=== PATIENT | male | born 1965 | race Caucasian/White ===

== ENCOUNTER 2020-01-21 00:20 | Inpatient (IN) ==
[2020-01-21] MEDS ORDERED: SODIUM CHLORIDE 0.9% 1000ML 1,000 ML IV SCH (00:45)
[2020-01-21 00:51] LABS: Basophils # (auto) 0.08 K/uL (0-0.2); Basophils % (auto) 0.9 %; Eosinophils # (auto) 0.19 K/uL (0-0.5); Eosinophils % (auto) 2.2 %; Hematocrit (blood only) 57.2 % (42-52); Hemoglobin 19.7 g/dL (14.0-18.0); Immature Granulocytes # (auto) 0.03 K/uL (0.00-0.02); Immature Granulocytes % (auto) 0.4 %; Lymphocytes # (auto) 1.58 K/uL (1.2-3.4); Lymphocytes % (auto) 18.7 %; Mean Corpuscular Hemoglobin 35.7 pg (25-34); Mean Corpuscular Volume 103.6 fL (80-100); Mean Platelet Volume 9.8 fL (7.4-10.4); Monocytes # (auto) 1.05 K/uL (0.11-0.59); Monocytes % (auto) 12.4 %; Neutrophils # (auto) 5.54 K/uL (1.4-6.5); Neutrophils % (auto) 65.4 %; Nucleated RBC # (auto) 0.02 K/uL (0-0); Nucleated RBC % (auto) 0.2 %; Platelet Count 319 K/uL (130-400); RDW Standard Deviation 49.2 fL (36.4-46.3); Red Blood Count 5.52 M/uL (4.7-6.1); White Blood Count 8.47 K/uL (4.8-10.8)
[2020-01-21] MEDS: METOPROLOL TARTRATE 1 MG/ML VIAL IV PRN ×3 (01:01→02:39)
[2020-01-21 01:10] LABS: Alanine Aminotransferase 126 U/L (12-78); Albumin Level 3.6 gm/dl (3.4-5.0); Aspartate Aminotransferase 41 U/L (15-37); BUN Creatinine Ratio 14.8 (10-20); Blood Urea Nitrogen 20 mg/dl (7-18); Calcium 8.8 mg/dl (8.5-10.1); Carbon Dioxide 27 mmol/L (21-32); Chloride 105 mmol/L (98-107); Creatinine Clr Calc Pharmacy 70.4 ml/min; Est GFR (African American) 67.8; Est GFR (Non-African American) 58.5; Glucose 99 mg/dl (70-99); Magnesium 1.8 mg/dl (1.8-2.4); Potassium 3.9 mmol/L (3.5-5.1); Sodium 138 mmol/L (136-145)
[2020-01-21 01:21] LABS: Albumin Globulin Ratio 0.9 (0.9-2); Alkaline Phosphatase 230 U/L (45-117); Globulin 4.2 gm/dl (2.5-4.0); Total Protein 7.8 gm/dl (6.4-8.2); Troponin I < 0.015 ng/ml (0-0.045)
[2020-01-21 01:23] LABS: Mean Corpuscular Hgb Conc 34.4 g/dL (32-36)
[2020-01-21 02:32] LABS: INR 1.1 (0.9-1.1); Partial Thromboplastin Ratio 0.9; Partial Thromboplastin Time 24.2 Seconds (21.0-31.0); Prothrombin Time 11.2 Seconds (9.0-12.0)
--- NOTE | 2020-01-21 03:00 | Emergency Department Note ---
History of Present Illness General Chief Complaint: Chest Pain Stated Complaint: CHEST PAINS, SOB Source: patient Mode of arrival: ambulatory Limitations: no limitations History of Present Illness Provider Complaint: chest pain and other (palpitations) Onset (ago): hour(s) 2 Duration: intermittent Maximum Pain Intensity: 3 This 54-year-old male patient presents the emergency department today, ambulatory, complaining of heart palpitations and shortness of breath. The patient states on Sunday evening, he developed the palpitations with some associated dyspnea. He had the weekend off work, and states he was doing well over the weekend. On Sunday when he returned to work, he continued to complain of palpitations, without the shortness of breath. He is able to get through work, but tonight when he got to work, he developed severe dyspnea with exertion, and was unable to walk 10 feet without feeling very short of breath. The patient is complaining of severe chest tightness. He denies any history of dysrhythmias. He denies any associated abdominal pain, nausea, or vomiting. The patient denies any recent illness or fever. He denies any history of hyperlipidemia, hypertension, or other cardiac disease. Patient denies any cur rent pain. He states that this max, pain was 3/10 and describes as sharp in the middle of the chest. Home Medications Home Medications Medication Instructions Recorded Confirmed Type acetaminophen [Tylenol Extra 500 - 1,000 mg PO DIRECTED PRN 01/21/20 01/21/20 History Strength] aspirin 325 mg PO DIRECTED PRN 01/21/20 01/21/20 History Allergies Allergy/AdvReac Type Severity Reaction Status Date / Time No Known Allergies Allergy Verified 01/21/20 00:54 Past Med/Surg History Medical History No pertinent past medical history Social History Preferred Language: Irish Feels Safe at Home: Yes Smoking Status: Never smoker Review of Systems A total of 10 systems reviewed and were otherwise negative Physical Exam Vital Signs Vital Signs - 24 hr 01/21/20 00:22 01/21/20 00:30 01/21/20 01:01 Temperature 36.6 C Temperature Source Oral Pulse Rate 78 143 H 138 H Pulse Rate from SpO2 Sensor 90 94 H Respiratory Rate 20 16 17 Respiratory Effort / Characteristics Non-Labored Spontaneous Respiratory Depth Normal Blood Pressure 136/92 110/88 122/86 Blood Pressure Mean 106 92 94 Pulse Oximetry 98 97 99 Oxygen Delivery Method Room Air Room Air Room Air Sepsis Action Taken by Nursing No Action Required 01/21/20 01:25 01/21/20 01:26 01/21/20 01:30 Temperature Temperature Source Pulse Rate 114 H 111 H 110 H Pulse Rate from SpO2 Sensor 106 H 109 H Respiratory Rate 15 14 Respiratory Effort / Characteristics Respiratory Depth Blood Pressure 122/86 111/79 96/77 L Blood Pressure Mean 84 83 Pulse Oximetry 98 98 Oxygen Delivery Method Room Air Room Air Sepsis Action Taken by Nursing 01/21/20 01:41 01/21/20 01:45 01/21/20 02:00 Temperature Temperature Source Pulse Rate 109 H 99 H 108 H Pulse Rate from SpO2 Sensor 101 H 96 H 97 H Respiratory Rate 18 15 15 Respiratory Effort / Characteristics Respiratory Depth Blood Pressure 104/75 96/72 L 107/82 Blood Pressure Mean 95 87 96 Pulse Oximetry 98 97 98 Oxygen Delivery Method Room Air Room Air Room Air Sepsis Action Taken by Nursing 01/21/20 02:15 01/21/20 02:30 01/21/20 02:39 Temperature Temperature Source Pulse Rate 108 H 106 H 105 H Pulse Rate from SpO2 Sensor 95 H 108 H Respiratory Rate 16 16 Respiratory Effort / Characteristics Respiratory Depth Blood Pressure 113/86 107/77 107/77 Blood Pressure Mean 107 97 Pulse Oximetry 98 99 Oxygen Delivery Method Room Air Room Air Sepsis Action Taken by Nursing 01/21/20 02:45 01/21/20 03:00 01/21/20 03:15 Temperature Temperature Source Pulse Rate 96 H 104 H 102 H Pulse Rate from SpO2 Sensor 95 H 87 110 H Respiratory Rate 14 19 18 Respiratory Effort / Characteristics Respiratory Depth Blood Pressure 96/74 L 107/79 119/92 Blood Pressure Mean 84 85 98 Pulse Oximetry 100 99 98 Oxygen Delivery Method Room Air Room Air Room Air Sepsis Action Taken by Nursing 01/21/20 03:30 01/21/20 03:45 01/21/20 04:01 Temperature Temperature Source Pulse Rate 111 H 110 H 116 H Pulse Rate from SpO2 Sensor 102 H Respiratory Rate 14 18 20 Respiratory Effort / Characteristics Respiratory Depth Blood Pressure 100/75 104/86 114/99 Blood Pressure Mean 80 91 102 Pulse Oximetry 98 99 98 Oxygen Delivery Method Room Air Sepsis Action Taken by Nursing 01/21/20 04:06 01/21/20 04:10 01/21/20 04:15 Temperature Temperature Source Pulse Rate 102 H 101 H 86 Pulse Rate from SpO2 Sensor 83 86 Respiratory Rate 18 18 13 Respiratory Effort / Characteristics Respiratory Depth Blood Pressure 107/70 108/73 98/73 L Blood Pressure Mean 81 86 79 Pulse Oximetry 97 97 97 Oxygen Delivery Method Room Air Sepsis Action Taken by Nursing VITALS: Vitals are noted on the nurse's note and reviewed by myself. Patient is tachycardic, but normotensive. OxyIR. Patient is afebrile. GENERAL: This is a 54-year-old white male, in no acute distress, nondiaphoretic, well-developed well-nourished. SKIN: The skin was without rashes, erythema, edema, or bruising. There is no tenting of the skin. Capillary refill less than 2 seconds. HEAD: Normocephalic atraumatic. EYES: Conjunctivae without injection, sclerae without icterus. NECK: Supple without nuchal rigidity. No lymphadenopathy. No thyromegaly. Cervical spine is nontender. No JVD. HEART: Irregular regular rate and rhythm without murmurs gallops or rubs. LUNGS: Clear to auscultation bilaterally without wheezes, rales or rhonchi. No retractions or accessory muscle use. ABDOMEN: Positive bowel sounds x 4. Normal tympanic percussion. Soft, nontender, without masses or organomegaly. Kirby sign negative. No guarding or rebound tenderness. MUSCULOSKELETAL: No muscle atrophy, erythema, or edema noted. Full range of motion without joint tenderness in all extremities. No tenderness to palpation. Normal gait. Strength 5/5 throughout. NEURO: Patient was alert and oriented to person place and time. Normal sensation to light and sharp touch. No focal neurological deficits. Course Course The patient was seen and evaluated as above. An order was placed for continuous cardiac monitoring. The monitor shows atrial fibrillation at a rate of 123 beats per minute. IV access obtained, labs drawn. Patient medicated with IV fluids. I discussed case with my attending physician. Patient medicated with metoprolol tartrate 5 mg IV x3 Patient was reassessed and is feeling better, denies any chest pain at this time, but continues to intermittently feel the palpitations. Imaging performed and reviewed by myself as noted. Labs reviewed by myself. Repeat EKG completed. Patient medicated with 10 mg IV Cardizem. I discussed the findings with the patient at bedside. I did recommend admission. The patient was agreeable. I discussed the case with the partnership manager. I discussed the case with Dr. Vasquez, [facility] physician. He did agree to see and evaluate the patient. Administered Medications Metoprolol Tartrate (Lopressor) 5 mg IV Q5M PRN PRN Reason: Tachycardia Stop: 02/20/20 00:38 Last Admin: 01/21/20 02:39 Dose: 5 mg Documented by: [id number] Admin: 01/21/20 01:25 Dose: 5 mg Documented by: [id number] Admin: 01/21/20 01:01 Dose: 5 mg Documented by: [id number] Discontinued Medications Diltiazem HCl (Cardizem) 10 mg IV NOW STA Stop: 01/21/20 03:49 Last Admin: 01/21/20 04:01 Dose: 10 mg Documented by: [id number] Cosigned by: [id number] Sodium Chloride (Nss 1000ml) 1,000 mls @ 999 mls/hr IV .Q1H1M UMBERTO Stop: 01/21/20 01:45 Last Infusion: 01/21/20 01:57 Dose: 0 mls/hr Documented by: [id number] Admin: 01/21/20 00:45 Dose: 999 mls/hr Documented by: [id number] Medical Decision Making Differential Diagnosis + stable angina, + unstable angina pectoris, + atypical chest pain, + st elevation myocardial infarction, + costochondritis, + biliary colic, + cardiac ischemia, + myocarditis, + pericarditis, + costochondritis, + pleurisy, + aortic dissection, + pulmonary embolism, + pneumonia, + musculoskeletal, + infections, + cholecystitis, + pancreatitis and + esophageal rupture Home Medications Current Medication List: was personally reviewed by me Laboratory Data Attestation: I reviewed the patient's lab results. Lab results narrative: No leukocytosis, anemia, thrombocytopenia. Renal, hepatic function and electrolytes without significant abnormality. Troponin negative. TSH 4.130. Coags normal. Result diagrams: 01/21/20 00:40 01/21/20 00:40 Labs: Lab Results 01/21/20 01/21/20 01/21/20 Range/Units 00:40 00:40 00:40 WBC 8.47 (4.8-10.8) K/uL RBC 5.52 (4.7-6.1) M/uL Hgb 19.7 H (14.0-18.0) g/dL Hct 57.2 H (42-52) % MCV 103.6 H (80-100) fL MCH 35.7 H (25-34) pg MCHC 34.4 (32-36) g/dL RDW Std Deviation 49.2 H (36.4-46.3) fL RDW Coeff of Dagmar 13.0 (11.5-14.5) % Plt Count 319 (130-400) K/uL MPV 9.8 (7.4-10.4) fL Immature Gran % (Auto) 0.4 % Neut % (Auto) 65.4 % Lymph % (Auto) 18.7 % [place] % (Auto) 12.4 % Eos % (Auto) 2.2 % Baso % (Auto) 0.9 % Immature Gran # (Auto) 0.03 H (0.00-0.02) K/uL Neut # (Auto) 5.54 (1.4-6.5) K/uL Lymph # (Auto) 1.58 (1.2-3.4) K/uL [place] # (Auto) 1.05 H (0.11-0.59) K/uL Eos # (Auto) 0.19 (0-0.5) K/uL Baso # (Auto) 0.08 (0-0.2) K/uL Absolute Nucleated RBC 0.02 H (0-0) K/uL Nucleated RBC % (auto) 0.2 % PT Cancelled INR Cancelled APTT Cancelled PTT Ratio Cancelled Sodium 138 (136-145) mmol/L Potassium 3.9 (3.5-5.1) mmol/L Chloride 105 (98-107) mmol/L Carbon Dioxide 27 (21-32) mmol/L Anion Gap 6.0 (3-11) BUN 20 H (7-18) mg/dl Creatinine 1.37 (0.6-1.4) mg/dl Est Cr Clr Drug Dosing 70.4 ml/min Est GFR ( Amer) 67.8 Est GFR (Non-Af Amer) 58.5 BUN/Creatinine Ratio 14.8 (10-20) Glucose 99 (70-99) mg/dl Calcium 8.8 (8.5-10.1) mg/dl Magnesium 1.8 (1.8-2.4) mg/dl Total Bilirubin 1.0 (0.2-1) mg/dl AST 41 H (15-37) U/L ALT 126 H (12-78) U/L Alkaline Phosphatase 230 H (45-117) U/L Troponin I < 0.015 (0-0.045) ng/ml Total Protein 7.8 (6.4-8.2) gm/dl Albumin 3.6 (3.4-5.0) gm/dl Globulin 4.2 H (2.5-4.0) gm/dl Albumin/Globulin Ratio 0.9 (0.9-2) TSH 4.130 (0.300-4.500) uIu/ml 01/21/20 Range/Units 01:49 WBC (4.8-10.8) K/uL RBC (4.7-6.1) M/uL Hgb (14.0-18.0) g/dL Hct (42-52) % MCV (80-100) fL MCH (25-34) pg MCHC (32-36) g/dL RDW Std Deviation (36.4-46.3) fL RDW Coeff of Dagmar (11.5-14.5) % Plt Count (130-400) K/uL MPV (7.4-10.4) fL Immature Gran % (Auto) % Neut % (Auto) % Lymph % (Auto) % [place] % (Auto) % Eos % (Auto) % Baso % (Auto) % Immature Gran # (Auto) (0.00-0.02) K/uL Neut # (Auto) (1.4-6.5) K/uL Lymph # (Auto) (1.2-3.4) K/uL [place] # (Auto) (0.11-0.59) K/uL Eos # (Auto) (0-0.5) K/uL Baso # (Auto) (0-0.2) K/uL Absolute Nucleated RBC (0-0) K/uL Nucleated RBC % (auto) % PT 11.2 INR 1.1 APTT 24.2 PTT Ratio 0.9 Sodium (136-145) mmol/L Potassium (3.5-5.1) mmol/L Chloride (98-107) mmol/L Carbon Dioxide (21-32) mmol/L Anion Gap (3-11) BUN (7-18) mg/dl Creatinine (0.6-1.4) mg/dl Est Cr Clr Drug Dosing ml/min Est GFR ( Amer) Est GFR (Non-Af Amer) BUN/Creatinine Ratio (10-20) Glucose (70-99) mg/dl Calcium (8.5-10.1) mg/dl Magnesium (1.8-2.4) mg/dl Total Bilirubin (0.2-1) mg/dl AST (15-37) U/L ALT (12-78) U/L Alkaline Phosphatase (45-117) U/L Troponin I (0-0.045) ng/ml Total Protein (6.4-8.2) gm/dl Albumin (3.4-5.0) gm/dl Globulin (2.5-4.0) gm/dl Albumin/Globulin Ratio (0.9-2) TSH (0.300-4.500) uIu/ml Imaging Data Chest x-ray: Attestation: I personally reviewed and interpreted this imaging study as follows: My impression: Chest x-ray. Findings: A chest x-ray was performed and revealed no pneumothorax, effusion, infiltrate, pulmonary edema, free air under the diaphragm, or wide mediastinum. ECG Data Attestation: I personally reviewed and interpreted this ECG as follows: Indication: chest pain and palpitations Rate (beats per minute): 134 Rhythm: atrial fibrillation Findings: no ST depression, no T-wave inversion and no ST elevation Comparison ECG Date: no prior available Additional Comments: Repeat EKG completed 2 hours later shows atrial fibrillation with RVR with ventricular rate of [address] elevation or depression. No significant change when compared to EKG completed earlier. Blood Pressure Blood Pressure Findings: Normal blood pressure MDM Narrative This 54-year-old male patient presents emergency department today with complai nts of chest pain, dyspnea on exertion, and palpitations. Upon arrival to the ED, the patient was found to be in atrial fibrillation with RVR. This is a new onset. The patient does not have any past cardiac history. Patient's rate was controlled while here in the emergency department with metoprolol followed by Cardizem. Unfortunately, the patient's rhythm did not convert. The patient's symptoms improved while here in the department, but I do feel that he will benefit from inpatient management. [facility] Please see hospitalist dictation regarding ongoing management care of this patient. The chart was completed utilizing [employer] voice recognition software. Grammatical errors, random word insertions, pronoun errors, and incomplete sentences are an occasional consequence of this system due to software limitations, ambient noise, and hardware issues. Any formal questions or concerns about the content, text, or information contained within the body of this dictation should be directly addressed to the provider for clarification. Impression & Plan Atrial fibrillation with RVR, Chest pain, Dyspnea on exertion Discharge Plan Visit Data Chief Complaint: Chest Pain Stated Complaint: CHEST PAINS, SOB ED Provider: Brianne Roa ED Midlevel Provider: Angelina Black Discharge Problem: Atrial fibrillation with RVR, Chest pain, Dyspnea on exertion Patient Disposition: Admitted As Inpatient Forms Stand Alone Forms: [facility], Virtual Emergency Department, Important Visit Information Prescriptions Prescriptions: No Action acetaminophen [Tylenol Extra Strength] 500 mg Tablet 500 - 1,000 mg PO DIRECTED PRN (Reason: Pain) RF: 0 aspirin 325 mg Tablet,Delayed Release (Dr/Ec) 325 mg PO DIRECTED PRN (Reason: Pain) RF: 0 Referrals Referrals: PCP,NO [Primary Care Provider] -
[2020-01-21] MEDS ORDERED: dilTIAZem HCl 5 MG/ML 5 ML VIAL IV STA ×2 (03:48→14:09)
[2020-01-21] MEDS ORDERED: NORMOSOL-R 500 ML IV ONE (04:30)
[2020-01-21] MEDS ORDERED: POTASSIUM CHLORIDE 20 MEQ TABCR PO STA (04:31)
[2020-01-21] MEDS ORDERED: MAGNESIUM SULFATE / D5W 1 GM/100 ML BAG IV STA (04:32)
[2020-01-21 04:58] LABS: D Dimer 680 ug/L FEU (0-500)
--- NOTE | 2020-01-21 05:10 | History & Physical Report ---
Date of Service January 21, 2020 Assessment & Plan (1) Atrial fibrillation with RVR: New onset ? Related to [place]OR[place] Polycythemia, poor sleep ? Secondary to [place] PCU Initiate maintenance beta-tong Rx for rate control IV heparin for thromboembolic prophylaxis TTE, Cardiology consult RE new onset A. fib Outpatient sleep study DVT prophylaxis. IV heparin Full code Text document was generated using [employer] voice recognition software. It may contain grammatical or spelling errors. Kindly contact undersigned for clarification of any documentation item in question. History of Present Illness Chief Complaint: Palpitations, shortness of breath Primary Care Provider: LENCHO Khoury History obtained from patient and records. Medical history significant for mild FLORENCE (not requiring CPAP from sleep study from 2 years ago). 5 days ago patient noted palpitations and shortness of breath at rest. Symptoms persistent over the next few days. No headache, no cough, no chest pain. 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 Not sleeping a lot. Patient actually stopped coffee, alcohol, energy drink consumption prior to symptoms as a healthy lifestyle measure. Last night symptoms accompanied by transient chest tightness. At the ER, patient noted to be in rapid A. fib. Cardiac rate 110-140s. Patient given boluses of Lopressor and Cardizem at the ER. Cardiac rate currently 90s. 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 [employer] Allergies Allergy/AdvReac Type Severity Reaction Status Date / Time No Known Allergies Allergy Verified 01/21/20 00:54 Home Medications Home Medications Medication Instructions Recorded Confirmed Type acetaminophen [Tylenol Extra 500 - 1,000 mg PO DIRECTED PRN 01/21/20 01/21/20 History Strength] aspirin 325 mg PO DIRECTED PRN 01/21/20 01/21/20 History Past Med/Surg History Medical History No pertinent past medical history Social History Preferred Language: Urdu Beliefs That Will Affect Care: None Current Living Situation: Alone Other Information That Helps Us Care for You: No Feels Safe at Home: Yes Safety Concerns: Feels Safe At This Time Smoking Status: Never smoker Hx Alcohol Use: Yes Alcohol type: beer Hx Substance Use: No Review of Systems Review of Systems: As per HPI, all 10 systems reviewed, all other ROS negative Physical Exam Physical Exam: GENERAL: Comfortable, pleasant, obese, no respiratory distress SKIN: Normal color, warm HEENT: [place] palpebral conjunctivae, no ptosis, dry buccal mucosa NECK : Supple, short neck, no tenderness CHEST : CTA, no tenderness HEART : irregular, no obvious murmurs ABDOMEN: Some distention, nontender EXTREMITIES : No LE swelling/tenderness, no other conspicuous deformities noted NEUROLOGIC : Coherent, no facial asymmetry, no other gross focality Results & Data Results & Data ([facility]) Vital Signs (Past 12 Hours) Vital Signs Temp Pulse Resp BP Pulse Ox 01/21/20 04:15 86 13 98/73 L 97 01/21/20 04:10 101 H 18 108/73 97 01/21/20 04:06 102 H 18 107/70 97 01/21/20 04:01 116 H 20 114/99 98 01/21/20 03:45 110 H 18 104/86 99 01/21/20 03:30 111 H 14 100/75 98 01/21/20 03:15 102 H 18 119/92 98 01/21/20 03:00 104 H 19 107/79 99 01/21/20 02:45 96 H 14 96/74 L 100 01/21/20 02:39 105 H 107/77 01/21/20 02:30 106 H 16 107/77 99 01/21/20 02:15 108 H 16 113/86 98 01/21/20 02:00 108 H 15 107/82 98 01/21/20 01:45 99 H 15 96/72 L 97 01/21/20 01:41 109 H 18 104/75 98 01/21/20 01:30 110 H 14 96/77 L 98 01/21/20 01:26 111 H 15 111/79 98 01/21/20 01:25 114 H 122/86 01/21/20 01:01 138 H 17 122/86 99 01/21/20 00:30 143 H 16 110/88 97 01/21/20 00:22 36.6 C 78 20 136/92 98 Laboratory Results Laboratory Results WBC 8.47 K/uL (4.8-10.8) 01/21/20 00:40 RBC 5.52 M/uL (4.7-6.1) 01/21/20 00:40 Hgb 19.7 g/dL (14.0-18.0) H 01/21/20 00:40 Hct 57.2 % (42-52) H 01/21/20 00:40 MCV 103.6 fL (80-100) H 01/21/20 00:40 MCH 35.7 pg (25-34) H 01/21/20 00:40 MCHC 34.4 g/dL (32-36) 01/21/20 00:40 RDW Std Deviation 49.2 fL (36.4-46.3) H 01/21/20 00:40 RDW Coeff of Dagmar 13.0 % (11.5-14.5) 01/21/20 00:40 Plt Count 319 K/uL (130-400) 01/21/20 00:40 MPV 9.8 fL (7.4-10.4) 01/21/20 00:40 Immature Gran % (Auto) 0.4 % 01/21/20 00:40 Neut % (Auto) 65.4 % 01/21/20 00:40 Lymph % (Auto) 18.7 % 01/21/20 00:40 [place] % (Auto) 12.4 % 01/21/20 00:40 Eos % (Auto) 2.2 % 01/21/20 00:40 Baso % (Auto) 0.9 % 01/21/20 00:40 Immature Gran # (Auto) 0.03 K/uL (0.00-0.02) H 01/21/20 00:40 Neut # (Auto) 5.54 K/uL (1.4-6.5) 01/21/20 00:40 Lymph # (Auto) 1.58 K/uL (1.2-3.4) 01/21/20 00:40 [place] # (Auto) 1.05 K/uL (0.11-0.59) H 01/21/20 00:40 Eos # (Auto) 0.19 K/uL (0-0.5) 01/21/20 00:40 Baso # (Auto) 0.08 K/uL (0-0.2) 01/21/20 00:40 Absolute Nucleated RBC 0.02 K/uL (0-0) H 01/21/20 00:40 Nucleated RBC % (auto) 0.2 % 01/21/20 00:40 PT 11.2 Seconds (9.0-12.0) 01/21/20 01:49 INR 1.1 (0.9-1.1) 01/21/20 01:49 APTT 24.2 Seconds (21.0-31.0) 01/21/20 01:49 PTT Ratio 0.9 01/21/20 01:49 D-Dimer 680 ug/L FEU (0-500) H* 01/21/20 01:49 Sodium 138 mmol/L (136-145) 01/21/20 00:40 Potassium 3.9 mmol/L (3.5-5.1) 01/21/20 00:40 Chloride 105 mmol/L (98-107) 01/21/20 00:40 Carbon Dioxide 27 mmol/L (21-32) 01/21/20 00:40 Anion Gap 6.0 (3-11) 01/21/20 00:40 BUN 20 mg/dl (7-18) H 01/21/20 00:40 Creatinine 1.37 mg/dl (0.6-1.4) 01/21/20 00:40 Est Cr Clr Drug Dosing 70.4 ml/min 01/21/20 00:40 Est GFR ( Amer) 67.8 01/21/20 00:40 Est GFR (Non-Af Amer) 58.5 01/21/20 00:40 BUN/Creatinine Ratio 14.8 (10-20) 01/21/20 00:40 Glucose 99 mg/dl (70-99) 01/21/20 00:40 Calcium 8.8 mg/dl (8.5-10.1) 01/21/20 00:40 Magnesium 1.8 mg/dl (1.8-2.4) 01/21/20 00:40 Total Bilirubin 1.0 mg/dl (0.2-1) 01/21/20 00:40 AST 41 U/L (15-37) H 01/21/20 00:40 ALT 126 U/L (12-78) H 01/21/20 00:40 Alkaline Phosphatase 230 U/L (45-117) H 01/21/20 00:40 Troponin I < 0.015 ng/ml (0-0.045) 01/21/20 00:40 Total Protein 7.8 gm/dl (6.4-8.2) 01/21/20 00:40 Albumin 3.6 gm/dl (3.4-5.0) 01/21/20 00:40 Globulin 4.2 gm/dl (2.5-4.0) H 01/21/20 00:40 Albumin/Globulin Ratio 0.9 (0.9-2) 01/21/20 00:40 TSH 4.130 uIu/ml (0.300-4.500) 01/21/20 00:[address] chest initial read: No evidence of acute pulmonary embolism. 3 mm calculus left kidney. Mild cardiomegaly. EKG as per my interpretation: Rate 115, A. fib, RAD, T wave abnormalities inferior leads
[2020-01-21] MEDS ORDERED: OPTIRAY 320 125ml IV PRN (05:38)
[2020-01-21] MEDS: HEPARIN SODIUM/DEXTROSE 25,000 UNITS/500 ML BAG IV SCH ×2 (05:57→21:05)
[2020-01-21] MEDS ORDERED: PROMETHAZINE HCL 12.5 MG in SODIUM CHLORIDE 0.9% 50 ML IV PRN (06:28)
[2020-01-21] MEDS ORDERED: METOPROLOL TARTRATE 25 MG TAB PO SCH (06:28)
[2020-01-21] MEDS ORDERED: LORazepam 0.5 MG/1 ML VIAL IV PRN (06:28)
[2020-01-21] MEDS ORDERED: ACETAMINOPHEN 325 MG TAB PO PRN (06:28)
[2020-01-21] MEDS ORDERED: NITROGLYCERIN SL 0.4 MG/TAB TAB SL PRN (06:28)
--- NOTE | 2020-01-21 06:47 | XRay Report ---
XR chest 1V portable HISTORY: 54 years-old Male palpitations acute shortness of breath with cardiac palpitations COMPARISON: CTA of the chest of same day TECHNIQUE: Portable AP view of the chest FINDINGS: Moderate cardiomegaly. No pneumothorax, pleural effusion, airspace consolidation or overt pulmonary e dee. Bones appear grossly intact. IMPRESSION: Cardiomegaly without acute process. ACT 112: Negative or not required by law. The above report was generated using voice recognition software. It may contain grammatical, syntax o r spelling errors. Electronically signed by: Matias Chaudhary M.D. 01/21/2020 6:46 AM
--- NOTE | 2020-01-21 06:56 | CT Scan Report ---
CT ANGIOGRAPHY OF THE CHEST, PULMONARY EMBOLUS PROTOCOL CLINICAL HISTORY: Midsternal chest pressure and tightness. Shortness of breath. Palpitations. COMPARISON STUDY: Chest radiograph January 21, 2020. TECHNIQUE: Following IV administration of 119 mL of Optiray-320, helical axial images of the chest we re obtained utilizing the pulmonary embolus protocol. Maximal intensity projections and sagittal and coronal reformats were viewed on an independent 3D workstation. IV contrast was administered withou t complication. Automated exposure control was utilized for the study. A dose lowering technique wa s utilized adhering to the principles of ALARA. CT DOSE: 604.16 mGycm FINDINGS: No pulmonary emboli are identified. No thoracic aortic dissection is noted. Heart is mildl y enlarged. There is no pericardial effusion. There is a mildly enlarged left upper mediastinal lymph node, measuring 1.5 cm in short axis diameter. This is shown on axial image 96 of 117. There is no h ilar or axillary lymphadenopathy. No pneumothorax or pleural effusion is noted. No consolidation to s uggest pneumonia. Mild groundglass opacities favor atelectasis. Bony thorax is unremarkable. Mildly e nlarged upper abdominal lymph nodes are noted. A portacaval lymph node measures 1.9 cm in short axis diameter. A 2 mm calculus within the upper pole of the left kidney is noted. Note is made of a 1.2 cm lesion within the upper pole of the right kidney measures above water attenuation. IMPRESSION: 1. No pulmonary emboli identified. 2. No acute findings within the chest. 3. Mild cardiomegaly. 4. Mildly enlarged mediastinal and upper abdominal lymph nodes. These are nonspecific and a short-ter m follow-up CT in 3 months could be obtained to ensure stability. This finding will be called/faxed t o the ordering provider at time of dictation. 5. 1.2 cm right upper pole renal lesion which measures above water attenuation. This could reflect a complex cyst or small solid renal lesion. A renal ultrasound is recommended. ACT 112: Negative or not required by law. Electronically signed by: Gerry Adhikari M.D. 01/21/2020 6:54 AM
[2020-01-21] MEDS: Heparin IV Standard *NO* Bolus IV SCH (07:00)
--- NOTE | 2020-01-21 10:17 | Cardiology Consultation ---
Date of Consultation January 21, 2020 Assessment & Plan (1) Atrial fibrillation with RVR: The pathophysiology and treatment options for atrial fibrillation were discussed with him in great detail today. He has been started on appropriate beta-blockade and IV heparin. I will increase the dose of beta-tong at this time to 25 mg p.o. every 6 hours for further rate control. Given his significant symptoms I do believe that a rhythm control strategy would be prudent and will plan for a transesophageal echocardiogram guided cardioversion during this stay. He will be continued on heparin for anticoagulation for now but will discharge home on Eliquis, the pros and cons of vitamin K agonist versus non-vitamin K agonist anticoagulation were discussed with him at great lengths and he agrees with Eliquis. (2) Dyspnea on exertion: Likely secondary to above. We will rule out ischemia as a possible cause as well (3) Chest pain: Likely secondary to A. fib with RVR but again will rule out ischemia. (4) Cardiomyopathy: Newly discovered biventricular failure. LV systolic function showing moderate global hypokinesis with an EF of 40 to 45%. The pathophysiology and differential diagnosis for this was discussed with him at great lengths. I believe the most prudent course of action at this time would be to rule out ischemia as a possible cause and will proceed directly to cardiac catheterization in the a.m. The risks and benefits of which were discussed with the patient. At the same time we will change him over to evidence-based beta-tong in the a.m. He will be started on aldosterone antagonist prior to discharge He will also be started on ARB prior to discharge as his blood pressure allows. My hope at this point is that this is a tachycardia induced cardiomyopathy and will resolve with religious of sinus rhythm. But again will treat with guideline directed medical therapy at this time (5) Right ventricular failure: CT of the chest without PE or significant pulmonary pathology (6) Transaminitis: Will defer to the primary team History of Present Illness Reason for Consultation: afib with rvr Requesting Physician: Dr. Pagan Attending Physician: Zbigniew Pagan MD History of Present Illness It was my pleasure to see Mr. Menon in consultation today January 21, 2020. He is a very pleasant 54-year-old gentleman who historically has not required ongoing medical care. He presented to [facility] early in the a.m. of 01/21/2020 with complaints of palpitations. He states that he first noticed these approximately 3 days prior to presentation. He states that he just felt his heart started to race in his chest. He did not have any associated symptoms at that time and took it easy for a couple days thinking that it might go away on its own. Then last evening he went back to work for his scheduled shift and he started becoming very short of breath with just minimal activity. He states that he could only walk about 5 steps before he got significantly short of breath. He says the shortness of breath was bad enough that he had to stop to catch his breath. This was also associated with left-sided chest pain. He described the pain as a pressure sensation across his left precordium. He denied any radiation of the discomfort or associated nausea or diaphoresis. He did become lightheaded and dizzy at that time as well and decided coming to the emergency room. Upon arrival emergency department he was found to be in atrial fibrillation with rapid ventricular response. He was admitted to telemetry on oral beta-blockers and IV heparin. He states that overnight he can still feels heart racing in his chest but otherwise feels well. He denies any history of cardiac issues. He did have high blood pressure in the past which she controlled through therapeutic lifestyle changes. He denies any recent illnesses and has been feeling well up until this time. He specifically notes that he is made some healthy lifestyle changes a few weeks ago cutting out caffeine, alcohol and highly caloric foods. Allergies Allergy/AdvReac Type Severity Reaction Status Date / Time No Known Allergies Allergy Verified 01/21/20 00:54 Home Medications Home Medications Medication Instructions Recorded Confirmed Type acetaminophen [Tylenol Extra 500 - 1,000 mg PO DIRECTED PRN 01/21/20 01/21/20 History Strength] aspirin 325 mg PO DIRECTED PRN 01/21/20 01/21/20 History Patient History Medical History No pertinent past medical history Social History Preferred Language: Palestinian Beliefs That Will Affect Care: None Current Living Situation: Alone Other Information That Helps Us Care for You: No Feels Safe at Home: Yes Safety Concerns: Feels Safe At This Time Smoking Status: Never smoker Hx Alcohol Use: Yes Alcohol type: beer Hx Substance Use: No Review of Systems Review of Systems: All systems reviewed & are unremarkable except as noted in HPI & below Physical Exam Physical Exam: General: Awake, alert and oriented x 3. No acute distress. HEENT: Normocephalic, atraumatic. Pupils equal, round and reactive to light and accommodation. Extraocular muscles are intact. Anicteric sclera. Moist mucous membranes. Neck: No JVD. No bruit. Cardiovascular: irregularly irregular, unable to appreciate murmur, rub or gallop. Pulmonary: Clear to auscultation bilaterally. No rales, rhonchi, or wheezing. Abdomen: Bowel sounds x 4, soft. No rebound, guarding or tenderness. No organomegaly. Extremities: No clubbing, cyanosis or edema. +2 pedal pulses bilaterally. Skin: Warm and dry. Results & Data ([facility]) Vital Signs (Past 12 Hours) Vital Signs Temp Pulse Pulse Pulse Resp BP BP 01/21/20 08:02 36.9 C 101 H 16 122/82 01/21/20 07:00 110 H 21 01/21/20 06:29 37.3 C 100 H 18 117/87 01/21/20 05:40 105 H 20 132/90 01/21/20 05:39 97 H 20 112/81 01/21/20 05:25 96 H 20 113/86 01/21/20 05:20 102 H 20 116/92 01/21/20 05:16 110 H 20 136/106 H 01/21/20 05:10 106 H 20 120/106 H 01/21/20 05:08 95 H 22 123/97 01/21/20 04:55 100 H 20 106/90 01/21/20 04:50 101 H 20 119/80 01/21/20 04:45 96 H 20 105/82 01/21/20 04:40 89 20 107/87 01/21/20 04:35 95 H 20 128/78 01/21/20 04:30 92 H 20 111/75 01/21/20 04:25 90 20 103/77 01/21/20 04:20 84 20 100/88 01/21/20 04:15 86 13 98/73 L 01/21/20 04:10 101 H 18 108/73 01/21/20 04:06 102 H 18 107/70 01/21/20 04:01 116 H 20 114/99 01/21/20 03:45 110 H 18 104/86 01/21/20 03:30 111 H 14 100/75 01/21/20 03:15 102 H 18 119/92 01/21/20 03:00 104 H 19 107/79 01/21/20 02:45 96 H 14 96/74 L 01/21/20 02:39 105 H 107/77 01/21/20 02:30 106 H 16 107/77 01/21/20 02:15 108 H 16 113/86 01/21/20 02:00 108 H 15 107/82 01/21/20 01:45 99 H 15 96/72 L 01/21/20 01:41 109 H 18 104/75 01/21/20 01:30 110 H 14 96/77 L 01/21/20 01:26 111 H 15 111/79 01/21/20 01:25 114 H 122/86 01/21/20 01:01 138 H 17 122/86 01/21/20 00:30 143 H 16 110/88 01/21/20 00:22 36.6 C 78 20 136/92 Pulse Ox 01/21/20 08:02 98 01/21/20 07:00 01/21/20 06:29 97 01/21/20 05:40 98 01/21/20 05:39 99 01/21/20 05:25 98 01/21/20 05:20 98 01/21/20 05:16 97 01/21/20 05:10 97 01/21/20 05:08 98 01/21/20 04:55 98 01/21/20 04:50 98 01/21/20 04:45 96 01/21/20 04:40 96 01/21/20 04:35 96 01/21/20 04:30 97 01/21/20 04:25 97 01/21/20 04:20 97 01/21/20 04:15 97 01/21/20 04:10 97 01/21/20 04:06 97 01/21/20 04:01 98 01/21/20 03:45 99 01/21/20 03:30 98 01/21/20 03:15 98 01/21/20 03:00 99 01/21/20 02:45 100 01/21/20 02:39 06/10/20 02:30 99 01/21/20 02:15 98 01/21/20 02:00 98 01/21/20 01:45 97 01/21/20 01:41 98 01/21/20 01:30 98 01/21/20 01:26 98 01/21/20 01:25 01/21/20 01:01 99 01/21/20 00:30 97 01/21/20 00:22 98 Laboratory Results Laboratory Results - last 24 hr 01/21/20 01/21/20 01/21/20 00:40 00:40 00:40 WBC 8.47 RBC 5.52 Hgb 19.7 H Hct 57.2 H MCV 103.6 H MCH 35.7 H MCHC 34.4 RDW Std Deviation 49.2 H RDW Coeff of Dagmar 13.0 Plt Count 319 MPV 9.8 Immature Gran % (Auto) 0.4 Neut % (Auto) 65.4 Lymph % (Auto) 18.7 Culberson % (Auto) 12.4 Eos % (Auto) 2.2 Baso % (Auto) 0.9 Immature Gran # (Auto) 0.03 H Neut # (Auto) 5.54 Lymph # (Auto) 1.58 Culberson # (Auto) 1.05 H Eos # (Auto) 0.19 Baso # (Auto) 0.08 Absolute Nucleated RBC 0.02 H Nucleated RBC % (auto) 0.2 PT Cancelled INR Cancelled APTT Cancelled PTT Ratio Cancelled D-Dimer Sodium 138 Potassium 3.9 Chloride 105 Carbon Dioxide 27 Anion Gap 6.0 BUN 20 H Creatinine 1.37 Est Cr Clr Drug Dosing 70.4 Est GFR ( Amer) 67.8 Est GFR (Non-Af Amer) 58.5 BUN/Creatinine Ratio 14.8 Glucose 99 Calcium 8.8 Magnesium 1.8 Total Bilirubin 1.0 AST 41 H ALT 126 H Alkaline Phosphatase 230 H Troponin I < 0.015 Total Protein 7.8 Albumin 3.6 Globulin 4.2 H Albumin/Globulin Ratio 0.9 Lipase TSH 4.130 01/21/20 01/21/20 01/21/20 00:40 01:49 01:49 WBC RBC Hgb Hct MCV MCH MCHC RDW Std Deviation RDW Coeff of Dagmar Plt Count MPV Immature Gran % (Auto) Neut % (Auto) Lymph % (Auto) Culberson % (Auto) Eos % (Auto) Baso % (Auto) Immature Gran # (Auto) Neut # (Auto) Lymph # (Auto) [place]berson # (Auto) Eos # (Auto) Baso # (Auto) Absolute Nucleated RBC Nucleated RBC % (auto) PT 11.2 INR 1.1 APTT 24.2 PTT Ratio 0.9 D-Dimer 680 H* Sodium Potassium Chloride Carbon Dioxide Anion Gap BUN Creatinine Est Cr Clr Drug Dosing Est GFR ( Amer) Est GFR (Non-Af Amer) BUN/Creatinine Ratio Glucose Calcium Magnesium Total Bilirubin AST ALT Alkaline Phosphatase Troponin I Total Protein Albumin Globulin Albumin/Globulin Ratio Lipase 133 TSH Medications Administered Current Inpatient Medications Acetaminophen (Tylenol) 650 mg PO Q4H PRN PRN Reason: Pain or Fever Stop: 02/20/20 06:27 Heparin Sodium/Dextrose (Heparin Sodium/Dextrose) 25,000 units in 500 mls @ 29 mls/hr IV .[id number] [facility]; Protocol Stop: 02/20/20 05:14 Last Titration: 01/21/20 06:56 Dose: 1,450 units/hr, 29 mls/hr Documented by: Promethazine HCl 12.5 mg/ (Sodium Chloride) 50.5 mls @ 202 mls/hr IV Q6H PRN PRN Reason: Nausea And Vomiting Stop: 02/20/20 06:27 Lorazepam (Ativan) 0.5 mg in 1 mls @ 1 mls/min IV Q4H PRN PRN Reason: Anxiety/Agitation Stop: 02/20/20 06:27 Metoprolol Tartrate (Lopressor) 25 mg PO BID [facility] Stop: 02/20/20 06:27 Last Admin: 01/21/20 06:59 Dose: 25 mg Documented by: Nitroglycerin (Nitrostat) 0.4 mg SL UD PRN PRN Reason: Chest Pain Stop: 02/20/20 06:27 (1) Chest pain Chest pain type: unspecified Qualified Code(s): R07.9 - Chest pain, unspecified
--- NOTE | 2020-01-21 11:48 | Hospitalist Progress Note ---
Date of Service January 21, 2020 Assessment & Plan (1) Atrial fibrillation with RVR: New onset atrial fibrillation since symptoms of palpitation and shortness of breath started recently Has been on intravenous Cardizem, heparin drip and oral beta-tong started as of today Rate seems to be improving Appreciate cardiology input and recommendation Plan to wean off Cardizem and continue with long-acting beta blockade Plan cardiac cath tomorrow and possible elective cardioversion thereafter Cardiomyopathy Echocardiography showed LV systolic function is decreased with moderate global hypokinesis with an EF of 40 to 45% He will have cardiac cath tomorrow Possible elective cardioversion thereafter Exertional shortness of breath Likely secondary to A. fib with RVR and is complicated by diagnosed cardiomyopathy as above Polycythemia Likely secondary to nocturnal hypoxemia due to sleep apnea Will monitor CBC Transaminitis Elevated AST and ALT without elevation of alkaline phosphatase He has history of jaundice with liver biopsy 8 years ago Mentioned that he recovered from it and no history of IV drug abuse and/or blood transfusion Denies any use of alcohol We will get hepatitis panel and monitor LFTs Abnormal CT of the chest He has few mediastinal and upper abdominal lymph nodes which are minimally enlarged Doubt any significant pathology but that has to be followed up as an outpatient with a CAT scan in about 6 months DVT prophylaxis Has been on intravenous heparin CODE STATUS Full Admission and Anticipated Discharge Date Admission Date: January 21, 2020 Subjective The patient was seen and examined in ICU He was admitted yesterday with chest pain secondary to A. fib with RVR He has been on Cardizem drip and getting beta-blockade Has been feeling a lot better but he still has occasional palpitation Denies any more chest pain Review of Systems Review of Systems: All systems reviewed and are unremarkable except as noted below Respiratory: no dyspnea and no wheezing Cardiovascular: + palpitations; no chest pain and no dyspnea Physical Exam Physical Exam: Lying in bed comfortably Constitutional: well developed, well nourished and + obese; no acute distress and not ill appearing Eyes: PERRL, conjunctivae normal, anicteric sclerae ENMT: external ear and nose normal, oropharynx normal Neck: trachea midline, no thyromegaly Respiratory: normal respiratory effort; no respiratory distress Auscultation: lungs clear to auscultation bilaterally Cardiovascular: Rate/Rhythm: + irregularly irregular Heart Sounds: + murmur (2/6 ejection systolic murmur over precordium) Gastrointestinal (Abdomen): Inspection/Auscultation: abdomen normal to inspection and normal bowel sounds; abdomen not distended Percussion/Palpation: abdomen soft; abdomen nontender Musculoskeletal: No acute arthritis involving any joints Neurologic: moves all extremities; no focal motor deficits Lymphatic: no cervical or axillary lymphadenopathy Results & Data Results & Data ([facility]) Vital Signs (Past 12 Hours) Vital Signs Temp Pulse Pulse Pulse Resp BP BP 01/21/20 11:08 36.6 C 114 H 16 122/91 01/21/20 08:02 36.9 C 101 H 16 122/82 01/21/20 07:00 110 H 21 01/21/20 06:29 37.3 C 100 H 18 117/87 01/21/20 05:40 105 H 20 132/90 01/21/20 05:39 97 H 20 112/81 01/21/20 05:25 96 H 20 113/86 01/21/20 05:20 102 H 20 116/92 01/21/20 05:16 110 H 20 136/106 H 01/21/20 05:10 106 H 20 120/106 H 01/21/20 05:08 95 H 22 123/97 01/21/20 04:55 100 H 20 106/90 01/21/20 04:50 101 H 20 119/80 01/21/20 04:45 96 H 20 105/82 01/21/20 04:40 89 20 107/87 01/21/20 04:35 95 H 20 128/78 01/21/20 04:30 92 H 20 111/75 01/21/20 04:25 90 20 103/77 01/21/20 04:20 84 20 100/88 01/21/20 04:15 86 13 98/73 L 01/21/20 04:10 101 H 18 108/73 01/21/20 04:06 102 H 18 107/70 01/21/20 04:01 116 H 20 114/99 01/21/20 03:45 110 H 18 104/86 01/21/20 03:30 111 H 14 100/75 01/21/20 03:15 102 H 18 119/92 01/21/20 03:00 104 H 19 107/79 01/21/20 02:45 96 H 14 96/74 L 01/21/20 02:39 105 H 107/77 01/21/20 02:30 106 H 16 107/77 01/21/20 02:15 108 H 16 113/86 01/21/20 02:00 108 H 15 107/82 01/21/20 01:45 99 H 15 96/72 L 01/21/20 01:41 109 H 18 104/75 01/21/20 01:30 110 H 14 96/77 L 01/21/20 01:26 111 H 15 111/79 01/21/20 01:25 114 H 122/86 01/21/20 01:01 138 H 17 122/86 01/21/20 00:30 143 H 16 110/88 01/21/20 00:22 36.6 C 78 20 136/92 Pulse Ox 01/21/20 11:08 96 01/21/20 08:02 98 01/21/20 07:00 01/21/20 06:29 97 01/21/20 05:40 98 01/21/20 05:39 99 01/21/20 05:25 98 01/21/20 05:20 98 01/21/20 05:16 97 01/21/20 05:10 97 01/21/20 05:08 98 01/21/20 04:55 98 01/21/20 04:50 98 01/21/20 04:45 96 01/21/20 04:40 96 01/21/20 04:35 96 01/21/20 04:30 97 01/21/20 04:25 97 01/21/20 04:20 97 01/21/20 04:15 97 01/21/20 04:10 97 01/21/20 04:06 97 01/21/20 04:01 98 01/21/20 03:45 99 01/21/20 03:30 98 01/21/20 03:15 98 01/21/20 03:00 99 01/21/20 02:45 100 01/21/20 02:39 01/21/20 02:30 99 01/21/20 02:15 98 01/21/20 02:00 98 01/21/20 01:45 97 01/21/20 01:41 98 01/21/20 01:30 98 01/21/20 01:26 98 01/21/20 01:25 01/21/20 01:01 99 01/21/20 00:30 97 01/21/20 00:22 98 Laboratory Results Short CBC 01/21/20 Range/Units 00:40 WBC 8.47 (4.8-10.8) K/uL Hgb 19.7 H (14.0-18.0) g/dL Hct 57.2 H (42-52) % Plt Count 319 (130-400) K/uL BMP 01/21/20 00:40 Sodium 138 Potassium 3.9 Chloride 105 Carbon Dioxide 27 BUN 20 H Creatinine 1.37 Glucose 99 Calcium 8.8 Cardiac Enzymes 01/21/20 Range/Units 00:40 Troponin I < 0.015 (0-0.045) ng/ml Liver Function 01/21/20 Range/Units 00:40 Total Bilirubin 1.0 (0.2-1) mg/dl AST 41 H (15-37) U/L ALT 126 H (12-78) U/L Alkaline Phosphatase 230 H (45-117) U/L Albumin 3.6 (3.4-5.0) gm/dl Medications Administered Current Inpatient Medications Acetaminophen (Tylenol) 650 mg PO Q4H PRN PRN Reason: Pain or Fever Stop: 02/20/20 06:27 Heparin Sodium/Dextrose (Heparin Sodium/Dextrose) 25,000 units in 500 mls @ 29 mls/hr IV .[id number] [facility]; Protocol Stop: 02/20/20 05:14 Last Titration: 01/21/20 06:56 Dose: 1,450 units/hr, 29 mls/hr Documented by: Promethazine HCl 12.5 mg/ (Sodium Chloride) 50.5 mls @ 202 mls/hr IV Q6H PRN PRN Reason: Nausea And Vomiting Stop: 02/20/20 06:27 Lorazepam (Ativan) 0.5 mg in 1 mls @ 1 mls/min IV Q4H PRN PRN Reason: Anxiety/Agitation Stop: 02/20/20 06:27 Metoprolol Tartrate (Lopressor) 25 mg PO Q6 UMBERTO Stop: 02/20/20 10:29 Nitroglycerin (Nitrostat) 0.4 mg SL UD PRN PRN Reason: Chest Pain Stop: 02/20/20 06:27
[2020-01-21 12:16] LABS: Partial Thromboplastin Ratio 1.6; Partial Thromboplastin Time 44.1 Seconds (21.0-31.0)
[2020-01-21] MEDS: METOPROLOL TARTRATE 25 MG TAB PO SCH ×4 (12:34→23:48)
[2020-01-21] MEDS ORDERED: HEPARIN IV BOLUS 3,000 UNITS in SYRINGE 0 ML IV ONE (12:45)
[2020-01-21] MEDS ORDERED: STAT IV Infusion **Titration per Protocol STA (14:09)
[2020-01-21] MEDS ORDERED: dilTIAZem HCL 125 MG in DEXTROSE 5% 100 ML IV SCH (14:30)
[2020-01-21 14:53] LABS: Hepatitis B Surface Antigen Neg (Neg)
[2020-01-21 15:22] LABS: Hepatitis C IgG 13Yrs+Old_Rflx Neg (Neg)
[2020-01-21 19:02] LABS: Basophils # (auto) 0.07 K/uL (0-0.2); Basophils % (auto) 1.2 %; Eosinophils # (auto) 0.18 K/uL (0-0.5); Eosinophils % (auto) 3.2 %; Hematocrit (blood only) 50.6 % (42-52); Hemoglobin 17.5 g/dL (14.0-18.0); Immature Granulocytes # (auto) 0.04 K/uL (0.00-0.02); Immature Granulocytes % (auto) 0.7 %; Lymphocytes # (auto) 1.69 K/uL (1.2-3.4); Lymphocytes % (auto) 29.8 %; Mean Corpuscular Hemoglobin 35.7 pg (25-34); Mean Corpuscular Hgb Conc 34.6 g/dL (32-36); Mean Corpuscular Volume 103.3 fL (80-100); Mean Platelet Volume 9.7 fL (7.4-10.4); Monocytes # (auto) 0.69 K/uL (0.11-0.59); Monocytes % (auto) 12.1 %; Neutrophils # (auto) 3.01 K/uL (1.4-6.5); Platelet Count 239 K/uL (130-400); RDW Standard Deviation 49.1 fL (36.4-46.3); White Blood Count 5.68 K/uL (4.8-10.8)
[2020-01-21 19:19] LABS: Appearance Urine Clear (Clear); Bacteria Urine Automated Negative (Negative); Bilirubin Urine Negative (Negative); Blood Urine 2+ (Negative); Cast Urine Automated 0 /lpf (0-5); Color Urine Yellow; Epithelial Cell Urine Auto 0-5 /lpf (0-5); Glucose Urine UA Negative (Negative); Ketones Urine Negative (Negative); Leukocyte Esterase Urine Negative (Negative); Nitrite Urine Negative (Negative); Protein Urine Negative (Negative); Specific Gravity Urine 1.018 (1.000-1.030); Urobilinogen Urine Negative (Negative); WBC Urine Automated 0 /hpf (0-5); pH Urine 6.5 (4.5-7.5)
[2020-01-21 19:22] LABS: Partial Thromboplastin Ratio 2.5
[2020-01-21 19:32] LABS: Partial Thromboplastin Time 71.1 Seconds (21.0-31.0)
[2020-01-21 19:34] LABS: Amphetamines+Metham, Urine Neg (Neg); Barbiturates, Urine Neg (Neg); Benzodiazepine, Urine Neg (Neg); Cocaine, Urine Neg (Neg); MDMA (Ecstacy), Urine Neg (Neg); Methadone, Urine Neg (Neg); Opiate, Urine Neg (Neg); Phencyclidine, Urine Neg (Neg)
[2020-01-21] MEDS: SODIUM CHLORIDE 0.9% 1000ML 1,000 ML IV SCH (23:47)
[2020-01-22 02:13] LABS: Basophils # (auto) 0.06 K/uL (0-0.2); Basophils % (auto) 1.2 %; Eosinophils # (auto) 0.15 K/uL (0-0.5); Hematocrit (blood only) 51.9 % (42-52); Immature Granulocytes # (auto) 0.03 K/uL (0.00-0.02); Immature Granulocytes % (auto) 0.6 %; Lymphocytes # (auto) 1.36 K/uL (1.2-3.4); Lymphocytes % (auto) 26.8 %; Mean Corpuscular Hemoglobin 35.8 pg (25-34); Mean Corpuscular Hgb Conc 34.7 g/dL (32-36); Mean Corpuscular Volume 103.2 fL (80-100); Mean Platelet Volume 9.7 fL (7.4-10.4); Monocytes % (auto) 13.8 %; Neutrophils # (auto) 2.78 K/uL (1.4-6.5); Neutrophils % (auto) 54.6 %; Platelet Count 261 K/uL (130-400); RDW Coefficient of Variation 13.1 % (11.5-14.5); RDW Standard Deviation 49.3 fL (36.4-46.3); Red Blood Count 5.03 M/uL (4.7-6.1); White Blood Count 5.08 K/uL (4.8-10.8)
[2020-01-22 02:30] LABS: Albumin Level 3.1 gm/dl (3.4-5.0); BUN Creatinine Ratio 12.7 (10-20); Calcium 8.4 mg/dl (8.5-10.1); Creatinine Clr Calc Pharmacy 84.6 ml/min; Est GFR (African American) 83.7; Est GFR (Non-African American) 72.3; Magnesium 2.1 mg/dl (1.8-2.4); Potassium 4.4 mmol/L (3.5-5.1)
[2020-01-22 02:31] LABS: Partial Thromboplastin Ratio 2.1
[2020-01-22 02:32] LABS: Partial Thromboplastin Time 59.9 Seconds (21.0-31.0)
[2020-01-22 02:33] LABS: Albumin Globulin Ratio 0.8 (0.9-2); Bilirubin,Total 0.6 mg/dl (0.2-1); Globulin 3.9 gm/dl (2.5-4.0)
[2020-01-22] MEDS: METOPROLOL TARTRATE 25 MG TAB PO SCH ×4 (05:20→23:02)
--- NOTE | 2020-01-22 05:41 | Electrocardiogram Report ---
Test Reason : Blood Pressure : / mmHG Vent. Rate : 115 BPM Atrial Rate : 119 BPM P-R Int : 000 ms QRS Dur : 088 ms QT Int : 320 ms P-R-T Axes : 000 107 001 degrees QTc Int : 442 ms Atrial fibrillation with rapid ventricular response Rightward axis Abnormal ECG When compared with ECG of 21-JAN-2020 00:28, No significant change was found Confirmed by Onofre Davis ([id number]) on 01/22/2020 5:41:26 AM Referred By: REFERRED SELF Confirmed By:Onofre Davis
--- NOTE | 2020-01-22 05:41 | Electrocardiogram Report ---
Test Reason : Blood Pressure : / mmHG Vent. Rate : 134 BPM Atrial Rate : 197 BPM P-R Int : 000 ms QRS Dur : 102 ms QT Int : 254 ms P-R-T Axes : 000 096 -03 degrees QTc Int : 379 ms Atrial fibrillation with rapid ventricular response Rightward axis Abnormal ECG No previous ECGs available Confirmed by Onofre Davis ([id number]) on 01/22/2020 5:41:09 AM Referred By: REFERRED SELF Confirmed By:Onofre Davis
--- NOTE | 2020-01-22 10:53 | Cardiology Progress Note ---
Date of Service January 22, 2020 Assessment & Plan (1) Atrial fibrillation with RVR: The pathophysiology and treatment options for atrial fibrillation were discussed with him in great detail Rates are now controlled with the addition of the Cardizem drip. We will continue metoprolol every 6 hours and Cardizem drip for now. We will plan on GOLD guided cardioversion in the a.m., the risks and benefits of the procedure were discussed with the patient today and he wishes to proceed. We will likely DC home with metoprolol succinate which is an evidence-based beta-tong. He will be continued on heparin for anticoagulation for now but will discharge home on Eliquis, the pros and cons of vitamin K agonist versus non-vitamin K agonist anticoagulation were discussed with him at great lengths and he agrees with Eliquis. (2) Dyspnea on exertion: Likely secondary to above. We will rule out ischemia as a possible cause as well For cardiac cath today. (3) Chest pain: Likely secondary to A. fib with RVR but again will rule out ischemia. (4) Cardiomyopathy: Newly discovered biventricular failure. LV systolic function showing moderate global hypokinesis with an EF of 40 to 45%. The pathophysiology and differential diagnosis for this was discussed with him at great lengths. I believe the most prudent course of action at this time would be to rule out ischemia as a possible cause and will proceed directly to cardiac catheterization in the a.m. The risks and benefits of which were discussed with the patient. At the same time we will change him over to evidence-based beta-tong in the a.m. He will be started on aldosterone antagonist prior to discharge He will also be started on ARB prior to discharge as his blood pressure allows. My hope at this point is that this is a tachycardia induced cardiomyopathy and will resolve with holiness of sinus rhythm. But again will treat with guideline directed medical therapy at this time (5) Right ventricular failure: CT of the chest without PE or significant pulmonary pathology (6) Transaminitis: Will defer to the primary team Subjective Patient seen and examined, chart reviewed. States he is doing well. No problems overnight and denies any chest pain, shortness of breath, palpitations, lightheadedness, dizziness or syncope. He has been tolerating the medications without any issues. Telemetry reviewed: Atrial fibrillation rate controlled in the 70s to 80s. Review of Systems Review of Systems: All systems reviewed & are unremarkable except as noted in HPI & below Physical Exam Physical Exam: General: Awake, alert and oriented x 3. No acute distress. HEENT: Normocephalic, atraumatic. Pupils equal, round and reactive to light and accommodation. Extraocular muscles are intact. Anicteric sclera. Moist mucous membranes. Neck: No JVD. No bruit. Cardiovascular: irregularly irregular, unable to appreciate murmur, rub or gallop. Pulmonary: Clear to auscultation bilaterally. No rales, rhonchi, or wheezing. Abdomen: Bowel sounds x 4, soft. No rebound, guarding or tenderness. No organomegaly. Extremities: No clubbing, cyanosis or edema. +2 pedal pulses bilaterally. Skin: Warm and dry. Results & Data Vital Signs (Past 12 Hours) Vital Signs Temp Pulse Resp BP Pulse Ox 01/22/20 08:00 37.2 C 77 20 98 01/22/20 07:33 76 19 128/98 01/22/20 07:00 77 20 01/22/20 05:00 82 20 01/22/20 04:39 81 14 118/77 01/22/20 04:00 36.9 C 84 13 98 01/22/20 03:33 91 H 15 104/74 01/22/20 03:00 77 17 01/22/20 02:32 90 20 123/72 01/22/20 02:00 81 17 01/22/20 01:32 76 18 97/68 L 01/22/20 01:00 74 14 01/22/20 00:33 79 12 84/55 L 01/22/20 00:00 36.8 C 83 15 97 01/21/20 23:32 94 H 24 115/84 01/21/20 23:00 85 12 (1) Chest pain Chest pain type: unspecified Qualified Code(s): R07.9 - Chest pain, unspecified
[2020-01-22] MEDS ORDERED: HEPARIN (PORCINE) 1000 UNIT/ML 10 ML (CATH LAB USE ONLY) ONE (10:57)
[2020-01-22] MEDS ORDERED: fentaNYL citrate 100 MCG/2 ML VIAL ONE (10:57)
[2020-01-22] MEDS ORDERED: MIDAZOLAM HCL 1 MG/ML 2ML VIAL ONE (10:57)
[2020-01-22] MEDS ORDERED: NiCARDipine HCL INJ 2.5 MG/ML 10 ML AMP ONE (10:57)
[2020-01-22] MEDS ORDERED: NITROGLYCERIN/D5W 100MCG/ML 20ML SYR ONE (10:58)
--- NOTE | 2020-01-22 11:17 | Hospitalist Progress Note ---
Date of Service January 22, 2020 Assessment & Plan (1) Atrial fibrillation with RVR: New onset atrial fibrillation since symptoms of palpitation and shortness of breath started recently Has been on intravenous Cardizem, heparin drip and oral beta-tong started as of today Rate seems to be improving Appreciate cardiology input and recommendation Plan to wean off Cardizem and continue with long-acting beta blockade Plan cardiac cath tomorrow and possible elective cardioversion thereafter Heart rate is controlled remains in fibrillation Awaiting cardiac cath this morning of 01/22/2020 Cardiomyopathy Echocardiography showed LV systolic function is decreased with moderate global hypokinesis with an EF of 40 to 45% He will have cardiac cath tomorrow Possible elective cardioversion thereafter Exertional shortness of breath Likely secondary to A. fib with RVR and is complicated by diagnosed cardiomyopathy as above Polycythemia Likely secondary to nocturnal hypoxemia due to sleep apnea Will monitor CBC-hemoglobin noted to be 18.0 on 01/22/2020 Transaminitis Elevated AST and ALT without elevation of alkaline phosphatase He has history of jaundice with liver biopsy 8 years ago Mentioned that he recovered from it and no history of IV drug abuse and/or blood transfusion Denies any use of alcohol Hepatitis panel is pending LFTs are improving Abnormal CT of the chest He has few mediastinal and upper abdominal lymph nodes which are minimally enlarged Doubt any significant pathology but that has to be followed up as an outpatient with a CAT scan in about 6 months DVT prophylaxis Has been on intravenous heparin CODE STATUS Full Admission and Anticipated Discharge Date Admission Date: January 21, 2020 Subjective The patient was seen and examined in ICU He was admitted yesterday with chest pain secondary to A. fib with RVR He has been on Cardizem drip and getting beta-blockade Has been feeling a lot better but he still has occasional palpitation Denies any more chest pain 01/22/2020 The patient was seen and examined in ICU He has been feeling a lot better today and denies any palpitation and/or shortness of breath at rest He will go for cardiac cath sometime this morning Review of Systems Review of Systems: All systems reviewed and are unremarkable except as noted below Cardiovascular: no chest pain, no dyspnea and no palpitations Physical Exam Physical Exam: Lying in bed comfortably Constitutional: well developed, well nourished and + obese; no acute distress and not ill appearing Eyes: PERRL, conjunctivae normal, anicteric sclerae ENMT: external ear and nose normal, oropharynx normal Neck: trachea midline, no thyromegaly Respiratory: normal respiratory effort; no respiratory distress Auscultation: lungs clear to auscultation bilaterally Cardiovascular: Rate/Rhythm: + irregularly irregular Heart Sounds: + murmur (2/6 ejection systolic murmur over precordium) Gastrointestinal (Abdomen): Inspection/Auscultation: abdomen normal to inspection and normal bowel sounds; abdomen not distended Percussion/Palpation: abdomen soft; abdomen nontender Musculoskeletal: no cyanosis or clubbing, extremities motor strength 5/5 Neurologic: moves all extremities; no focal motor deficits Lymphatic: no cervical or axillary lymphadenopathy Results & Data Results & Data ([facility]) Vital Signs (Past 12 Hours) Vital Signs Temp Pulse Resp BP Pulse Ox 01/22/20 08:00 37.2 C 77 20 98 01/22/20 07:33 76 19 128/98 01/22/20 07:00 77 20 01/22/20 05:00 82 20 01/22/20 04:39 81 14 118/77 01/22/20 04:00 36.9 C 84 13 98 01/22/20 03:33 91 H 15 104/74 01/22/20 03:00 77 17 01/22/20 02:32 90 20 123/72 01/22/20 02:00 81 17 01/22/20 01:32 76 18 97/68 L 01/22/20 01:00 74 14 01/22/20 00:33 79 12 84/55 L 01/22/20 00:00 36.8 C 83 15 97 01/21/20 23:32 94 H 24 115/84 Laboratory Results Short CBC 01/21/20 01/22/20 Range/Units 18:54 01:58 WBC 5.68 5.08 (4.8-10.8) K/uL Hgb 17.5 18.0 (14.0-18.0) g/dL Hct 50.6 51.9 (42-52) % Plt Count 239 261 (130-400) K/uL BMP 01/22/20 01:58 Sodium 139 Potassium 4.4 Chloride 108 H Carbon Dioxide 27 BUN 15 Creatinine 1.15 Glucose 98 Calcium 8.4 L Liver Function 01/22/20 Range/Units 01:58 Total Bilirubin 0.6 (0.2-1) mg/dl AST 22 (15-37) U/L ALT 83 H (12-78) U/L Alkaline Phosphatase 182 H (45-117) U/L Albumin 3.1 L (3.4-5.0) gm/dl Urine 01/21/20 Range/Units Unknown Urine Color Yellow Urine Appearance Clear (Clear) Urine pH 6.5 (4.5-7.5) Ur Specific [place] 1.018 (1.000-1.030) Urine Protein Negative (Negative) Urine Glucose (UA) Negative (Negative) Medications Administered Short CBC 01/21/20 01/22/20 Range/Units 18:54 01:58 WBC 5.68 5.08 (4.8-10.8) K/uL Hgb 17.5 18.0 (14.0-18.0) g/dL Hct 50.6 51.9 (42-52) % Plt Count 239 261 (130-400) K/uL BMP 01/22/20 01:58 Sodium 139 Potassium 4.4 Chloride 108 H Carbon Dioxide 27 BUN 15 Creatinine 1.15 Glucose 98 Calcium 8.4 L Liver Function 01/22/20 Range/Units 01:58 Total Bilirubin 0.6 (0.2-1) mg/dl AST 22 (15-37) U/L ALT 83 H (12-78) U/L Alkaline Phosphatase 182 H (45-117) U/L Albumin 3.1 L (3.4-5.0) gm/dl Urine 01/21/20 Range/Units Unknown Urine Color Yellow Urine Appearance Clear (Clear) Urine pH 6.5 (4.5-7.5) Ur Specific [place] 1.018 (1.000-1.030) Urine Protein Negative (Negative) Urine Glucose (UA) Negative (Negative)
--- NOTE | 2020-01-22 12:27 | Cardiac Catheterization ---
Cardiac Cath Procedure Brief Procedure Date January 22, 2020 Pre-Procedure Diagnosis Pre-Procedure Diagnosis: Cardiomyopathy AUC Score AUC Score: 8 Post-Procedure Diagnosis Post-Procedure Diagnosis: Mild CAD and Normal Intracardiac Pressures Procedure(s) Performed Procedure(s) Performed: Coronary Angiography and Left Heart Cath Cigar Brander Dm Harris MD Training Assistant(s) Giuliano Llanos Estimated Blood Loss Estimated Blood Loss: <15cc Medication(s) Medication(s): Fentanyl (12.5 mcg IV), Heparin (2000 units IV), Lidocaine 1% (Local infiltration access site), Nicardipine (250 mcg intra-arterial after arterial sheath insertion) and Versed (1 mg IV) Preliminary Findings Right dominant coronary anatomy Mild luminal irregularities all vasculature but no obstruction. Left main: Long in length with normal caliber and trifurcating to give rise to left anterior descending a large ramus intermedius and the left circumflex there is no disease in left main Left anterior descending: Type III vessel with thin apical segment. It gives rise to a tiny first diagonal branch and a large bifurcating second diagonal branch at the end of its proximal third and courses to terminate just beyond the apex. There is a smooth 20% narrowing in the proximal left anterior descending and moderate luminal regularities in its midportion Ramus intermedius: Large bifurcating vessel with mild irregularities only Left circumflex: Small caliber vessel giving rise to a single posterior lateral branch with no disease Right coronary artery: Dominant vessel giving rise to conus and sinoatrial branch at its origin to small right ventricular branches in its midportion. At the AV groove it gives rise to a long posterior descending artery and along the AV groove 2 small posterior ventricular branches. Within the right coronary artery there is mild luminal irregularities and ectatic changes of the proximal and midportion. The posterior descending artery has a 30 to 40% narrowing in its proximal portion. LV angiography not performed, LVEDP 8 Impression: Mild coronary atherosclerosis without obstructive disease Recommendations Recommendations: Medical Therapy and/or Counseling Specimens Specimens: None Fluids (cc crystalloids) Fluids (cc crystalloids): 54 Anesthesia Start time: 1146, stop time 1214 Procedural Complication(s) None Disposition PCU
--- NOTE | 2020-01-22 12:41 | Cardiac Catheterization ---
Cardiac Cath Procedure Full Procedure Date January 22, 2020 Pre-Procedure Diagnosis Pre-Procedure Diagnosis: Cardiomyopathy and Arrhythmia (Atrial fibrillation new onset) AUC Score AUC Score: 8 Post-Procedure Diagnosis Post-Procedure Diagnosis: Mild CAD and Normal Intracardiac Pressures Procedure(s) Performed Procedure(s) Performed: Coronary Angiography and Left Heart Cath Industrial Engineering Professor Dm Harris MD Seed Packer(s) Giuliano Llanos Estimated Blood Loss Estimated Blood Loss: <15cc Medication(s) Medication(s): Fentanyl (12.5 mcg IV), Heparin (2000 units IV), Lidocaine 1% (Local infiltration access site), Nicardipine (250 mcg intra-arterial after arterial sheath insertion) and Versed (1 mg IV) Summary of Findings Right dominant coronary anatomy Mild luminal irregularities all vasculature but no obstruction. Left main: Long in length with normal caliber and trifurcating to give rise to left anterior descending a large ramus intermedius and the left circumflex there is no disease in left main Left anterior descending: Type III vessel with thin apical segment. It gives rise to a tiny first diagonal branch and a large bifurcating second diagonal branch at the end of its proximal third and courses to terminate just beyond the apex. There is a smooth 20% narrowing in the proximal left anterior descending and moderate luminal regularities in its midportion Ramus intermedius: Large bifurcating vessel with mild irregularities only Left circumflex: Small caliber vessel giving rise to a single posterior lateral branch with no disease Right coronary artery: Dominant vessel giving rise to conus and sinoatrial branch at its origin to small right ventricular branches in its midportion. At the AV groove it gives rise to a long posterior descending artery and along the AV groove 2 small posterior ventricular branches. Within the right coronary artery there is mild luminal irregularities and ectatic changes of the proximal and midportion. The posterior descending artery has a 30 to 40% narrowing in its proximal portion. LV angiography not performed, LVEDP 8 Impression: Mild coronary atherosclerosis without obstructive disease Hemodynamics Rest Ao:: 109/79/85 Final Ao: 111/76/91 LV: 115/5/8 Recommendations Recommendations: Medical Therapy and/or Counseling Specimens Specimens: None Radiation Exposure (mGy) 1196 Contrast (mls) 86 Fluids (cc crystalloids) Fluids (cc crystalloids): 54 Anesthesia Start time: 1146, stop time 1214 Procedural Complication(s) None Disposition PCU I attest to the content of the Intraoperative Record and any orders documented therein. Any exceptions are noted below. ACC Data: Information Assurance Analyst Cardiac Status Clinical evaluation leading to the procedure Patient is a 54-year-old male presented with symptoms of shortness of breath and palpitations and newly observed atrial fibrillation with elevated ventricular response rate. Echocardiogram demonstrates mild to moderate diffuse left ventricular dysfunction, newly observed cardiomyopathy CAD Presenation: Sx unlikely to be ischemic Heart Failure: No Cardiogenic Shock within 24 Hours: No Cardiac Arrest within 24 Hours: No Imaging Studies Past 6 Months: Yes Stress Studies Past 6 Months: No Standard Exercise Test: No Stress Echocardiogram: No Stress Testing w/SPECT MPI: No Cardiac CTA: No Coronary Anatomy Dominant: Right Left Main (% Stenosis): Normal LAD (% Stenosis): Proximal (20) and Mid (Minimal irregularities) D1 (% Stenosis): Normal (Trivial vessel) D2 (% Stenosis): Normal Circumflex (% Stenosis): Normal L PL1 (% Stenosis): Normal (Very small vessel) RCA (% Stenosis): Mid (20 to 30%) R PDA (% Stenosis): Mid (30%) R PL1 (% Stenosis): Normal R PL2 (% Stenosis): Normal Ramus (% Stenosis): Mid (Mild irregularities and a large bifurcating vessel) Left Ventricular Angiography EF (%): N/A Diagnostic Physicians Name: Dm Harris MD Status: Urgent Closure Device Percutaneous Entry Location: Radial Closure Device: Radial Band Recommendations: Medical Therapy and/or Counseling
[2020-01-22] MEDS ORDERED: SODIUM CHLORIDE 0.9% 1000ML 1,000 ML IV SCH (12:45)
[2020-01-22] MEDS ORDERED: Nursing to Pharmacy Communication SCH (13:00)
[2020-01-22] MEDS: HEPARIN SODIUM/DEXTROSE 25,000 UNITS/500 ML BAG IV SCH (15:23)
[2020-01-22] MEDS: SPIRONOLACTONE 12.5 MG TAB PO SCH (17:08)
[2020-01-22] MEDS: SODIUM CHLORIDE 0.9% 1000ML 1,000 ML IV SCH (19:39)
--- NOTE | 2020-01-22 23:34 | Electrocardiogram Report ---
Test Reason : Blood Pressure : / mmHG Vent. Rate : 096 BPM Atrial Rate : 000 BPM P-R Int : 000 ms QRS Dur : 104 ms QT Int : 312 ms P-R-T Axes : 000 101 -02 degrees QTc Int : 394 ms Atrial fibrillation Rightward axis Nonspecific T wave abnormality Abnormal ECG When compared with ECG of 21-JAN-2020 02:27, No significant change was found Confirmed by Onofre Davis ([id number]) on 01/22/2020 11:34:04 PM Referred By: REFERRED SELF Confirmed By:Onofre Davis
[2020-01-23 05:05] LABS: Partial Thromboplastin Ratio 1.9
[2020-01-23 05:23] LABS: Partial Thromboplastin Time 54.2 Seconds (21.0-31.0)
[2020-01-23] MEDS: SODIUM CHLORIDE 0.9% 1000ML 1,000 ML IV SCH (06:07)
[2020-01-23] MEDS: METOPROLOL TARTRATE 25 MG TAB PO SCH (06:08)
[2020-01-23 07:30] LABS: Hepatitis A Antibody IgM NON-REACTIVE (NON-REACTIVE); Hepatitis B Core Antibody IgM NON-REACTIVE (NON-REACTIVE)
--- NOTE | 2020-01-23 08:11 | Pre Anesthesia Assessment ---
Date of Service January 23, 2020 Pre Sedation Assessment Vital Signs Temp Pulse Pulse Pulse Resp BP BP 01/23/20 06:00 01/23/20 04:00 37.1 C 96 H 18 119/82 01/23/20 00:15 36.8 C 86 18 121/84 01/22/20 20:00 36.8 C 83 14 88/60 L 01/22/20 16:55 36.9 C 94 H 22 110/75 01/22/20 16:27 94 H 17 123/104 H 01/22/20 16:00 96 H 01/22/20 15:57 96 H 17 132/95 01/22/20 15:13 94 H 13 113/88 01/22/20 15:00 102 H 29 H 112/87 01/22/20 14:43 81 14 107/75 01/22/20 14:40 88 16 01/22/20 14:28 78 16 111/77 01/22/20 14:20 90 16 01/22/20 14:13 106 H 19 123/89 01/22/20 14:00 91 H 17 01/22/20 13:58 86 17 99/79 L 01/22/20 13:43 105 H 93 H 20 117/89 01/22/20 13:40 93 H 23 01/22/20 13:28 98 H 20 118/88 01/22/20 13:20 92 H 17 01/22/20 13:15 94 H 17 01/22/20 13:13 89 86 17 107/79 01/22/20 13:00 96 H 19 01/22/20 12:58 95 H 17 112/86 01/22/20 12:46 97 H 18 01/22/20 12:45 99 H 16 01/22/20 12:44 92 H 27 H 117/87 01/22/20 12:42 93 H 19 01/22/20 12:25 85 16 01/22/20 11:33 16 L 95 H 16 BP Pulse Ox Pulse Ox 01/23/20 06:00 96 01/23/20 04:00 96 01/23/20 00:15 97 01/22/20 20:00 98 01/22/20 16:55 01/22/20 16:27 01/22/20 16:00 01/22/20 15:57 01/22/20 15:13 97 01/22/20 15:00 97 01/22/20 14:43 95 01/22/20 14:40 97 01/22/20 14:28 94 01/22/20 14:20 96 01/22/20 14:13 93 01/22/20 14:00 96 01/22/20 13:58 95 01/22/20 13:43 117/89 96 01/22/20 13:40 97 01/22/20 13:28 96 01/22/20 13:20 96 01/22/20 13:15 96 01/22/20 13:13 107/79 96 01/22/20 13:00 95 01/22/20 12:58 96 01/22/20 12:46 95 01/22/20 12:45 117/87 95 01/22/20 12:44 97 01/22/20 12:42 01/22/20 12:25 122/95 96 01/22/20 11:33 119/23 L 96 Pre-Sedation Airway Assessment Smoking Status: Never smoker Hx Sleep Apnea: No Short, Thick Neck: Yes Thyromental Distance: > or= 3.5 Finger Breadths Oral Cavity: + WNL Mallampati Class: III ASA: ASA3 Notes The planned sedation has been discussed with the patient. Informed Consent was obtained. I have identified the patient, determined the appropriateness of sedation and have assessed the patient immediately prior to the procedure. All medicine(s) and interventions are by my order.
[2020-01-23] MEDS ORDERED: MIDAZOLAM HCL 1 MG/ML 2ML VIAL ONE (08:27)
[2020-01-23] MEDS ORDERED: fentaNYL citrate 100 MCG/2 ML VIAL ONE (08:27)
[2020-01-23] MEDS ORDERED: LIDOCAINE HCL VISCOUS SOLN 2% 15 ML UDC ONE (08:36)
--- NOTE | 2020-01-23 09:21 | Post Anesthesia Assessment ---
Date of Service January 23, 2020 Post Sedation Assessment Vital Signs Temp Pulse Pulse Pulse Resp BP BP 01/23/20 09:07 122 H 16 01/23/20 09:04 124 H 16 01/23/20 08:59 124 H 16 01/23/20 08:54 116 H 18 01/23/20 08:49 108 H 18 01/23/20 08:44 108 H 18 01/23/20 08:39 108 H 18 01/23/20 08:34 108 H 18 01/23/20 08:13 37.1 C 108 H 18 132/73 01/23/20 06:00 01/23/20 04:00 37.1 C 96 H 18 119/82 01/23/20 00:15 36.8 C 86 18 121/84 01/22/20 20:00 36.8 C 83 14 88/60 L 01/22/20 16:55 36.9 C 94 H 22 110/75 01/22/20 16:27 94 H 17 123/104 H 01/22/20 16:00 96 H 01/22/20 15:57 96 H 17 132/95 01/22/20 15:13 94 H 13 113/88 01/22/20 15:00 102 H 29 H 112/87 01/22/20 14:43 81 14 107/75 01/22/20 14:40 88 16 01/22/20 14:28 78 16 111/77 01/22/20 14:20 90 16 01/22/20 14:13 106 H 19 123/89 01/22/20 14:00 91 H 17 01/22/20 13:58 86 17 99/79 L 01/22/20 13:43 105 H 93 H 20 117/89 01/22/20 13:40 93 H 23 01/22/20 13:28 98 H 20 118/88 01/22/20 13:20 92 H 17 01/22/20 13:15 94 H 17 01/22/20 13:13 89 86 17 107/79 01/22/20 13:00 96 H 19 01/22/20 12:58 95 H 17 112/86 01/22/20 12:46 97 H 18 01/22/20 12:45 99 H 16 01/22/20 12:44 92 H 27 H 117/87 01/22/20 12:42 93 H 19 01/22/20 12:25 85 16 01/22/20 11:33 16 L 95 H 16 BP Pulse Ox Pulse Ox 01/23/20 09:07 119/85 97 01/23/20 09:04 123/82 97 01/23/20 08:59 122/89 97 01/23/20 08:54 140/90 97 01/23/20 08:49 140/90 97 01/23/20 08:44 139/88 98 01/23/20 08:39 131/107 H 98 01/23/20 08:34 127/82 100 01/23/20 08:13 96 01/23/20 06:00 96 01/23/20 04:00 96 01/23/20 00:15 97 01/22/20 20:00 98 01/22/20 16:55 01/22/20 16:27 01/22/20 16:00 01/22/20 15:57 01/22/20 15:13 97 01/22/20 15:00 97 01/22/20 14:43 95 01/22/20 14:40 97 01/22/20 14:28 94 01/22/20 14:20 96 01/22/20 14:13 93 01/22/20 14:00 96 01/22/20 13:58 95 01/22/20 13:43 117/89 96 01/22/20 13:40 97 01/22/20 13:28 96 01/22/20 13:20 96 01/22/20 13:15 96 01/22/20 13:13 107/79 96 01/22/20 13:00 95 01/22/20 12:58 96 01/22/20 12:46 95 01/22/20 12:45 117/87 95 01/22/20 12:44 97 01/22/20 12:42 01/22/20 12:25 122/95 96 01/22/20 11:33 119/23 L 96 Recovery Score Activity: Moves 4 extremities Respiration: Deep Breath/Cough Circulation: +/-20% PreAnes Value Consciousness: Arouseable (by name) Oxygen Saturation: O2 needed for >90% Post Anesthesia Score: 8 Discharge Sedation Level of Care: Fast Track Phase II Post Sedation Plan On clinical assessment, the patient appears to have tolerated the sedation without complications. Patient is recovering as anticipated. Patient will continue to be monitored by nursing and may be discharged when sedation discharge criteria are met per below protocol. Upon Completions of procedure up to 15 minutes continue every 5 minute vital signs and the P.A.R. score; then discharge to a Phase I or Fast Track to Phase II per the following guidelines: * Discharge Patient to appropriate Phase II area if PAR is 8 or greater or return to pre- procedure baseline. The post - procedure orders will be as directed. * If PAR score is less than 8 or not return to pre-procedure baseline then patient will follow Phase I monitoring till PAR is reached for Phase II. The Phase I may be done in procedure room or may call to secure a Phase I area. * If naloxone or flumazenil are used for reversal, hold in Phase I for continued monitoring from when last reversal dose was given for a minimum of 60 minutes or longer pending the nurse and/or physician discretion of patient condition before discharge to Phase II. Please call the Sedation Physician to re-evaluate and complete post-note for discharge to Phase II area. Do NOT discharge from procedure sedation or Phase 1 until post- sedation evaluation note is complete by procedure /sedation MD Sedation Discharge Instructions to be given to the patient at discharge to home.
--- NOTE | 2020-01-23 09:28 | Cardiology Progress Note ---
Date of Service January 23, 2020 Assessment & Plan (1) Atrial fibrillation with RVR: Unfortunately, GOLD revealed a moderate sized left atrial thrombus. Cardioversion obviously not performed. Will need to follow a rate control strategy for the next 30 days and then repeat GOLD and hopefully perform cardioversion at that time should the thrombus resolved. I will restart his Cardizem drip now for rate control but obviously given his reduced LV systolic function calcium channel tong is not an optimal long-term option. I will increase his metoprolol to 50 mg p.o. every 6 and follow his blood pressure closely to make sure that he can tolerate this. Given his age and activity levels I do not believe digoxin would be beneficial at this time. He will be continued on heparin for anticoagulation for now but will discharge home on Eliquis, the pros and cons of vitamin K agonist versus non-vitamin K agonist anticoagulation were discussed with him at great lengths and he agrees with Eliquis. Continue to monitor on telemetry. (2) Dyspnea on exertion: Likely secondary to above. Ischemia ruled out (3) Chest pain: Likely secondary to A. fib with RVR (4) Cardiomyopathy: Newly discovered biventricular failure. LV systolic function showing moderate global hypokinesis with an EF of 40 to 45%. We will use metoprolol tartrate for now to obtain rate control and then transition to metoprolol succinate prior to discharge. Spironolactone has been added to his regimen for the benefits of aldosterone antagonism. Would like to start ARB, losartan, prior to discharge as his blood pressure allows. Given the fact that he is in atrial fibrillation, I do not see any benefit to Entresto. My hope at this point is that this is a tachycardia induced cardiomyopathy and will resolve with adventism of sinus rhythm. But again will treat with guideline directed medical therapy at this time (5) Right ventricular failure: CT of the chest without PE or significant pulmonary pathology (6) Transaminitis: Will defer to the primary team (7) Left atrial thrombus: Findings reviewed with the patient at great lengths. Will require 30 days of uninterrupted anticoagulation and then will repeat GOLD and hopefully cardioversion once the thrombus is resolved. Subjective Patient seen and examined, chart reviewed. GOLD performed this a.m. which unfortunately revealed a left atrial thrombus. Patient denies any complaints overnight and states he is actually feeling rather well now. He denies any chest pain, shortness of breath, palpitations, lightheadedness, dizziness or syncope. He is been tolerating his medications without issue. Telemetry reviewed: Atrial fibrillation with rates varying from the 90s to 110s. Review of Systems Review of Systems: All systems reviewed & are unremarkable except as noted in HPI & below Physical Exam Physical Exam: General: Awake, alert and oriented x 3. No acute distress. HEENT: Normocephalic, atraumatic. Pupils equal, round and reactive to light and accommodation. Extraocular muscles are intact. Anicteric sclera. Moist mucous membranes. Neck: No JVD. No bruit. Cardiovascular: irregularly irregular, unable to appreciate murmur, rub or gallop. Pulmonary: Clear to auscultation bilaterally. No rales, rhonchi, or wheezing. Abdomen: Bowel sounds x 4, soft. No rebound, guarding or tenderness. No organomegaly. Extremities: No clubbing, cyanosis or edema. +2 pedal pulses bilaterally. Skin: Warm and dry. Results & Data Vital Signs (Past 12 Hours) Vital Signs Temp Pulse Pulse Resp BP BP Pulse Ox 01/23/20 09:20 96 H 16 93/74 L 97 01/23/20 09:10 36.9 C 103 H 16 102/68 95 01/23/20 09:07 122 H 16 119/85 97 01/23/20 09:04 124 H 16 123/82 97 01/23/20 08:59 124 H 16 122/89 97 01/23/20 08:54 116 H 18 140/90 97 01/23/20 08:49 108 H 18 140/90 97 01/23/20 08:44 108 H 18 139/88 98 01/23/20 08:39 108 H 18 131/107 H 98 01/23/20 08:34 108 H 18 127/82 100 01/23/20 08:13 37.1 C 108 H 18 132/73 96 01/23/20 06:00 01/23/20 04:00 37.1 C 96 H 18 119/82 96 01/23/20 00:15 36.8 C 86 18 121/84 97 Pulse Ox 01/23/20 09:20 01/23/20 09:10 01/23/20 09:07 01/23/20 09:04 01/23/20 08:59 01/23/20 08:54 06/12/20 08:49 01/23/20 08:44 01/23/20 08:39 01/23/20 08:34 01/23/20 08:13 01/23/20 06:00 96 01/23/20 04:00 01/23/20 00:15 (1) Chest pain Chest pain type: unspecified Qualified Code(s): R07.9 - Chest pain, unspecified
--- NOTE | 2020-01-23 09:28 | Operative Report ---
Post Operative Report Pre & Post Diagnosis Operation Date: 01/22/20 11:30 <No data on this case meets the specified criteria> Operation Date: 01/23/20 07:45 <No data on this case meets the specified criteria> I identified the patient and participated in the time-out.: Yes Procedure Informed consent obtained. Patient prepped. Adequate moderate sedation achieved with a total of Versed 5 milligrams and fe ntanyl 125 micrograms Transesophageal echocardiogram performed which unfortunately revealed a medium- sized thrombus in the left atrial appendage. Remainder of exam completed. Patient tolerated well. Obviously, cardioversion has been canceled. Patient will be returned to his room we will continue to adjust medications to achieve rate control. Heparin to be restarted now as well as Cardizem drip. Start time: 831 Stop time: 906 Surgeon Maxime Alberto, DO Assistant Cullen BASURTO Estimated Blood Loss 0 Findings Consistent with Post-Op Diagnosis Specimens none Description of Procedure as above I attest to the content of the Intraoperative Record and any orders documented therein. Any exceptions are noted below.
[2020-01-23] MEDS ORDERED: dilTIAZem HCL 125 MG in DEXTROSE 5% 100 ML IV SCH (09:45)
[2020-01-23] MEDS: HEPARIN SODIUM/DEXTROSE 25,000 UNITS/500 ML BAG IV SCH (10:24)
[2020-01-23 11:57] LABS: BUN Creatinine Ratio 10.1 (10-20); Calcium 7.9 mg/dl (8.5-10.1); Creatinine Clr Calc Pharmacy 92.1 ml/min; Est GFR (African American) 93.5; Est GFR (Non-African American) 80.7; Potassium 3.9 mmol/L (3.5-5.1)
[2020-01-23] MEDS: PANTOprazole 40 MG TAB PO SCH (12:49)
[2020-01-23] MEDS: METOPROLOL TARTRATE 50 MG TAB PO SCH ×2 (12:54→17:14)
--- NOTE | 2020-01-23 13:06 | Hospitalist Progress Note ---
Date of Service January 23, 2020 Assessment & Plan (1) Atrial fibrillation with RVR: New onset atrial fibrillation since symptoms of palpitation and shortness of breath started recently Has been on intravenous Cardizem, heparin drip and oral beta-tong started as of today Rate seems to be improving Appreciate cardiology input and recommendation Plan to wean off Cardizem and continue with long-acting beta blockade Plan cardiac cath tomorrow and possible elective cardioversion thereafter Heart rate is controlled remains in fibrillation Cardiac cath did show nonobstructive coronaries and will continue medical management Cardiomyopathy Echocardiography showed LV systolic function is decreased with moderate global hypokinesis with an EF of 40 to 45% He will have cardiac cath tomorrow GOLD showed left atrium thrombus and cardioversion was not done He will be sent home on Eliis and after about 1 month and another attempt of cardioversion will be done as per cardiology Exertional shortness of breath Likely secondary to A. fib with RVR and is complicated by diagnosed cardiomyopathy as above Polycythemia Likely secondary to nocturnal hypoxemia due to sleep apnea Will monitor CBC-hemoglobin noted to be 18.0 on 01/22/2020 We will check CBC and CMP Transaminitis Elevated AST and ALT without elevation of alkaline phosphatase He has history of jaundice with liver biopsy 8 years ago Mentioned that he recovered from it and no history of IV drug abuse and/or blood transfusion Denies any use of alcohol Hepatitis panel is pending LFTs are improving Abnormal CT of the chest He has few mediastinal and upper abdominal lymph nodes which are minimally enlarged Doubt any significant pathology but that has to be followed up as an outpatient with a CAT scan in about 6 months DVT prophylaxis Has been on intravenous heparin CODE STATUS Full Likely discharge tomorrow Admission and Anticipated Discharge Date Admission Date: January 21, 2020 Subjective The patient was seen and examined in ICU He was admitted yesterday with chest pain secondary to A. fib with RVR He has been on Cardizem drip and getting beta-blockade Has been feeling a lot better but he still has occasional palpitation Denies any more chest pain 01/22/2020 The patient was seen and examined in ICU He has been feeling a lot better today and denies any palpitation and/or shortness of breath at rest He will go for cardiac cath sometime this morning 01/23/2020 The patient was seen and examined in ICU He is status post GOLD without cardioversion due to a thrombus in the left atrium Denies any symptoms Review of Systems Review of Systems: All systems reviewed and are unremarkable except as noted below Physical Exam Physical Exam: Lying in bed comfortably Constitutional: well developed, well nourished and + obese; no acute distress and not ill appearing Eyes: PERRL, conjunctivae normal, anicteric sclerae ENMT: external ear and nose normal, oropharynx normal Neck: trachea midline, no thyromegaly Respiratory: normal respiratory effort; no respiratory distress Auscultation: lungs clear to auscultation bilaterally Cardiovascular: Rate/Rhythm: + irregularly irregular Heart Sounds: + murmur (2/6 ejection systolic murmur over precordium) Gastrointestinal (Abdomen): Inspection/Auscultation: abdomen normal to inspection and normal bowel sounds; abdomen not distended Percussion/Palpation: abdomen soft; abdomen nontender Musculoskeletal: no cyanosis or clubbing, extremities motor strength 5/5 Neurologic: moves all extremities; no focal motor deficits Lymphatic: no cervical or axillary lymphadenopathy Results & Data Results & Data ([facility]) Vital Signs (Past 12 Hours) Vital Signs Temp Pulse Pulse Resp BP BP Pulse Ox 01/23/20 09:40 96 H 16 110/75 97 01/23/20 09:30 94 H 16 100/77 97 01/23/20 09:20 96 H 16 93/74 L 97 01/23/20 09:10 36.9 C 103 H 16 102/68 95 01/23/20 09:07 122 H 16 119/85 97 01/23/20 09:04 124 H 16 123/82 97 01/23/20 08:59 124 H 16 122/89 97 01/23/20 08:54 116 H 18 140/90 97 01/23/20 08:49 108 H 18 140/90 97 01/23/20 08:44 108 H 18 139/88 98 01/23/20 08:39 108 H 18 131/107 H 98 01/23/20 08:34 108 H 18 127/82 100 01/23/20 08:13 37.1 C 108 H 18 132/73 96 01/23/20 06:00 01/23/20 04:00 37.1 C 96 H 18 119/82 96 Pulse Ox 01/23/20 09:40 01/23/20 09:30 01/23/20 09:20 01/23/20 09:10 01/23/20 09:07 01/23/20 09:04 01/23/20 08:59 01/23/20 08:54 01/23/20 08:49 01/23/20 08:44 01/23/20 08:39 01/23/20 08:34 01/23/20 08:13 01/23/20 06:00 96 01/23/20 04:00 Laboratory Results BMP 01/23/20 11:28 Sodium 139 Potassium 3.9 Chloride 110 H Carbon Dioxide 25 BUN 11 Creatinine 1.05 Glucose 79 Calcium 7.9 L Medications Administered Current Inpatient Medications Acetaminophen (Tylenol) 650 mg PO Q4H PRN PRN Reason: Pain or Fever Stop: 02/20/20 06:27 Aspirin (Ecotrin Ectab) 81 mg PO QAM [facility] Stop: 02/23/20 08:59 Heparin Sodium/Dextrose (Heparin Sodium/Dextrose) 25,000 units in 500 mls @ 30 mls/hr IV .[id number] [facility]; Protocol Stop: 02/20/20 05:14 Last Admin: 01/23/20 10:24 Dose: 1,500 units/hr, 30 mls/hr Documented by: Promethazine HCl 12.5 mg/ (Sodium Chloride) 50.5 mls @ 202 mls/hr IV Q6H PRN PRN Reason: Nausea And Vomiting Stop: 02/20/20 06:27 Lorazepam (Ativan) 0.5 mg in 1 mls @ 1 mls/min IV Q4H PRN PRN Reason: Anxiety/Agitation Stop: 02/20/20 06:27 Sodium Chloride (Nss 1000ml) 1,000 mls @ 50 mls/hr IV .Q20H [facility] Stop: 02/21/20 00:00 Last Admin: 01/23/20 06:07 Dose: 50 mls/hr Documented by: Diltiazem HCl 125 mg/ Dextrose 125 mls @ 5 mls/hr IV .Q24H [facility]; Protocol Stop: 02/22/20 09:44 Last Admin: 01/23/20 10:25 Dose: 5 mg/hr, 5 mls/hr Documented by: Metoprolol Tartrate (Lopressor) 50 mg PO Q6 [facility] Stop: 02/22/20 11:59 Last Admin: 01/23/20 12:54 Dose: 50 mg Documented by: Nitroglycerin (Nitrostat) 0.4 mg UD PRN PRN Reason: Chest Pain Stop: 02/20/20 06:27 Pantoprazole Sodium (Protonix) 40 mg PO QAM [facility] Stop: 02/22/20 09:44 Last Admin: 01/23/20 12:49 Dose: 40 mg Documented by: Spironolactone (Aldactone) 12.5 mg PO Q24H [facility] Stop: 02/21/20 16:59 Last Admin: 01/22/20 17:08 Dose: 12.5 mg Documented by:
[2020-01-23] MEDS: SPIRONOLACTONE 12.5 MG TAB PO SCH (17:14)
[2020-01-24] MEDS: METOPROLOL TARTRATE 50 MG TAB PO SCH ×3 (01:25→12:12)
[2020-01-24] MEDS: SODIUM CHLORIDE 0.9% 1000ML 1,000 ML IV SCH ×2 (03:08→20:17)
[2020-01-24] MEDS: HEPARIN SODIUM/DEXTROSE 25,000 UNITS/500 ML BAG IV SCH (03:23)
[2020-01-24 06:37] LABS: Basophils # (auto) 0.03 K/uL (0-0.2); Basophils % (auto) 0.6 %; Eosinophils # (auto) 0.11 K/uL (0-0.5); Hematocrit (blood only) 54.8 % (42-52); Immature Granulocytes # (auto) 0.03 K/uL (0.00-0.02); Immature Granulocytes % (auto) 0.6 %; Lymphocytes # (auto) 1.35 K/uL (1.2-3.4); Lymphocytes % (auto) 24.8 %; Mean Corpuscular Hemoglobin 35.8 pg (25-34); Mean Corpuscular Hgb Conc 34.7 g/dL (32-36); Mean Corpuscular Volume 103.4 fL (80-100); Mean Platelet Volume 9.7 fL (7.4-10.4); Monocytes # (auto) 0.85 K/uL (0.11-0.59); Monocytes % (auto) 15.6 %; Neutrophils # (auto) 3.07 K/uL (1.4-6.5); Neutrophils % (auto) 56.4 %; Platelet Count 242 K/uL (130-400); RDW Coefficient of Variation 12.9 % (11.5-14.5); RDW Standard Deviation 48.3 fL (36.4-46.3); White Blood Count 5.44 K/uL (4.8-10.8)
[2020-01-24 06:58] LABS: Partial Thromboplastin Ratio 1.9
[2020-01-24 07:09] LABS: Albumin Level 3.2 gm/dl (3.4-5.0); BUN Creatinine Ratio 11.3 (10-20); Calcium 8.5 mg/dl (8.5-10.1); Creatinine Clr Calc Pharmacy 93.9 ml/min; Est GFR (African American) 95.7; Est GFR (Non-African American) 82.5; Magnesium 2.2 mg/dl (1.8-2.4); Potassium 4.1 mmol/L (3.5-5.1)
[2020-01-24 07:12] LABS: Albumin Globulin Ratio 0.7 (0.9-2); Bilirubin,Total 0.5 mg/dl (0.2-1); Globulin 4.3 gm/dl (2.5-4.0); Total Protein 7.5 gm/dl (6.4-8.2)
[2020-01-24 07:25] LABS: Partial Thromboplastin Time 52.5 Seconds (21.0-31.0)
[2020-01-24] MEDS: PANTOprazole 40 MG TAB PO SCH (08:15)
[2020-01-24] MEDS: ASPIRIN 81 MG ECTAB PO SCH (08:16)
--- NOTE | 2020-01-24 11:39 | Electrocardiogram Report ---
Test Reason : Blood Pressure : / mmHG Vent. Rate : 107 BPM Atrial Rate : 075 BPM P-R Int : 000 ms QRS Dur : 094 ms QT Int : 318 ms P-R-T Axes : 000 102 -02 degrees QTc Int : 424 ms Atrial fibrillation with rapid ventricular response Rightward axis Nonspecific T wave abnormality Abnormal ECG When compared with ECG of 22-JAN-2020 13:07, No significant change was found Confirmed by Gabriele Holt ([id number]) on 01/24/2020 11:39:24 AM Referred By: REFERRED SELF Confirmed By:Gabriele Holt
[2020-01-24] MEDS: LOSARTAN POTASSIUM 25 MG TAB PO SCH (12:31)
[2020-01-24] MEDS: APIXABAN 5 MG TABLET PO SCH ×2 (12:32→20:18)
--- NOTE | 2020-01-24 13:23 | Cardiology Progress Note ---
Date of Service January 24, 2020 Assessment & Plan (1) Atrial fibrillation with RVR: Unfortunately, GOLD revealed a moderate sized left atrial thrombus. Cardioversion obviously not performed. Will need to follow a rate control strategy for the next 30 days and then repeat GOLD and hopefully perform cardioversion at that time should the thrombus resolved. Rates now improved and Cardizem drip discontinued. Review of LV systolic function shows that there is been significant improvement with rate control. Discussed different forms of anticoagulation, vitamin K agonists versus non- vitamin K agonists along with the pros and cons of each. The patient wishes to proceed with Eliquis anticoagulation. We will start Eliquis 5 mg p.o. twice daily now I will also change his metoprolol tartrate to succinate with the first dose this evening of 100 mg at 1700 and then initiate 200 mg p.o. every morning tomorrow. Continue to monitor on telemetry. (2) Dyspnea on exertion: Likely secondary to above. Ischemia ruled out (3) Chest pain: Likely secondary to A. fib with RVR (4) Cardiomyopathy: Repeat echocardiogram shows improvement of his LV systolic function with better rate controlled. 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 Unfortunately, we cannot cardiovert given the left atrial thrombus. I will change metoprolol to succinate and given the fact that his function is improving with rate control I believe he would benefit from calcium channel blockers and I will start Cardizem CD 180 mg p.o. daily now. Historically, calcium channel blockers are to be avoided in a newly discovered cardiomyopathy is, however, given the fact that it appears to be tachycardia induced I believe he would benefit from the rate control. (5) Right ventricular failure: CT of the chest without PE or significant pulmonary pathology (6) Transaminitis: Will defer to the primary team (7) Left atrial thrombus: Findings reviewed with the patient at great lengths. Will require 30 days of uninterrupted anticoagulation and then will repeat GOLD and hopefully cardioversion once the thrombus is resolved. Again we discussed vitamin K versus non-vitamin K agonist. I reviewed with him several case reports of Eliquis being used for left atrial thrombus treatment and its benefit that has been reported. He was also counseled that this would be an off label indication. He states that he understands and would like to be treated with Eliquis. We will start now. Subjective Patient seen and examined, chart reviewed. States that he feels great. No complaints overnight and denies experiencing chest pain, shortness of breath, palpitations, lightheadedness, dizziness or syncope. Overall he states he feels well. He still feels his heart beating somewhat irregularly but nowhere near as significant as presentation. Telemetry reviewed: Atrial fibrillation rates 90s to 100s. Review of Systems Review of Systems: All systems reviewed & are unremarkable except as noted in HPI & below Physical Exam Physical Exam: General: Awake, alert and oriented x 3. No acute distress. HEENT: Normocephalic, atraumatic. Pupils equal, round and reactive to light and accommodation. Extraocular muscles are intact. Anicteric sclera. Moist mucous membranes. Neck: No JVD. No bruit. Cardiovascular: irregularly irregular, unable to appreciate murmur, rub or gallop. Pulmonary: Clear to auscultation bilaterally. No rales, rhonchi, or wheezing. Abdomen: Bowel sounds x 4, soft. No rebound, guarding or tenderness. No organomegaly. Extremities: No clubbing, cyanosis or edema. +2 pedal pulses bilaterally. Skin: Warm and dry. Results & Data Vital Signs (Past 12 Hours) Vital Signs Temp Pulse Pulse Resp BP BP Pulse Ox 01/24/20 12:38 36.3 C L 101 H 18 137/91 97 01/24/20 08:00 01/24/20 07:42 37.1 C 85 20 132/96 98 01/24/20 05:37 72 127/92 01/24/20 05:36 103 H 127/92 01/24/20 03:35 84 01/24/20 03:34 36.7 C 85 14 118/80 97 01/24/20 03:07 91 H 17 01/24/20 02:00 104 H 24 01/24/20 01:20 99 H 15 129/114 H 99 01/24/20 01:19 36.7 C 96 H 20 142/107 H Pulse Ox 01/24/20 12:38 01/24/20 08:00 98 01/24/20 07:42 01/24/20 05:37 01/24/20 05:36 01/24/20 03:35 01/24/20 03:34 01/24/20 03:07 01/24/20 02:00 01/24/20 01:20 01/24/20 01:19 (1) Chest pain Chest pain type: unspecified Qualified Code(s): R07.9 - Chest pain, unspecified
[2020-01-24] MEDS: dilTIAZem HCL 180 MG CAPCR PO SCH (13:42)
--- NOTE | 2020-01-24 14:33 | Hospitalist Progress Note ---
Date of Service January 24, 2020 Assessment & Plan (1) Atrial fibrillation with RVR: New onset atrial fibrillation since symptoms of palpitation and shortness of breath started recently Has been on intravenous Cardizem, heparin drip and oral beta-tong started as of today Rate seems to be improving Appreciate cardiology input and recommendation Plan to wean off Cardizem and continue with long-acting beta blockade Plan cardiac cath tomorrow and possible elective cardioversion thereafter Heart rate is controlled remains in fibrillation Cardiac cath did show nonobstructive coronaries and will continue medical management Needed to have Cardizem drip to control heart rate which have been discontinued as of this morning Beta-tong dose has been increased He was started with Eliquis If remains stable will be going home tomorrow Cardiomyopathy Echocardiography showed LV systolic function is decreased with moderate global hypokinesis with an EF of 40 to 45% He will have cardiac cath GOLD showed left atrium thrombus and cardioversion was not done He will be sent home on Eliquis and after about 1 month and another attempt of cardioversion will be done as per cardiology Eliquis has been started Exertional shortness of breath Likely secondary to A. fib with RVR and is complicated by diagnosed cardiomyopathy as above Needs to have rate control before discharge Polycythemia Likely secondary to nocturnal hypoxemia due to sleep apnea Will monitor CBC-hemoglobin noted to be 18.0 on 01/22/2020 We will check CBC and CMP Hemoglobin remains elevated at 19 today We will need to have outpatient sleep studies may need to see treating engineer as an outpatient Transaminitis Elevated AST and ALT without elevation of alkaline phosphatase He has history of jaundice with liver biopsy 8 years ago Mentioned that he recovered from it and no history of IV drug abuse and/or blood transfusion Denies any use of alcohol Hepatitis panel have been negative LFTs are improving further Abnormal CT of the chest He has few mediastinal and upper abdominal lymph nodes which are minimally enlarged Doubt any significant pathology but that has to be followed up as an outpatient with a CAT scan in about 6 months DVT prophylaxis Has been on intravenous heparin CODE STATUS Full Likely discharge tomorrow Admission and Anticipated Discharge Date Admission Date: January 21, 2020 Subjective The patient was seen and examined in ICU He was admitted yesterday with chest pain secondary to A. fib with RVR He has been on Cardizem drip and getting beta-blockade Has been feeling a lot better but he still has occasional palpitation Denies any more chest pain 01/22/2020 The patient was seen and examined in ICU He has been feeling a lot better today and denies any palpitation and/or shortness of breath at rest He will go for cardiac cath sometime this morning 01/23/2020 The patient was seen and examined in ICU He is status post GOLD without cardioversion due to a thrombus in the left atrium Denies any symptoms 01/24/2020 The patient was seen and examined in telemetry unit Still complains today of palpitation and heart rate remains high with ambulation Denies any dizziness and/or shortness of breath Review of Systems Review of Systems: All systems reviewed and are unremarkable except as noted below Cardiovascular: + palpitations (With ambulation) Physical Exam Physical Exam: Lying in bed comfortably and anxious to be discharged Constitutional: well developed, well nourished and + obese; no acute distress and not ill appearing Eyes: PERRL, conjunctivae normal, anicteric sclerae ENMT: external ear and nose normal, oropharynx normal Neck: trachea midline, no thyromegaly Respiratory: normal respiratory effort; no respiratory distress Auscultation: lungs clear to auscultation bilaterally Cardiovascular: Rate/Rhythm: + irregularly irregular Heart Sounds: + murmur (2/6 ejection systolic murmur over precordium) Gastrointestinal (Abdomen): Inspection/Auscultation: abdomen normal to inspection and normal bowel sounds; abdomen not distended Percussion/Palpation: abdomen soft; abdomen nontender Musculoskeletal: no cyanosis or clubbing, extremities motor strength 5/5 Neurologic: moves all extremities; no focal motor deficits Lymphatic: no cervical or axillary lymphadenopathy Results & Data Results & Data ([facility]) Vital Signs (Past 12 Hours) Vital Signs Temp Pulse Pulse Resp BP Pulse Ox Pulse Ox 01/24/20 12:38 36.3 C L 101 H 18 137/91 97 01/24/20 08:00 98 01/24/20 07:42 37.1 C 85 20 132/96 98 01/24/20 05:37 72 127/92 01/24/20 05:36 103 H 127/92 01/24/20 03:35 84 01/24/20 03:34 36.7 C 85 14 118/80 97 01/24/20 03:07 91 H 17 Laboratory Results Short CBC 01/24/20 Range/Units 06:26 WBC 5.44 (4.8-10.8) K/uL Hgb 19.0 H (14.0-18.0) g/dL Hct 54.8 H (42-52) % Plt Count 242 (130-400) K/uL BMP 01/24/20 06:26 Sodium 139 Potassium 4.1 Chloride 109 H Carbon Dioxide 25 BUN 12 Creatinine 1.03 Glucose 76 Calcium 8.5 Liver Function 01/24/20 Range/Units 06:26 Total Bilirubin 0.5 (0.2-1) mg/dl AST 13 L (15-37) U/L ALT 53 (12-78) U/L Alkaline Phosphatase 148 H (45-117) U/L Albumin 3.2 L (3.4-5.0) gm/dl Medications Administered Current Inpatient Medications Acetaminophen (Tylenol) 650 mg PO Q4H PRN PRN Reason: Pain or Fever Stop: 02/20/20 06:27 Apixaban (Eliquis) 5 mg PO BID [facility] Stop: 02/23/20 11:29 Last Admin: 01/24/20 12:32 Dose: 5 mg Documented by: Aspirin (Ecotrin Ectab) 81 mg PO [facility] Stop: 02/23/20 08:59 Last Admin: 01/24/20 08:16 Dose: 81 mg Documented by: Diltiazem HCl (Cardizem Cd) 180 mg PO [facility] Stop: 02/23/20 13:44 Last Admin: 01/24/20 13:42 Dose: 180 mg Documented by: Promethazine HCl 12.5 mg/ (Sodium Chloride) 50.5 mls @ 202 mls/hr IV Q6H PRN PRN Reason: Nausea And Vomiting Stop: 02/20/20 06:27 Lorazepam (Ativan) 0.5 mg in 1 mls @ 1 mls/min IV Q4H PRN PRN Reason: Anxiety/Agitation Stop: 02/20/20 06:27 Sodium Chloride (Nss 1000ml) 1,000 mls @ 50 mls/hr IV .Q20H [facility] Stop: 02/21/20 00:00 Last Admin: 01/24/20 03:08 Dose: 50 mls/hr Documented by: Diltiazem HCl 125 mg/ Dextrose 125 mls @ 0 mls/hr IV .Q0M [facility]; Protocol Stop: 02/22/20 09:44 Last Titration: 01/23/20 17:14 Dose: 0 mg/hr, 0 mls/hr Documented by: Losartan Potassium (Cozaar) 25 mg PO [facility] Stop: 02/23/20 09:44 Last Admin: 01/24/20 12:31 Dose: 25 mg Documented by: Metoprolol Succinate (Toprol Xl) 100 mg PO TODAY@1700 ONE Stop: 01/24/20 17:01 Metoprolol Succinate (Toprol Xl) 200 mg PO [facility] Stop: 02/24/20 08:59 Nitroglycerin (Nitrostat) 0.4 mg SL UD PRN PRN Reason: Chest Pain Stop: 02/20/20 06:27 Pantoprazole Sodium (Protonix) 40 mg PO [facility] Stop: 02/22/20 09:44 Last Admin: 01/24/20 08:15 Dose: 40 mg Documented by: Spironolactone (Aldactone) 12.5 mg PO Q24H [facility] Stop: 02/21/20 16:59 Last Admin: 01/23/20 17:14 Dose: 12.5 mg Documented by:
[2020-01-24] MEDS ORDERED: METOPROLOL SUCC 50MG EXT REL TAB PO ONE (17:00)
[2020-01-24] MEDS: SPIRONOLACTONE 12.5 MG TAB PO SCH (17:25)
[2020-01-25 06:15] LABS: Basophils # (auto) 0.03 K/uL (0-0.2); Basophils % (auto) 0.5 %; Eosinophils % (auto) 1.7 %; Hematocrit (blood only) 55.3 % (42-52); Hemoglobin 19.4 g/dL (14.0-18.0); Immature Granulocytes # (auto) 0.02 K/uL (0.00-0.02); Immature Granulocytes % (auto) 0.3 %; Lymphocytes # (auto) 1.27 K/uL (1.2-3.4); Lymphocytes % (auto) 22.2 %; Mean Corpuscular Hemoglobin 35.9 pg (25-34); Mean Corpuscular Volume 102.2 fL (80-100); Mean Platelet Volume 9.8 fL (7.4-10.4); Monocytes # (auto) 0.67 K/uL (0.11-0.59); Monocytes % (auto) 11.7 %; Neutrophils # (auto) 3.64 K/uL (1.4-6.5); Neutrophils % (auto) 63.6 %; Platelet Count 285 K/uL (130-400); RDW Coefficient of Variation 12.8 % (11.5-14.5); RDW Standard Deviation 47.7 fL (36.4-46.3); Red Blood Count 5.41 M/uL (4.7-6.1); White Blood Count 5.73 K/uL (4.8-10.8)
[2020-01-25 06:28] LABS: Mean Corpuscular Hgb Conc 35.1 g/dL (32-36)
[2020-01-25 06:54] LABS: BUN Creatinine Ratio 10.3 (10-20); Calcium 9.2 mg/dl (8.5-10.1); Creatinine Clr Calc Pharmacy 88.7 ml/min; Est GFR (African American) 89.3; Est GFR (Non-African American) 77.1; Potassium 4.2 mmol/L (3.5-5.1)
[2020-01-25] MEDS: APIXABAN 5 MG TABLET PO SCH (07:41)
[2020-01-25] MEDS: dilTIAZem HCL 180 MG CAPCR PO SCH (07:41)
[2020-01-25] MEDS: LOSARTAN POTASSIUM 25 MG TAB PO SCH (07:42)
[2020-01-25] MEDS: PANTOprazole 40 MG TAB PO SCH (07:42)
[2020-01-25] MEDS: ASPIRIN 81 MG ECTAB PO SCH (07:42)
[2020-01-25] MEDS ORDERED: METOPROLOL SUCC 50MG EXT REL TAB PO SCH (09:00)
--- NOTE | 2020-01-25 10:21 | Hospitalist Progress Note ---
Date of Service January 25, 2020 Assessment & Plan (1) Atrial fibrillation with RVR: New onset atrial fibrillation since symptoms of palpitation and shortness of breath started recently Has been on intravenous Cardizem, heparin drip and oral beta-tong started as of today Rate seems to be improving Appreciate cardiology input and recommendation Plan to wean off Cardizem and continue with long-acting beta blockade Plan cardiac cath tomorrow and possible elective cardioversion thereafter Heart rate is controlled remains in fibrillation Cardiac cath did show nonobstructive coronaries and will continue medical management Needed to have Cardizem drip to control heart rate which have been discontinued as of this morning Beta-tong dose has been increased He was started with Eliquis Denies any symptoms of palpitation, dizziness and/or shortness of breath with ambulation Heart rate remains controlled and remains medically stable Cardiomyopathy Echocardiography showed LV systolic function is decreased with moderate global hypokinesis with an EF of 40 to 45% He will have cardiac cath GOLD showed left atrium thrombus and cardioversion was not done He will be sent home on Eliquis and after about 1 month and another attempt of cardioversion will be done as per cardiology Eliquis has been started Exertional shortness of breath Likely secondary to A. fib with RVR and is complicated by diagnosed cardiomyopathy as above Needs to have rate control before discharge Denies any shortness of breath with ambulation Polycythemia Likely secondary to nocturnal hypoxemia due to sleep apnea Will monitor CBC-hemoglobin noted to be 18.0 on 01/22/2020 We will check CBC and CMP Hemoglobin remains elevated at 19 today We will need to have outpatient sleep studies may need to see curb setter helper as an outpatient Transaminitis Elevated AST and ALT without elevation of alkaline phosphatase He has history of jaundice with liver biopsy 8 years ago Mentioned that he recovered from it and no history of IV drug abuse and/or blood transfusion Denies any use of alcohol Hepatitis panel have been negative LFTs are almost normalized Abnormal CT of the chest He has few mediastinal and upper abdominal lymph nodes which are minimally enlarged Doubt any significant pathology but that has to be followed up as an outpatient with a CAT scan in about 6 months We will advise for repeat CAT scan of the chest in about 6 months DVT prophylaxis Has been on intravenous heparin CODE STATUS Full Likely discharge tomorrow Admission and Anticipated Discharge Date Admission Date: January 21, 2020 Subjective The patient was seen and examined in ICU He was admitted yesterday with chest pain secondary to A. fib with RVR He has been on Cardizem drip and getting beta-blockade Has been feeling a lot better but he still has occasional palpitation Denies any more chest pain 01/22/2020 The patient was seen and examined in ICU He has been feeling a lot better today and denies any palpitation and/or shortness of breath at rest He will go for cardiac cath sometime this morning 01/23/2020 The patient was seen and examined in ICU He is status post GOLD without cardioversion due to a thrombus in the left atrium Denies any symptoms 01/24/2020 The patient was seen and examined in telemetry unit Still complains today of palpitation and heart rate remains high with ambulation Denies any dizziness and/or shortness of breath 01/25/2020 The patient was seen and examined in telemetry unit He has been feeling a lot better and denies any symptoms His heart rate is controlled and does not have any more palpitation and or increased heart rate with ambulation Review of Systems Review of Systems: All systems reviewed and are unremarkable except as noted below Cardiovascular: no palpitations (With ambulation) Neurologic: no unsteadiness and no dizziness Physical Exam Physical Exam: Lying in bed comfortably and anxious to be discharged Constitutional: well developed, well nourished and + obese; no acute distress and not ill appearing Eyes: PERRL, conjunctivae normal, anicteric sclerae ENMT: external ear and nose normal, oropharynx normal Neck: trachea midline, no thyromegaly Respiratory: normal respiratory effort; no respiratory distress Auscultation: lungs clear to auscultation bilaterally Cardiovascular: Rate/Rhythm: + irregularly irregular Heart Sounds: + murmur (2/6 ejection systolic murmur over precordium) Gastrointestinal (Abdomen): Inspection/Auscultation: abdomen normal to inspection and normal bowel sounds; abdomen not distended Percussion/Palpation: abdomen soft; abdomen nontender Musculoskeletal: no cyanosis or clubbing, extremities motor strength 5/5 Neurologic: moves all extremities; no focal motor deficits Lymphatic: no cervical or axillary lymphadenopathy Results & Data Results & Data ([facility]) Vital Signs (Past 12 Hours) Vital Signs Temp Pulse Pulse Resp BP Pulse Ox 01/25/20 07:54 36.6 C 87 18 138/94 98 01/25/20 04:04 37.1 C 80 18 122/83 97 01/24/20 23:58 69 01/24/20 23:07 36.5 C 79 18 110/67 97 Laboratory Results Short CBC 01/25/20 Range/Units 05:51 WBC 5.73 (4.8-10.8) K/uL Hgb 19.4 H (14.0-18.0) g/dL Hct 55.3 H (42-52) % Plt Count 285 (130-400) K/uL BMP 01/25/20 05:51 Sodium 136 Potassium 4.2 Chloride 107 Carbon Dioxide 22 BUN 11 Creatinine 1.09 Glucose 87 Calcium 9.2 Medications Administered Current Inpatient Medications Acetaminophen (Tylenol) 650 mg PO Q4H PRN PRN Reason: Pain or Fever Stop: 02/20/20 06:27 Last Admin: 01/24/20 18:12 Dose: 650 mg Documented by: Apixaban (Eliquis) 5 mg PO BID [facility] Stop: 02/23/20 11:29 Last Admin: 01/25/20 07:41 Dose: 5 mg Documented by: Aspirin (Ecotrin Ectab) 81 mg PO [facility] Stop: 02/23/20 08:59 Last Admin: 01/25/20 07:42 Dose: 81 mg Documented by: Diltiazem HCl (Cardizem Cd) 180 mg PO [facility] Stop: 02/23/20 13:44 Last Admin: 01/25/20 07:41 Dose: 180 mg Documented by: Promethazine HCl 12.5 mg/ (Sodium Chloride) 50.5 mls @ 202 mls/hr IV Q6H PRN PRN Reason: Nausea And Vomiting Stop: 02/20/20 06:27 Lorazepam (Ativan) 0.5 mg in 1 mls @ 1 mls/min IV Q4H PRN PRN Reason: Anxiety/Agitation Stop: 02/20/20 06:27 Sodium Chloride (Nss 1000ml) 1,000 mls @ 50 mls/hr IV .Q20H [facility] Stop: 02/21/20 00:00 Last Admin: 01/24/20 20:17 Dose: 50 mls/hr Documented by: Diltiazem HCl 125 mg/ Dextrose 125 mls @ 0 mls/hr IV .Q0M [facility]; Protocol Stop: 02/22/20 09:44 Last Titration: 01/23/20 17:14 Dose: 0 mg/hr, 0 mls/hr Documented by: Losartan Potassium (Cozaar) 25 mg PO [facility] Stop: 02/23/20 09:44 Last Admin: 01/25/20 07:42 Dose: 25 mg Documented by: Metoprolol Succinate (Toprol Xl) 200 mg PO [facility] Stop: 02/24/20 08:59 Last Admin: 01/25/20 07:43 Dose: 200 mg Documented by: Nitroglycerin (Nitrostat) 0.4 mg SL UD PRN PRN Reason: Chest Pain Stop: 02/20/20 06:27 Pantoprazole Sodium (Protonix) 40 mg PO [facility] Stop: 02/22/20 09:44 Last Admin: 01/25/20 07:42 Dose: 40 mg Documented by: Spironolactone (Aldactone) 12.5 mg PO Q24H [facility] Stop: 02/21/20 16:59 Last Admin: 01/24/20 17:25 Dose: 12.5 mg Documented by:
--- NOTE | 2020-01-25 10:48 | Electrocardiogram Report ---
Test Reason : Blood Pressure : / mmHG Vent. Rate : 079 BPM Atrial Rate : 241 BPM P-R Int : 000 ms QRS Dur : 104 ms QT Int : 358 ms P-R-T Axes : 000 111 003 degrees QTc Int : 410 ms Atrial fibrillation Right axis deviation Nonspecific T wave abnormality Abnormal ECG When compared with ECG of 24-JAN-2020 10:07, No significant change was found Confirmed by Gabriele Holt ([id number]) on 01/25/2020 10:48:24 AM Referred By: REFERRED SELF Confirmed By:Gabriele Holt
--- NOTE | 2020-01-25 12:52 | Cardiology Progress Note ---
Date of Service January 25, 2020 Assessment & Plan (1) Atrial fibrillation with RVR: Unfortunately, GOLD revealed a moderate sized left atrial thrombus. Cardioversion obviously not performed. Will need to follow a rate control strategy for the next 30 days and then repeat GOLD and hopefully perform cardioversion at that time should the thrombus resolved. He will be discharged home on the following medications now that he is rate controlled and I will place the order in epic to his preferred pharmacy [facility] in [place]: Metoprolol succinate 200 mg p.o. twice daily Cardizem CD 240 mg p.o. daily Eliquis 5 mg p.o. twice daily Spironolactone 12 mg p.o. daily Losartan 25 mg p.o. daily Aspirin 81 mg p.o. daily OTC My office will call to arrange follow-up with me in 1 month at which time will likely plan to repeat OGLD and cardioversion. (2) Dyspnea on exertion: Likely secondary to above. Ischemia ruled out (3) Chest pain: Likely secondary to A. fib with RVR (4) Cardiomyopathy: Repeat echocardiogram shows improvement of his LV systolic function with better rate controlled. 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 Unfortunately, we cannot cardiovert given the left atrial thrombus. Rates are now controlled. We will repeat echocardiogram 1 month after sinus rhythm is restored. Guideline directed medical therapy as ordered above. Okay to discharge home from a cardiac standpoint. (5) Right ventricular failure: CT of the chest without PE or significant pulmonary pathology (6) Transaminitis: Will defer to the primary team (7) Left atrial thrombus: Findings reviewed with the patient at great lengths. Will require 30 days of uninterrupted anticoagulation and then will repeat GOLD and hopefully cardioversion once the thrombus is resolved. Again we discussed vitamin K versus non-vitamin K agonist. I reviewed with him several case reports of Eliquis being used for left atrial thrombus treatment and its benefit that has been reported. He was also counseled that this would be an off label indication. He states that he understands and would like to be treated with Eliquis. We will start now. Subjective Patient seen and examined, chart reviewed. No complaints overnight and states he feels great. Specifically denies any chest pain, shortness of breath, palpitations, lightheadedness, dizziness or syncope. He is tolerating his medications without issue. Telemetry reviewed: Atrial fibrillation rate controlled in the 80s to 90s. Review of Systems Review of Systems: All systems reviewed & are unremarkable except as noted in HPI & below Physical Exam Physical Exam: General: Awake, alert and oriented x 3. No acute distress. HEENT: Normocephalic, atraumatic. Pupils equal, round and reactive to light and accommodation. Extraocular muscles are intact. Anicteric sclera. Moist mucous membranes. Neck: No JVD. No bruit. Cardiovascular: irregularly irregular, unable to appreciate murmur, rub or gallop. Pulmonary: Clear to auscultation bilaterally. No rales, rhonchi, or wheezing. Abdomen: Bowel sounds x 4, soft. No rebound, guarding or tenderness. No organomegaly. Extremities: No clubbing, cyanosis or edema. +2 pedal pulses bilaterally. Skin: Warm and dry. Results & Data Vital Signs (Past 12 Hours) Vital Signs Temp Pulse Pulse Resp BP BP Pulse Ox 01/25/20 11:53 36.6 C 96 H 87 18 138/94 119/85 98 01/25/20 11:37 37.1 C 61 18 115/83 96 01/25/20 07:54 36.6 C 87 18 138/94 98 01/25/20 04:04 37.1 C 80 18 122/83 97 (1) Chest pain Chest pain type: unspecified Qualified Code(s): R07.9 - Chest pain, unspecified
--- NOTE | 2020-01-26 08:17 | Discharge Summary ---
Date of Service January 26, 2020 Admission HPI Per Admitting Provider History obtained from patient and records. Medical history significant for mild FLORENCE (not requiring CPAP from sleep study from 2 years ago). 5 days ago patient noted palpitations and shortness of breath at rest. Symptoms persistent over the next few days. No headache, no cough, no chest pain. 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 Not sleeping a lot. Patient actually stopped coffee, alcohol, energy drink consumption prior to symptoms as a healthy lifestyle measure. Last night symptoms accompanied by transient chest tightness. At the ER, patient noted to be in rapid A. fib. Cardiac rate 110-140s. Patient given boluses of Lopressor and Cardizem at the ER. Cardiac rate currently 90s. 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 [employer] Admission Exam Per Admitting Provider Physical Exam: GENERAL: Comfortable, pleasant, obese, no respiratory distress SKIN: Normal color, warm HEENT: [place] palpebral conjunctivae, no ptosis, dry buccal mucosa NECK : Supple, short neck, no tenderness CHEST : CTA, no tenderness HEART : irregular, no obvious murmurs ABDOMEN: Some distention, nontender EXTREMITIES : No LE swelling/tenderness, no other conspicuous deformities noted NEUROLOGIC : Coherent, no facial asymmetry, no other gross focality Principal Diagnosis Atrial fibrillation with RVR, cardiomyopathy, left atrial thrombus, polycythemia Discharge Exam Constitutional well developed, well nourished and + obese; no acute distress and not ill appearing Eyes PERRL, conjunctivae normal, anicteric sclerae ENMT external ear and nose normal, oropharynx normal Neck trachea midline, no thyromegaly Respiratory normal respiratory effort; no respiratory distress Auscultation: lungs clear to auscultation bilaterally Cardiovascular Rate/Rhythm: + irregularly irregular Heart Sounds: + murmur (2/6 ejection systolic murmur over precordium) Gastrointestinal (Abdomen) Inspection/Auscultation: abdomen normal to inspection and normal bowel sounds; abdomen not distended Percussion/Palpation: abdomen soft; abdomen nontender Musculoskeletal no cyanosis or clubbing, extremities motor strength 5/5 Neurologic moves all extremities; no focal motor deficits Lymphatic no cervical or axillary lymphadenopathy Discharge Data Allergies Allergy/AdvReac Type Severity Reaction Status Date / Time No Known Allergies Allergy Verified 01/21/20 00:54 Consultations 01/21/20 04:16 ED Decision to Admit Stat 01/21/20 06:28 Consult Cardiology Routine 01/22/20 08:00 Consult Cardiac Catheterization Routine Procedures Performed Operation Date: 01/22/20 11:30 Actual Procedures p Cath, Left with Cors and Vent - Dm Harris MD s Cineradiography w/Routine Exam - Dm Harris MD Operation Date: 01/23/20 07:45 Actual Procedures p Echo Transesophageal - Maxime Alberto, Ordered Studies 01/21/20 05:09 CT angio chest PE protocol Urgent 01/22/20 09:24 CL Cath Imgs for PACS use only Routine Hospital Course (1) Atrial fibrillation with RVR: New onset atrial fibrillation since symptoms of palpitation and shortness of breath started recently Has been on intravenous Cardizem, heparin drip and oral beta-tong started as of today Rate seems to be improving Appreciate cardiology input and recommendation Plan to wean off Cardizem and continue with long-acting beta blockade Plan cardiac cath tomorrow and possible elective cardioversion thereafter Heart rate is controlled remains in fibrillation Cardiac cath did show nonobstructive coronaries and will continue medical management Needed to have Cardizem drip to control heart rate which have been discontinued as of this morning Beta-tong dose has been increased He was started with Eliquis Denies any symptoms of palpitation, dizziness and/or shortness of breath with ambulation Heart rate remains controlled and remains medically stable Cardiomyopathy Echocardiography showed LV systolic function is decreased with moderate global hypokinesis with an EF of 40 to 45% He will have cardiac cath GOLD showed left atrium thrombus and cardioversion was not done He will be sent home on Eliquis and after about 1 month and another attempt of cardioversion will be done as per cardiology Eliquis has been started Exertional shortness of breath Likely secondary to A. fib with RVR and is complicated by diagnosed cardiomyopathy as above Needs to have rate control before discharge Denies any shortness of breath with ambulation Polycythemia Likely secondary to nocturnal hypoxemia due to sleep apnea Will monitor CBC-hemoglobin noted to be 18.0 on 01/22/2020 We will check CBC and CMP Hemoglobin remains elevated at 19 today We will need to have outpatient sleep studies may need to see preschool teacher's assistant as an outpatient Transaminitis Elevated AST and ALT without elevation of alkaline phosphatase He has history of jaundice with liver biopsy 8 years ago Mentioned that he recovered from it and no history of IV drug abuse and/or blood transfusion Denies any use of alcohol Hepatitis panel have been negative LFTs are almost normalized Abnormal CT of the chest He has few mediastinal and upper abdominal lymph nodes which are minimally enlarged Doubt any significant pathology but that has to be followed up as an outpatient with a CAT scan in about 6 months We will advise for repeat CAT scan of the chest in about 6 months DVT prophylaxis Has been on intravenous heparin CODE STATUS Full Likely discharge tomorrow Total Time Total Time Spent Total Time Spent (In Minutes): 35 minutes Total Time Includes: Examination of the Patient, Discharge Planning, Medication Reconciliation and Communication With Other Providers Discharge Plan Discharge Items Patient Disposition: Home - Self-Care Reason For Visit: NEW ONSET AF Discharge Diagnosis: Atrial fibrillation with RVR, cardiomyopathy, left atrial thrombus, polycythemia Activity: Resume your previous activity Non-emergency contact: Primary Care Provider Call non-emergency contact if: you have any medication questions Follow-up/Referrals: PCP,NO [Primary Care Provider] - (Will need to be established with a PCP and an appointment within 7 days. [facility] cardiology office will call for an appointment.) Diet: Heart Healthy Addtl Attending Provider Instructions: Please take medications as prescribed You will need to have CT of the chest in about 6 months for a follow-up of abnormal lymph nodes in mediastinum and upper abdomen Pending Studies at Discharge: No Stand-Alone Forms: My rPath, Smoking Cessation Medications and DC Order Prescriptions: New Eliquis 5 mg Tablet 5 mg PO BID Qty: 60 RF: 0 diltiazem HCl 180 mg Capsule,Extended Release 24hr 180 mg PO QAM Qty: 30 RF: 0 metoprolol succinate 50 mg Tablet Extended Release 24 Hr 200 mg PO QAM Qty: 30 RF: 0 losartan 25 mg Tablet 25 mg PO QAM Qty: 30 RF: 0 nitroglycerin [Nitrostat] 0.4 mg Tablet, Sublingual 0.4 mg sublingual UD PRN (Reason: chest pain) Qty: 30 RF: 0 aspirin 81 mg Tablet,Delayed Release (Dr/Ec) 81 mg PO QAM Qty: 30 RF: 0 spironolactone 25 mg Tablet 12.5 mg PO Q24H Qty: 30 RF: 0 pantoprazole 40 mg Tablet,Delayed Release (Dr/Ec) 40 mg PO QAM Qty: 30 RF: 0 Continued acetaminophen [Tylenol Extra Strength] 500 mg Tablet 500 - 1,000 mg PO DIRECTED PRN (Reason: Pain) RF: 0 Discontinued aspirin 325 mg Tablet,Delayed Release (Dr/Ec) 325 mg PO DIRECTED PRN (Reason: Pain) RF: 0 Discharge Orders: Discharge Order (Routine); Ordered 01/25/20 Ordered By: Zbigniew Pagan Admission Data Admit Date/Time: 01/21/20 05:17 Attending Provider: Zbigniew Pagan Admit Provider: [facility] Primary Care Provider: PCP,NO Other Providers: [facility] ; Dm Harris Other Interventions: Discharge Summary Assessment (RN) Last Done: 01/25/20 11:53 DC Date/Time DO NOT enter until pt leaves facility: 01/25/20 12:42
== END 2020-01-25 12:42 | disposition home or self-care (01) | DRG 287 ==
LOC: ED 00:20 → 1E 05:17 → 2S 01-24 03:36

== ENCOUNTER 2020-03-05 06:15 | Inpatient (IN) ==
[2020-03-05] MEDS ORDERED: MIDAZOLAM HCL 1 MG/ML 2ML VIAL ONE ×3 (07:09→08:22)
[2020-03-05] MEDS ORDERED: fentaNYL citrate 100 MCG/2 ML VIAL ONE ×2 (07:09→07:10)
--- NOTE | 2020-03-05 07:51 | History & Physical Bridge Note ---
Date of Service March 05, 2020 History & Physical Bridge Note I have examined the patient, reviewed the History & Physical and in the interval since the performance of the History & Physical I have noted the following changes of clinical significance: no changes noted
--- NOTE | 2020-03-05 07:52 | Pre Anesthesia Assessment ---
Date of Service March 05, 2020 Pre Sedation Assessment Vital Signs Temp Pulse Resp BP Pulse Ox 03/05/20 06:53 36.7 C 119 H 16 146/109 H 96 Pre-Sedation Airway Assessment Smoking Status: Never smoker Hx Sleep Apnea: No Short, Thick Neck: No Thyromental Distance: > or= 3.5 Finger Breadths Oral Cavity: + WNL Mallampati Class: II ASA: ASA3 NPO Status Date of Last Intake of Fluids: 03/04/20 Time of Last Intake of Fluids: 19:00 Date of Last Intake of Solid Food: 03/04/20 Time of Last Intake of Solid Foods: 19:00 Notes The planned sedation has been discussed with the patient. Informed Consent was obtained. I have identified the patient, determined the appropriateness of sedation and have assessed the patient immediately prior to the procedure. All medicine(s) and interventions are by my order.
[2020-03-05] MEDS ORDERED: LIDOCAINE HCL VISCOUS SOLN 2% 15 ML UDC ONE (08:04)
--- NOTE | 2020-03-05 08:36 | Post Anesthesia Assessment ---
Date of Service March 05, 2020 Post Sedation Assessment Vital Signs Temp Pulse Pulse Resp BP Pulse Ox 03/05/20 08:25 138 H 14 132/80 96 03/05/20 08:24 134 H 16 95/82 L 98 03/05/20 08:20 127 H 14 114/87 97 03/05/20 08:18 141 H 14 140/82 96 03/05/20 08:15 134 H 16 130/109 H 96 03/05/20 06:53 36.7 C 119 H 16 146/109 H 96 Recovery Score Activity: Moves 4 extremities Respiration: Deep Breath/Cough Circulation: +/-20% PreAnes Value Consciousness: Fully Awake Oxygen Saturation: > 92% On Room Air Post Anesthesia Score: 10 Discharge Sedation Level of Care: Fast Track Phase II Post Sedation Plan On clinical assessment, the patient appears to have tolerated the sedation without complications. Patient is recovering as anticipated. Patient will continue to be monitored by nursing and may be discharged when sedation discharge criteria are met per below protocol. Upon Completions of procedure up to 15 minutes continue every 5 minute vital signs and the P.A.R. score; then discharge to a Phase I or Fast Track to Phase II per the following guidelines: * Discharge Patient to appropriate Phase II area if PAR is 8 or greater or return to pre- procedure baseline. The post - procedure orders will be as directed. * If PAR score is less than 8 or not return to pre-procedure baseline then patient will follow Phase I monitoring till PAR is reached for Phase II. The Phase I may be done in procedure room or may call to secure a Phase I area. * If naloxone or flumazenil are used for reversal, hold in Phase I for continued monitoring from when last reversal dose was given for a minimum of 60 minutes or longer pending the nurse and/or physician discretion of patient condition before discharge to Phase II. Please call the Sedation Physician to re-evaluate and complete post-note for discharge to Phase II area. Do NOT discharge from procedure sedation or Phase 1 until post- sedation evaluation note is complete by procedure /sedation MD Sedation Discharge Instructions to be given to the patient at discharge to home.
--- NOTE | 2020-03-05 08:38 | Cardioversion ---
Date of Service March 05, 2020 Electrical Cardioversion Rpt Electrical Cardioversion Report Informed consent obtained. Patient prepped. Adequate moderate conscious sedation achieved with a total of Versed 6 mg and fentanyl 150 mcg. GOLD performed which showed no thrombus present in the left atrial appendage. GOLD concluded, patient tolerated well. Patient repositioned and 360 J of direct current energy was delivered with successful conversion to normal sinus rhythm. Patient tolerated the procedure well. Start time: 08 Stop time: 827 No complications. To be recovered per protocol and admitted to telemetry for sotalol loading.
[2020-03-05] MEDS ORDERED: ONDANSETRON INJ 2 MG/ML 2 ML VIAL IV PRN (08:44)
[2020-03-05] MEDS ORDERED: POLYETHYLENE (MIRALAX) 17 GM PACK PO PRN (08:44)
[2020-03-05] MEDS ORDERED: ACETAMINOPHEN 325 MG TAB PO PRN (08:44)
[2020-03-05] MEDS ORDERED: ZOLPIDEM TARTRATE 5 MG TAB PO PRN (08:44)
[2020-03-05] MEDS ORDERED: ALUMINUM/MAGNESIUM SUSP 30 ML UDC PO PRN (08:44)
[2020-03-05] MEDS ORDERED: MAGNESIUM HYDROXIDE SUSP 30 ML UDC PO PRN (08:44)
--- NOTE | 2020-03-05 08:44 | History & Physical Report ---
Date of Service March 05, 2020 Assessment & Plan (1) Atrial fibrillation with RVR: (2) Left atrial thrombus: (3) NICM (nonischemic cardiomyopathy): Patient underwent transesophageal echocardiographic guided cardioversion this a.m. No left atrial thrombus was present and he successfully converted to normal sinus rhythm. I will now admit him to telemetry and initiate sotalol 80 mg p.o. twice daily while he is continuously monitored on telemetry and daily EKGs are performed to evaluate for any prolongation of the QT interval. His metoprolol will be discontinued in favor of the sotalol but he will be continued on his outpatient doses of Eliquis, losartan and spironolactone. Okay to ambulate unrestricted. We will start diet. Admission and Anticipated Discharge Date Admission Date: 03/05/2020 Anticipated date of discharge: 03/08/20 History of Present Illness Chief Complaint: Atrial fibrillation with rapid ventricular response and associated nonischemic cardiomyopathy. Primary Care Provider: NO PCP Mr. Menon is a very pleasant 54-year-old gentleman who is previously admitted to [facility] with complaints of shortness of breath. He was found to have atrial fibrillation with rapid ventricular response and newly dis covered nonischemic cardiomyopathy. Transesophageal echocardiogram was performed at that time which revealed a left atrial appendage. Cardiac cath was performed during that admission as well which revealed essentially normal coronary arteries. The patient was discharged home on Eliquis anticoagulation as per his choice as well as rate control and guideline directed medical therapy. He presents now for repeat transesophageal echocardiographic guided cardioversion and admission for sotalol loading. The risks, benefits and alternatives were discussed with him at great lengths. He states that he understands, is accepting of the risks and wishes to proceed. He underwent GOLD guided cardioversion this a.m. with successful conversion to normal sinus rhythm. We will now admit to telemetry. PAST MEDICAL HISTORY: 1. Atrial fibrillation with rapid ventricular response 2. Left atrial thrombus 3. Nonischemic cardiomyopathy secondary to AFib with RVR 4. Minimal nonobstructive coronary artery disease by cardiac catheterization January 2020 5. RV systolic failure 6. Transient transaminitis Allergies Allergy/AdvReac Type Severity Reaction Status Date / Time No Known Allergies Allergy Verified 01/21/20 00:54 Home Medications Home Medications Medication Instructions Recorded Confirmed Type acetaminophen [Tylenol Extra 500 - 1,000 mg PO DIRECTED PRN 01/21/20 03/05/20 History Strength] apixaban [Eliquis] 5 mg PO BID #60 tab 01/25/20 03/05/20 Rx diltiazem HCl 180 mg PO QAM #30 cap 01/25/20 03/05/20 Rx losartan 25 mg PO QAM #30 tab 01/25/20 03/05/20 Rx metoprolol succinate 200 mg PO QAM #30 tab 01/25/20 03/05/20 Rx nitroglycerin [Nitrostat] 0.4 mg SUBLINGUAL UD PRN #30 tab 01/25/20 03/05/20 Rx spironolactone 12.5 mg PO Q24H #30 tab 01/25/20 Rx Past Med/Surg History Medical History No pertinent past medical history Social History Smoking Status: Never smoker Hx Alcohol Use: No Hx Substance Use: No Preferred Language: Surinamese Communication Ability: Effective Beliefs That Will Affect Care: None Current Living Situation: Spouse Other Information That Helps Us Care for You: No Feels Safe at Home: Yes Safety Concerns: Feels Safe At This Time Review of Systems Review of Systems: All systems reviewed & are unremarkable except as noted in HPI & below Physical Exam Physical Exam: General: Awake, alert and oriented x 3. No acute distress. HEENT: Normocephalic, atraumatic. Pupils equal, round and reactive to light and accommodation. Extraocular muscles are intact. Anicteric sclera. Moist mucous membranes. Neck: No JVD. No bruit. Cardiovascular: Regular. Positive S-4. Normal S-1 and S-2. No S-3. No murmurs or rubs. Pulmonary: Clear to auscultation B/L. No rales, rhonchi or wheezing Abdomen: Bowel sounds x 4, soft. No rebound, guarding or tenderness. No organomegaly. Extremities: No clubbing, cyanosis or edema. +2 pedal pulses bilaterally. Skin: Warm and dry. Results & Data Results & Data ([facility]) Vital Signs (Past 12 Hours) Vital Signs Temp Pulse Pulse Resp BP Pulse Ox 03/05/20 08:25 138 H 14 132/80 96 03/05/20 08:24 134 H 16 95/82 L 98 03/05/20 08:20 127 H 14 114/87 97 03/05/20 08:18 141 H 14 140/82 96 03/05/20 08:15 134 H 16 130/109 H 96 03/05/20 06:53 36.7 C 119 H 16 146/109 H 96
[2020-03-05] MEDS ORDERED: INFLUENZA VIRUS QUAD VACCINE 0.5 ML SYR IM ONE (09:24)
[2020-03-05] MEDS ORDERED: INFLUENZA ADMINISTRATION CHARGE ONE (09:24)
[2020-03-05 10:04] LABS: Basophils # (auto) 0.02 K/uL (0-0.2); Basophils % (auto) 0.3 %; Eosinophils # (auto) 0.13 K/uL (0-0.5); Eosinophils % (auto) 2.1 %; Hematocrit (blood only) 53.1 % (42-52); Hemoglobin 18.7 g/dL (14.0-18.0); Immature Granulocytes # (auto) 0.02 K/uL (0.00-0.02); Immature Granulocytes % (auto) 0.3 %; Lymphocytes # (auto) 1.13 K/uL (1.2-3.4); Lymphocytes % (auto) 18.4 %; Mean Corpuscular Hemoglobin 35.6 pg (25-34); Mean Corpuscular Hgb Conc 35.2 g/dL (32-36); Mean Corpuscular Volume 101.1 fL (80-100); Mean Platelet Volume 9.2 fL (7.4-10.4); Monocytes # (auto) 0.58 K/uL (0.11-0.59); Monocytes % (auto) 9.5 %; Neutrophils # (auto) 4.25 K/uL (1.4-6.5); Neutrophils % (auto) 69.4 %; Platelet Count 227 K/uL (130-400); RDW Coefficient of Variation 12.8 % (11.5-14.5); RDW Standard Deviation 47.2 fL (36.4-46.3); Red Blood Count 5.25 M/uL (4.7-6.1); White Blood Count 6.13 K/uL (4.8-10.8)
[2020-03-05 10:28] LABS: BUN Creatinine Ratio 9.6 (10-20); Calcium 8.9 mg/dl (8.5-10.1); Est GFR (African American) 75.7; Est GFR (Non-African American) 65.3; Magnesium 1.7 mg/dl (1.8-2.4); Potassium 4.7 mmol/L (3.5-5.1)
[2020-03-05] MEDS: SPIRONOLACTONE 12.5 MG TAB PO SCH (10:35)
[2020-03-05] MEDS: SOTALOL HCL 80 MG TAB PO SCH ×2 (10:35→20:56)
[2020-03-05] MEDS: LOSARTAN POTASSIUM 25 MG TAB PO SCH (10:35)
--- NOTE | 2020-03-05 15:23 | Communication Note ---
Date of Service: March 05, 2020 Patient seen and examined in room 243. States that he feels great. No throat discomfort and no skin penaloza status post GOLD cardioversion. Has remained in sinus on monitor without ventricular ectopy.
--- NOTE | 2020-03-05 16:05 | Electrocardiogram Report ---
Test Reason : Blood Pressure : / mmHG Vent. Rate : 098 BPM Atrial Rate : 098 BPM P-R Int : 140 ms QRS Dur : 088 ms QT Int : 332 ms P-R-T Axes : 039 084 012 degrees QTc Int : 423 ms Normal sinus rhythm Inferior infarct , age undetermined Abnormal ECG When compared with ECG of 25-JAN-2020 06:52, Sinus rhythm has replaced Atrial fibrillation Inferior infarct is now Present Confirmed by Jamie Goldberg ([id number]) on 03/05/2020 4:05:14 PM Referred By: Maxime Alberto Confirmed By:Jamie Goldberg
[2020-03-05] MEDS: APIXABAN 5 MG TABLET PO SCH (20:56)
[2020-03-06] MEDS: SPIRONOLACTONE 12.5 MG TAB PO SCH (08:37)
[2020-03-06] MEDS: SOTALOL HCL 80 MG TAB PO SCH ×2 (08:37→20:53)
[2020-03-06] MEDS: APIXABAN 5 MG TABLET PO SCH ×2 (08:37→20:53)
[2020-03-06] MEDS: LOSARTAN POTASSIUM 25 MG TAB PO SCH (09:22)
--- NOTE | 2020-03-06 11:28 | Cardiology Progress Note ---
Date of Service March 06, 2020 Assessment & Plan (1) Atrial fibrillation with RVR: (2) Left atrial thrombus: (3) NICM (nonischemic cardiomyopathy): The patient is maintaining sinus rhythm and tolerating the sotalol load. Anticipate discharge Sunday morning if all goes well. Subjective Uneventful night. No new complaints Review of Systems Review of Systems: All systems reviewed & are unremarkable except as noted in HPI & below Nothing additional to add. Physical Exam Physical Exam: General: no acute distress and stated age Head: normocephalic, no masses, lesions, tenderness or abnormalities Eyes: conjunctiva are pink and non-injected, sclera clear Neck: supple, no adenopathy, no bruits, normal jugular venous pulse, no hepatojugular reflux Chest: normal shape and normal respiratory effort Lungs: clear to auscultation and percussion Cardiac Exam: - regular rate & rhythm, no murmurs gallops or rubs - normal S1, normal S2 Pulses: 2(+) throughout Abdomen: abdomen soft, non-tender, no abnormal masses and no hepatosplenomegaly Musculoskeletal: no gait disturbance, no joint inflammation, no deforming arthritis Extremities: no edema and no cyanosis Neuro: grossly normal exam Results & Data Vital Signs (Past 12 Hours) Vital Signs Temp Pulse Pulse Resp BP Pulse Ox 03/06/20 08:19 36.7 C 78 18 121/83 95 03/06/20 07:54 67 03/06/20 04:48 36.7 C 67 16 122/87 96 03/06/20 00:10 36.6 C 62 18 142/92 H 96 Diagnostic Findings EKG today reveals a sinus rhythm with appropriate QTC interval Medications Administered Current Inpatient Medications Acetaminophen (Tylenol) 650 mg PO Q4H PRN PRN Reason: Pain or Fever Stop: 04/04/20 08:43 Al Hydrox/Mg Hydrox/Simethicone (Maalox) 15 ml PO Q4H PRN PRN Reason: Dyspepsia Stop: 04/04/20 08:43 Apixaban (Eliquis) 5 mg PO BID [facility] Stop: 04/04/20 20:59 Last Admin: 03/06/20 08:37 Dose: 5 mg Documented by: Losartan Potassium (Cozaar) 25 mg PO QAM [facility] Stop: 04/04/20 08:59 Last Admin: 03/06/20 09:22 Dose: 25 mg Documented by: Magnesium Hydroxide (Milk Of Magnesia) 30 ml PO Q12H PRN PRN Reason: Constipation Stop: 04/04/20 08:43 Ondansetron HCl (Zofran) 4 mg IV Q6H PRN PRN Reason: Nausea Stop: 04/04/20 08:43 Polyethylene Glycol (Miralax Powder Packet) 17 gm PO DAILY PRN PRN Reason: Constipation Stop: 04/04/20 08:43 Sotalol HCl (Betapace) 80 mg PO BID [facility] Stop: 04/04/20 09:29 Last Admin: 03/06/20 08:37 Dose: 80 mg Documented by: Spironolactone (Aldactone) 12.5 mg PO DAILY [facility] Stop: 04/04/20 08:59 Last Admin: 03/06/20 08:37 Dose: 12.5 mg Documented by: Zolpidem Tartrate (Ambien) 5 mg PO HS PRN PRN Reason: Sleep Stop: 04/04/20 08:43
[2020-03-07] MEDS: APIXABAN 5 MG TABLET PO SCH ×2 (07:52→20:37)
[2020-03-07] MEDS: SPIRONOLACTONE 12.5 MG TAB PO SCH (07:52)
[2020-03-07] MEDS: SOTALOL HCL 80 MG TAB PO SCH ×2 (07:52→20:37)
[2020-03-07] MEDS: LOSARTAN POTASSIUM 25 MG TAB PO SCH (07:52)
--- NOTE | 2020-03-07 10:38 | Cardiology Progress Note ---
Date of Service March 07, 2020 Assessment & Plan (1) Atrial fibrillation with RVR: (2) Left atrial thrombus: (3) NICM (nonischemic cardiomyopathy): Patient is tolerating the sotalol load. He is maintaining sinus rhythm. Anticipate if all goes well discharge tomorrow. Subjective The patient had an uneventful night. Review of Systems Review of Systems: All systems reviewed & are unremarkable except as noted in HPI & below Nothing additional to add. Physical Exam Physical Exam: General: no acute distress and stated age Head: normocephalic, no masses, lesions, tenderness or abnormalities Eyes: conjunctiva are pink and non-injected, sclera clear Neck: supple, no adenopathy, no bruits, normal jugular venous pulse, no hepatojugular reflux Chest: normal shape and normal respiratory effort Lungs: clear to auscultation and percussion Cardiac Exam: - regular rate & rhythm, no murmurs gallops or rubs - normal S1, normal S2 Pulses: 2(+) throughout Abdomen: abdomen soft, non-tender, no abnormal masses and no hepatosplenomegaly Musculoskeletal: no gait disturbance, no joint inflammation, no deforming arthritis Extremities: no edema and no cyanosis Neuro: grossly normal exam Results & Data Vital Signs (Past 12 Hours) Vital Signs Temp Pulse Pulse Resp BP Pulse Ox 03/07/20 08:10 36.3 C L 64 18 130/86 96 03/07/20 07:32 64 03/07/20 04:04 36.7 C 65 18 114/74 97 03/06/20 23:43 36.5 C 67 18 126/81 95 Medications Administered Current Inpatient Medications Acetaminophen (Tylenol) 650 mg PO Q4H PRN PRN Reason: Pain or Fever Stop: 04/04/20 08:43 Al Hydrox/Mg Hydrox/Simethicone (Maalox) 15 ml PO Q4H PRN PRN Reason: Dyspepsia Stop: 04/04/20 08:43 Apixaban (Eliquis) 5 mg PO BID [facility] Stop: 04/04/20 20:59 Last Admin: 03/07/20 07:52 Dose: 5 mg Documented by: Losartan Potassium (Cozaar) 25 mg PO QAM [facility] Stop: 04/04/20 08:59 Last Admin: 03/07/20 07:52 Dose: 25 mg Documented by: Magnesium Hydroxide (Milk Of Magnesia) 30 ml PO Q12H PRN PRN Reason: Constipation Stop: 04/04/20 08:43 Ondansetron HCl (Zofran) 4 mg IV Q6H PRN PRN Reason: Nausea Stop: 04/04/20 08:43 Polyethylene Glycol (Miralax Powder Packet) 17 gm PO DAILY PRN PRN Reason: Constipation Stop: 04/04/20 08:43 Sotalol HCl (Betapace) 80 mg PO BID [facility] Stop: 04/04/20 09:29 Last Admin: 03/07/20 07:52 Dose: 80 mg Documented by: Spironolactone (Aldactone) 12.5 mg PO DAILY [facility] Stop: 04/04/20 08:59 Last Admin: 03/07/20 07:52 Dose: 12.5 mg Documented by: Zolpidem Tartrate (Ambien) 5 mg PO HS PRN PRN Reason: Sleep Stop: 04/04/20 08:43
[2020-03-08] MEDS: SOTALOL HCL 80 MG TAB PO SCH (08:25)
[2020-03-08] MEDS: SPIRONOLACTONE 12.5 MG TAB PO SCH (08:25)
[2020-03-08] MEDS: APIXABAN 5 MG TABLET PO SCH (08:25)
[2020-03-08] MEDS: LOSARTAN POTASSIUM 25 MG TAB PO SCH (08:25)
--- NOTE | 2020-03-08 10:00 | Discharge Summary ---
Date of Service March 08, 2020 Admission HPI Per Admitting Provider Mr. Menon is a very pleasant 54-year-old gentleman who is previously admitted to [facility] with complaints of shortness of breath. He was found to have atrial fibrillation with rapid ventricular response and newly discovered nonischemic cardiomyopathy. Transesophageal echocardiogram was performed at that time which revealed a left atrial appendage. Cardiac cath was performed during that admission as well which revealed essentially normal coronary arteries. The patient was discharged home on Eliquis anticoagulation as per his choice as well as rate control and guideline directed medical therapy. He presents now for repeat transesophageal echocardiographic guided cardioversion and admission for sotalol loading. The risks, benefits and alternatives were discussed with him at great lengths. He states that he understands, is accepting of the risks and wishes to proceed. He underwent GOLD guided cardioversion this a.m. with successful conversion to normal sinus rhythm. We will now admit to telemetry. PAST MEDICAL HISTORY: 1. Atrial fibrillation with rapid ventricular response 2. Left atrial thrombus 3. Nonischemic cardiomyopathy secondary to AFib with RVR 4. Minimal nonobstructive coronary artery disease by cardiac catheterization January 2020 5. RV systolic failure 6. Transient transaminitis Principal Diagnosis Paroxysmal atrial fibrillation Discharge Exam General: no acute distress and stated age Head: normocephalic, no masses, lesions, tenderness or abnormalities Eyes: conjunctiva are pink and non-injected, sclera clear Neck: supple, no adenopathy, no bruits, normal jugular venous pulse, no hepatojugular reflux Chest: normal shape and normal respiratory effort Lungs: clear to auscultation and percussion Cardiac Exam: - regular rate & rhythm, no murmurs gallops or rubs - normal S1, normal S2 Pulses: 2(+) throughout Abdomen: abdomen soft, non-tender, no abnormal masses and no hepatosplenomegaly Musculoskeletal: no gait disturbance, no joint inflammation, no deforming arthritis Extremities: no edema and no cyanosis Neuro: grossly normal exam Discharge Data Allergies Allergy/AdvReac Type Severity Reaction Status Date / Time No Known Allergies Allergy Verified 01/21/20 00:54 Procedures Performed Operation Date: 03/05/20 07:30 Actual Procedures p Echo Transesophageal - DO laurie Littlejohn Doppler Echo Limited/Follow Up - DO laurie Littlejohn Echo Color Flow - DO laurie Littlejohn Cardioversion - Maxime Alberto DO Hospital Course (1) Atrial fibrillation with RVR: (2) Left atrial thrombus: (3) NICM (nonischemic cardiomyopathy): The patient underwent a successful cardioversion and was loaded and observed on sotalol for several days prior to discharge. Total Time Total Time Spent Total Time Spent (In Minutes): Approximately 30 minutes Total Time Includes: Examination of the Patient, Discharge Planning, Medication Reconciliation and Communication With Other Providers Discharge Plan Discharge Items Patient Disposition: Home - Self-Care Reason For Visit: Atrial Fibrillation,SOTALOL LOAD Discharge Diagnosis: Paroxysmal atrial fibrillation Condition on Discharge: Good Activity: Resume your previous activity Non-emergency contact: Quality Auditor Call non-emergency contact if: you have any medication questions, your symptoms worsen, your pain is not controlled, your pain is worsening, your pain is unusual for you, your pain is concerning for you, you have a fever, your temperature is above 101, your wound has increased redness, your wound has increased drainage and your wound pain has increased Follow-up/Referrals: PCPHERBERTH [Primary Care Provider] - Diet: Heart Healthy Addtl Attending Provider Instructions: Follow-up with Dr. Alberto. Office will call with appointment. Pending Studies at Discharge: No Stand-Alone Forms: My [employer], Smoking Cessation Medications and DC Order Prescriptions: New Eliquis 5 mg Tablet 5 mg PO BID Qty: 180 RF: 5 sotalol 80 mg Tablet 80 mg PO BID Qty: 180 RF: 5 spironolactone 25 mg Tablet 12.5 mg PO DAILY Qty: 45 RF: 5 losartan 25 mg Tablet 25 mg PO QAM Qty: 180 RF: 5 Continued Eliquis 5 mg Tablet 5 mg PO BID Qty: 60 RF: 0 losartan 25 mg Tablet 25 mg PO QAM Qty: 30 RF: 0 spironolactone 25 mg Tablet 12.5 mg PO Q24H Qty: 30 RF: 0 Discontinued acetaminophen [Tylenol Extra Strength] 500 mg Tablet 500 - 1,000 mg PO DIRECTED PRN (Reason: Pain) RF: 0 diltiazem HCl 180 mg Capsule,Extended Release 24hr 180 mg PO QAM Qty: 30 RF: 0 metoprolol succinate 50 mg Tablet Extended Release 24 Hr 200 mg PO QAM Qty: 30 RF: 0 nitroglycerin [Nitrostat] 0.4 mg Tablet, Sublingual 0.4 mg sublingual UD PRN (Reason: chest pain) Qty: 30 RF: 0 Discharge Orders: Discharge Order (Routine); Ordered 03/08/20 Ordered By: Ethan Santana Admission Data Admit Date/Time: 03/05/20 08:44 Attending Provider: Maxime Alberto Admit Provider: Maxime Alberto Primary Care Provider: PCP,HERBERTH
--- NOTE | 2020-03-08 13:03 | Electrocardiogram Report ---
Test Reason : Blood Pressure : / mmHG Vent. Rate : 069 BPM Atrial Rate : 069 BPM P-R Int : 142 ms QRS Dur : 088 ms QT Int : 402 ms P-R-T Axes : 043 063 021 degrees QTc Int : 430 ms Normal sinus rhythm with sinus arrhythmia Possible Left atrial enlargement Possible Inferior infarct (cited on or before 05-MAR-2020) Abnormal ECG When compared with ECG of 05-MAR-2020 08:32, No significant change was found Confirmed by Bowen Isidro ([id number]) on 03/08/2020 1:03:24 PM Referred By: Maxime Alberto Confirmed By:Bowen Isidro
--- NOTE | 2020-03-08 13:52 | Electrocardiogram Report ---
Test Reason : Blood Pressure : / mmHG Vent. Rate : 067 BPM Atrial Rate : 067 BPM P-R Int : 150 ms QRS Dur : 088 ms QT Int : 414 ms P-R-T Axes : 046 070 018 degrees QTc Int : 437 ms Normal sinus rhythm Possible Left atrial enlargement Borderline ECG When compared with ECG of 06-MAR-2020 06:29, (unconfirmed) No significant change was found Confirmed by Bowen Isidro ([id number]) on 03/08/2020 1:51:38 PM Referred By: Maxime Alberto Confirmed By:Bowen Isidro
--- NOTE | 2020-03-10 16:28 | Electrocardiogram Report ---
Test Reason : Blood Pressure : / mmHG Vent. Rate : 070 BPM Atrial Rate : 070 BPM P-R Int : 146 ms QRS Dur : 088 ms QT Int : 396 ms P-R-T Axes : 041 078 021 degrees QTc Int : 427 ms Normal sinus rhythm Possible Inferior infarct , age undetermined Cannot rule out Anterior infarct , age undetermined Abnormal ECG When compared with ECG of 07-MAR-2020 06:44, (unconfirmed) No significant change was found Confirmed by Bowen Isidro ([id number]) on 03/10/2020 4:28:22 PM Referred By: Maxime Alberto Confirmed By:Bowen Isidro
== END 2020-03-08 10:32 | disposition home or self-care (01) | DRG 310 ==
LOC: CC 06:15 → 2S 08:44

== ENCOUNTER 2021-08-12 06:18 | Inpatient (IN) ==
[2021-08-12] MEDS ORDERED: dilTIAZem HCl 5 MG/ML 5 ML VIAL IV ONE (06:44)
[2021-08-12] MEDS ORDERED: SODIUM CHLORIDE 0.9% 1000ML 1,000 ML IV ONE (06:46)
[2021-08-12] MEDS ORDERED: STAT IV Infusion **Titration per Protocol STA (06:47)
[2021-08-12] MEDS ORDERED: dilTIAZem HCl 5 MG/ML 5 ML VIAL IV STA (06:47)
[2021-08-12 07:11] LABS: Basophils # (auto) 0.03 K/uL (0-0.2); Basophils % (auto) 0.4 %; Eosinophils # (auto) 0.06 K/uL (0-0.5); Eosinophils % (auto) 0.7 %; Hematocrit (blood only) 52.7 % (42-52); Immature Granulocytes # (auto) 0.03 K/uL (0.00-0.02); Immature Granulocytes % (auto) 0.4 %; Lymphocytes # (auto) 1.07 K/uL (1.2-3.4); Lymphocytes % (auto) 12.7 %; Mean Corpuscular Hemoglobin 37.5 pg (25-34); Mean Corpuscular Hgb Conc 34.2 g/dL (32-36); Mean Corpuscular Volume 109.8 fL (80-100); Mean Platelet Volume 10.1 fL (7.4-10.4); Monocytes # (auto) 1.03 K/uL (0.11-0.59); Monocytes % (auto) 12.2 %; Neutrophils # (auto) 6.22 K/uL (1.4-6.5); Neutrophils % (auto) 73.6 %; Platelet Count 236 K/uL (130-400); RDW Coefficient of Variation 13.8 % (11.5-14.5); RDW Standard Deviation 55.6 fL (36.4-46.3); White Blood Count 8.44 K/uL (4.8-10.8)
--- NOTE | 2021-08-12 07:37 | Emergency Department Note ---
History of Present Illness General Chief Complaint: Arrhythmia/Palpitations Stated Complaint: AFIB,SOB,BLOOD CLOT IN ARM Time Seen by Provider: 08/12/21 06:38 History of Present Illness Provider Complaint: + palpitations and + atrial fibrillation Onset (ago): week(s) (1) Duration: + Intermittent Severity: moderate Maximum Pain Intensity: 4 Current Pain Intensity: 4 Arrhythmia history: + atrial fibrillation, + on anti-coagulants (eliquis) and + history of ablation (in may) Associated symptoms: + chest pain and + shortness of breath; no syncope, no near-syncope, no nausea, no vomiting, no anxiety, no cough or no paresthesias HPI narrative: Patient also reports abdominal pain and is concerned that he has a small bowel obstruction. Patient states he is compliant with his Eliquis. He states he is concerned he might have a blood clot in his lung. Home Medications Medication Instructions Recorded Confirmed Type apixaban 5 mg tablet (Eliquis) 5 mg PO BID #60 tab 01/25/20 08/12/21 Rx sotalol 80 mg tablet 80 mg PO BID #180 tab 03/08/20 08/12/21 Rx Allergies Allergy/AdvReac Type Severity Reaction Status Date / Time No Known Allergies Allergy Verified 08/12/21 07:44 Past Med/Surg History Medical History Atrial fibrillation with RVR Cardiomyopathy Left atrial thrombus NICM (nonischemic cardiomyopathy) No pertinent family history Right ventricular failure Surgical History No pertinent past surgical history Social History Smoking Status: Never smoker Hx Alcohol Use: No Hx Substance Use: No Preferred Language: Bermudian Communication Ability: Effective Beliefs That Will Affect Care: None Current Living Situation: Spouse Feels Safe at Home: Yes Assistive Devices: None Review of Systems A total of 10 systems reviewed and were otherwise negative Physical Exam Vital Signs: Vital Signs - 24 hr 08/12/21 06:29 08/12/21 06:34 08/12/21 07:11 Temperature 36.3 C L Temperature Source Temporal Artery Sc an Pulse Rate 129 H Pulse Rate [Left F salvador] Respiratory Rate 18 Respiratory Effort / Characteristics Non-Labored Sponta neous Respiratory Depth Normal Blood Pressure 122/82 Blood Pressure [Le ft Arm] Blood Pressure Clarissa n 95 Blood Pressure Clarissa n [Left Arm] Pulse Oximetry 100 100 Oxygen Delivery Me thod Room Air Room Air Room Air Sepsis Recent Feve r Within 48 Hours No Sepsis New/Unexpla ined Change in Men mireya Status No Sepsis Action Take n by Nursing No Action Required 08/12/21 07:30 08/12/21 08:04 08/12/21 08:14 Temperature Temperature Source Pulse Rate Pulse Rate [Left F salvador] 78 72 86 Respiratory Rate 22 20 22 Respiratory Effort / Characteristics Non-Labored Non-Labored Non-Labored Respiratory Depth Normal Normal Normal Blood Pressure Blood Pressure [Le ft Arm] 100/78 99/70 L 118/83 Blood Pressure Clarissa n Blood Pressure Clarissa n [Left Arm] 85 79 94 Pulse Oximetry 95 98 97 Oxygen Delivery Me thod Room Air Room Air Room Air Sepsis Recent Feve r Within 48 Hours Sepsis New/Unexpla ined Change in Men mireya Status Sepsis Action Take n by Nursing 08/12/21 09:54 Temperature Temperature Source Pulse Rate Pulse Rate [Left F salvador] 86 Respiratory Rate 20 Respiratory Effort / Characteristics Non-Labored Respiratory Depth Normal Blood Pressure Blood Pressure [Le ft Arm] 108/88 Blood Pressure Clarissa n Blood Pressure Clarissa n [Left Arm] 94 Pulse Oximetry 100 Oxygen Delivery Me thod Room Air Sepsis Recent Feve r Within 48 Hours Sepsis New/Unexpla ined Change in Men mireya Status Sepsis Action Take n by Nursing Physical Exam: Physical Exam GENERAL: He is oriented to person, place, and time. He appears well-developed and well-nourished. He does not appear distressed. HENT: Exam performed. - Head: Normocephalic and atraumatic. - Right Ear: External ear normal. No mastoid tenderness. - Left Ear: External ear normal. No mastoid tenderness. - Mouth/Throat: The oropharynx is clear and moist. No trismus in the jaw. No dental abscesses or uvula swelling. No oropharyngeal exudate or tonsillar abscesses. EYES: Conjunctivae and EOM are normal. Pupils are equal, round, and reactive to light. Right eye exhibits no discharge. Left eye exhibits no discharge. No scleral icterus. NECK: Normal range of motion. Neck supple. No JVD present. No spinous process tenderness present. No carotid bruit present. No rigidity. No tracheal deviation and normal range of motion present. No Brudzinski's sign and no Kernig's sign noted. CV: Tachycardic rate, irregular rhythm, normal heart sounds and intact distal pulses. There is no peripheral edema. Palpable radial pulses bue. PULM/CHEST: Effort normal and breath sounds normal. No respiratory distress. No stridor. He has no wheezes. He has no rales. - Chest Wall: He exhibits no tenderness. ABD: The abdomen is soft. Bowel sounds are normal. He has no distension. No mass is present. There is no tenderness. There is no rebound, no guarding, no Kirby's sign and no tenderness at McBurney's point. Rovsig negative. MUSC/SKEL: Normal range of motion. There is no peripheral edema, tenderness or deformity. LYMPH: No cervical adenopathy. NEURO: He is alert and oriented to person, place, and time. He has normal strength. No cranial nerve deficit or sensory deficit. Coordination and gait normal. GCS eye subscore is 4. GCS verbal subscore is 5. GCS motor subscore is 6. Cerebellar tests wnl. SKIN: Skin is warm and dry. He is not diaphoretic. PSYCH: He has a normal mood and affect. Behavior is normal. Judgment and thought content normal. Course Course 0638: The patient was evaluated in room A4. A complete history and physical exam was performed Cardiac monitoring: An order was placed for continuous cardiac monitoring. The monitor shows a rate of 130-150 with atrial fibrilation rhythm Patient A. fib with RVR. Large-bore IV access obtained. IV fluids are started. Cardizem 20 mg bolus was given which improved the patient's ventricular rate. We will continue to monitor patient as the patient becomes tachycardic again will consider rebolusing him with Cardizem or starting Cardizem drip. Administered Medications Discontinued Medications Diltiazem HCl (Diltiazem Hcl 5 Mg/Ml 5 Ml Vial) Confirm Administered Dose 25 mg IV .STEGOSYSTEMS ONE Stop: 08/12/21 06:45 Last Increment: 08/12/21 06:56 Dose: 20 mg Documented by: [id number] Cosigned by: [id number] Diltiazem HCl (Diltiazem Hcl 5 Mg/Ml 5 Ml Vial) 20 mg IV NOW STA Stop: 08/12/21 06:48 Last Admin: 08/12/21 06:57 Dose: Not Given Documented by: [id number] Sodium Chloride (Nss 1000ml) 1,000 mls @ 999 mls/hr IV .Q1H1M ONE Stop: 08/12/21 07:46 Last Infusion: 08/12/21 08:26 Dose: 0 mls/hr Documented by: [id number] Admin: 08/12/21 06:57 Dose: 999 mls/hr Documented by: [id number] Ioversol (Optiray 320 100ml) 94 ml IV ONCE ONE Stop: 08/12/21 07:53 Last Admin: 08/12/21 07:56 Dose: 94 ml Documented by: [id number] Ioversol (Optiray 320 125ml) 120 ml IV ONCE ONE Stop: 08/12/21 08:15 Last Admin: 08/12/21 08:09 Dose: 120 ml Documented by: [id number] Medical Decision Making Laboratory Data Result diagrams: 08/12/21 06:55 08/12/21 07:28 Lab Results 08/12/21 08/12/21 08/12/21 Range/Units 06:55 06:55 06:55 WBC 8.44 (4.8-10.8) K/uL RBC 4.80 (4.7-6.1) M/uL Hgb 18.0 (14.0-18.0) g/dL Hct 52.7 H (42-52) % MCV 109.8 H (80-100) fL MCH 37.5 H (25-34) pg MCHC 34.2 (32-36) g/dL RDW Std Deviation 55.6 H (36.4-46.3) fL RDW Coeff of Dagmar 13.8 (11.5-14.5) % Plt Count 236 (130-400) K/uL MPV 10.1 (7.4-10.4) fL Immature Gran % (Auto) 0.4 % Neut % (Auto) 73.6 % Lymph % (Auto) 12.7 % Stanley % (Auto) 12.2 % Eos % (Auto) 0.7 % Baso % (Auto) 0.4 % Neut # (Auto) 6.22 (1.4-6.5) K/uL Lymph # (Auto) 1.07 L (1.2-3.4) K/uL Stanley # (Auto) 1.03 H (0.11-0.59) K/uL Eos # (Auto) 0.06 (0-0.5) K/uL Baso # (Auto) 0.03 (0-0.2) K/uL Immature Gran # (Auto) 0.03 H (0.00-0.02) K/uL PT Cancelled INR Cancelled APTT Cancelled PTT Ratio Cancelled ABG pH (7.35-7.45) ABG pCO2 (35-46) mmHg ABG pO2 (80-95) mmHg ABG HCO3 (19-24) mmol/L ABG O2 Saturation (90-95) % ABG Base Excess (-9-1.8) mEq/L Quentin Test (Pos) Methemoglobin (0.0-1.5) % Barometric Pressure mm/Hg Oxygen Given Sodium 136 (136-145) mmol/L Potassium (3.5-5.1) mmol/L Chloride 107 (98-107) mmol/L Carbon Dioxide 25 (21-32) mmol/L Anion Gap 4.0 (3-11) BUN 17 (7-18) mg/dl Creatinine 1.12 (0.6-1.4) mg/dl Est Cr Clr Drug Dosing 84.3 ml/min Est GFR ( Amer) 85.3 ml/min Est GFR (Non-Af Amer) 73.6 ml/min BUN/Creatinine Ratio 15.6 (10-20) Glucose 97 (70-99) mg/dl Calcium 9.0 (8.5-10.1) mg/dl Total Bilirubin 1.3 H (0.2-1) mg/dl Direct Bilirubin (0-0.2) mg/dl AST (15-37) U/L ALT 83 H (12-78) Alkaline Phosphatase 237 H D (45-117) U/L Troponin I < 0.015 (0-0.045) ng/ml Total Protein 7.4 (6.4-8.2) gm/dl Albumin 3.5 (3.4-5.0) gm/dl Lipase 269 (73-393) U/L Prostate Specific Ag (0-4) ng/ml SARS-CoV-2 (PCR) (Negative) Influenza Type A (PCR) (Neg) Influenza Type B (PCR) (Neg) RSV (RT-PCR) (Neg) 08/12/21 08/12/21 08/12/21 Range/Units 06:55 07:28 07:28 WBC (4.8-10.8) K/uL RBC (4.7-6.1) M/uL Hgb (14.0-18.0) g/dL Hct (42-52) % MCV (80-100) fL MCH (25-34) pg MCHC (32-36) g/dL RDW Std Deviation (36.4-46.3) fL RDW Coeff of Dagmar (11.5-14.5) % Plt Count (130-400) K/uL MPV (7.4-10.4) fL Immature Gran % (Auto) % Neut % (Auto) % Lymph % (Auto) % Stanley % (Auto) % Eos % (Auto) % Baso % (Auto) % Neut # (Auto) (1.4-6.5) K/uL Lymph # (Auto) (1.2-3.4) K/uL Stanley # (Auto) (0.11-0.59) K/uL Eos # (Auto) (0-0.5) K/uL Baso # (Auto) (0-0.2) K/uL Immature Gran # (Auto) (0.00-0.02) K/uL PT 13.4 H INR 1.4 H APTT 27.4 PTT Ratio 1.0 ABG pH (7.35-7.45) ABG pCO2 (35-46) mmHg ABG pO2 (80-95) mmHg ABG HCO3 (19-24) mmol/L ABG O2 Saturation (90-95) % ABG Base Excess (-9-1.8) mEq/L Quentin Test (Pos) Methemoglobin (0.0-1.5) % Barometric Pressure mm/Hg Oxygen Given Sodium (136-145) mmol/L Potassium 4.6 (3.5-5.1) mmol/L Chloride (98-107) mmol/L Carbon Dioxide (21-32) mmol/L Anion Gap (3-11) BUN (7-18) mg/dl Creatinine (0.6-1.4) mg/dl Est Cr Clr Drug Dosing ml/min Est GFR ( Amer) ml/min Est GFR (Non-Af Amer) ml/min BUN/Creatinine Ratio (10-20) Glucose (70-99) mg/dl Calcium (8.5-10.1) mg/dl Total Bilirubin (0.2-1) mg/dl Direct Bilirubin (0-0.2) mg/dl AST 67 H (15-37) U/L ALT (12-78) Alkaline Phosphatase (45-117) U/L Troponin I (0-0.045) ng/ml Total Protein (6.4-8.2) gm/dl Albumin (3.4-5.0) gm/dl Lipase Cancelled (73-393) U/L Prostate Specific Ag (0-4) ng/ml SARS-CoV-2 (PCR) (Negative) Influenza Type A (PCR) (Neg) Influenza Type B (PCR) (Neg) RSV (RT-PCR) (Neg) 08/12/21 08/12/21 08/12/21 Range/Units 07:28 08:26 08:39 WBC (4.8-10.8) K/uL RBC (4.7-6.1) M/uL Hgb (14.0-18.0) g/dL Hct (42-52) % MCV (80-100) fL MCH (25-34) pg MCHC (32-36) g/dL RDW Std Deviation (36.4-46.3) fL RDW Coeff of Dagmar (11.5-14.5) % Plt Count (130-400) K/uL MPV (7.4-10.4) fL Immature Gran % (Auto) % Neut % (Auto) % Lymph % (Auto) % Stanley % (Auto) % Eos % (Auto) % Baso % (Auto) % Neut # (Auto) (1.4-6.5) K/uL Lymph # (Auto) (1.2-3.4) K/uL Stanley # (Auto) (0.11-0.59) K/uL Eos # (Auto) (0-0.5) K/uL Baso # (Auto) (0-0.2) K/uL Immature Gran # (Auto) (0.00-0.02) K/uL PT INR APTT PTT Ratio ABG pH (7.35-7.45) ABG pCO2 (35-46) mmHg ABG pO2 (80-95) mmHg ABG HCO3 (19-24) mmol/L ABG O2 Saturation (90-95) % ABG Base Excess (-9-1.8) mEq/L Quentin Test (Pos) Methemoglobin 1.1 (0.0-1.5) % Barometric Pressure mm/Hg Oxygen Given Sodium (136-145) mmol/L Potassium (3.5-5.1) mmol/L Chloride (98-107) mmol/L Carbon Dioxide (21-32) mmol/L Anion Gap (3-11) BUN (7-18) mg/dl Creatinine (0.6-1.4) mg/dl Est Cr Clr Drug Dosing ml/min Est GFR ( Amer) ml/min Est GFR (Non-Af Amer) ml/min BUN/Creatinine Ratio (10-20) Glucose (70-99) mg/dl Calcium (8.5-10.1) mg/dl Total Bilirubin (0.2-1) mg/dl Direct Bilirubin (0-0.2) mg/dl AST (15-37) U/L ALT (12-78) Alkaline Phosphatase (45-117) U/L Troponin I (0-0.045) ng/ml Total Protein (6.4-8.2) gm/dl Albumin (3.4-5.0) gm/dl Lipase (73-393) U/L Prostate Specific Ag 0.708 (0-4) ng/ml SARS-CoV-2 (PCR) NEGATIVE (Negative) Influenza Type A (PCR) Negative (Neg) Influenza Type B (PCR) Negative (Neg) RSV (RT-PCR) Negative (Neg) 08/12/21 Range/Units 08:48 WBC (4.8-10.8) K/uL RBC (4.7-6.1) M/uL Hgb (14.0-18.0) g/dL Hct (42-52) % MCV (80-100) fL MCH (25-34) pg MCHC (32-36) g/dL RDW Std Deviation (36.4-46.3) fL RDW Coeff of Dagmar (11.5-14.5) % Plt Count (130-400) K/uL MPV (7.4-10.4) fL Immature Gran % (Auto) % Neut % (Auto) % Lymph % (Auto) % Stanley % (Auto) % Eos % (Auto) % Baso % (Auto) % Neut # (Auto) (1.4-6.5) K/uL Lymph # (Auto) (1.2-3.4) K/uL Stanley # (Auto) (0.11-0.59) K/uL Eos # (Auto) (0-0.5) K/uL Baso # (Auto) (0-0.2) K/uL Immature Gran # (Auto) (0.00-0.02) K/uL PT INR APTT PTT Ratio ABG pH 7.40 (7.35-7.45) ABG pCO2 29 L (35-46) mmHg ABG pO2 85 (80-95) mmHg ABG HCO3 18 L (19-24) mmol/L ABG O2 Saturation 96.7 H (90-95) % ABG Base Excess -5.1 (-9-1.8) mEq/L Quentin Test Pos (Pos) Methemoglobin (0.0-1.5) % Barometric Pressure 729.4 mm/Hg Oxygen Given ROOM AIR Sodium (136-145) mmol/L Potassium (3.5-5.1) mmol/L Chloride (98-107) mmol/L Carbon Dioxide (21-32) mmol/L Anion Gap (3-11) BUN (7-18) mg/dl Creatinine (0.6-1.4) mg/dl Est Cr Clr Drug Dosing ml/min Est GFR ( Amer) ml/min Est GFR (Non-Af Amer) ml/min BUN/Creatinine Ratio (10-20) Glucose (70-99) mg/dl Calcium (8.5-10.1) mg/dl Total Bilirubin (0.2-1) mg/dl Direct Bilirubin (0-0.2) mg/dl AST (15-37) U/L ALT (12-78) Alkaline Phosphatase (45-117) U/L Troponin I (0-0.045) ng/ml Total Protein (6.4-8.2) gm/dl Albumin (3.4-5.0) gm/dl Lipase (73-393) U/L Prostate Specific Ag (0-4) ng/ml SARS-CoV-2 (PCR) (Negative) Influenza Type A (PCR) (Neg) Influenza Type B (PCR) (Neg) RSV (RT-PCR) (Neg) ECG Data Additional Comments: EKG #1 at 0634: Atrial fibrillation with a rate of 134. QRS and QTc intervals within normal limits. No ST elevation or ST depression. EKG #2 at 0654 status post Cardizem 20 mg IV bolus: Atrial fibrillation with a r ate of 115. No ST elevation or ST depression. EKG #3 at 0740: Atrial fibrillation with rate of 72. QRS and QTc intervals within normal limits. No ST elevation or ST depression. PVCs present. MDM Narrative Vital signs stable after Cardizem bolus. Blood pressure and heart rate are stable. No tachycardia. Patient remains in atrial fibrillation rhythm. Low suspicion for PE as patient is compliant with Eliquis. Patient was taken for CAT scan of the abdomen and on returning from CAT scan the patient was reporting increased dyspnea and per nursing staff appeared cyanotic. On evaluation the patient was not having any lip swelling, tongue swelling, wheezing, or stridor. His oxygen saturation was stable and patient was not in any respiratory distress. No concern for allergic reaction to dye. Patient was resent back to the CT scan for rule out PE. CTA of the chest showed no pulmonary embolus. It did show moderate-sized bilateral pleural effusions. There also lymph nodes that are characteristic of metastatic disease versus lymphoma. CT of the abdomen showed no bowel obstruction. It did show that there is trace pneumobilia including gas within the gallbladder. States that there are surgical local clips along the gallbladder fundus. Patient reports that he had his gallbladder removed in 2002 and has not had any recent abdominal surgery or endoscopic procedures per HPI. It also mentions that there is wall thickening and enhancement of the common bile duct. Labs showed a normal white blood cell count. Platelet count within normal limits. Coags within normal limits. Direct bilirubin is hemolyzed. Total bilirubin is 1.3. AST 67 ALT 83 alkaline phosphatase 237. Given the patient's cyanosis and dyspnea with a normal oxygen saturation and ABG was performed which was within normal limits as well as a methemoglobin level which was also within normal limits. Spoke with general surgery Chela DOYLE on-call for Dr. Penaloza agrees to be on consult. Surgery team recommends no antibiotics at this time. Spoke with cardiology Dr. Alberto who knows patient. He agrees to be on consult as well and reports that if the patient goes into A. fib RVR again to start him on the Cardizem drip as planned. Patient will be admitted to the [facility] hospitalist team. Spoke with Eladio DOYLE who states to admit to Dr. Lao Impression & Plan Dyspnea, Heart palpitations, Pneumobilia Discharge Plan Visit Data Chief Complaint: Arrhythmia/Palpitations Stated Complaint: AFIB,SOB,BLOOD CLOT IN ARM ED Provider: Yaniv Hernandes Discharge Problem: Dyspnea, Heart palpitations, Pneumobilia Patient Disposition: Being Evaluated by Hospitalist Forms Stand Alone Forms: Resource Interactive Prescriptions Prescriptions: No Action Eliquis 5 mg Tablet 5 mg PO BID Qty: 60 RF: 0 sotalol 80 mg Tablet 80 mg PO BID Qty: 180 RF: 5 Referrals Referrals: Dahlia Youssef D.O. [Primary Care Provider] - Discharge Problem: Dyspnea Qualifiers: Dyspnea type: unspecified Qualified Code(s): R06.00 - Dyspnea, unspecified
[2021-08-12 07:47] LABS: Alanine Aminotransferase 83 (12-78); Albumin Level 3.5 gm/dl (3.4-5.0); Alkaline Phosphatase 237 U/L (45-117); BUN Creatinine Ratio 15.6 (10-20); Bilirubin,Total 1.3 mg/dl (0.2-1); Blood Urea Nitrogen 17 mg/dl (7-18); Carbon Dioxide 25 mmol/L (21-32); Chloride 107 mmol/L (98-107); Creatinine Clr Calc Pharmacy 84.3 ml/min; Est GFR (African American) 85.3 ml/min; Est GFR (Non-African American) 73.6 ml/min; Glucose 97 mg/dl (70-99); Lipase 269 U/L (73-393); Sodium 136 mmol/L (136-145); Total Protein 7.4 gm/dl (6.4-8.2); Troponin I < 0.015 ng/ml (0-0.045)
[2021-08-12] MEDS ORDERED: OPTIRAY 320 100ml IV ONE (07:52)
[2021-08-12 08:02] LABS: INR 1.4 (0.9-1.1); Partial Thromboplastin Time 27.4 Seconds (21.0-31.0); Prothrombin Time 13.4 Seconds (9.0-12.0)
[2021-08-12] MEDS ORDERED: OPTIRAY 320 125ml IV ONE (08:14)
[2021-08-12 08:17] LABS: Potassium 4.6 mmol/L (3.5-5.1)
--- NOTE | 2021-08-12 08:22 | CT Scan Report ---
CT OF THE ABDOMEN AND PELVIS WITH CONTRAST CLINICAL HISTORY: Abdominal pain. Evaluate for small bowel obstruction. COMPARISON STUDY: None. TECHNIQUE: Following IV administration of 94 mL of Optiray, axial images of the abdomen and pelvis we re obtained from the lung bases to the proximal femurs. Images were reviewed in the axial, sagittal, and coronal planes. IV contrast was administered without complication. Automated exposure control wa s utilized for the study. A dose lowering technique was utilized adhering to the principles of ALARA . CT DOSE: 665.35 mGy.cm FINDINGS: Moderate cardiomegaly is partially imaged on this exam. There are bilateral pleural effusio ns, right larger than left. Interlobular septal thickening indicates pulmonary edema. No pneumatosis, free air or portal venous gas is present. Left hepatic lobe appears atrophic. There are surgical cli ps along the gallbladder fundus. Note is made of pneumobilia. Trace gas within the gallbladder is not ed. There is wall thickening and enhancement of the common bile duct. This was likely present on [facility] t CT of January 21, 2020. No biliary or pancreatic ductal dilatation is present. There is no peripancrea tic infiltration. No pancreatic lesion is identified. Enlarged upper abdominal lymph nodes are unchan ged since chest CT of January 21, 2020. Index portacaval node measures 1.8 cm in short axis diameter. Th e spleen, adrenal glands are unremarkable. A cyst within the right kidney is noted. There is a 4 mm l eft renal calculus. There are no ureteral calculi and there is no hydronephrosis. Body wall edema is noted. There is a small amount of perihepatic and pericholecystic fluid. There is trace ascites withi n the abdomen and pelvis. Bladder wall thickening is noted with mild adjacent infiltration. There is no evidence for a bowel obstruction. The appendix is normal. Submucosal fat deposition within the col on is chronic. A few colonic diverticula are noted without evidence for acute diverticulitis. IMPRESSION: 1. Wall thickening and enhancement of the common bile duct. This was likely present on prior chest C T January 21, 2020. This finding is nonspecific and correlation with liver function tests is recommended . 2. Trace pneumobilia, including gas within the gallbladder. Surgical clips along the gallbladder fund us. Correlation with surgical history is recommended. 3. Interstitial pulmonary edema, bilateral pleural effusions, body wall edema and a small amount of a bdominal and pelvic ascites. 4. No change in mildly enlarged upper abdominal lymph nodes since chest CT of January 21, 2020. Therefor e, these are probably benign. ACT 112: Negative or not required by law. Electronically signed by: Gerry Adhikari M.D. 08/12/2021 8:21 AM
--- NOTE | 2021-08-12 08:30 | CT Scan Report ---
CT angio chest PE protocol CLINICAL HISTORY: Shortness of breath and chest pain. Evaluate for pulmonary embolus. COMPARISON STUDY: 01/21/2020 CT DOSE: 585.34 mGy.cm TECHNIQUE: CT Angio of the chest was performed.followed by image post processing with coronal, and s agittal MIP reformats. Contrast Volume: Optiray 320, 94 ml FINDINGS: Vasculature: There is homogeneous perfusion of the pulmonary vasculature bilaterally. No intraluminal filling defects or evidence for pulmonary embolus is seen. Airway: The airway is clear. No endobronchial lesion is identified. Lungs and pleural: Compared to previous examination, there are now moderate-sized bilateral pleural e ffusions, right greater than left. There is associated mild bibasilar atelectasis, right greater than left. The lungs are otherwise clear of acute alveolar opacities, air bronchograms or pulmonary nodul es. Mediastinum: Compared to previous examination, there has been interval development of extensive super ior mediastinal, prevascular, AP window and paratracheal adenopathy. This represents significant inte rval worsening from the previous study with the differential diagnosis including metastatic disease v ersus lymphoma. The largest lymph node measures approximately 2.3 x 1.4 cm. Heart size is enlarged. The thoracic aorta is within normal limits. There is no evidence for pericar dial effusion. Upper abdomen:There is also been interval development of retrocrural adenopathy. Osseous structures: There is no acute osseous pathology. Impression: 1. No CTA evidence for pulmonary embolus. 2. Interval development of moderate-sized bilateral pleural effusions, right greater than left with b ibasilar atelectasis, right greater than left. 3. Significant interval enlargement of mediastinal, prevascular and paratracheal lymph nodes characte ristic of metastatic disease versus lymphoma. Follow-up PET/CT is recommended. 4. There is also been interval development of a retrocrural lymph node on the right. 5. Cardiomegaly. ACT 112: Positive. There are findings on this exam that require communication between the performing entity and the patient following Patient Test Result Information Act ([place] Act 112) guidelines. Electronically signed by: Hollis Pedersen M.D. 08/12/2021 8:29 AM
[2021-08-12 08:59] LABS: Base Excess ABG -5.1 mEq/L (-9-1.8); HCO3 ABG 18 mmol/L (19-24); Oxygen Saturation ABG 96.7 % (90-95); PCO2 ABG 29 mmHg (35-46); PO2 ABG 85 mmHg (80-95)
[2021-08-12 09:02] LABS: Allen Test Pos (Pos)
[2021-08-12 09:16] LABS: Influenza A virus by PCR Negative (Neg); Influenza B virus by PCR Negative (Neg); RSV by PCR Negative (Neg); SARS CoV2 RNA(COVID-19) InHosp NEGATIVE (Negative)
--- NOTE | 2021-08-12 09:47 | History & Physical Report ---
Date of Service August 12, 2021 Assessment & Plan (1) Atrial fibrillation with RVR: Plan: - Admit to tele - initial heart rate was in the 140s 150s, improved with being started on Cardizem drip, heart rate currently in the mid 80s. - Consult cardiology, follows with Dr. Alberto as an outpatient - EKG reviewed as above, afib, no acute chances, prolonged QTc - Check 2 D echo - Initial troponin is negative, no EKG changes or chest pain so low likelihood of ACS - Will await cards/pulm recs for pleural effusion diuretic vs thoracentesis - see below - Continue sotolol - Last dose of Eliquis was last night on 08/01 (2) Bilateral pleural effusion: Plan: - Imaging reviewed as above showing R > L bilateral pleural effusion - Consider lasix for improvement - Noted ascites intraabdominally on CT abd/pelvis, and multiple lymph node enlargement throughout abd/pelvis and chest. If pleural effusion could be tapped, may consider diagnostics on fluids to ensure this is not a new malignancy. Hx of lymph nodes noted from January 2020 as well. - Consider additional imaging with follow PET CT as outpatient - Pulm consulted (3) Pneumobilia: Plan: - Consult general surgery-discussed with Dr. Penaloza at bedside- rec IV antibiotics, will start IV Zosyn, hold Eliquis for now in case needs for surgical procedure - GI consulted for RUQ pain, transaminitis - discussed with Dr. Cook, - will also check MRCP for RUQ pain and to eval the CBD, wall thickening, previous surgical clips in place so possible partially resected? - Trend LFTs (4) Transaminitis: Plan: - LFTs moderately elevated: GI on board - discussed with Dr. Cook - Alk phos 237, AST 67, ALT 83 - previously in January 2020 had similar presentation where he was admitted for same type of issues - Alcohol use daily with 1-2 beers- will encourage cessation throughout hospital stay - Denies IV drug abuse - Check hepatitis panel (5) NICM (nonischemic cardiomyopathy): Plan: - Hx of such, repeat Echo pending - Cards as above DVT ppx: - teds, holding eliquis in case of needs for surgical procedure CODE: Full code Dispo: From home, likely to remain in the hospital x 1-2 days History of Present Illness Chief Complaint: Palpitations Primary Care Provider: Dahlia Vegaurer This is a 56 yo M with PMhx of atrial fibrillation, and ICM, history of left atrial thrombus, cardiomyopathy, hx of gallbladder resection in 2002 with associated pancreatitis, who presents with acute onset of palpitations and not feeling well. The symptoms started approximately 1 week ago primarily with increased shortness of breath. This has progressed to the point where he is unable to go up 1-2 steps on a flight of stairs without becoming winded. He admits to orthopnea within the past few days. He felt increased palpitations this morning and felt that he was sending himself into a panic attack (but denies previous history of anxiety or depression). Patient notes that he had a cardiac ablation in May, and that it was successful for approximately 1 week and then he felt himself go back into A. fib. Today when he presented to the ER he was found to be in A. fib with RVR with a heart rate of 140s to 150s. He was started on a Cardizem drip which has significantly improved HR, and heart rate is down into the mid 80s while at bedside. He denies any chest pain, radiation of pain, heaviness or shortness of breath currently. He does note that his shortness of breath is not significantly improved at this point in time. He admits to having some right upper quadrant abdominal pain as well, but had previous gallbladder surgery in 2002 where he was also diagnosed at the same time with pancreatitis. He denies any abdominal surgeries. Admits to drinking alcohol daily, 1-2 beers. He last drank a beer last night. Patient complains of an umbilical hernia which he would like to get fixed. He reports no changes in oral intake, but yesterday vomited after drinking a large glass of cold water in the morning, however this is nothing out of the ordinary as he does every morning. He also admits to having constipation within the past 3 days. Denies diarrhea. He feels bloated and distended in his abdomen today. Allergies Allergy/AdvReac Type Severity Reaction Status Date / Time No Known Allergies Allergy Verified 08/12/21 07:44 Home Medications Medication Instructions Recorded Confirmed Type apixaban 5 mg tablet (Eliquis) 5 mg PO BID #60 tab 01/25/20 08/12/21 Rx sotalol 80 mg tablet 80 mg PO BID #180 tab 03/08/20 08/12/21 Rx Past Med/Surg History Medical History (Updated 08/14/21 @ 11:01 by Ethan Santana DO) Atrial fibrillation with RVR Cardiomyopathy Chronic anticoagulation Left atrial thrombus NICM (nonischemic cardiomyopathy) No pertinent family history Right ventricular failure Surgical History No pertinent past surgical history Social History Smoking Status: Never smoker Hx Alcohol Use: Yes Alcohol type: beer Hx Substance Use: No Preferred Language: Irish Communication Ability: Effective Operating Room Surgical Technician Required: No Beliefs That Will Affect Care: None Current Living Situation: Alone Feels Safe at Home: Yes Assistive Devices: None Review of Systems Review of Systems: Constitutional: No fever, sweats or chills Eyes: No diplopia, no worsening or blurred vision ENT: normal hearing, no trouble swallowing Respiratory: As per HPI, No cough, sputum, + dyspnea on exertion with minimal effort and ADLs Cardiovascular: As per HPI. + palpitations, No chest pain, tightness Abdomen:As per HPI, RUQ pain, + distension + vomiting, no diarrhea, +constipation Musculoskeletal: No joint pain, calf pain, swelling Neurologic: No weakness, numbness/tingling, or balance problems Psychiatric: No anxiety or depression Skin: No rash or itch Physical Exam Physical Exam: General: awake, alert, no apparent distress, obese with BMI 32.1, appears red faced Head: Normocephalic, atraumatic ENT: PERRL, EOMI, no pharyngeal exudate, mucous membranes moist Chest: Absent breath sounds at bases bilaterally, difficulty taking deep breaths but good aeration throughout otherwise, on room air, no adventitious breath sounds Cardiac: Irregularly irregular, rate controlled in mid 80s, no murmur, no JVD, normal peripheral pulses, good capillary refill Abdominal: NABS x 4 quadrants, soft, + distended, +tender to palpation in RUQ and at umbilical hernia, no rebound or guarding Extremities: Normal inspection, no peripheral edema or erythema, calfs nontender to palpation Psych: Normal mood and affect Neuro: AAO x 3, strength intact bilaterally and rated 5/5, no motor deficits, speech is clear, no peripheral sensory deficits Results & Data Results & Data ([facility]) Vital Signs (Past 12 Hours) Vital Signs Temp Pulse Pulse Resp BP BP Pulse Ox 08/12/21 08:14 86 22 118/83 97 08/12/21 08:04 72 20 99/70 L 98 08/12/21 07:30 78 22 100/78 95 08/12/21 06:34 100 08/12/21 06:29 36.3 C L 129 H 18 122/82 100 Laboratory Results 08/12/21 08/12/21 08/12/21 08:48 08:39 08:26 WBC RBC Hgb Hct MCV MCH MCHC RDW Std Deviation RDW Coeff of Dagmar Plt Count MPV Immature Gran % (Auto) Neut % (Auto) Lymph % (Auto) Sibley % (Auto) Eos % (Auto) Baso % (Auto) Neut # (Auto) Lymph # (Auto) Sibley # (Auto) Eos # (Auto) Baso # (Auto) Immature Gran # (Auto) PT INR APTT PTT Ratio ABG pH 7.40 ABG pCO2 29 L ABG pO2 85 ABG HCO3 18 L ABG O2 Saturation 96.7 H ABG Base Excess -5.1 Quentin Test Pos Methemoglobin 1.1 Barometric Pressure 729.4 Oxygen Given ROOM AIR Sodium Potassium Chloride Carbon Dioxide Anion Gap BUN Creatinine Est Cr Clr Drug Dosing Est GFR ( Amer) Est GFR (Non-Af Amer) BUN/Creatinine Ratio Glucose Calcium Total Bilirubin Direct Bilirubin AST ALT Alkaline Phosphatase Troponin I Total Protein Albumin Lipase Prostate Specific Ag SARS-CoV-2 (PCR) NEGATIVE Influenza Type A (PCR) Negative Influenza Type B (PCR) Negative RSV (RT-PCR) Negative 08/12/21 08/12/21 08/12/21 07:28 07:28 07:28 WBC RBC Hgb Hct MCV MCH MCHC RDW Std Deviation RDW Coeff of Dagmar Plt Count MPV Immature Gran % (Auto) Neut % (Auto) Lymph % (Auto) Sibley % (Auto) Eos % (Auto) Baso % (Auto) Neut # (Auto) Lymph # (Auto) Sibley # (Auto) Eos # (Auto) Baso # (Auto) Immature Gran # (Auto) PT 13.4 H INR 1.4 H APTT 27.4 PTT Ratio 1.0 ABG pH ABG pCO2 ABG pO2 ABG HCO3 ABG O2 Saturation ABG Base Excess Quentin Test Methemoglobin Barometric Pressure Oxygen Given Sodium Potassium 4.6 Chloride Carbon Dioxide Anion Gap BUN Creatinine Est Cr Clr Drug Dosing Est GFR ( Amer) Est GFR (Non-Af Amer) BUN/Creatinine Ratio Glucose Calcium Total Bilirubin Direct Bilirubin AST 67 H ALT Alkaline Phosphatase Troponin I Total Protein Albumin Lipase Prostate Specific Ag 0.708 SARS-CoV-2 (PCR) Influenza Type A (PCR) Influenza Type B (PCR) RSV (RT-PCR) 08/12/21 08/12/21 08/12/21 06:55 06:55 06:55 WBC RBC Hgb Hct MCV MCH MCHC RDW Std Deviation RDW Coeff of Dagmar Plt Count MPV Immature Gran % (Auto) Neut % (Auto) Lymph % (Auto) Sibley % (Auto) Eos % (Auto) Baso % (Auto) Neut # (Auto) Lymph # (Auto) Sibley # (Auto) Eos # (Auto) Baso # (Auto) Immature Gran # (Auto) PT Cancelled INR Cancelled APTT Cancelled PTT Ratio Cancelled ABG pH ABG pCO2 ABG pO2 ABG HCO3 ABG O2 Saturation ABG Base Excess Quentin Test Methemoglobin Barometric Pressure Oxygen Given Sodium 136 Potassium Chloride 107 Carbon Dioxide 25 Anion Gap 4.0 BUN 17 Creatinine 1.12 Est Cr Clr Drug Dosing 84.3 Est GFR ( Amer) 85.3 Est GFR (Non-Af Amer) 73.6 BUN/Creatinine Ratio 15.6 Glucose 97 Calcium 9.0 Total Bilirubin 1.3 H Direct Bilirubin AST ALT 83 H Alkaline Phosphatase 237 H D Troponin I < 0.015 Total Protein 7.4 Albumin 3.5 Lipase Cancelled 269 Prostate Specific Ag SARS-CoV-2 (PCR) Influenza Type A (PCR) Influenza Type B (PCR) RSV (RT-PCR) 08/12/21 06:55 WBC 8.44 RBC 4.80 Hgb 18.0 Hct 52.7 H MCV 109.8 H MCH 37.5 H MCHC 34.2 RDW Std Deviation 55.6 H RDW Coeff of Dagmar 13.8 Plt Count 236 MPV 10.1 Immature Gran % (Auto) 0.4 Neut % (Auto) 73.6 Lymph % (Auto) 12.7 Sibley % (Auto) 12.2 Eos % (Auto) 0.7 Baso % (Auto) 0.4 Neut # (Auto) 6.22 Lymph # (Auto) 1.07 L Sibley # (Auto) 1.03 H Eos # (Auto) 0.06 Baso # (Auto) 0.03 Immature Gran # (Auto) 0.03 H PT INR APTT PTT Ratio ABG pH ABG pCO2 ABG pO2 ABG HCO3 ABG O2 Saturation ABG Base Excess Quentin Test Methemoglobin Barometric Pressure Oxygen Given Sodium Potassium Chloride Carbon Dioxide Anion Gap BUN Creatinine Est Cr Clr Drug Dosing Est GFR ( Amer) Est GFR (Non-Af Amer) BUN/Creatinine Ratio Glucose Calcium Total Bilirubin Direct Bilirubin AST ALT Alkaline Phosphatase Troponin I Total Protein Albumin Lipase Prostate Specific Ag SARS-CoV-2 (PCR) Influenza Type A (PCR) Influenza Type B (PCR) RSV (RT-PCR) Diagnostic Findings Abdomen/Pelvis CT 08/12/21 06:45 CT OF THE ABDOMEN AND PELVIS WITH CONTRAST CLINICAL HISTORY: Abdominal pain. Evaluate for small bowel obstruction. COMPARISON STUDY: None. TECHNIQUE: Following IV administration of 94 mL of Optiray, axial images of the abdomen and pelvis were obtained from the lung bases to the proximal femurs. Images were reviewed in the axial, sagittal, and coronal planes. IV contrast was administered without complication. Automated exposure control was utilized for the study. A dose lowering technique was utilized adhering to the principles of ALARA. CT DOSE: 665.35 mGy.cm FINDINGS: Moderate cardiomegaly is partially imaged on this exam. There are bilateral pleural effusions, right larger than left. Interlobular septal thickening indicates pulmonary edema. No pneumatosis, free air or portal venous gas is present. Left hepatic lobe appears atrophic. There are surgical clips along the gallbladder fundus. Note is made of pneumobilia. Trace gas within the gallbladder is noted. There is wall thickening and enhancement of the common bile duct. This was likely present on chest CT of January 21, 2020. No biliary or pancreatic ductal dilatation is present. There is no peripancreatic infiltration. No pancreatic lesion is identified. Enlarged upper abdominal lymph nodes are unchanged since chest CT of January 21, 2020. Index portacaval node measures 1.8 cm in short axis diameter. The spleen, adrenal glands are unremarkable. A cyst within the right kidney is noted. There is a 4 mm left renal calculus. There are no ureteral calculi and there is no hydronephrosis. Body wall edema is noted. There is a small amount of perihepatic and pericholecystic fluid. There is trace ascites within the abdomen and pelvis. Bladder wall thickening is noted with mild adjacent infiltration. There is no evidence for a bowel obstruction. The appendix is normal. Submucosal fat deposition within the colon is chronic. A few colonic diverticula are noted without evidence for acute diverticulitis. IMPRESSION: 1. Wall thickening and enhancement of the common bile duct. This was likely present on prior chest CT January 21, 2020. This finding is nonspecific and correlation with liver function tests is recommended. 2. Trace pneumobilia, including gas within the gallbladder. Surgical clips along the gallbladder fundus. Correlation with surgical history is recommended. 3. Interstitial pulmonary edema, bilateral pleural effusions, body wall edema and a small amount of abdominal and pelvic ascites. 4. No change in mildly enlarged upper abdominal lymph nodes since chest CT of January 21, 2020. Therefore, these are probably benign. ACT 112: Negative or not required by law. Electronically signed by: Gerry Adhikari M.D. 08/12/2021 8:21 AM Chest CTA 08/12/21 08:02 CT angio chest PE protocol CLINICAL HISTORY: Shortness of breath and chest pain. Evaluate for pulmonary embolus. COMPARISON STUDY: 01/21/2020 CT DOSE: 585.34 mGy.cm TECHNIQUE: CT Angio of the chest was performed.followed by image post processing with coronal, and sagittal MIP reformats. Contrast Volume: Optiray 320, 94 ml FINDINGS: Vasculature: There is homogeneous perfusion of the pulmonary vasculature bilaterally. No intraluminal filling defects or evidence for pulmonary embolus is seen. Airway: The airway is clear. No endobronchial lesion is identified. Lungs and pleural: Compared to previous examination, there are now moderate- sized bilateral pleural effusions, right greater than left. There is associated mild bibasilar atelectasis, right greater than left. The lungs are otherwise clear of acute alveolar opacities, air bronchograms or pulmonary nodules. Mediastinum: Compared to previous examination, there has been interval development of extensive superior mediastinal, prevascular, AP window and paratracheal adenopathy. This represents significant interval worsening from the previous study with the differential diagnosis including metastatic disease versus lymphoma. The largest lymph node measures approximately 2.3 x 1.4 cm. Heart size is enlarged. The thoracic aorta is within normal limits. There is no evidence for pericardial effusion. Upper abdomen:There is also been interval development of retrocrural adenopathy. Osseous structures: There is no acute osseous pathology. Impression: 1. No CTA evidence for pulmonary embolus. 2. Interval development of moderate-sized bilateral pleural effusions, right greater than left with bibasilar atelectasis, right greater than left. 3. Significant interval enlargement of mediastinal, prevascular and paratracheal lymph nodes characteristic of metastatic disease versus lymphoma. Follow-up PET/CT is recommended. 4. There is also been interval development of a retrocrural lymph node on the right. 5. Cardiomegaly. ACT 112: Positive. There are findings on this exam that require communication between the performing entity and the patient following Patient Test Result Information Act ([place] Act 112) guidelines. Electronically signed by: Hollis Pedersen M.D. 08/12/2021 8:29 AM ECG Additional Comments: 13-JUL-2021 06:54:17 [facility]-EDSTAT ROUTINE RETRIEVAL Poor data quality, interpretation may be adversely affected Atrial fibrillation with rapid ventricular response Right axis deviation T wave abnormality, consider inferior ischemia Prolonged QT Abnormal ECG When compared with ECG of 12-AUG-2021 06:34, (unconfirmed) Inverted T waves have replaced nonspecific T wave abnormality in Inferior leads T wave inversion less evident in Lateral leads 25mm/s 10mm/mV 150Hz 9.0.9 12SL 241 NARESH: 10 Referred by: REFERRED SELF Unconfirmed Vent. rate 115 BPM NE interval * ms QRS duration 96 ms QT/QTc 498/688 ms Code Status & VTE Plan Code Status Full code - discussed with the pt at bedside Supervising Physician Co-Signing Physician Notes Pt seen and examined by me , care coordinated with Chris Phan PA-C, pls refer to her note above for further detail. Pt is a 56 yo M w/ hx of recurrent atrial fibrillation (s/p ablation), history of left atrial thrombus, cardiomyopathy, hx of gallbladder resection in 2002 with associated pancreatitis, who presents with shortness of breath and palpitations. Pt reports he has not been feeling well since his ablation at the end of May (reports edema in LUE, night sweats), but symptoms such as shortness of breath started about a week ago. Also he went back to afib about 1 week later after the ablation. In the ED pt was found to be in Afib w/ RVR and given cardizem. He was also found to have pleural effusions, chest lymphadenopathy, elevated LFTs and pneumobilia. Pt is awake and alert and answering questions appropriately. He has diminished breath sounds at the bases bilaterally otherwise good air movement in upper lobes. Heart sounds irregular and tachycardic in low 100-110s (improved from initial eval). Abdomen is soft, somewhat distended, mild tenderness to palp., there is no significant LE edema noted. Skin is warm and dry. HR improved w/ cardizem but pt continues to feel short of breath. Pulm consult placed - for possible thoracentesis. Discussed chest lymphadenopathy w/ the pt and possible further work-up. Surgery and GI consulted for pneumobilia and elevated LFTs. Pt started on empiric Abx for pneumobilia. MD Shilo
[2021-08-12] MEDS ORDERED: PIPERACILL/TAZOBAC CONSULT ACTIVE PRN (10:07)
[2021-08-12] MEDS ORDERED: PIPERACILLIN/TAZOBACTAM 4.5 GM in DEXTROSE 5% 100 ML IV SCH (10:15)
--- NOTE | 2021-08-12 10:19 | Cardiology Consultation ---
Date of Consultation August 12, 2021 Assessment & Plan (1) Atrial fibrillation with RVR: (2) Bilateral pleural effusion: (3) Elevated LFTs: (4) Chronic anticoagulation: (5) Pneumobilia: (6) Dyspnea on exertion: (7) Lymphadenopathy: Mr. Menon lapsed back into atrial fibrillation with rapid ventricular response despite recent PVI and ongoing sotalol Obviously, Eliquis will be held at this time for any possible upcoming procedures. But given his history of left atrial appendage thrombus I do believe bridging is warranted so I will start him on a heparin drip at this time without bolus. His sotalol can be continued and Cardizem drip utilized for any significant rapid ventricular response episodes. Of more concern is his diffuse lymphadenopathy and pleural effusions. A carcinoma work-up has been started. I ordered a PET scan but this is not offered on an inpatient basis. I believe would be beneficial to obtain the pleural fluid for diagnostic and therapeutic goals and will ask our pulmonary colleagues to evaluate Given his cyanotic appearance but normal saturations and no PE on CTA of the chest would consider CTA of the neck and head to further evaluate History of Present Illness Reason for Consultation: afib with rvr Requesting Physician: Dr. Hernandes Attending Physician: [facility] History of Present Illness Mr. Menon is a very pleasant 56-year-old gentleman who I see as an outpatient for his history of paroxysmal atrial fibrillation. He presented to [facility] in the early a.m. of 08/12/2021 with complaints of chest pain, shortness of breath and abdominal pain. He states his dyspnea Sparc started approximately 1 week ago and has progressed to the point where he can only take a few steps without getting significantly winded. He is also developed some nocturnal orthopnea and palpitations. PAST MEDICAL HISTORY: 1. Atrial fibrillation with rapid ventricular response s/p PVI 06/07/21 2. History of Left atrial thrombus 3. Nonischemic cardiomyopathy secondary to AFib with RVR 4. Minimal nonobstructive coronary artery disease by cardiac catheterization January 2020 5. RV systolic failure 6. Transient transaminitis Allergies Allergy/AdvReac Type Severity Reaction Status Date / Time No Known Allergies Allergy Verified 08/12/21 07:44 Home Medications Medication Instructions Recorded Confirmed Type apixaban 5 mg tablet (Eliquis) 5 mg PO BID #60 tab 01/25/20 08/12/21 Rx sotalol 80 mg tablet 80 mg PO BID #180 tab 03/08/20 08/12/21 Rx Patient History Medical History (Updated 08/12/21 @ 13:20 by Maxime Alberto DO) Atrial fibrillation with RVR Cardiomyopathy Chronic anticoagulation Left atrial thrombus NICM (nonischemic cardiomyopathy) No pertinent family history Right ventricular failure Surgical History No pertinent past surgical history Social History Smoking Status: Never smoker Hx Alcohol Use: No Hx Substance Use: No Preferred Language: Slovak Communication Ability: Effective Beliefs That Will Affect Care: None Current Living Situation: Spouse Feels Safe at Home: Yes Assistive Devices: None Review of Systems Review of Systems: All systems reviewed & are unremarkable except as noted in HPI & below Physical Exam Physical Exam: General: Awake, alert and oriented x 3. No acute distress. rather cyanotic in appearance HEENT: Normocephalic, atraumatic. Pupils equal, round and reactive to light and accommodation. Extraocular muscles are intact. Anicteric sclera. Moist mucous membranes. Neck: No JVD. No bruit. Cardiovascular: irregularly irregular, unable to appreciate murmur, rub or gallop. Pulmonary: Clear to auscultation bilaterally. No rales, rhonchi, or wheezing. Abdomen: Bowel sounds x 4, soft. No rebound, guarding or tenderness. No organomegaly. Extremities: No clubbing, cyanosis or edema. +2 pedal pulses bilaterally. Skin: Warm and dry. Results & Data ([facility]) Vital Signs (Past 12 Hours) Vital Signs Temp Pulse Pulse Resp BP BP Pulse Ox 08/12/21 09:54 86 20 108/88 100 08/12/21 08:14 86 22 118/83 97 08/12/21 08:04 72 20 99/70 L 98 08/12/21 07:30 78 22 100/78 95 08/12/21 06:34 100 08/12/21 06:29 36.3 C L 129 H 18 122/82 100
--- NOTE | 2021-08-12 10:27 | Surgery Consultation ---
Date of Consultation August 12, 2021 Assessment & Plan (1) Pneumobilia: This is a 56yM with a PMH of afib on eliquis, history of umbilical hernia (not yet repaired) who presents to the [facility] ED on 08/12/21 with complaints of shortness of breath associated with some upper abdominal discomfort. CT a/p revealed wall thickening and enhancement of the common bile duct, which was likely present on prior chest CT January 21, 2020. Along with trace pneumobilia, including gas within the gallbladder. Surgical clips along the gallbladder fundus. Labs revealed WBC 8.4, Tb: 1.3, AST: 67, ALT: 83, AlkP: 237. On examination patient's abdomen is tender to palpation over RUQ/epigastric regions and umbilicus. CT scan findings are interesting given history of lap diana. Would consult GI given findings of pneumobilia, sounds like his gallbladder was removed in 2002 for gallstone pancreatitis so may have had ERCP at that time. Hospitalists are admitting the patient and consulting cardiology for his cardiorespiratory complaints and findings. We will continue to follow the patient closely and see how patient fairs as his other medical issues are being treated. Would hold eliquis for now in the event we proceed with any interventions. keep NPO and would start IV abx (zosyn is okay). We will also or marie a RUQ US for further evaluation of CT findings. Supervising Physician Co-Signing Physician Notes I personally saw and evaluated the patient with Chela Copeland PA-C and agree with the assessment and plan. 56-year-old male with history of cholecystectomy in 2002 here with dyspnea and upper abdominal pain CT images and results reviewed, it is difficult to see if he has remnant gallbladder versus biloma present He has no leukocytosis or fever and his dyspnea seems to be his main complaint Would recommend a GI consult for evaluation of the enhancement of his common bile duct He also has new adenopathy in the chest which should be investigated We will order a right upper quadrant ultrasound for further evaluation of the area in question Hold his Eliquis for now, no plans for any surgical intervention currently History of Present Illness History of Present Illness This is a 56yM with a PMH of afib on eliquis, history of umbilical hernia (not yet repaired) who presents to the [facility] ED on 08/12/21 with complaints of shortness of breath associated with some upper abdominal discomfort. Of note patient had his gallbladder removed in 2002 in [place] [employer] [place]. He was suppose to have his umbilical hernia repaired, but was delayed due to Covid. Today, he presents to the ER with the above complaints. A CT a/p revealed wall thickening and enhancement of the common bile duct, which was likely present on prior chest CT January 21, 2020. Along with trace pneumobilia, including gas within the gallbladder. Surgical clips along the gallbladder fundus. Patient reports an episode of emesis a couple days ago after drinking a large glass of water. He also reports constipation and the sweats over the past couple of weeks. He denies any nausea, true fevers, or chills. Other than his gallbladder he has no prior surgical history. His biggest complaint bringing him to the hospital was shortness of breath, but does report some abdominal discomfort and pressure. He has been eating fine without issues. Social history includes drinking 1-2 beers a day. Last took his eliquis last night. Allergies Allergy/AdvReac Type Severity Reaction Status Date / Time No Known Allergies Allergy Verified 08/12/21 07:44 Home Medications Medication Instructions Recorded Confirmed Type apixaban 5 mg tablet (Eliquis) 5 mg PO BID #60 tab 01/25/20 08/12/21 Rx sotalol 80 mg tablet 80 mg PO BID #180 tab 03/08/20 08/12/21 Rx Patient History Medical History Atrial fibrillation with RVR Cardiomyopathy Left atrial thrombus NICM (nonischemic cardiomyopathy) No pertinent family history Right ventricular failure Surgical History No pertinent past surgical history Social History Smoking Status: Never smoker Hx Alcohol Use: No Hx Substance Use: No Preferred Language: Setswana Communication Ability: Effective Beliefs That Will Affect Care: None Current Living Situation: Spouse Feels Safe at Home: Yes Assistive Devices: None Review of Systems Constitutional: + sweats; no fever, no chills and no anorexia Respiratory: + dyspnea Gastrointestinal: + abdominal pain, + vomiting and + constipation; no nausea umbilical hernia Physical Exam Physical Exam: awake/alert Respiratory: normal respiratory effort Gastrointestinal (Abdomen): Inspection/Auscultation: + abdomen distended Percussion/Palpation: + abdomen tender (in RUQ/epigastric region), abdomen soft and + hernia (umbilical, no skin changes) Results & Data ([facility]) Vital Signs (Past 12 Hours) Vital Signs Temp Pulse Pulse Resp BP BP Pulse Ox 08/12/21 09:54 86 20 108/88 100 08/12/21 08:14 86 22 118/83 97 08/12/21 08:04 72 20 99/70 L 98 08/12/21 07:30 78 22 100/78 95 08/12/21 06:34 100 08/12/21 06:29 36.3 C L 129 H 18 122/82 100 Diagnostic Findings T OF THE ABDOMEN AND PELVIS WITH CONTRAST CLINICAL HISTORY: Abdominal pain. Evaluate for small bowel obstruction. COMPARISON STUDY: None. TECHNIQUE: Following IV administration of 94 mL of Optiray, axial images of the abdomen and pelvis were obtained from the lung bases to the proximal femurs. Images were reviewed in the axial, sagittal, and coronal planes. IV contrast was administered without complication. Automated exposure control was utilized for the study. A dose lowering technique was utilized adhering to the principles of ALARA. CT DOSE: 665.35 mGy.cm FINDINGS: Moderate cardiomegaly is partially imaged on this exam. There are bilateral pleural effusions, right larger than left. Interlobular septal thickening indicates pulmonary edema. No pneumatosis, free air or portal venous gas is present. Left hepatic lobe appears atrophic. There are surgical clips along the gallbladder fundus. Note is made of pneumobilia. Trace gas within the gallbladder is noted. There is wall thickening and enhancement of the common bile duct. This was likely present on chest CT of January 21, 2020. No biliary or pancreatic ductal dilatation is present. There is no peripancreatic infiltration. No pancreatic lesion is identified. Enlarged upper abdominal lymph nodes are unchanged since chest CT of January 21, 2020. Index portacaval node measures 1.8 cm in short axis diameter. The spleen, adrenal glands are unremarkable. A cyst within the right kidney is noted. There is a 4 mm left renal calculus. There are no ureteral calculi and there is no hydronephrosis. Body wall edema is noted. There is a small amount of perihepatic and pericholecystic fluid. There is trace ascites within the abdomen and pelvis. Bladder wall thickening is noted with mild adjacent infiltration. There is no evidence for a bowel obstruction. The appendix is normal. Submucosal fat deposition within the colon is chronic. A few colonic diverticula are noted without evidence for acute diverticulitis. IMPRESSION: 1. Wall thickening and enhancement of the common bile duct. This was likely present on prior chest CT January 21, 2020. This finding is nonspecific and correlation with liver function tests is recommended. 2. Trace pneumobilia, including gas within the gallbladder. Surgical clips along the gallbladder fundus. Correlation with surgical history is recommended. 3. Interstitial pulmonary edema, bilateral pleural effusions, body wall edema and a small amount of abdominal and pelvic ascites. 4. No change in mildly enlarged upper abdominal lymph nodes since chest CT of January 21, 2020. Therefore, these are probably benign. ACT 112: Negative or not required by law. Electronically signed by: Gerry Adhikari M.D. 08/12/2021 8:21 AM PG Care Time/CCT Total # of Minutes Spent Total Time Spent with Patient: Total time spent is greater than 50% in coordination of care (as documented) at patient's floor/unit and/or counseling patient: Coding Level of Care Code 12540 Inpt Consult Level 3 Diagnoses Pneumobilia K83.8
--- NOTE | 2021-08-12 10:36 | Gastrointestinal Consultation ---
Date of Consultation August 12, 2021 Assessment & Plan (1) Bilateral pleural effusion: (2) Atrial fibrillation with RVR: (3) Dyspnea: (4) Elevated LFTs: 56 yo male with a history of ?? partial cholecystectomy 2002(details unclear) after gallstone pancreatitis with a significant cardiac history who presented today with SOB and palpitations and AF with RVR noted to also have some RUQ an generalized abd pain and pressure. LFTS elevated and imaging showed CBD thickening and pneumobilia. Also found to have diffuse chest adenopathy which is being worked up. - MRCP to further evaluate for biliary dilation and choledocholithiasis and possible biloma - Hold Eloquis pending results of the MRCP should an ERCP be necessary (as long as OK with cardiology) - Mgt of AF with RVR per cardiology and primary service - Work up of the chest adenopathy per primary service. - OK to continue Zosyn History of Present Illness Reason for Consultation: RUQ pain elevated LFTs Requesting Physician: Mikala Phan PA-C History of Present Illness Mr. Menon is a 56 yo male with a history of AF (on Eloquis), ICM, h/o LA throm bus, umbilical hernia(awaiting repair) and ??partial cholecystectomy 2002 while on [employer] [place] in [place] after episode of gallstone pancreatitis (ERCP at that time as well) who presented to the ER with complaints of SOB and palpitations. In the ER he aslo complained of some upper and generalized abd pain, a bit more int he RUQ and some pressure. No nausea or vomiting. No fevers. He was found to be in AF with RVR int he ER and was starte don a cardizem gtt. HR better now. CT scan showed bilateral pleural effusions as well as new mediastinal, prevascular, and pretracheal adenopathy. It also showed thickening and enhancement of the CBD (seen on imaging a year ago as well) and pneumobilia. His LFTS are elevated with AST 67, ALT 83, AP 237, TB 1.3. He has been seen by cardiology as well as general surgery. He was started on Zosyn. I ordered an MRCP which will be done today. Patient's main complaint is SOB. Allergies Allergy/AdvReac Type Severity Reaction Status Date / Time No Known Allergies Allergy Verified 08/12/21 07:44 Home Medications Medication Instructions Recorded Confirmed Type apixaban 5 mg tablet (Eliquis) 5 mg PO BID #60 tab 01/25/20 08/12/21 Rx sotalol 80 mg tablet 80 mg PO BID #180 tab 03/08/20 08/12/21 Rx Patient History Medical History Atrial fibrillation with RVR Cardiomyopathy Left atrial thrombus NICM (nonischemic cardiomyopathy) No pertinent family history Right ventricular failure Surgical History No pertinent past surgical history Social History Smoking Status: Never smoker Hx Alcohol Use: No Hx Substance Use: No Preferred Language: Telugu Communication Ability: Effective Beliefs That Will Affect Care: None Current Living Situation: Spouse Feels Safe at Home: Yes Assistive Devices: None Review of Systems Review of Systems: All systems reviewed & are unremarkable except as noted in HPI & below Physical Exam Constitutional: WD/WN, vitals as above Eyes: PERRL, conjunctivae normal, anicteric sclerae Neck: trachea midline, no thyromegaly Respiratory: normal respiratory effort Auscultation: + diminished lung sounds Cardiovascular: Rate/Rhythm: + tachycardic and + irregularly irregular Gastrointestinal (Abdomen): normal bowel sounds, soft, nontender, no hepatosplenomegaly Musculoskeletal: no cyanosis or clubbing, extremities motor strength 5/5 Neurologic: CN's II-XI intact bilaterally Results & Data ([facility]) Vital Signs (Past 12 Hours) Vital Signs Temp Pulse Pulse Resp BP BP Pulse Ox 08/12/21 09:54 86 20 108/88 100 08/12/21 08:14 86 22 118/83 97 08/12/21 08:04 72 20 99/70 L 98 08/12/21 07:30 78 22 100/78 95 08/12/21 06:34 100 08/12/21 06:29 36.3 C L 129 H 18 122/82 100 (1) Dyspnea Dyspnea type: unspecified Qualified Code(s): R06.00 - Dyspnea, unspecified
--- NOTE | 2021-08-12 11:11 | Ultrasound Report ---
ABDOMINAL ULTRASOUND, RIGHT UPPER QUADRANT HISTORY: Right upper quadrant pain. evaluate ?remnant gallbladder, pneumobilia. COMPARISON: Abdomen and pelvis CT 08/12/2021. FINDINGS: Pancreas: The pancreas demonstrates a normal echotexture. Liver: Unremarkable. Gallbladder: By report the patient is status post mastectomy. The large gallbladder remnant remaining . There is a slightly irregular and thickened wall measuring up to 4 mm. No definite stones identifie d. Surgical clips seen at the fundus. Evidence for pneumobilia. Negative sonographic Kirby sign. CBD: 4 mm. Right kidney: No hydronephrosis. IMPRESSION: 1. There is a large gallbladder remnant remaining status post cholecystectomy which demonstrates a sl ightly irregular and thickened wall. No definite gallstones. This is nonspecific could be due to the patient's diffuse edematous state. A cholecystitis is not excluded but is considered less likely give n the negative sonographic Kirby sign. 2. Normal caliber common bile duct. ACT 112: Negative or not required by law. Electronically signed by: Jorge Alberto Milner M.D. 08/12/2021 11:10 AM
[2021-08-12] MEDS ORDERED: PIPERACILLIN/TAZOBACTAM 4.5 GM/120ML D5W IV ONE (11:13)
[2021-08-12 12:01] LABS: Hepatitis B Surf Ag Rflx Conf Neg (Neg)
[2021-08-12 12:30] LABS: Hepatitis C IgG 13Yrs+Old_Rflx Neg (Neg)
[2021-08-12] MEDS ORDERED: ACETAMINOPHEN 325 MG TAB PO PRN (12:47)
[2021-08-12] MEDS ORDERED: ONDANSETRON INJ 2 MG/ML 2 ML VIAL IV PRN (12:47)
--- NOTE | 2021-08-12 12:53 | Pulmonary Consultation ---
Date of Consultation August 12, 2021 Assessment & Plan (1) Bilateral pleural effusion: (2) Atrial fibrillation with RVR: (3) Chronic anticoagulation: Attending: Dr. Villeda Impression: 56-year-old male with past medical history of atrial fibrillation with chronic anticoagulation with Eliquis. Last dose of Eliquis 08/11/2021 PM. New bilateral pleural effusions identified on CT scan. No prior history of thoracentesis or pulmonary disease. Recommendations: 1. Bilateral pleural effusions: * Identified on CT scan. No evidence of pulmonary embolus * Patient chronically anticoagulated with Eliquis. Last dose 08/11/2021 PM * Hold Eliquis * Earliest opportunity for thoracentesis would be Sunday morning due to chronic anticoagulation * Patient with mediastinal lymphadenopathy. No pulmonary nodules or masses 2. Mediastinal lymphadenopathy: * No prior history per patient report * 20 pound intentional weight loss since November * Lifelong non-smoker. No other use of tobacco products * Mother with history of heavy tobacco abuse who of lung cancer at age 74 * No other family history of malignancy Will review with Dr. Villeda. Hold Eliquis and consider thoracentesis on Sunday for diagnostic purposes due to mediastinal lymphadenopathy. Thank you for this consult. We will continue to follow along with you. Supervising Physician Co-Signing Physician Notes see progress note from 08/13/21 History of Present Illness Reason for Consultation: Bilateral pleural effusions Requesting Physician: Dr. Alberto Attending Physician: Howard Lao MD History of Present Illness Attending: Dr. Villeda This is a 56-year-old male that has a history of atrial fibrillation with RVR and chronic anticoagulation with Eliquis. The patient reports that he has had increasing shortness of breath over the last few weeks. He was scheduled to see Dr. Alberto in the clinic this coming Sunday but because of increased shortness of breath presented to the emergency department today. A CT scan of the chest was performed and ruled out pulmonary embolus. There is no evidence of significant mass or pulmonary nodules but patient does have mediastinal lymphadenopathy and bilateral pleural effusions. Patient denies any prior history of pleural effusions. He has no history of malignancy or blood dyscrasias. His mother did of lung cancer but he reports that she was a heavy smoker. She at age 74. Patient does have an intentional weight loss of 20 pounds since November of this year as result of intermittent fasting and increased activity. He noticed over the last week or 2 that he seemed to be more bloated in the belly and attributed this to some of his shortness of breath. He has no fever, chills, sweats, rigors. He has no hemoptysis. He has no other acute complaints. Patient is a lifelong non-smoker Patient is fully vaccinated with 2 Covid vaccinations plus a booster Patient has no other acute complaints at this time. Allergies Allergy/AdvReac Type Severity Reaction Status Date / Time No Known Allergies Allergy Verified 08/12/21 07:44 Home Medications Medication Instructions Recorded Confirmed Type apixaban 5 mg tablet (Eliquis) 5 mg PO BID #60 tab 01/25/20 08/12/21 Rx sotalol 80 mg tablet 80 mg PO BID #180 tab 03/08/20 08/12/21 Rx Patient History Medical History (Updated 08/12/21 @ 13:20 by Maxime Alberto DO) Atrial fibrillation with RVR Cardiomyopathy Chronic anticoagulation Left atrial thrombus NICM (nonischemic cardiomyopathy) No pertinent family history Right ventricular failure Surgical History No pertinent past surgical history Social History Smoking Status: Never smoker Hx Alcohol Use: Yes Alcohol type: beer Hx Substance Use: No Preferred Language: Wolof Communication Ability: Effective Industrial Specialist Required: No Beliefs That Will Affect Care: None Current Living Situation: Alone Feels Safe at Home: Yes Assistive Devices: None Review of Systems Review of Systems: All systems reviewed & are unremarkable except as noted in Subjective Physical Exam Physical Exam: GENERAL : No acute distress. Patient does have some shortness of breath when sitting upright at 90 degrees. EYES: No icterus, gaze conjugate NOSE: No evidence of epistaxis MOUTH: No lesions or candidiasis NECK: Supple LUNGS: CTA B/L, no wheezes, rales or rhonchi. Patient does have difficulty with deep inspiration. Breath sounds equal bilaterally at the bases. HEART: Regular, rate controlled ABDOMEN: Soft, NT, ND, BS Present EXTREMITIES: No LE edema, pedal pulses intact. No calf pain with palpation. NEURO: A&OX3 Results & Data Results & Data ([facility]) Vital Signs (Past 12 Hours) Vital Signs Temp Pulse Pulse Resp BP BP Pulse Ox 08/12/21 10:00 89 26 H 131/104 H 99 08/12/21 09:54 86 20 108/88 108/88 100 08/12/21 09:30 99 08/12/21 09:00 79 19 96 08/12/21 08:42 81 20 118/83 97 08/12/21 08:30 75 21 96/78 L 96 08/12/21 08:14 71 86 31 H 113/78 118/83 98 08/12/21 08:04 72 20 99/70 L 98 08/12/21 08:01 80 21 99/70 L 98 08/12/21 08:00 80 19 105/83 97 08/12/21 07:59 84 30 H 97 08/12/21 07:30 78 22 100/78 95 08/12/21 06:34 100 08/12/21 06:29 36.3 C L 129 H 18 122/82 100 Laboratory Results 08/12/21 06:55 08/12/21 07:28 Diagnostic Findings Abdomen/Pelvis CT 08/12/21 06:45 CT OF THE ABDOMEN AND PELVIS WITH CONTRAST CLINICAL HISTORY: Abdominal pain. Evaluate for small bowel obstruction. COMPARISON STUDY: None. TECHNIQUE: Following IV administration of 94 mL of Optiray, axial images of the abdomen and pelvis were obtained from the lung bases to the proximal femurs. Images were reviewed in the axial, sagittal, and coronal planes. IV contrast was administered without complication. Automated exposure control was utilized for the study. A dose lowering technique was utilized adhering to the principles of ALARA. CT DOSE: 665.35 mGy.cm FINDINGS: Moderate cardiomegaly is partially imaged on this exam. There are bilateral pleural effusions, right larger than left. Interlobular septal thickening indicates pulmonary edema. No pneumatosis, free air or portal venous gas is present. Left hepatic lobe appears atrophic. There are surgical clips along the gallbladder fundus. Note is made of pneumobilia. Trace gas within the gallbladder is noted. There is wall thickening and enhancement of the common bile duct. This was likely present on chest CT of January 21, 2020. No biliary or pancreatic ductal dilatation is present. There is no peripancreatic infiltration. No pancreatic lesion is identified. Enlarged upper abdominal lymph nodes are unchanged since chest CT of January 21, 2020. Index portacaval node measures 1.8 cm in short axis diameter. The spleen, adrenal glands are unr emarkable. A cyst within the right kidney is noted. There is a 4 mm left renal calculus. There are no ureteral calculi and there is no hydronephrosis. Body wall edema is noted. There is a small amount of perihepatic and pericholecystic fluid. There is trace ascites within the abdomen and pelvis. Bladder wall thickening is noted with mild adjacent infiltration. There is no evidence for a bowel obstruction. The appendix is normal. Submucosal fat deposition within the colon is chronic. A few colonic diverticula are noted without evidence for acute diverticulitis. IMPRESSION: 1. Wall thickening and enhancement of the common bile duct. This was likely present on prior chest CT January 21, 2020. This finding is nonspecific and correlation with liver function tests is recommended. 2. Trace pneumobilia, including gas within the gallbladder. Surgical clips along the gallbladder fundus. Correlation with surgical history is recommended. 3. Interstitial pulmonary edema, bilateral pleural effusions, body wall edema and a small amount of abdominal and pelvic ascites. 4. No change in mildly enlarged upper abdominal lymph nodes since chest CT of January 21, 2020. Therefore, these are probably benign. ACT 112: Negative or not required by law. Electronically signed by: Gerry Adhikari M.D. 08/12/2021 8:21 AM Chest CTA 08/12/21 08:02 CT angio chest PE protocol CLINICAL HISTORY: Shortness of breath and chest pain. Evaluate for pulmonary embolus. COMPARISON STUDY: 01/21/2020 CT DOSE: 585.34 mGy.cm TECHNIQUE: CT Angio of the chest was performed.followed by image post processing with coronal, and sagittal MIP reformats. Contrast Volume: Optiray 320, 94 ml FINDINGS: Vasculature: There is homogeneous perfusion of the pulmonary vasculature bilaterally. No intraluminal filling defects or evidence for pulmonary embolus is seen. Airway: The airway is clear. No endobronchial lesion is identified. Lungs and pleural: Compared to previous examination, there are now moderate- sized bilateral pleural effusions, right greater than left. There is associated mild bibasilar atelectasis, right greater than left. The lungs are otherwise clear of acute alveolar opacities, air bronchograms or pulmonary nodules. Mediastinum: Compared to previous examination, there has been interval development of extensive superior mediastinal, prevascular, AP window and paratracheal adenopathy. This represents significant interval worsening from the previous study with the differential diagnosis including metastatic disease versus lymphoma. The largest lymph node measures approximately 2.3 x 1.4 cm. Heart size is enlarged. The thoracic aorta is within normal limits. There is no evidence for pericardial effusion. Upper abdomen:There is also been interval development of retrocrural adenopathy. Osseous structures: There is no acute osseous pathology. Impression: 1. No CTA evidence for pulmonary embolus. 2. Interval development of moderate-sized bilateral pleural effusions, right greater than left with bibasilar atelectasis, right greater than left. 3. Significant interval enlargement of mediastinal, prevascular and paratracheal lymph nodes characteristic of metastatic disease versus lymphoma. Follow-up PET/CT is recommended. 4. There is also been interval development of a retrocrural lymph node on the right. 5. Cardiomegaly. ACT 112: Positive. There are findings on this exam that require communication between the performing entity and the patient following Patient Test Result Information Act ([place] Act 112) guidelines. Electronically signed by: Hollis Pedersen M.D. 08/12/2021 8:29 AM Liver Ultrasound 08/12/21 10:04 ABDOMINAL ULTRASOUND, RIGHT UPPER QUADRANT HISTORY: Right upper quadrant pain. evaluate ?remnant gallbladder, pneumobilia. COMPARISON: Abdomen and pelvis CT 08/12/2021. FINDINGS: Pancreas: The pancreas demonstrates a normal echotexture. Liver: Unremarkable. Gallbladder: By report the patient is status post mastectomy. The large gallbladder remnant remaining. There is a slightly irregular and thickened wall measuring up to 4 mm. No definite stones identified. Surgical clips seen at the fundus. Evidence for pneumobilia. Negative sonographic Kirby sign. CBD: 4 mm. Right kidney: No hydronephrosis. IMPRESSION: 1. There is a large gallbladder remnant remaining status post cholecystectomy which demonstrates a slightly irregular and thickened wall. No definite gallstones. This is nonspecific could be due to the patient's diffuse edematous state. A cholecystitis is not excluded but is considered less likely given the negative sonographic Kirby sign. 2. Normal caliber common bile duct. ACT 112: Negative or not required by law. Electronically signed by: Jorge Alberto Milner M.D. 08/12/2021 11:10 AM PG Care Time/CCT Total # of Minutes Spent Total Time Spent with Patient: Total time spent is greater than 50% in coordination of care (as documented) at patient's floor/unit and/or counseling patient: 45 minutes including discussion with patient and examination. Coding Level of Care Code 13970 Inpt Consult Level 4 Diagnoses Bilateral pleural effusion J90 Atrial fibrillation with RVR I48.91 Chronic anticoagulation Z79.01 Time Spent (min) 45
--- NOTE | 2021-08-12 13:28 | Magnetic Resonance Report ---
MRCP CLINICAL HISTORY: Eval gallbladder, CBD, hx partial resection TECHNIQUE: Utilizing a 1.5 Michelle magnet and dedicated coil, multiplanar, multiecho imaging of the upp er abdomen was performed utilizing heavily T2 weighted pulsing sequences without IV contrast. COMPARISON STUDY: CT of the abdomen and pelvis and right upper quadrant ultrasound performed earlier today. FINDINGS: A 4.5 x 2.9 cm T2 hyperintense focus within the gallbladder fossa likely reflects a gallbla dder remnant status post partial cholecystectomy. Trace pneumobilia and trace gas within the gallblad marie is better depicted on abdominal CT performed earlier today. Mild gallbladder wall thickening is a gain noted. There is trace perihepatic ascites. No biliary ductal dilatation is present. Note is made of probable wall thickening of the common bile duct. This was likely present on earlier chest CT of January 21, 2020. Sensitivity for detection of common bile duct calculi is diminished given motion artif act on the 3-D MRCP sequence. However, no definite common bile duct calculi are identified. No hepati c lesions are identified on this unenhanced exam. The size of the spleen is normal. Unenhanced images of the adrenal glands, left kidney and pancreas are unremarkable. There is no peripancreatic infiltr ation or fluid. The course and caliber of the main pancreatic duct are normal. There is a 1.1 cm T2 h yperintense lesion within the upper pole the right kidney. This is suboptimally assessed on this unen hanced exam but probably reflects a cyst. Several mildly enlarged upper abdominal lymph nodes are sim ilar to chest CT of January 21, 2020. The caliber of visualized small and large bowel are normal. Bilate ral pleural effusions, right larger left, are incidentally noted. Cardiomegaly is present. IMPRESSION: 1. No biliary ductal dilatation. Nonspecific wall thickening of the common bile duct. No common bile duct calculi identified although sensitivity diminished on this exam. 2. Large gallbladder remnant status post partial cholecystectomy. Mild gallbladder wall thickening, a nonspecific finding. 3. Mild upper abdominal lymphadenopathy. 4. Bilateral pleural effusions, right larger than left. Cardiomegaly. ACT 112: Negative or not required by law. Electronically signed by: Gerry Adhikari M.D. 08/12/2021 1:27 PM
[2021-08-12] MEDS ORDERED: Heparin IV Adult Wt-Based Standard *NO* Bolus Protocol IV SCH (14:10)
[2021-08-12] MEDS ORDERED: HEPARIN 25000 UNIT/500 ML D5W IV ONE (15:40)
[2021-08-12] MEDS: HEPARIN SODIUM/DEXTROSE 25,000 UNITS/500 ML BAG IV SCH (16:32)
[2021-08-12] MEDS: PIPERACILLIN/TAZOBACTAM 3.375 GM in DEXTROSE 5% 100 ML IV SCH (18:24)
[2021-08-12] MEDS: dilTIAZem HCL 125 MG in DEXTROSE 5% 100 ML IV SCH (19:04)
[2021-08-12] MEDS: SOTALOL HCL 80 MG TAB PO SCH (20:07)
[2021-08-12 23:07] LABS: Partial Thromboplastin Ratio 1.9
[2021-08-12 23:08] LABS: Partial Thromboplastin Time 50.5 Seconds (21.0-31.0)
[2021-08-13] MEDS: PIPERACILLIN/TAZOBACTAM 3.375 GM in DEXTROSE 5% 100 ML IV SCH ×3 (01:15→18:05)
[2021-08-13] MEDS: dilTIAZem HCL 125 MG in DEXTROSE 5% 100 ML IV SCH (07:08)
[2021-08-13 07:17] LABS: Hematocrit (blood only) 49.6 % (42-52); Hemoglobin 16.7 g/dL (14.0-18.0); Mean Corpuscular Hemoglobin 37.2 pg (25-34); Mean Corpuscular Hgb Conc 33.7 g/dL (32-36); Mean Corpuscular Volume 110.5 fL (80-100); Mean Platelet Volume 10.2 fL (7.4-10.4); Platelet Count 249 K/uL (130-400); RDW Coefficient of Variation 14.1 % (11.5-14.5); RDW Standard Deviation 56.2 fL (36.4-46.3); Red Blood Count 4.49 M/uL (4.7-6.1); White Blood Count 6.64 K/uL (4.8-10.8)
[2021-08-13 07:41] LABS: Partial Thromboplastin Ratio 2.5
[2021-08-13 07:44] LABS: Partial Thromboplastin Time 65.7 Seconds (21.0-31.0)
[2021-08-13 08:04] LABS: Albumin Globulin Ratio 0.9 (0.9-2); Albumin Level 3.1 gm/dl (3.4-5.0); BUN Creatinine Ratio 13.5 (10-20); Bilirubin Direct 0.4 mg/dl (0-0.2); Bilirubin,Total 1.5 mg/dl (0.2-1); Calcium 8.7 mg/dl (8.5-10.1); Creatinine Clr Calc Pharmacy 79.2 ml/min; Est GFR (African American) 78.4 ml/min; Est GFR (Non-African American) 67.7 ml/min; Globulin 3.5 gm/dl (2.5-4.0); Potassium 3.8 mmol/L (3.5-5.1); Total Protein 6.6 gm/dl (6.4-8.2)
--- NOTE | 2021-08-13 08:30 | Surgery Progress Note ---
Date of Service August 13, 2021 Assessment & Plan (1) Elevated LFTs: Plan: Patient is tolerating a diet, no nausea/vomiting WBC 6. Overall LFT's downtrending MRCP yesterday revealed no biliary ductal dilatation, nonspecific wall thickening of the common bile duct, no CBD stones. Large gallbladder remnant status post partial cholecystectomy. He is still having some belly bloat and discomfort on exam For now there is no evidence of cholecystitis of the remnant, no WBC, nonspecific findings on imaging, he is tolerating food We will continue to monitor, no plans for surgical intervention at this time Admission and Anticipated Discharge Date Admission Date: August 12, 2021 Supervising Physician Co-Signing Physician Notes I personally saw and evaluated the patient with Chela Copeland PA-C and agree with the assessment and plan. 56-year-old male with history of cholecystectomy in 2002 here with dyspnea and u pper abdominal pain He is tolerating food without a white count His LFTs continue to trend down We will continue to monitor, but no plans for surgical intervention Subjective Patient is tolerating a regular diet. Denies nausea/vomiting. Still feels short of breath. Still with some complaints of belly pain/bloat. Physical Exam Physical Exam: awake/alert Respiratory: normal respiratory effort Gastrointestinal (Abdomen): Inspection/Auscultation: + abdomen distended Percussion/Palpation: + abdomen tender (discomfort to palpation in RUQ/epigastric pain) and abdomen soft Results & Data ([facility]) Vital Signs (Past 12 Hours) Vital Signs Temp Pulse Pulse Resp BP Pulse Ox 08/13/21 07:18 36.5 C 101 H 20 130/87 97 08/13/21 03:33 36.6 C 88 19 128/92 97 08/12/21 23:41 108 H 08/12/21 23:13 36.3 C L 78 18 126/92 97 PG Care Time/CCT Total # of Minutes Spent Total Time Spent with Patient: Total time spent is greater than 50% in coordination of care (as documented) at patient's floor/unit and/or counseling patient: Coding Level of Care Code 41399 Subseq Hosp Care Lvl 1 Diagnoses Elevated LFTs R79.89
[2021-08-13 08:46] LABS: Estimated Average Glucose 100 mg/dl; Hemoglobin A1C 5.1 % (4.5-5.6)
--- NOTE | 2021-08-13 09:32 | Cardiology Progress Note ---
Date of Service August 13, 2021 Assessment & Plan (1) Atrial fibrillation with RVR: (2) Bilateral pleural effusion: (3) Elevated LFTs: (4) Chronic anticoagulation: (5) Dyspnea on exertion: (6) Lymphadenopathy: Plan: The patient is currently in atrial fibrillation with a controlled heart rate. He is hemodynamically stable. The plan is for later today he will have a thoracentesis completed as not only work-up but also for therapeutic reasons. The patient had a PVI for atrial fibrillation in May. After that procedure he states he never really felt well. He had shortness of breath which progressed and is resulted in a hospital admission. He did have a cardiac catheterization prior to the ablation which showed minor nonobstructive coronary artery disease. The patient was noted to have HFrEF earlier this year with his LV function returning to normal after achieving normal sinus rhythm. 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 During his ablation however, he had a transesophageal echocardi ogram which indicates his left ventricular ejection fraction was 35%. I reviewed his echocardiogram from this admission. He has severe LV and RV systolic dysfunction consistent with a dilated cardiomyopathy. Today I started him on IV Lasix. He will need additional GDM during his hospital stay. Admission and Anticipated Discharge Date Admission Date: August 12, 2021 Subjective The patient indicates that he feels improved. He is stable and has no complaints of shortness of breath at rest. Review of Systems Review of Systems: Review of Systems: See HPI for pertinent positives. All other 10 point review of systems are negative. Physical Exam Physical Exam: General: no acute distress and stated age Head: normocephalic, no masses, lesions, tenderness or abnormalities Eyes: conjunctiva are pink and non-injected, sclera clear Neck: supple, no adenopathy, no bruits, normal jugular venous pulse, no hepatojugular reflux Chest: normal shape and normal respiratory effort Lungs: Sounds at the bases bilaterally Cardiac Exam: - regular rate & rhythm, no murmurs gallops or rubs - normal S1, normal S2 Pulses: 2(+) throughout Abdomen: abdomen soft, non-tender, no abnormal masses and no hepatosplenomegaly Musculoskeletal: no gait disturbance, no joint inflammation, no deforming arthritis Extremities: no edema and no cyanosis Neuro: grossly normal exam Results & Data ([facility]) Vital Signs (Past 12 Hours) Vital Signs Temp Pulse Pulse Resp BP Pulse Ox 08/13/21 07:18 36.5 C 101 H 20 130/87 97 08/13/21 03:33 36.6 C 88 19 128/92 97 08/12/21 23:41 108 H 08/12/21 23:13 36.3 C L 78 18 126/92 97 Laboratory Results Laboratory Results - last 24 hr 08/12/21 08/12/21 08/12/21 07:28 07:28 07:28 WBC RBC Hgb Hct MCV MCH MCHC RDW Std Deviation RDW Coeff of Dagmar Plt Count MPV APTT PTT Ratio Sodium Potassium Chloride Carbon Dioxide Anion Gap BUN Creatinine Est Cr Clr Drug Dosing Est GFR ( Amer) Est GFR (Non-Af Amer) BUN/Creatinine Ratio Glucose Estimat Average Glucose Hemoglobin A1c Calcium Total Bilirubin Direct Bilirubin AST ALT Alkaline Phosphatase Total Protein Albumin Globulin Albumin/Globulin Ratio Triglycerides Cholesterol LDL Cholesterol, Calc VLDL Cholesterol, Calc HDL Cholesterol Cholesterol/HDL Ratio Prostate Specific Ag 0.708 Hepatitis A IgM Ab Pending Hep Bs Antigen Neg Hep B Core IgM Ab Pending Hepatitis C Antibody Neg 08/12/21 08/13/21 08/13/21 22:33 07:03 07:03 WBC 6.64 RBC 4.49 L Hgb 16.7 Hct 49.6 MCV 110.5 H MCH 37.2 H MCHC 33.7 RDW Std Deviation 56.2 H RDW Coeff of Dagmar 14.1 Plt Count 249 MPV 10.2 APTT 50.5 H* PTT Ratio 1.9 Sodium 136 Potassium 3.8 D Chloride 105 Carbon Dioxide 26 Anion Gap 5.0 BUN 16 Creatinine 1.20 Est Cr Clr Drug Dosing 79.2 Est GFR ( Amer) 78.4 Est GFR (Non-Af Amer) 67.7 BUN/Creatinine Ratio 13.5 Glucose 105 H Estimat Average Glucose Hemoglobin A1c Calcium 8.7 Total Bilirubin 1.5 H Direct Bilirubin 0.4 H AST 29 ALT 54 Alkaline Phosphatase 165 H D Total Protein 6.6 Albumin 3.1 L Globulin 3.5 Albumin/Globulin Ratio 0.9 Triglycerides 62 Cholesterol 147 LDL Cholesterol, Calc 101 VLDL Cholesterol, Calc 12 HDL Cholesterol 34 Cholesterol/HDL Ratio 4 Prostate Specific Ag Hepatitis A IgM Ab Hep Bs Antigen Hep B Core IgM Ab Hepatitis C Antibody 08/13/21 08/13/21 07:03 07:03 WBC RBC Hgb Hct MCV MCH MCHC RDW Std Deviation RDW Coeff of Dagmar Plt Count MPV APTT 65.7 H* PTT Ratio 2.5 Sodium Potassium Chloride Carbon Dioxide Anion Gap BUN Creatinine Est Cr Clr Drug Dosing Est GFR ( Amer) Est GFR (Non-Af Amer) BUN/Creatinine Ratio Glucose Estimat Average Glucose 100 Hemoglobin A1c 5.1 Calcium Total Bilirubin Direct Bilirubin AST ALT Alkaline Phosphatase Total Protein Albumin Globulin Albumin/Globulin Ratio Triglycerides Cholesterol LDL Cholesterol, Calc VLDL Cholesterol, Calc HDL Cholesterol Cholesterol/HDL Ratio Prostate Specific Ag Hepatitis A IgM Ab Hep Bs Antigen Hep B Core IgM Ab Hepatitis C Antibody Medications Administered Current Inpatient Medications Acetaminophen (Acetaminophen 325 Mg Tab) 650 mg PO Q4H PRN PRN Reason: Moderate Pain Stop: 09/11/21 12:46 Diltiazem HCl 125 mg/ Dextrose 125 mls @ 5 mls/hr IV .Q24H [facility]; Protocol Stop: 09/11/21 06:59 Last Admin: 08/13/21 07:08 Dose: 5 mg/hr, 5 mls/hr Documented by: Piperacillin Sod/Tazobactam (Sod 3.375 gm/ Dextrose) 115 mls @ 28.75 mls/hr IV Q8H [facility]; Protocol Stop: 08/22/21 15:59 Last Infusion: 08/13/21 05:15 Dose: Infused Documented by: Heparin Sodium/Dextrose (Heparin Sodium/Dextrose) 25,000 units in 500 mls @ 29 mls/hr IV .[id number] [facility]; Protocol Stop: 09/11/21 14:29 Last Titration: 08/13/21 07:46 Dose: 1,450 units/hr, 29 mls/hr Documented by: Miscellaneous Information (Piperacill/Tazobac Consult Active) 1 ea N/A UD PRN PRN Reason: Consult Stop: 09/11/21 10:06 Ondansetron HCl (Ondansetron Inj 2 Mg/Ml 2 Ml Vial) 4 mg IV Q4H PRN PRN Reason: Nausea And Vomiting Stop: 09/11/21 12:46 Sotalol HCl (Sotalol Hcl 80 Mg Tab) 80 mg PO BID [facility] Stop: 09/11/21 20:59 Last Admin: 08/12/21 20:07 Dose: 80 mg Documented by:
--- NOTE | 2021-08-13 10:10 | Pulmonology Progress Note ---
Date of Service August 13, 2021 Assessment & Plan (1) Bilateral pleural effusion: (2) Atrial fibrillation with RVR: (3) Chronic anticoagulation: Plan: Impression: 56-year-old male with past medical history of atrial fibrillation with chronic anticoagulation with Eliquis. Last dose of Eliquis 08/11/2021 PM. New bilateral pleural effusions identified on CT scan. No prior history of thoracentesis or pulmonary disease. Recommendations: 1. Bilateral pleural effusions: Heparin will be held and in 4 hours we will plan on pursuing diagnostic therapeutic ultrasound-guided catheter thoracentesis. Fluid will be sent for routine microbiologic as well as cytologic analysis. 2. Mediastinal lymphadenopathy: Etiology unclear. No comparison films. Will check LDH given the patient's night sweats. He is not pancytopenic. Would await pleural fluid analysis prior to proceeding with any additional invasive procedures. For evaluation of lymphoproliferative disorders, typically a lymph node excision for architecture is more beneficial than a needle aspirate. Would recommend outpatient PET scanning prior to consideration of bronchoscopy or additional evaluation to see whether or not there are other lymph nodes which may be amenable to surgical excision. If not, could consider endobronchial ultrasound with transbronchial needle aspiration. Pattern is not consistent with non-small cell lung cancer. Given the temporal relationship to his pul monary vein ablation, iatrogenic pulmonary vein stenosis would be on the differential. His symptoms should persist, consideration for right heart catheterization may be appropriate. Pulmonary veins are suboptimally opacified on the CT angiogram however they do appear patent. We will continue to follow with pleural fluid analysis. Admission and Anticipated Discharge Date Admission Date: August 12, 2021 Subjective Patient seen and examined. EMR and imaging reviewed. Discussed with cardiology at bedside as well as patient. Discussed with critical care/pulmonary BRITT. Patient states that he is breathing better. He is on room air. He is complaining of some night sweats. He states these have been going on for some time. He underwent MRCP which was unrevealing. He has been transitioned to a heparin infusion. He reports paroxysms of cough during the night but is not bringing up any phlegm. He has noted some mild enlarged lymph node Review of Systems Review of Systems: All systems reviewed & are unremarkable except as noted in Subjective Physical Exam Constitutional: WD/WN, vitals as above Neck: trachea midline, no thyromegaly Respiratory: normal respiratory effort; no respiratory distress, no labored breathing and not tachypneic Decreased breath sounds at the bilateral bases. No wheezing Cardiovascular: Rate/Rhythm: + irregularly irregular Heart Sounds: normal S1, normal S2 and + murmur Extremities: no edema Gastrointestinal (Abdomen): normal bowel sounds, soft, nontender, no hepatosplenomegaly Musculoskeletal: Extremities: extremities normal to inspection Skin: no rashes, warm and dry Neurologic: Nonfocal exam Lymphatic: no cervical lymphadenopathy Results & Data Results & Data ([facility]) Vital Signs (Past 12 Hours) Vital Signs Temp Pulse Pulse Resp BP Pulse Ox 08/13/21 07:18 36.5 C 101 H 20 130/87 97 08/13/21 03:33 36.6 C 88 19 128/92 97 08/12/21 23:41 108 H 08/12/21 23:13 36.3 C L 78 18 126/92 97 Critical Care Results & Data Vital Signs (Past 12 Hours) Vital Signs Temp Pulse Pulse Resp BP Pulse Ox 08/13/21 07:18 36.5 C 101 H 20 130/87 97 08/13/21 03:33 36.6 C 88 19 128/92 97 08/12/21 23:41 108 H 08/12/21 23:13 36.3 C L 78 18 126/92 97 Lab & Micro Results (Past 24 Hours) RBC 4.49 M/uL (4.7-6.1) L 08/13/21 WBC 6.64 K/uL (4.8-10.8) 08/13/21 Hgb 16.7 g/dL (14.0-18.0) 08/13/21 Hct 49.6 % (42-52) 08/13/21 MCV 110.5 fL (80-100) H 08/13/21 MCH 37.2 pg (25-34) H 08/13/21 MCHC 33.7 g/dL (32-36) 08/13/21 RDW Standard Deviation 56.2 fL (36.4-46.3) H 08/13/21 RDW Coefficient of Variation 14.1 % (11.5-14.5) 08/13/21 Plt Count 249 K/uL (130-400) 08/13/21 MPV 10.2 fL (7.4-10.4) 08/13/21 Na 136 mmol/L (136-145) 08/13/21 K 3.8 mmol/L (3.5-5.1) 08/13/21 Cl 105 mmol/L (98-107) 08/13/21 CO2 26 mmol/L (21-32) 08/13/21 Anion Gap 5.0 (3-11) 08/13/21 BUN 16 mg/dl (7-18) 08/13/21 Creatinine 1.20 mg/dl (0.6-1.4) 08/13/21 Estimated GFR ( Amer) 78.4 ml/min 08/13/21 Estimated GFR (Non-Af Amer) 67.7 ml/min 08/13/21 BUN/Creatinine Ratio 13.5 (10-20) 08/13/21 Glu 105 mg/dl (70-99) H 08/13/21 Ca 8.7 mg/dl (8.5-10.1) 08/13/21 Total Bilirubin 1.5 mg/dl (0.2-1) H 08/13/21 Direct Bilirubin 0.4 mg/dl (0-0.2) H 08/13/21 AST 29 U/L (15-37) 08/13/21 ALT 54 (12-78) 08/13/21 Alkaline Phosphatase 165 U/L (45-117) H 08/13/21 TP 6.6 gm/dl (6.4-8.2) 08/13/21 Albumin 3.1 gm/dl (3.4-5.0) L 08/13/21 Globulin 3.5 gm/dl (2.5-4.0) 08/13/21 Albumin/Globulin Ratio 0.9 (0.9-2) 08/13/21 Calcium Level 8.7 mg/dl (8.5-10.1) 08/13/21 07:03 08/13/21 Diagnostic Findings (Past 24 Hours) Liver Ultrasound 08/12/21 10:04 ABDOMINAL ULTRASOUND, RIGHT UPPER QUADRANT HISTORY: Right upper quadrant pain. evaluate ?remnant gallbladder, pneumobilia. COMPARISON: Abdomen and pelvis CT 08/12/2021. FINDINGS: Pancreas: The pancreas demonstrates a normal echotexture. Liver: Unremarkable. Gallbladder: By report the patient is status post mastectomy. The large gallbladder remnant remaining. There is a slightly irregular and thickened wall measuring up to 4 mm. No definite stones identified. Surgical clips seen at the fundus. Evidence for pneumobilia. Negative sonographic Kirby sign. CBD: 4 mm. Right kidney: No hydronephrosis. IMPRESSION: 1. There is a large gallbladder remnant remaining status post cholecystectomy which demonstrates a slightly irregular and thickened wall. No definite gallstones. This is nonspecific could be due to the patient's diffuse edematous state. A cholecystitis is not excluded but is considered less likely given the negative sonographic Kirby sign. 2. Normal caliber common bile duct. ACT 112: Negative or not required by law. Electronically signed by: Jorge Alberto Milner M.D. 08/12/2021 11:10 AM Cholangiopancreatography MRI 08/12/21 10:28 MRCP CLINICAL HISTORY: Eval gallbladder, CBD, hx partial resection TECHNIQUE: Utilizing a 1.5 Michelle magnet and dedicated coil, multiplanar, multiecho imaging of the upper abdomen was performed utilizing heavily T2 weighted pulsing sequences without IV contrast. COMPARISON STUDY: CT of the abdomen and pelvis and right upper quadrant ultrasound performed earlier today. FINDINGS: A 4.5 x 2.9 cm T2 hyperintense focus within the gallbladder fossa likely reflects a gallbladder remnant status post partial cholecystectomy. Trace pneumobilia and trace gas within the gallbladder is better depicted on abdominal CT performed earlier today. Mild gallbladder wall thickening is again noted. There is trace perihepatic ascites. No biliary ductal dilatation is present. Note is made of probable wall thickening of the common bile duct. This was likely present on earlier chest CT of January 21, 2020. Sensitivity for detection of common bile duct calculi is diminished given motion artifact on the 3-D MRCP sequence. However, no definite common bile duct calculi are identified. No hepatic lesions are identified on this unenhanced exam. The size of the spleen i s normal. Unenhanced images of the adrenal glands, left kidney and pancreas are unremarkable. There is no peripancreatic infiltration or fluid. The course and caliber of the main pancreatic duct are normal. There is a 1.1 cm T2 hyperintense lesion within the upper pole the right kidney. This is suboptimally assessed on this unenhanced exam but probably reflects a cyst. Several mildly enlarged upper abdominal lymph nodes are similar to chest CT of January 21, 2020. The caliber of visualized small and large bowel are normal. Bilateral pleural effusions, right larger left, are incidentally noted. Cardiomegaly is present. IMPRESSION: 1. No biliary ductal dilatation. Nonspecific wall thickening of the common bile duct. No common bile duct calculi identified although sensitivity diminished on this exam. 2. Large gallbladder remnant status post partial cholecystectomy. Mild gallbladder wall thickening, a nonspecific finding. 3. Mild upper abdominal lymphadenopathy. 4. Bilateral pleural effusions, right larger than left. Cardiomegaly. ACT 112: Negative or not required by law. Electronically signed by: Gerry Adhikari M.D. 08/12/2021 1:27 PM I & O Totals 24 Hours 08/12/21 08/13/21 08/14/21 06:59 06:59 06:59 Intake Total 1798.8 / 1798.8 281.300 / 281.300 Output Total Balance 1797.8 / 1797.8 281.300 / 281.300 Cumulative 08/12/21 06:18 thru 08/13/21 09:26 Intake Total 2080.100 Output Total 1 Balance 2079.100 RT Ventilator Mngmt (Last Documented) Ventilator Ordered Settings Respiratory Rate 20 08/13/21 07:18 Ventilator - PT Measurements Respiratory Rate 20 PG Care Time/CCT Total # of Minutes Spent Total Time Spent with Patient: Total time spent is greater than 50% in coordination of care (as documented) at patient's floor/unit and/or counseling patient: Coding Level of Care Code 76100 Subseq Hosp Care Lvl 3 Diagnoses Bilateral pleural effusion J90 Atrial fibrillation with RVR I48.91 Chronic anticoagulation Z79.01
--- NOTE | 2021-08-13 10:56 | Hospitalist Progress Note ---
Date of Service August 13, 2021 Assessment & Plan (1) Atrial fibrillation with RVR: Plan: - Admitted to tele - initial heart rate was in the 140s 150s, HR improved with being started on Cardizem drip - Consulted cardiology, follows with Dr. Alberto as an outpatient - EKG reviewed as above, afib, no acute changes, prolonged QTc - Echo ordered - troponin negative - Continue sotolol - Last dose of Eliquis was at night on 08/01 - pt now on IV heparin, eliquis on hold, upcoming procedures - pulm consulted for poss. thoracentesis - diagnostic and therapeutic (2) Bilateral pleural effusion: Plan: - Imaging reviewed as above showing R > L bilateral pleural effusion - Consider lasix for improvement - Noted ascites intraabdominally on CT abd/pelvis, and multiple lymph node enlargement throughout abd/pelvis and chest. If pleural effusion could be tapped, may consider diagnostics on fluids to ensure this is not a new malignancy. Hx of lymph nodes noted from January 2020 as well. - Consider additional imaging with follow PET CT as outpatient - Pulm consulted for poss. thoracentesis - diagnostic and therapeutic (procedure likely later today 08/13/20) - eliquis on hold (3) Pneumobilia: Plan: - Consult general surgery-discussed with Dr. Penaloza - rec IV antibiotics, started IV Zosyn, hold Eliquis for now in case needs for surgical procedure - GI consulted for RUQ pain, transaminitis - discussed with Dr. Cook, - will also check MRCP for RUQ pain and to eval the CBD, wall thickening, previous surgical clips in place so possible partially resected? - Trend LFTs Liver US 1. There is a large gallbladder remnant remaining status post cholecystectomy which demonstrates a slightly irregular and thickened wall. No definite gallstones. This is nonspecific could be due to the patient's diffuse edematous state. A cholecystitis is not excluded but is considered less likely given the negative sonographic Kirby sign. 2. Normal caliber common bile duct. MRCP IMPRESSION: 1. No biliary ductal dilatation. Nonspecific wall thickening of the common bile duct. No common bile duct calculi identified although sensitivity diminished on this exam. 2. Large gallbladder remnant status post partial cholecystectomy. Mild gallbladder wall thickening, a nonspecific finding. 3. Mild upper abdominal lymphadenopathy. 4. Bilateral pleural effusions, right larger than left. Cardiomegaly. 08/13/20 - LFTs trending down, pt tolerates food, imaging above reviewed, no plans for surgical intervention at this time (4) Transaminitis: Plan: - LFTs moderately elevated: GI on board - discussed with Dr. Cook - Alk phos 237, AST 67, ALT 83 - previously in January 2020 had similar presentation where he was admitted for same type of issues - Alcohol use daily with 1-2 beers- will encourage cessation throughout hospital stay - Denies IV drug abuse - Check hepatitis panel (5) NICM (nonischemic cardiomyopathy): Plan: - Hx of such, Echo ordered - Cardiology consulted - severe LV and RV systolic dysfunction consistent with a dilated cardiomyopathy.started on IV Lasix. He will need additional GDM during his hospital stay. DVT ppx: - teds, holding eliquis in case of needs for surgical procedure CODE: Full code Dispo: likely DC home once medically stable Admission and Anticipated Discharge Date Admission Date: August 12, 2021 Subjective Pt seen in follow up of shortness of breath, afib w/ RVR, pl. effusions, chest lymphadenopathy, pneumobilia Pt is currently laying in bed in NAD Says he feels little better since yesterday He is on IV heparin (eliquis on hold for possible upcoming procedures) , cardizem drip, and IV zosyn No chest pain, no increased abd. pain, nausea or vomiting. No fever, chills. Breathing seems slightly better. Review of Systems Review of Systems: All systems reviewed & are unremarkable except as noted in Subjective Physical Exam Physical Exam: General: obese M in NAD, breathing comfortably on RA Head: Normocephalic, atraumatic ENT: PERRL, EOMI, no pharyngeal exudate, mucous membranes moist Chest: Absent breath sounds at bases bilaterally, difficulty taking deep breaths but good aeration throughout otherwise, on room air, no adventitious breath sounds Cardiac: Irregularly irregular, HR improved, no murmur, no JVD, normal peripheral pulses, good capillary refill Abdominal: NABS x 4 quadrants, soft, + distended, +mildly tender to palpation in RUQ and at umbilical hernia, no rebound or guarding Extremities: No LE edema Psych: Normal mood and affect Neuro: AAO x 3, speech fluent, no facial asymmetry, moves extremities Results & Data Results & Data ([facility]) Vital Signs (Past 12 Hours) Vital Signs Temp Pulse Pulse Resp BP Pulse Ox 08/13/21 07:18 36.5 C 101 H 20 130/87 97 08/13/21 03:33 36.6 C 88 19 128/92 97 08/12/21 23:41 108 H 08/12/21 23:13 36.3 C L 78 18 126/92 97 Laboratory Results 08/13/21 08/13/21 08/13/21 Range/Units 10:18 07:03 07:03 WBC (4.8-10.8) K/uL RBC (4.7-6.1) M/uL Hgb (14.0-18.0) g/dL Hct (42-52) % MCV (80-100) fL MCH (25-34) pg MCHC (32-36) g/dL RDW Std Deviation (36.4-46.3) fL RDW Coeff of Dagmar (11.5-14.5) % Plt Count (130-400) K/uL MPV (7.4-10.4) fL APTT 65.7 H* (21.0-31.0) Seconds PTT Ratio 2.5 Sodium (136-145) mmol/L Potassium (3.5-5.1) mmol/L Chloride (98-107) mmol/L Carbon Dioxide (21-32) mmol/L Anion Gap (3-11) BUN (7-18) mg/dl Creatinine (0.6-1.4) mg/dl Est Cr Clr Drug Dosing ml/min Est GFR ( Amer) ml/min Est GFR (Non-Af Amer) ml/min BUN/Creatinine Ratio (10-20) Glucose (70-99) mg/dl Estimat Average Glucose 100 mg/dl Hemoglobin A1c 5.1 (4.5-5.6) % Calcium (8.5-10.1) mg/dl Total Bilirubin (0.2-1) mg/dl Direct Bilirubin (0-0.2) mg/dl AST (15-37) U/L ALT (12-78) Alkaline Phosphatase (45-117) U/L Lactate Dehydrogenase 159 (87-241) U/L Total Protein (6.4-8.2) gm/dl Albumin (3.4-5.0) gm/dl Globulin (2.5-4.0) gm/dl Albumin/Globulin Ratio (0.9-2) Triglycerides (0-150) mg/dl Cholesterol (0-200) mg/dl LDL Cholesterol, Calc mg/dl VLDL Cholesterol, Calc mg/dl HDL Cholesterol mg/dl Cholesterol/HDL Ratio Hepatitis A IgM Ab Hep Bs Antigen (Neg) Hep B Core IgM Ab Hepatitis C Antibody (Neg) 08/13/21 08/13/21 08/12/21 Range/Units 07:03 07:03 22:33 WBC 6.64 (4.8-10.8) K/uL RBC 4.49 L (4.7-6.1) M/uL Hgb 16.7 (14.0-18.0) g/dL Hct 49.6 (42-52) % MCV 110.5 H (80-100) fL MCH 37.2 H (25-34) pg MCHC 33.7 (32-36) g/dL RDW Std Deviation 56.2 H (36.4-46.3) fL RDW Coeff of Dagmar 14.1 (11.5-14.5) % Plt Count 249 (130-400) K/uL MPV 10.2 (7.4-10.4) fL APTT 50.5 H* (21.0-31.0) Seconds PTT Ratio 1.9 Sodium 136 (136-145) mmol/L Potassium 3.8 D (3.5-5.1) mmol/L Chloride 105 (98-107) mmol/L Carbon Dioxide 26 (21-32) mmol/L Anion Gap 5.0 (3-11) BUN 16 (7-18) mg/dl Creatinine 1.20 (0.6-1.4) mg/dl Est Cr Clr Drug Dosing 79.2 ml/min Est GFR ( Amer) 78.4 ml/min Est GFR (Non-Af Amer) 67.7 ml/min BUN/Creatinine Ratio 13.5 (10-20) Glucose 105 H (70-99) mg/dl Estimat Average Glucose mg/dl Hemoglobin A1c (4.5-5.6) % Calcium 8.7 (8.5-10.1) mg/dl Total Bilirubin 1.5 H (0.2-1) mg/dl Direct Bilirubin 0.4 H (0-0.2) mg/dl AST 29 (15-37) U/L ALT 54 (12-78) Alkaline Phosphatase 165 H D (45-117) U/L Lactate Dehydrogenase (87-241) U/L Total Protein 6.6 (6.4-8.2) gm/dl Albumin 3.1 L (3.4-5.0) gm/dl Globulin 3.5 (2.5-4.0) gm/dl Albumin/Globulin Ratio 0.9 (0.9-2) Triglycerides 62 (0-150) mg/dl Cholesterol 147 (0-200) mg/dl LDL Cholesterol, Calc 101 mg/dl VLDL Cholesterol, Calc 12 mg/dl HDL Cholesterol 34 mg/dl Cholesterol/HDL Ratio 4 Hepatitis A IgM Ab Hep Bs Antigen (Neg) Hep B Core IgM Ab Hepatitis C Antibody (Neg) 08/12/21 08/12/21 Range/Units 07:28 07:28 WBC (4.8-10.8) K/uL RBC (4.7-6.1) M/uL Hgb (14.0-18.0) g/dL Hct (42-52) % MCV (80-100) fL MCH (25-34) pg MCHC (32-36) g/dL RDW Std Deviation (36.4-46.3) fL RDW Coeff of Dagmar (11.5-14.5) % Plt Count (130-400) K/uL MPV (7.4-10.4) fL APTT (21.0-31.0) Seconds PTT Ratio Sodium (136-145) mmol/L Potassium (3.5-5.1) mmol/L Chloride (98-107) mmol/L Carbon Dioxide (21-32) mmol/L Anion Gap (3-11) BUN (7-18) mg/dl Creatinine (0.6-1.4) mg/dl Est Cr Clr Drug Dosing ml/min Est GFR ( Amer) ml/min Est GFR (Non-Af Amer) ml/min BUN/Creatinine Ratio (10-20) Glucose (70-99) mg/dl Estimat Average Glucose mg/dl Hemoglobin A1c (4.5-5.6) % Calcium (8.5-10.1) mg/dl Total Bilirubin (0.2-1) mg/dl Direct Bilirubin (0-0.2) mg/dl AST (15-37) U/L ALT (12-78) Alkaline Phosphatase (45-117) U/L Lactate Dehydrogenase (87-241) U/L Total Protein (6.4-8.2) gm/dl Albumin (3.4-5.0) gm/dl Globulin (2.5-4.0) gm/dl Albumin/Globulin Ratio (0.9-2) Triglycerides (0-150) mg/dl Cholesterol (0-200) mg/dl LDL Cholesterol, Calc mg/dl VLDL Cholesterol, Calc mg/dl HDL Cholesterol mg/dl Cholesterol/HDL Ratio Hepatitis A IgM Ab Pending Hep Bs Antigen Neg (Neg) Hep B Core IgM Ab Pending Hepatitis C Antibody Neg (Neg) Medications Administered Current Inpatient Medications Acetaminophen (Acetaminophen 325 Mg Tab) 650 mg PO Q4H PRN PRN Reason: Moderate Pain Stop: 09/11/21 12:46 Diltiazem HCl 125 mg/ Dextrose 125 mls @ 5 mls/hr IV .Q24H [facility]; Protocol Stop: 09/11/21 06:59 Last Admin: 08/13/21 07:08 Dose: 5 mg/hr, 5 mls/hr Documented by: Piperacillin Sod/Tazobactam (Sod 3.375 gm/ Dextrose) 115 mls @ 28.75 mls/hr IV Q8H [facility]; Protocol Stop: 08/22/21 15:59 Last Admin: 08/13/21 09:28 Dose: 28.8 mls/hr Documented by: Heparin Sodium/Dextrose (Heparin Sodium/Dextrose) 25,000 units in 500 mls @ 0 mls/hr IV .Q0M [facility]; Protocol Stop: 09/11/21 14:29 Last Titration: 08/13/21 09:26 Dose: 0 units/hr, 0 mls/hr Documented by: Miscellaneous Information (Piperacill/Tazobac Consult Active) 1 ea N/A UD PRN PRN Reason: Consult Stop: 09/11/21 10:06 Ondansetron HCl (Ondansetron Inj 2 Mg/Ml 2 Ml Vial) 4 mg IV Q4H PRN PRN Reason: Nausea And Vomiting Stop: 09/11/21 12:46 Sotalol HCl (Sotalol Hcl 80 Mg Tab) 80 mg PO BID [facility] Stop: 09/11/21 20:59 Last Admin: 08/12/21 20:07 Dose: 80 mg Documented by:
[2021-08-13] MEDS: SOTALOL HCL 80 MG TAB PO SCH ×2 (11:00→20:35)
[2021-08-13] MEDS: HEPARIN SODIUM/DEXTROSE 25,000 UNITS/500 ML BAG IV SCH (12:19)
[2021-08-13] MEDS: POTASSIUM CHLORIDE CRTAB 20 MEQ TABCR PO SCH ×2 (12:27→20:35)
[2021-08-13] MEDS: FUROSEMIDE 40 MG/4 ML VIAL IV SCH ×2 (12:28→20:36)
--- NOTE | 2021-08-13 14:48 | XRay Report ---
XR chest 1V portable HISTORY: 56 years-old Male S/P Thoracentesis follow-up study in a patient with pleural effusion and recent thoracentesis COMPARISON: CTA chest 08/12/2021 TECHNIQUE: Portable AP view of the chest FINDINGS: Right axilla is enlarged. Small left and trace right pleural effusions. Mild left lung base opacities . There is no pneumothorax or overt pulmonary edema. Bones appear grossly intact. IMPRESSION: 1. No postprocedural pneumothorax. 2. Trace right and small left pleural effusions with left lung base opacities suggestive of atelectas is versus pneumonitis. ACT 112: Negative or not required by law. The above report was generated using voice recognition software. It may contain grammatical, syntax o r spelling errors. Electronically signed by: Miguel Angel Chaudhary M.D. 08/13/2021 2:47 PM
--- NOTE | 2021-08-13 14:52 | Procedure Note ---
Procedure Note Date of Service August 13, 2021 Note Procedure: Ultrasound assisted thoracentesis Attending: Dr. Villeda APC: Delvin PIZARRO ([facility])- Direct Supervision Vadim Le PA-C Indication: Pleural Effusion Anesthesia: X Lidocaine 1% [x] Written consent was obtained, signed, witnessed, and on the chart as delegated by Dr. Villeda. Prior to procedure, labs reviewed, Heparin has been off for 5 hours and Eliquis has been on Hold, last dose 12.30.21. CT scans were reviewed by myself and demonstrated bilateral pleural effusions. Right side was greater than left side, so the right side was targeted. A time-out was completed verifying correct patient, procedure, site, positioning, and equipment if applicable. Utilizing bedside ultrasound, chest wall was evaluated for location for optimal drainage as well as location of the diaphragm. Location between the ribs was marked on the skin using gentle pressure. The right sided chest wall was prepped with chlorhexidine and draped in the typical sterile fashion. 9 mL of 1% Lidocaine without epinephrine was used to anesthetize the skin down to the dorsal surface of the rib, Lidocaine was injected into the pleural space for increased anesthetization, as noted by pleural fluid, lidocaine was injected on way out. A stab incision was made with 11 blade scalpel. Introducer needle on syringe was inserted in perpendicular fashion taking care to ride just above the dorsal surface of the rib. Entry into the pleural space was noted by radha colored pleural fluid return into the syringe while under gentle aspiration. The catheter was inserted over the needle apparatus without resistance and the introducer needle was subsequently removed. Approximately 950ml of pleural fluid was removed. Patient tolerated the procedure well without any immediate complications. Procedure was terminated secondary to decrease in fluid aspiration. Ultrasound was performed following the procedure which revealed pleural slide and reduction in the pleural fluid. Samples were obtained for analysis and sent to laboratory. Blood Loss: Minimal Complications: None X Post procedure Chest X-ray was ordered- completed and reviewed- no pneumothorax and improvement of the pleural effusion on the right side. Complications: None Coding
[2021-08-13 15:08] LABS: Glucose Pleural Fluid 127 mg/dl
[2021-08-13 15:17] LABS: Amylase Pleural Fluid 12 U/L; LDH Pleural Fluid 46 U/L; Total Protein Pleural Fluid 1.2 g/dl
[2021-08-13 15:41] LABS: Eosinophils, Fluid 0 %; Lymphocytes, Fluid 20 %; Mono,Macrophage,Mesothelial 54 %; Neutrophils, Fluid 26 %
[2021-08-13 15:44] LABS: Appearance Pleural Fluid BLOODY; Color Pleural Fluid RED; RBC Pleural Fluid (A) 36000 /uL; Source Pleural Fluid RIGHT LUNG; WBC Pleural Fluid (A) 419 /uL
[2021-08-13] MEDS: APIXABAN 5 MG TABLET PO SCH ×2 (16:42→20:35)
--- NOTE | 2021-08-13 19:58 | Electrocardiogram Report ---
Test Reason : Blood Pressure : / mmHG Vent. Rate : 134 BPM Atrial Rate : 144 BPM P-R Int : 000 ms QRS Dur : 088 ms QT Int : 260 ms P-R-T Axes : 000 128 039 degrees QTc Int : 388 ms Atrial fibrillation with rapid ventricular response Right axis deviation Nonspecific T wave abnormality Abnormal ECG When compared with ECG of 08-MAR-2020 06:43, Atrial fibrillation has replaced Sinus rhythm Vent. rate has increased BY 64 BPM Nonspecific T wave abnormality, worse in Inferior leads Nonspecific T wave abnormality now evident in Anterolateral leads Confirmed by Bowen Isidro ([id number]) on 08/13/2021 7:58:27 PM Referred By: Confirmed By:Bowen Isidro
--- NOTE | 2021-08-13 20:02 | Electrocardiogram Report ---
Test Reason : Blood Pressure : / mmHG Vent. Rate : 115 BPM Atrial Rate : 098 BPM P-R Int : 000 ms QRS Dur : 096 ms QT Int : 498 ms P-R-T Axes : 000 130 225 degrees QTc Int : 688 ms Poor data quality, interpretation may be adversely affected Atrial fibrillation with rapid ventricular response Right axis deviation T wave abnormality, consider inferior ischemia Abnormal ECG When compared with ECG of 12-AUG-2021 06:34, (unconfirmed) Inverted T waves have replaced nonspecific T wave abnormality in Inferior leads T wave inversion less evident in Lateral leads Confirmed by Bowen Isidro ([id number]) on 08/13/2021 8:02:35 PM Referred By: REFERRED SELF Confirmed By:Bowen Isidro
--- NOTE | 2021-08-13 20:06 | Electrocardiogram Report ---
Test Reason : Blood Pressure : / mmHG Vent. Rate : 072 BPM Atrial Rate : 416 BPM P-R Int : 000 ms QRS Dur : 092 ms QT Int : 434 ms P-R-T Axes : 000 132 126 degrees QTc Int : 475 ms Atrial fibrillation with premature ventricular or aberrantly conducted complexes Right axis deviation T wave abnormality, consider lateral ischemia Abnormal ECG When compared with ECG of 12-AUG-2021 06:54, (unconfirmed) Vent. rate has decreased BY 43 BPM Nonspecific T wave abnormality no longer evident in Inferior leads T wave inversion more evident in Lateral leads Confirmed by Bowen Isidro ([id number]) on 08/13/2021 8:06:42 PM Referred By: REFERRED SELF Confirmed By:Bowen Isidro
[2021-08-14] MEDS: PIPERACILLIN/TAZOBACTAM 3.375 GM in DEXTROSE 5% 100 ML IV SCH ×3 (02:00→17:35)
[2021-08-14] MEDS: dilTIAZem HCL 125 MG in DEXTROSE 5% 100 ML IV SCH (02:00)
--- NOTE | 2021-08-14 06:26 | Surgery Progress Note ---
Date of Service August 14, 2021 Assessment & Plan (1) Elevated LFTs: Plan: LFTs have improved since admission Abdominal exam is completely benign this morning No plans for any surgical intervention at this time Admission and Anticipated Discharge Date Admission Date: August 12, 2021 Supervising Physician Co-Signing Physician Notes I personally saw and evaluated the patient with Avila Mcgee PA-C and agree with the assessment and plan. 56-year-old male with history of cholecystectomy in 2002 here with dyspnea and upper abdominal pain He is tolerating food without a white count His LFTs continue to trend down He now has no abdominal pain and is nontender on exam No plans for any surgery, will sign off at this time please call with any questions or concerns Subjective Patient is resting comfortably in bed. He denies any abdominal pain. He denies any nausea vomiting. Physical Exam Gastrointestinal (Abdomen): Abdomen is soft, nontender, nondistended. No pain with palpation. Results & Data ([facility]) Vital Signs (Past 12 Hours) Vital Signs Temp Pulse Pulse Resp BP Pulse Ox 08/14/21 04:26 36.7 C 68 16 109/74 96 08/13/21 23:13 83 08/13/21 22:19 36.9 C 84 17 111/84 95 08/13/21 19:34 37.0 C 101 H 18 117/75 94 PG Care Time/CCT Total # of Minutes Spent Total Time Spent with Patient: Total time spent is greater than 50% in coordination of care (as documented) at patient's floor/unit and/or counseling patient: Coding Level of Care Code 83611 Subseq Hosp Care Lvl 1 Diagnoses Elevated LFTs R79.89
[2021-08-14 06:58] LABS: Hematocrit (blood only) 48.7 % (42-52); Hemoglobin 16.6 g/dL (14.0-18.0); Mean Corpuscular Hgb Conc 34.1 g/dL (32-36); Mean Corpuscular Volume 108.5 fL (80-100); Mean Platelet Volume 10.1 fL (7.4-10.4); Platelet Count 239 K/uL (130-400); RDW Coefficient of Variation 13.8 % (11.5-14.5); RDW Standard Deviation 55.4 fL (36.4-46.3); Red Blood Count 4.49 M/uL (4.7-6.1); White Blood Count 7.15 K/uL (4.8-10.8)
--- NOTE | 2021-08-14 07:11 | Pulmonology Progress Note ---
Date of Service August 14, 2021 Assessment & Plan (1) Bilateral pleural effusion: (2) Atrial fibrillation with RVR: (3) Chronic anticoagulation: Plan: Impression: 56-year-old male with past medical history of atrial fibrillation with chronic anticoagulation with Eliquis. Last dose of Eliquis 08/11/2021 PM. Patient is status post thoracentesis at 08/13/2021 with removal of 900 cc of bloody fluid. Fluid appears bloody but transudate of. Recommendations: 1. Bilateral pleural effusions: Bloody transudate, cytology pending. X-ray demonstrates no residual fluid on the right and minimal amount of fluid on the left. Unclear if these effusions could have been related to to a sympathetic process related to his recent PVI. Review of the literature indicates pleural effusion rates approaching 70 to 80%. Anticipate the effusion should resolve over time and no additional intervention may be required. If the patient has persistent symptoms referable to pleural effusion, repeat chest x-ray may be warranted. 2. Mediastinal lymphadenopathy: Etiology unclear. LDH was normal. Again suspicious this may represent a reactive process as it appears temporally related to his ablation procedure. Would recommend a follow-up CT of the chest with contrast in 8weeks. Would not pursue PET scanning at this time. If the adenopathy persists or grows, additional evaluation may be warranted at that time. From a pulmonary standpoint, the patient can be dismissed from the hospital. 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 Feel free to contact us with questions or concerns Admission and Anticipated Discharge Date Admission Date: August 12, 2021 Subjective Patient seen and examined. EMR reviewed. The patient states that he feels remarkably better after thoracentesis. He states he has felt as good as he has in years. He is able to sleep supine last night. He did not suffer any night sweats. He is not having any pain at thoracentesis site. No cough sputum production or chest discomfort. No wheezing. He states he had had wheezing previously but this is resolved with the thoracentesis. His anticoagulation has been resumed. Review of Systems Review of Systems: All systems reviewed & are unremarkable except as noted in Subjective Physical Exam Constitutional: WD/WN, vitals as above Neck: trachea midline, no thyromegaly Respiratory: normal respiratory effort; no respiratory distress, no labored breathing and not tachypneic Cardiovascular: Rate/Rhythm: + irregularly irregular Heart Sounds: normal S1, normal S2 and + murmur Extremities: no edema Gastrointestinal (Abdomen): normal bowel sounds, soft, nontender, no hepatosplenomegaly Musculoskeletal: Extremities: extremities normal to inspection Skin: no rashes, warm and dry Lymphatic: no cervical lymphadenopathy Results & Data Results & Data ([facility]) Vital Signs (Past 12 Hours) Vital Signs Temp Pulse Pulse Resp BP Pulse Ox 08/14/21 04:26 36.7 C 68 16 109/74 96 08/13/21 23:13 83 08/13/21 22:19 36.9 C 84 17 111/84 95 08/13/21 19:34 37.0 C 101 H 18 117/75 94 Laboratory Results 08/14/21 06:30 Pleural fluid studies: Cytology pending Gram stain negative, culture pending Differential: 26% neutrophils, 20% lymphocytes, 54% mesothelial cells pH 7.45 LDH 46 Glucose 127 Amylase 12 Total protein 1.2 Diagnostic Findings Post thoracentesis chest x-ray independently reviewed. Mild cardiomegaly noted. No significant right effusion. There may be a small left-sided effusion versus atelectasis. PG Care Time/CCT Total # of Minutes Spent Total Time Spent with Patient: Total time spent is greater than 50% in coordination of care (as documented) at patient's floor/unit and/or counseling patient: Coding Level of Care Code 88298 Subseq Hosp Care Lvl 2 Diagnoses Bilateral pleural effusion J90 Atrial fibrillation with RVR I48.91 Chronic anticoagulation Z79.01
[2021-08-14 07:12] LABS: Partial Thromboplastin Ratio 1.1; Partial Thromboplastin Time 28.6 Seconds (21.0-31.0)
[2021-08-14 07:26] LABS: Albumin Level 2.9 gm/dl (3.4-5.0); BUN Creatinine Ratio 11.5 (10-20); Calcium 8.7 mg/dl (8.5-10.1); Creatinine Clr Calc Pharmacy 80.3 ml/min; Est GFR (African American) 81.7 ml/min; Est GFR (Non-African American) 70.5 ml/min; Magnesium 1.7 mg/dl (1.8-2.4); Potassium 3.7 mmol/L (3.5-5.1)
[2021-08-14 07:35] LABS: Albumin Globulin Ratio 0.9 (0.9-2); Bilirubin,Total 1.1 mg/dl (0.2-1); Globulin 3.4 gm/dl (2.5-4.0); Phosphorus 3.7 mg/dl (2.5-4.9); Total Protein 6.3 gm/dl (6.4-8.2)
[2021-08-14] MEDS: SOTALOL HCL 80 MG TAB PO SCH ×2 (07:56→20:21)
[2021-08-14] MEDS: APIXABAN 5 MG TABLET PO SCH ×2 (07:57→20:21)
[2021-08-14] MEDS: POTASSIUM CHLORIDE CRTAB 20 MEQ TABCR PO SCH ×2 (07:57→20:21)
[2021-08-14] MEDS: FUROSEMIDE 40 MG/4 ML VIAL IV SCH ×2 (07:57→20:21)
[2021-08-14] MEDS ORDERED: lisinopril 10 MG TAB PO SCH (09:30)
--- NOTE | 2021-08-14 11:01 | Cardiology Progress Note ---
Date of Service August 14, 2021 Assessment & Plan (1) Atrial fibrillation with RVR: (2) Chronic anticoagulation: (3) Dyspnea on exertion: (4) Lymphadenopathy: (5) Heart failure: (6) HFrEF (heart failure with reduced ejection fraction): Plan: The patient states he was on lisinopril in the past and had a cough. He has tolerated losartan in the past which I will start today. With the patient's cardiomyopathy think we should stop the diltiazem. Currently his heart rate is controlled but if there is an elevation then we should add metoprolol. Admission and Anticipated Discharge Date Admission Date: August 12, 2021 Subjective The patient states that he feels greatly better. Review of Systems Review of Systems: Review of Systems: See HPI for pertinent positives. All other 10 point review of systems are negative. Physical Exam Physical Exam: General: no acute distress and stated age Head: normocephalic, no masses, lesions, tenderness or abnormalities Eyes: conjunctiva are pink and non-injected, sclera clear Neck: supple, no adenopathy, no bruits, normal jugular venous pulse, no hepatojugular reflux Chest: normal shape and normal respiratory effort Lungs: clear to auscultation and percussion Cardiac Exam: - irregular rate & rhythm, no murmurs gallops or rubs - normal S1, normal S2 Pulses: 2(+) throughout Abdomen: abdomen soft, non-tender, no abnormal masses and no hepatosplenomegaly Musculoskeletal: no gait disturbance, no joint inflammation, no deforming arthritis Extremities: no edema and no cyanosis Neuro: grossly normal exam Results & Data ([facility]) Vital Signs (Past 12 Hours) Vital Signs Temp Pulse Pulse Resp BP Pulse Ox 08/14/21 07:20 36.6 C 78 18 109/80 96 08/14/21 04:26 36.7 C 68 16 109/74 96 08/13/21 23:13 83 Laboratory Results Laboratory Results - last 24 hr 08/13/21 08/13/21 08/13/21 Unknown Unknown Unknown WBC RBC Hgb Hct MCV MCH MCHC RDW Std Deviation RDW Coeff of Dagmar Plt Count MPV APTT PTT Ratio Sodium Potassium Chloride Carbon Dioxide Anion Gap BUN Creatinine Est Cr Clr Drug Dosing Est GFR ( Amer) Est GFR (Non-Af Amer) BUN/Creatinine Ratio Glucose Calcium Phosphorus Magnesium Total Bilirubin AST ALT Alkaline Phosphatase Total Protein Albumin Globulin Albumin/Globulin Ratio Fluid Neutrophils % 26 Fluid Lymphocytes % 20 Fluid Eosinophils % 0 Fluid Meso/Macro/[place] % 54 Fluid Comment Pleural Fluid Source RIGHT LUNG Pleural Color RED Pleural Appearance BLOODY Pleural pH 7.45 H Pleural WBC 419 Pleural RBC 88907 Pleural Total Protein 1.2 Pleural LDH 46 Pleural Glucose 127 Pleural Amylase 12 Pleural Cholesterol Pending 08/14/21 08/14/21 08/14/21 06:30 06:30 06:30 WBC 7.15 RBC 4.49 L Hgb 16.6 Hct 48.7 MCV 108.5 H MCH 37.0 H MCHC 34.1 RDW Std Deviation 55.4 H RDW Coeff of Dagmar 13.8 Plt Count 239 MPV 10.1 APTT 28.6 PTT Ratio 1.1 Sodium 137 Potassium 3.7 Chloride 104 Carbon Dioxide 30 Anion Gap 3.0 BUN 13 Creatinine 1.16 Est Cr Clr Drug Dosing 80.3 Est GFR ( Amer) 81.7 Est GFR (Non-Af Amer) 70.5 BUN/Creatinine Ratio 11.5 Glucose 88 Calcium 8.7 Phosphorus 3.7 Magnesium 1.7 L Total Bilirubin 1.1 H AST 17 ALT 40 Alkaline Phosphatase 137 H Total Protein 6.3 L Albumin 2.9 L Globulin 3.4 Albumin/Globulin Ratio 0.9 Fluid Neutrophils % Fluid Lymphocytes % Fluid Eosinophils % Fluid Meso/Macro/[place] % Fluid Comment Pleural Fluid Source Pleural Color Pleural Appearance Pleural pH Pleural WBC Pleural RBC Pleural Total Protein Pleural LDH Pleural Glucose Pleural Amylase Pleural Cholesterol 08/14/21 06:30 WBC RBC Hgb Hct MCV MCH MCHC RDW Std Deviation RDW Coeff of Dagmar Plt Count MPV APTT PTT Ratio Sodium Potassium Chloride Carbon Dioxide Anion Gap BUN Creatinine Est Cr Clr Drug Dosing Est GFR ( Amer) Est GFR (Non-Af Amer) BUN/Creatinine Ratio Glucose Calcium Phosphorus Cancelled Magnesium Cancelled Total Bilirubin AST ALT Alkaline Phosphatase Total Protein Albumin Globulin Albumin/Globulin Ratio Fluid Neutrophils % Fluid Lymphocytes % Fluid Eosinophils % Fluid Meso/Macro/[place] % Fluid Comment Pleural Fluid Source Pleural Color Pleural Appearance Pleural pH Pleural WBC Pleural RBC Pleural Total Protein Pleural LDH Pleural Glucose Pleural Amylase Pleural Cholesterol Medications Administered Current Inpatient Medications Acetaminophen (Acetaminophen 325 Mg Tab) 650 mg PO Q4H PRN PRN Reason: Moderate Pain Stop: 09/11/21 12:46 Apixaban (Apixaban 5 Mg Tablet) 5 mg PO BID [facility] Stop: 09/12/21 14:50 Last Admin: 08/14/21 07:57 Dose: 5 mg Documented by: Furosemide (Furosemide 40 Mg/4 Ml Vial) 40 mg IV BID [facility] Stop: 09/12/21 11:44 Last Admin: 08/14/21 07:57 Dose: 40 mg Documented by: Piperacillin Sod/Tazobactam (Sod 3.375 gm/ Dextrose) 115 mls @ 28.75 mls/hr IV Q8H [facility]; Protocol Stop: 08/22/21 15:59 Last Infusion: 08/14/21 06:00 Dose: Infused Documented by: Lisinopril (Lisinopril 10 Mg Tab) 10 mg PO QAM [facility] Stop: 09/13/21 09:29 Magnesium Chloride (Magnesium Chloride 64mg Delayed Rel Tab) 64 mg PO BID [facility] Stop: 09/13/21 10:59 Miscellaneous Information (Piperacill/Tazobac Consult Active) 1 ea N/A UD PRN PRN Reason: Consult Stop: 09/11/21 10:06 Ondansetron HCl (Ondansetron Inj 2 Mg/Ml 2 Ml Vial) 4 mg IV Q4H PRN PRN Reason: Nausea And Vomiting Stop: 09/11/21 12:46 Potassium Chloride (Potassium Chloride Crtab 20 Meq Tabcr) 20 meq PO BID [facility] Stop: 09/12/21 11:44 Last Admin: 08/14/21 07:57 Dose: 20 meq Documented by: Sotalol HCl (Sotalol Hcl 80 Mg Tab) 80 mg PO BID [facility] Stop: 09/11/21 20:59 Last Admin: 08/14/21 07:56 Dose: 80 mg Documented by:
[2021-08-14] MEDS: LOSARTAN POTASSIUM 25 MG TAB PO SCH (13:55)
[2021-08-14] MEDS: MAGNESIUM CHLORIDE 64MG DELAYED REL TAB PO SCH ×2 (13:55→20:20)
[2021-08-15] MEDS: PIPERACILLIN/TAZOBACTAM 3.375 GM in DEXTROSE 5% 100 ML IV SCH (02:01)
--- NOTE | 2021-08-15 04:59 | Hospitalist Progress Note ---
Date of Service August 14, 2021 Assessment & Plan (1) Atrial fibrillation with RVR: Plan: - Admitted to tele - initial heart rate was in the 140s 150s, HR improved with being started on Cardizem drip - Consulted cardiology, follows with Dr. Alberto as an outpatient - EKG reviewed as above, afib, no acute changes, prolonged QTc - Echo ordered - troponin negative - Continue sotolol - Last dose of Eliquis was at night on 08/01 - pt started on IV heparin, eliquis on hold, for upcoming procedures - pulm consulted for poss. thoracentesis - diagnostic and therapeutic (2) Bilateral pleural effusion: Plan: - Imaging reviewed as above showing R > L bilateral pleural effusion - Consider lasix for improvement - Noted ascites intraabdominally on CT abd/pelvis, and multiple lymph node enlargement throughout abd/pelvis and chest. If pleural effusion could be tapped, may consider diagnostics on fluids to ensure this is not a new malignancy. Hx of lymph nodes noted from January 2020 as well. - Consider additional imaging with follow PET CT as outpatient - Pulm consulted for poss. thoracentesis - diagnostic and therapeutic (pt underwent thoracentesis yesterday 08/13/20), tolerated procedure well, feeling much improved in his symptoms, await results of pl. fluid analysis (3) Pneumobilia: Plan: - Consult general surgery-discussed with Dr. Penaloza - rec IV antibiotics, started IV Zosyn, hold Eliquis for now in case needs for surgical procedure - GI consulted for RUQ pain, transaminitis - discussed with Dr. Cook, - will also check MRCP for RUQ pain and to eval the CBD, wall thickening, previous surgical clips in place so possible partially resected? - Trend LFTs Liver US 1. There is a large gallbladder remnant remaining status post cholecystectomy which demonstrates a slightly irregular and thickened wall. No definite gallstones. This is nonspecific could be due to the patient's diffuse edematous state. A cholecystitis is not excluded but is considered less likely given the negative sonographic Kirby sign. 2. Normal caliber common bile duct. MRCP IMPRESSION: 1. No biliary ductal dilatation. Nonspecific wall thickening of the common bile duct. No common bile duct calculi identified although sensitivity diminished on this exam. 2. Large gallbladder remnant status post partial cholecystectomy. Mild gallbladder wall thickening, a nonspecific finding. 3. Mild upper abdominal lymphadenopathy. 4. Bilateral pleural effusions, right larger than left. Cardiomegaly. 08/13/20 - LFTs trending down, pt tolerates food, imaging above reviewed, no plans for surgical intervention at this time (4) Transaminitis: Plan: - LFTs moderately elevated: GI on board - discussed with Dr. Cook - Alk phos 237, AST 67, ALT 83 - previously in January 2020 had similar presentation where he was admitted for same type of issues - Alcohol use daily with 1-2 beers- will encourage cessation throughout hospital stay - Denies IV drug abuse - Check hepatitis panel - LFTs trending down (5) NICM (nonischemic cardiomyopathy): Plan: - Hx of such, Echo ordered - Cardiology consulted - severe LV and RV systolic dysfunction consistent with a dilated cardiomyopathy.started on IV Lasix. He will need additional GDM during his hospital stay. DVT ppx: - holding eliquis initially and placed on IV heparin in case of needs for surgical procedure CODE: Full code Dispo: likely DC home once medically stable Admission and Anticipated Discharge Date Admission Date: August 12, 2021 Subjective Pt seen in follow up of shortness of breath, afib w/ RVR, pl. effusions, chest lymphadenopathy, pneumobilia Pt reports not feeling well since his ablation at the end of May - developed LUE edema, night sweats, but then increased shortness of breath started about a week ago, which eventually prompted him to come to the hospital. Pt underwent thoracentesis yesterday and feels much better Says he can finally breath normal and also reports his can tell his cervical and axillary lymph nodes decreased His abdominal discomfort also feels improved HR controlled No chest pain, abd. pain, nausea or vomiting. No fever, chills. Breathing much improved. Review of Systems Review of Systems: All systems reviewed & are unremarkable except as noted in Subjective Physical Exam Physical Exam: General: obese M in NAD, breathing comfortably on RA Head: Normocephalic, atraumatic ENT: PERRL, EOMI, no pharyngeal exudate, mucous membranes moist Chest: breathing comfortably on RA, breath sounds at bases much improved, no wheezing, rhonchi noted Cardiac: Irregularly irregular, HR improved, no murmur, no JVD, normal peripheral pulses, good capillary refill Abdominal:soft, + bowel sounds, + mildly distended (improved), non tender to palpation in RUQ and at umbilical hernia (resolved), no rebound or guarding Extremities: No LE edema Psych: Normal mood and affect Neuro: AAO x 3, speech fluent, no facial asymmetry, moves extremities Results & Data Results & Data ([facility]) Vital Signs (Past 12 Hours) Vital Signs Temp Pulse Resp BP Pulse Ox 08/14/21 23:59 36.6 C 89 17 118/70 98 08/14/21 19:56 36.8 C 91 H 16 146/101 H 96 Laboratory Results 08/14/21 08/14/21 08/14/21 Range/Units 06:30 06:30 06:30 WBC 7.15 (4.8-10.8) K/uL RBC 4.49 L (4.7-6.1) M/uL Hgb 16.6 (14.0-18.0) g/dL Hct 48.7 (42-52) % MCV 108.5 H (80-100) fL MCH 37.0 H (25-34) pg MCHC 34.1 (32-36) g/dL RDW Std Deviation 55.4 H (36.4-46.3) fL RDW Coeff of Dagmar 13.8 (11.5-14.5) % Plt Count 239 (130-400) K/uL MPV 10.1 (7.4-10.4) fL APTT (21.0-31.0) Seconds PTT Ratio Sodium 137 (136-145) mmol/L Potassium 3.7 (3.5-5.1) mmol/L Chloride 104 (98-107) mmol/L Carbon Dioxide 30 (21-32) mmol/L Anion Gap 3.0 (3-11) BUN 13 (7-18) mg/dl Creatinine 1.16 (0.6-1.4) mg/dl Est Cr Clr Drug Dosing 80.3 ml/min Est GFR ( Amer) 81.7 ml/min Est GFR (Non-Af Amer) 70.5 ml/min BUN/Creatinine Ratio 11.5 (10-20) Glucose 88 (70-99) mg/dl Calcium 8.7 (8.5-10.1) mg/dl Phosphorus Cancelled 3.7 (2.5-4.9) mg/dl Magnesium Cancelled 1.7 L (1.8-2.4) mg/dl Total Bilirubin 1.1 H (0.2-1) mg/dl AST 17 (15-37) U/L ALT 40 (12-78) Alkaline Phosphatase 137 H (45-117) U/L Total Protein 6.3 L (6.4-8.2) gm/dl Albumin 2.9 L (3.4-5.0) gm/dl Globulin 3.4 (2.5-4.0) gm/dl Albumin/Globulin Ratio 0.9 (0.9-2) 08/14/21 Range/Units 06:30 WBC (4.8-10.8) K/uL RBC (4.7-6.1) M/uL Hgb (14.0-18.0) g/dL Hct (42-52) % MCV (80-100) fL MCH (25-34) pg MCHC (32-36) g/dL RDW Std Deviation (36.4-46.3) fL RDW Coeff of Dagmar (11.5-14.5) % Plt Count (130-400) K/uL MPV (7.4-10.4) fL APTT 28.6 (21.0-31.0) Seconds PTT Ratio 1.1 Sodium (136-145) mmol/L Potassium (3.5-5.1) mmol/L Chloride (98-107) mmol/L Carbon Dioxide (21-32) mmol/L Anion Gap (3-11) BUN (7-18) mg/dl Creatinine (0.6-1.4) mg/dl Est Cr Clr Drug Dosing ml/min Est GFR ( Amer) ml/min Est GFR (Non-Af Amer) ml/min BUN/Creatinine Ratio (10-20) Glucose (70-99) mg/dl Calcium (8.5-10.1) mg/dl Phosphorus (2.5-4.9) mg/dl Magnesium (1.8-2.4) mg/dl Total Bilirubin (0.2-1) mg/dl AST (15-37) U/L ALT (12-78) Alkaline Phosphatase (45-117) U/L Total Protein (6.4-8.2) gm/dl Albumin (3.4-5.0) gm/dl Globulin (2.5-4.0) gm/dl Albumin/Globulin Ratio (0.9-2) Medications Administered Current Inpatient Medications Acetaminophen (Acetaminophen 325 Mg Tab) 650 mg PO Q4H PRN PRN Reason: Moderate Pain Stop: 09/11/21 12:46 Apixaban (Apixaban 5 Mg Tablet) 5 mg PO BID [facility] Stop: 09/12/21 14:50 Last Admin: 08/14/21 20:21 Dose: 5 mg Documented by: Furosemide (Furosemide 40 Mg/4 Ml Vial) 40 mg IV BID [facility] Stop: 09/12/21 11:44 Last Admin: 08/14/21 20:21 Dose: 40 mg Documented by: Piperacillin Sod/Tazobactam (Sod 3.375 gm/ Dextrose) 115 mls @ 28.75 mls/hr IV Q8H [facility]; Protocol Stop: 08/22/21 15:59 Last Admin: 08/15/21 02:01 Dose: 28.8 mls/hr Documented by: Losartan Potassium (Losartan Potassium 25 Mg Tab) 25 mg PO QAM [facility] Stop: 09/13/21 12:29 Last Admin: 08/14/21 13:55 Dose: 25 mg Documented by: Magnesium Chloride (Magnesium Chloride 64mg Delayed Rel Tab) 64 mg PO BID [facility] Stop: 09/13/21 10:59 Last Admin: 08/14/21 20:20 Dose: 64 mg Documented by: Miscellaneous Information (Piperacill/Tazobac Consult Active) 1 ea N/A UD PRN PRN Reason: Consult Stop: 09/11/21 10:06 Ondansetron HCl (Ondansetron Inj 2 Mg/Ml 2 Ml Vial) 4 mg IV Q4H PRN PRN Reason: Nausea And Vomiting Stop: 09/11/21 12:46 Potassium Chloride (Potassium Chloride Crtab 20 Meq Tabcr) 20 meq PO BID [facility] Stop: 09/12/21 11:44 Last Admin: 08/14/21 20:21 Dose: 20 meq Documented by: Sotalol HCl (Sotalol Hcl 80 Mg Tab) 80 mg PO BID [facility] Stop: 09/11/21 20:59 Last Admin: 08/14/21 20:21 Dose: 80 mg Documented by:
[2021-08-15] MEDS: POTASSIUM CHLORIDE CRTAB 20 MEQ TABCR PO SCH ×2 (07:22→20:31)
[2021-08-15] MEDS: AMOXICILLIN/CLAVULANATE 875 MG TAB PO SCH ×2 (07:22→17:18)
[2021-08-15] MEDS: LOSARTAN POTASSIUM 25 MG TAB PO SCH (07:23)
[2021-08-15] MEDS: SOTALOL HCL 80 MG TAB PO SCH (07:23)
[2021-08-15] MEDS: MAGNESIUM CHLORIDE 64MG DELAYED REL TAB PO SCH ×2 (07:24→20:31)
[2021-08-15] MEDS: APIXABAN 5 MG TABLET PO SCH ×2 (07:24→20:31)
[2021-08-15] MEDS: FUROSEMIDE 40 MG/4 ML VIAL IV SCH ×2 (07:24→20:32)
[2021-08-15 07:38] LABS: Hematocrit (blood only) 52.8 % (42-52); Hemoglobin 18.2 g/dL (14.0-18.0); Mean Corpuscular Hemoglobin 37.4 pg (25-34); Mean Corpuscular Hgb Conc 34.5 g/dL (32-36); Mean Corpuscular Volume 108.4 fL (80-100); Mean Platelet Volume 10.3 fL (7.4-10.4); Platelet Count 257 K/uL (130-400); RDW Coefficient of Variation 13.6 % (11.5-14.5); RDW Standard Deviation 54.7 fL (36.4-46.3); Red Blood Count 4.87 M/uL (4.7-6.1); White Blood Count 7.09 K/uL (4.8-10.8)
--- NOTE | 2021-08-15 09:15 | Hospitalist Progress Note ---
Date of Service August 15, 2021 Assessment & Plan (1) Atrial fibrillation with RVR: Plan: Recent PVI in May 2021-reports hasn't felt well since that time. Currently continues in afib overnight on telemetry. Rate controlled with sotalol. Antiboagulated with apixaban. Echo reveals acute depressed EF 25%. s/p thoracentesis on 08/13 by pulm on right side. Bloody transudate with cytology pending. (2) HFrEF (heart failure with reduced ejection fraction): Plan: GDMT per cardiology. Echo this admission with new EF 25%, January 2020 was 55%. Continues on intravenous furosemide BID. (3) Bilateral pleural effusion: Plan: Initial imaging revealed R>L pleural effusion. Per pulm possibly this may have been a sympathetic process related to her recent PVI. Expect these pleural effusions should resolved over time with no further intervention. Regarding mediastinal lymphadenopathy, suspicious this may be reactive related to recent ablation procedure. F/U CT chest in 8 weeks and would not pursue PET scan at this time. Further investigation may be warranted if the adenopathy persists or grows. He continues on BID Lasix at this time intravenously. (4) NICM (nonischemic cardiomyopathy): Plan: plan as above. (5) Pneumobilia: Plan: Slightly elevated LFTs on admission, however, no RUQ pain and remains afebrile without leukocytosis. Was initially placed on Zosyn and is now on Augmentin. Pt seen by general surgery with no plans for intervention at this time. MRCP did not reveal ductal dilation with a large remnant s/p partial cholecystectomy. He is tolerating a diet. Will likely stop abx at discharge without S/Sx of infection. Suspect LFT elevation was from hypervolemic state on admission/congestive hepatopathy. This is improved. (6) Transaminitis: Plan: plan as above. (7) DVT prophylaxis: Plan: Apixaban Full Dispo-to home when cleared by Cardiology Ondina Ruby DO [facility] Hospitalist (8) Lymphadenopathy: Admission and Anticipated Discharge Date Admission Date: August 12, 2021 Subjective 56 yo M with acute systolic heart failure exacerbation with pleural effusions s/p thoracentesis presented with symptomatic atrial fibrillation with RVR with a HR in the 150s. He is greatly improved on current medical therapy. Still in afib on telemetry overnight, HR in the high 90s/low 100s. Denies chest pain, SOB, tolerating PO. Reports that his umbilical hernia was hurtin ginitially but this is much better now. Denies any RUQ pain. Afebrile. Review of Systems Review of Systems: All systems were reviewed and negative except as indicated in subjective above. Physical Exam Physical Exam: CONSTITUTIONAL: WNWD, vitals as above, generally well- appearing, NAD EYES: normal conjunctivae, no scleral icterus, ENT: external ear and nose normal, MMM NECK: trachea midline, RESPIRATORY: clear to auscultation bilaterally, no crackles, rales or wheezes, normal respiratory effort CARDIOVASCULAR: irregular rate and irreg rhythm, S1 and 2 heard without murmurs, gallops or rubs, no JVD, no peripheral edema, CHEST: inspection of chest was normal GASTROINTESTINAL: soft, nontender, ND, no guarding, small umbilical hernia present. MUSCULOSKELETAL: strength 5/5 throughout, head is normocephalic and atraumatic, SKIN: warm and dry, NEUROLOGIC: No facial palsy, no dysarthria. CN 2-12 grossly intact, no sensory deficit, normal cognition, normal speech, no tremor PSYCHIATRIC: alert cooperative and oriented to person, place and time. Euthymic mood, makes good eye contact, language grossly intact, recent and remote memory grossly intact. Results & Data Results & Data ([facility]) Vital Signs (Past 12 Hours) Vital Signs Temp Pulse Pulse Resp BP Pulse Ox Pulse Ox 08/15/21 09:10 95 08/15/21 09:09 98 H 08/15/21 07:06 36.5 C 95 H 19 123/87 95 08/15/21 07:00 98 08/15/21 03:41 36.8 C 88 19 116/75 94 08/14/21 23:59 36.6 C 89 17 118/70 98 Laboratory Results Short CBC 08/15/21 Range/Units 06:58 WBC 7.09 (4.8-10.8) K/uL Hgb 18.2 H (14.0-18.0) g/dL Hct 52.8 H (42-52) % Plt Count 257 (130-400) K/uL BMP 08/15/21 06:58 Sodium 136 Potassium 3.6 Chloride 100 Carbon Dioxide 27 BUN 14 Creatinine 1.25 Glucose 75 Calcium 9.1 Liver Function 08/15/21 Range/Units 06:58 Total Bilirubin 1.3 H (0.2-1) mg/dl AST 19 (15-37) U/L ALT 38 (12-78) Alkaline Phosphatase 127 H (45-117) U/L Albumin 3.0 L (3.4-5.0) gm/dl Medications Administered Current Inpatient Medications Acetaminophen (Acetaminophen 325 Mg Tab) 650 mg PO Q4H PRN PRN Reason: Moderate Pain Stop: 09/11/21 12:46 Amoxicillin/Clavulanate Potassium (Amoxicillin/Clavulanate 875 Mg Tab) 1 tab PO BIDM [facility] Stop: 08/17/21 07:59 Last Admin: 08/15/21 07:22 Dose: 1 tab Documented by: Apixaban (Apixaban 5 Mg Tablet) 5 mg PO BID [facility] Stop: 09/12/21 14:50 Last Admin: 08/15/21 07:24 Dose: 5 mg Documented by: Furosemide (Furosemide 40 Mg/4 Ml Vial) 40 mg IV BID [facility] Stop: 09/12/21 11:44 Last Admin: 08/15/21 07:24 Dose: 40 mg Documented by: Losartan Potassium (Losartan Potassium 25 Mg Tab) 25 mg PO QAM [facility] Stop: 09/13/21 12:29 Last Admin: 08/15/21 07:23 Dose: 25 mg Documented by: Magnesium Chloride (Magnesium Chloride 64mg Delayed Rel Tab) 64 mg PO BID [facility] Stop: 09/13/21 10:59 Last Admin: 08/15/21 07:24 Dose: 64 mg Documented by: Ondansetron HCl (Ondansetron Inj 2 Mg/Ml 2 Ml Vial) 4 mg IV Q4H PRN PRN Reason: Nausea And Vomiting Stop: 09/11/21 12:46 Potassium Chloride (Potassium Chloride Crtab 20 Meq Tabcr) 20 meq PO BID [facility] Stop: 09/12/21 11:44 Last Admin: 08/15/21 07:22 Dose: 20 meq Documented by: Sotalol HCl (Sotalol Hcl 80 Mg Tab) 80 mg PO BID [facility] Stop: 09/11/21 20:59 Last Admin: 08/15/21 07:23 Dose: 80 mg Documented by:
[2021-08-15 09:39] LABS: BUN Creatinine Ratio 10.9 (10-20); Calcium 9.1 mg/dl (8.5-10.1); Creatinine Clr Calc Pharmacy 73.3 ml/min; Est GFR (African American) 74.7 ml/min; Est GFR (Non-African American) 64.4 ml/min; Potassium 3.6 mmol/L (3.5-5.1)
[2021-08-15 09:41] LABS: Albumin Globulin Ratio 0.8 (0.9-2); Bilirubin,Total 1.3 mg/dl (0.2-1); Globulin 3.8 gm/dl (2.5-4.0); Phosphorus 3.7 mg/dl (2.5-4.9); Total Protein 6.8 gm/dl (6.4-8.2)
--- NOTE | 2021-08-15 11:19 | Cardiology Progress Note ---
Date of Service August 15, 2021 Assessment & Plan (1) Atrial fibrillation with RVR: (2) Chronic anticoagulation: (3) Dyspnea on exertion: (4) Lymphadenopathy: (5) Heart failure: (6) HFrEF (heart failure with reduced ejection fraction): Plan: I feel the patient is out of congestive heart failure and we can back down on his diuretics and switch him to oral furosemide. I spoke with the EP service and their recommendations are for the sotalol to be stopped and washed out and then start the patient on amiodarone. It looks like his sotalol was discontinued last night for unknown reasons, so we will just keep it out. Fluid plan will be cardioversion before discharge. If rate control is needed will add metoprolol succinate. Admission and Anticipated Discharge Date Admission Date: August 12, 2021 Subjective Patient feels markedly improved since admission. Review of Systems Review of Systems: Review of Systems: See HPI for pertinent positives. All other 10 point review of systems are negative. Physical Exam Physical Exam: General: no acute distress and stated age Head: normocephalic, no masses, lesions, tenderness or abnormalities Eyes: conjunctiva are pink and non-injected, sclera clear Neck: supple, no adenopathy, no bruits, normal jugular venous pulse, no hepatojugular reflux Chest: normal shape and normal respiratory effort Lungs: clear to auscultation and percussion Cardiac Exam: - irregular rate & rhythm, no murmurs gallops or rubs - normal S1, normal S2 Pulses: 2(+) throughout Abdomen: abdomen soft, non-tender, no abnormal masses and no hepatosplenomegaly Musculoskeletal: no gait disturbance, no joint inflammation, no deforming arthritis Extremities: no edema and no cyanosis Neuro: grossly normal exam Results & Data ([facility]) Vital Signs (Past 12 Hours) Vital Signs Temp Pulse Pulse Resp BP Pulse Ox Pulse Ox 08/15/21 09:15 95 08/15/21 09:10 95 08/15/21 09:09 98 H 08/15/21 07:06 36.5 C 95 H 19 123/87 95 08/15/21 07:00 98 08/15/21 03:41 36.8 C 88 19 116/75 94 08/14/21 23:59 36.6 C 89 17 118/70 98 Laboratory Results Laboratory Results - last 24 hr 08/15/21 08/15/21 06:58 06:58 WBC 7.09 RBC 4.87 Hgb 18.2 H Hct 52.8 H MCV 108.4 H MCH 37.4 H MCHC 34.5 RDW Std Deviation 54.7 H RDW Coeff of Dagmar 13.6 Plt Count 257 MPV 10.3 Sodium 136 Potassium 3.6 Chloride 100 Carbon Dioxide 27 Anion Gap 9.0 BUN 14 Creatinine 1.25 Est Cr Clr Drug Dosing 73.3 Est GFR ( Amer) 74.7 Est GFR (Non-Af Amer) 64.4 BUN/Creatinine Ratio 10.9 Glucose 75 Calcium 9.1 Phosphorus 3.7 Magnesium 2.0 Total Bilirubin 1.3 H AST 19 ALT 38 Alkaline Phosphatase 127 H Total Protein 6.8 Albumin 3.0 L Globulin 3.8 Albumin/Globulin Ratio 0.8 L Medications Administered Current Inpatient Medications Acetaminophen (Acetaminophen 325 Mg Tab) 650 mg PO Q4H PRN PRN Reason: Moderate Pain Stop: 09/11/21 12:46 Amoxicillin/Clavulanate Potassium (Amoxicillin/Clavulanate 875 Mg Tab) 1 tab PO BIDM [facility] Stop: 08/17/21 07:59 Last Admin: 08/15/21 07:22 Dose: 1 tab Documented by: Apixaban (Apixaban 5 Mg Tablet) 5 mg PO BID [facility] Stop: 09/12/21 14:50 Last Admin: 08/15/21 07:24 Dose: 5 mg Documented by: Furosemide (Furosemide 40 Mg/4 Ml Vial) 40 mg IV BID [facility] Stop: 09/12/21 11:44 Last Admin: 08/15/21 07:24 Dose: 40 mg Documented by: Losartan Potassium (Losartan Potassium 25 Mg Tab) 25 mg PO QAM [facility] Stop: 09/13/21 12:29 Last Admin: 08/15/21 07:23 Dose: 25 mg Documented by: Magnesium Chloride (Magnesium Chloride 64mg Delayed Rel Tab) 64 mg PO BID [facility] Stop: 09/13/21 10:59 Last Admin: 08/15/21 07:24 Dose: 64 mg Documented by: Ondansetron HCl (Ondansetron Inj 2 Mg/Ml 2 Ml Vial) 4 mg IV Q4H PRN PRN Reason: Nausea And Vomiting Stop: 09/11/21 12:46 Potassium Chloride (Potassium Chloride Crtab 20 Meq Tabcr) 20 meq PO BID [facility] Stop: 09/12/21 11:44 Last Admin: 08/15/21 07:22 Dose: 20 meq Documented by:
[2021-08-16 03:28] LABS: Hepatitis A Antibody IgM NON-REACTIVE (NON-REACTIVE); Hepatitis B Core Antibody IgM NON-REACTIVE (NON-REACTIVE)
[2021-08-16 07:34] LABS: BUN Creatinine Ratio 16.3 (10-20); Calcium 9.5 mg/dl (8.5-10.1); Creatinine Clr Calc Pharmacy 76.4 ml/min; Est GFR (African American) 79.2 ml/min; Est GFR (Non-African American) 68.4 ml/min
--- NOTE | 2021-08-16 09:16 | Cardiology Progress Note ---
Date of Service August 16, 2021 Assessment & Plan (1) Atrial fibrillation with RVR: (2) Chronic anticoagulation: (3) Heart failure: (4) HFrEF (heart failure with reduced ejection fraction): Plan: The patient has been off of sotalol for over 24 hours. He remains in atrial fibrillation and his heart rates are starting to increase. He has normal renal function and I think it is okay for us to begin to load him with amiodarone. I have started him on amiodarone 400 mg 3 times daily with meals. I am also going to increase his losartan and decrease his diuretics. The plan will be possible cardioversion if necessary before discharge. Admission and Anticipated Discharge Date Admission Date: August 12, 2021 Subjective The patient feels well today. No ongoing complaints. Review of Systems Review of Systems: Review of Systems: See HPI for pertinent positives. All other 10 point review of systems are negative. Physical Exam Physical Exam: General: no acute distress and stated age Head: normocephalic, no masses, lesions, tenderness or abnormalities Eyes: conjunctiva are pink and non-injected, sclera clear Neck: supple, no adenopathy, no bruits, normal jugular venous pulse, no hepatojugular reflux Chest: normal shape and normal respiratory effort Lungs: clear to auscultation and percussion Cardiac Exam: - irregular rate & rhythm, no murmurs gallops or rubs - normal S1, normal S2 Pulses: 2(+) throughout Abdomen: abdomen soft, non-tender, no abnormal masses and no hepatosplenomegaly Musculoskeletal: no gait disturbance, no joint inflammation, no deforming arthritis Extremities: no edema and no cyanosis Neuro: grossly normal exam Results & Data ([facility]) Vital Signs (Past 12 Hours) Vital Signs Temp Pulse Pulse Resp BP Pulse Ox 08/16/21 07:51 112 H 08/16/21 07:49 36.7 C 95 H 20 123/81 98 08/16/21 04:05 36.6 C 90 18 128/91 96 08/15/21 23:16 36.4 C L 100 H 18 118/76 96 08/15/21 22:20 107 H Laboratory Results Laboratory Results - last 24 hr 08/12/21 08/15/21 08/16/21 07:28 06:58 06:49 Sodium 136 134 L Potassium 3.6 Chloride 100 102 Carbon Dioxide 27 26 Anion Gap 9.0 6.0 BUN 14 19 H Creatinine 1.25 1.19 Est Cr Clr Drug Dosing 73.3 76.4 Est GFR ( Amer) 74.7 79.2 Est GFR (Non-Af Amer) 64.4 68.4 BUN/Creatinine Ratio 10.9 16.3 Glucose 75 88 Calcium 9.1 9.5 Phosphorus 3.7 Magnesium 2.0 Total Bilirubin 1.3 H AST 19 ALT 38 Alkaline Phosphatase 127 H Total Protein 6.8 Albumin 3.0 L Globulin 3.8 Albumin/Globulin Ratio 0.8 L Hepatitis A IgM Ab NON-REACTIVE Hep B Core IgM Ab NON-REACTIVE 08/16/21 08:00 Sodium Potassium 4.4 D Chloride Carbon Dioxide Anion Gap BUN Creatinine Est Cr Clr Drug Dosing Est GFR ( Amer) Est GFR (Non-Af Amer) BUN/Creatinine Ratio Glucose Calcium Phosphorus Magnesium Total Bilirubin AST ALT Alkaline Phosphatase Total Protein Albumin Globulin Albumin/Globulin Ratio Hepatitis A IgM Ab Hep B Core IgM Ab Medications Administered Current Inpatient Medications Acetaminophen (Acetaminophen 325 Mg Tab) 650 mg PO Q4H PRN PRN Reason: Moderate Pain Stop: 09/11/21 12:46 Amiodarone HCl (Amiodarone 200 Mg Tab) 400 mg PO TIDM [facility] Stop: 09/15/21 11:59 Amoxicillin/Clavulanate Potassium (Amoxicillin/Clavulanate 875 Mg Tab) 1 tab PO BIDM [facility] Stop: 08/17/21 07:59 Last Admin: 08/15/21 17:18 Dose: 1 tab Documented by: Apixaban (Apixaban 5 Mg Tablet) 5 mg PO BID [facility] Stop: 09/12/21 14:50 Last Admin: 08/15/21 20:31 Dose: 5 mg Documented by: Furosemide (Furosemide 40 Mg Tab) 40 mg PO QAM [facility] Stop: 09/16/21 08:59 Losartan Potassium (Losartan Potassium 50 Mg Tab) 50 mg PO QAM [facility] Stop: 09/16/21 08:59 Magnesium Chloride (Magnesium Chloride 64mg Delayed Rel Tab) 64 mg PO BID [facility] Stop: 09/13/21 10:59 Last Admin: 08/15/21 20:31 Dose: 64 mg Documented by: Ondansetron HCl (Ondansetron Inj 2 Mg/Ml 2 Ml Vial) 4 mg IV Q4H PRN PRN Reason: Nausea And Vomiting Stop: 09/11/21 12:46 Potassium Chloride (Potassium Chloride Crtab 20 Meq Tabcr) 20 meq PO BID [facility] Stop: 09/12/21 11:44 Last Admin: 08/15/21 20:31 Dose: 20 meq Documented by:
[2021-08-16] MEDS: APIXABAN 5 MG TABLET PO SCH ×2 (09:33→20:12)
[2021-08-16] MEDS: MAGNESIUM CHLORIDE 64MG DELAYED REL TAB PO SCH ×2 (09:33→20:12)
[2021-08-16] MEDS: AMOXICILLIN/CLAVULANATE 875 MG TAB PO SCH ×2 (09:33→17:47)
[2021-08-16] MEDS ORDERED: FUROSEMIDE 40 MG TAB PO SCH (09:37)
[2021-08-16] MEDS ORDERED: LOSARTAN POTASSIUM 50 MG TAB PO SCH (09:38)
[2021-08-16] MEDS: LOSARTAN POTASSIUM 25 MG TAB PO SCH (09:40)
[2021-08-16] MEDS: FUROSEMIDE 40 MG/4 ML VIAL IV SCH (09:40)
[2021-08-16] MEDS: POTASSIUM CHLORIDE CRTAB 20 MEQ TABCR PO SCH ×2 (09:40→10:50)
[2021-08-16] MEDS: AMIODARONE 200 MG TAB PO SCH ×2 (11:49→17:47)
--- NOTE | 2021-08-16 13:16 | Hospitalist Progress Note ---
Date of Service August 16, 2021 Assessment & Plan (1) Atrial fibrillation with RVR: Plan: Recent PVI in May 2021-reports hasn't felt well since that time. Currently continues in afib overnight on telemetry. Rate controlled with sotalol which has been stopped. Plan will be to cont allowing this to wash out and start him on telemetry on amiodarone. He remains anticoagulated with apixaban. Echo reveals acute depressed EF 25%. s/p thoracentesis on 08/13 by pulm on right side. Bloody transudate with cytology pending. Plan for attempted cardioversion prior to discharge. Patient reports feeling better than he has since his May procedure. (2) HFrEF (heart failure with reduced ejection fraction): Plan: GDMT per cardiology. Echo this admission with new EF 25%, January 2020 was 55%. Continues on intravenous furosemide BID which was switched to oral furosemide daily today. Net 2L out yesterday. (3) Bilateral pleural effusion: Plan: Initial imaging revealed R>L pleural effusion. Per pulm possibly this may have been a sympathetic process related to her recent PVI. Expect these pleural effusions should resolved over time with no further intervention. Regarding mediastinal lymphadenopathy, suspicious this may be reactive related to recent ablation procedure. F/U CT chest in 8 weeks and would not pursue PET scan at this time. Further investigation may be warranted if the adenopathy persists or grows. Cont on diuretics as above (4) NICM (nonischemic cardiomyopathy): Plan: plan as above. (5) Pneumobilia: Plan: Slightly elevated LFTs on admission, however, no RUQ pain and remains afebrile without leukocytosis. Was initially placed on Zosyn and is now on Augmentin. Pt seen by general surgery with no plans for intervention at this time. MRCP did not reveal ductal dilation with a large remnant s/p partial cholecystectomy. He is tolerating a diet. Without any signs or symptoms of infection, wanted to stop infection however shortly after I left the room he had some burning right sided pain with radiation to his back that was 4/10. Subsided after a few minutes on it's own. Will discuss with gen surgery if anything further should be done. Will cont to monitor for now. Suspect LFT elevation was from hypervolemic state on admission/congestive hepatopathy, which has resolved. (6) Transaminitis: Plan: plan as above. (7) DVT prophylaxis: Plan: Apixaban Full Dispo-to home when cleared by Cardiology. Will likely attempt DCCV prior to DC Ondina Ruby DO [facility] Hospitalist (8) Lymphadenopathy: Admission and Anticipated Discharge Date Admission Date: August 12, 2021 Subjective 56 yo M with acute systolic heart failure exacerbation with pleural effusions s/p thoracentesis presented with symptomatic atrial fibrillation with RVR with a HR in the 150s. He is greatly improved on current medical therapy. Still in afib on telemetry overnight, aflutter since last evening. HR in the 110s. Denies chest pain, SOB, tolerating PO. Afebrile, no pain. Patient reports feeling better than he has since his Oct procedure Review of Systems Review of Systems: All systems were reviewed and negative except as indicated in subjective above. Physical Exam Physical Exam: CONSTITUTIONAL: WNWD, vitals as above, generally well- appearing, NAD EYES: normal conjunctivae, no scleral icterus, ENT: external ear and nose normal, MMM NECK: trachea midline, RESPIRATORY: clear to auscultation bilaterally, no crackles, rales or wheezes, normal respiratory effort CARDIOVASCULAR: irregular rate and irreg rhythm, S1 and 2 heard without murmurs, gallops or rubs, no JVD, no peripheral edema, CHEST: inspection of chest was normal GASTROINTESTINAL: soft, nontender, ND, no guarding, small umbilical hernia present. MUSCULOSKELETAL: strength 5/5 throughout, head is normocephalic and atraumatic, SKIN: warm and dry, NEUROLOGIC: No facial palsy, no dysarthria. CN 2-12 grossly intact, no sensory deficit, normal cognition, normal speech, no tremor PSYCHIATRIC: alert cooperative and oriented to person, place and time. Euthymic mood, makes good eye contact, language grossly intact, recent and re mote memory grossly intact. Results & Data Results & Data ([facility]) Vital Signs (Past 12 Hours) Vital Signs Temp Pulse Pulse Resp BP Pulse Ox 08/16/21 11:45 36.4 C L 95 H 18 129/84 97 08/16/21 10:21 36.4 C L 110 H 20 139/102 H 98 08/16/21 07:51 112 H 08/16/21 07:49 36.7 C 95 H 20 123/81 98 08/16/21 04:05 36.6 C 90 18 128/91 96 Laboratory Results BMP 08/16/21 08/16/21 06:49 08:00 Sodium 134 L Potassium 4.4 D Chloride 102 Carbon Dioxide 26 BUN 19 H Creatinine 1.19 Glucose 88 Calcium 9.5 Medications Administered Current Inpatient Medications Acetaminophen (Acetaminophen 325 Mg Tab) 650 mg PO Q4H PRN PRN Reason: Moderate Pain Stop: 09/11/21 12:46 Amiodarone HCl (Amiodarone 200 Mg Tab) 400 mg PO TIDM [facility] Stop: 09/15/21 11:59 Last Admin: 08/16/21 11:49 Dose: 400 mg Documented by: Amoxicillin/Clavulanate Potassium (Amoxicillin/Clavulanate 875 Mg Tab) 1 tab PO BIDM [facility] Stop: 08/17/21 07:59 Last Admin: 08/16/21 09:33 Dose: 1 tab Documented by: Apixaban (Apixaban 5 Mg Tablet) 5 mg PO BID [facility] Stop: 09/12/21 14:50 Last Admin: 08/16/21 09:33 Dose: 5 mg Documented by: Furosemide (Furosemide 40 Mg Tab) 40 mg PO QAM [facility] Stop: 09/15/21 09:36 Last Admin: 08/16/21 10:49 Dose: 40 mg Documented by: Losartan Potassium (Losartan Potassium 50 Mg Tab) 50 mg PO QAM [facility] Stop: 09/15/21 09:37 Last Admin: 08/16/21 10:51 Dose: 50 mg Documented by: Magnesium Chloride (Magnesium Chloride 64mg Delayed Rel Tab) 64 mg PO BID [facility] Stop: 09/13/21 10:59 Last Admin: 08/16/21 09:33 Dose: 64 mg Documented by: Ondansetron HCl (Ondansetron Inj 2 Mg/Ml 2 Ml Vial) 4 mg IV Q4H PRN PRN Reason: Nausea And Vomiting Stop: 09/11/21 12:46 Potassium Chloride (Potassium Chloride Crtab 20 Meq Tabcr) 20 meq PO DAILY [facility] Stop: 09/15/21 09:38 Last Admin: 08/16/21 10:50 Dose: 20 meq Documented by:
--- NOTE | 2021-08-16 16:16 | Surgery Progress Note ---
Date of Service August 16, 2021 Assessment & Plan (1) Elevated LFTs: Plan: Patient seen and examined this afternoon after reports of having increased abdominal pain starting around 11am. Describes it as burning, is throughout abdomen but worse on the R side and endorses pain into the R lower back. - Vital signs seem overall unchanged from prior, HR remains 100's - On examination patient's abdomen is soft and non distended; generalized pain to palpation, says it's worse on the R - He ate bfast and lunch without issues, did not seem to worsen the pain. No nausea/vomiting - Will repeat blood work to check WBC and LFT's and order a dose of IV pain meds - Does not seem directly related to remnant gallbladder...but can consider repeating CT a/p if pain persists to evaluate etiology Admission and Anticipated Discharge Date Admission Date: August 12, 2021 Supervising Physician Co-Signing Physician Notes I personally saw and evaluated the patient with Chela Copeland PA-C and agree with the assessment and plan. 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 Pt reports burning pain throughout the abdomen, worst on the R side, with pain into the R lower back region. Describes some shortness of breath related to pain. Physical Exam Physical Exam: awake, appears in some distress Respiratory: room air Gastrointestinal (Abdomen): Inspection/Auscultation: abdomen not distended Percussion/Palpation: + abdomen tender (discomfort to palpation throughout abd, says it's worse on the R) and abdomen soft Results & Data ([facility]) Vital Signs (Past 12 Hours) Vital Signs Temp Pulse Pulse Resp BP Pulse Ox 08/16/21 16:01 36.4 C L 111 H 20 124/91 100 08/16/21 15:01 119 H 08/16/21 11:45 36.4 C L 95 H 18 129/84 97 08/16/21 10:21 36.4 C L 110 H 20 139/102 H 98 08/16/21 07:51 112 H 08/16/21 07:49 36.7 C 95 H 20 123/81 98 PG Care Time/CCT Total # of Minutes Spent Total Time Spent with Patient: Total time spent is greater than 50% in coordination of care (as documented) at patient's floor/unit and/or counseling patient: Coding Level of Care Code 97197 Subseq Hosp Care Lvl 1 Diagnoses Elevated LFTs R79.89
[2021-08-16] MEDS ORDERED: MoRPHine SULFATE 2 MG/ML CARP IV STA ×3 (16:18→19:33)
[2021-08-16 16:41] LABS: Basophils # (auto) 0.04 K/uL (0-0.2); Basophils % (auto) 0.4 %; Eosinophils # (auto) 0.13 K/uL (0-0.5); Eosinophils % (auto) 1.1 %; Hematocrit (blood only) 58.4 % (42-52); Hemoglobin 20.2 g/dL (14.0-18.0); Immature Granulocytes # (auto) 0.05 K/uL (0.00-0.02); Immature Granulocytes % (auto) 0.4 %; Lymphocytes # (auto) 1.84 K/uL (1.2-3.4); Lymphocytes % (auto) 16.2 %; Mean Corpuscular Hemoglobin 37.1 pg (25-34); Mean Corpuscular Volume 107.4 fL (80-100); Mean Platelet Volume 9.9 fL (7.4-10.4); Monocytes # (auto) 1.14 K/uL (0.11-0.59); Monocytes % (auto) 10.1 %; Neutrophils # (auto) 8.14 K/uL (1.4-6.5); Neutrophils % (auto) 71.8 %; Platelet Count 283 K/uL (130-400); RDW Coefficient of Variation 13.4 % (11.5-14.5); RDW Standard Deviation 53.1 fL (36.4-46.3); Red Blood Count 5.44 M/uL (4.7-6.1); White Blood Count 11.34 K/uL (4.8-10.8)
[2021-08-16 17:02] LABS: Mean Corpuscular Hgb Conc 34.6 g/dL (32-36)
[2021-08-16 17:15] LABS: Potassium 4.7 mmol/L (3.5-5.1)
[2021-08-16 17:16] LABS: Albumin Globulin Ratio 0.8 (0.9-2); Albumin Level 3.4 gm/dl (3.4-5.0); BUN Creatinine Ratio 15.2 (10-20); Bilirubin Direct 0.2 mg/dl (0-0.2); Calcium 9.5 mg/dl (8.5-10.1); Creatinine Clr Calc Pharmacy 61.8 ml/min; Est GFR (African American) 61.4 ml/min; Est GFR (Non-African American) 52.9 ml/min; Globulin 4.2 gm/dl (2.5-4.0); Total Protein 7.6 gm/dl (6.4-8.2)
[2021-08-16] MEDS ORDERED: OPTIRAY 320 100ml IV ONE (18:11)
--- NOTE | 2021-08-16 18:43 | CT Scan Report ---
ABDOMEN AND PELVIS CT WITH IV CONTRAST CT DOSE: 489.23 mGy.cm HISTORY: Acute severe right-sided back pain R severe abd pain, rad to back TECHNIQUE: Multiaxial CT images of the abdomen and pelvis were performed following the IV administrat ion of 93 cc of Optiray, A dose lowering technique was utilized adhering to the principles of ALARA. COMPARISON STUDY: MRCP and CT abdomen and pelvis 08/12/2021 FINDINGS: Trace pleural effusions. Clear lung bases. No pneumatosis or pneumoperitoneum. Cardiomegaly . Unremarkable spleen, pancreas and adrenal glands. Partial cholecystectomy with trace air within the gallbladder lumen redemonstrated. There is decreased wall thickening and enhancement of the extrahep atic biliary tree with decreased size of the periportal and portacaval lymph nodes now measuring up t o 1.6 cm. Unremarkable liver. 5 mm nonobstructing calculus of the interpolar left kidney. No ureteral calculi or hydronephrosis. Th ere is an acute infarct of the inferior pole right kidney measuring up to 4.5 cm in greatest dimensio n with occlusion of the accessory renal artery of the inferior pole comminuted from 08/12/2021. Trace reactive perinephric edema. Mild prostamegaly. Partial distention of the urinary bladder. Atheroscle rosis of the aorta without aneurysm. No adenopathy. No bowel obstruction or bowel wall thickening. No CT evidence of acute appendicitis. Tiny fat filled periumbilical hernia, diastases 1.7 cm. Mild gene ralized body wall edema. There is no acute fracture. Minimal lumbar levoscoliosis. IMPRESSION: 1. 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 2. Partial cholecystectomy with trace pneumobilia redemonstrated. 3. Decreased wall thickening and enhancement of the extrahepatic biliary tree. 4. Nonobstructing left renal calculus. 5. Additional findings as above. ACT 112: Negative or not required by law. The above report was generated using voice recognition software. It may contain grammatical, syntax o r spelling errors. Electronically signed by: Miguel Angel Chaudhary M.D. 08/16/2021 6:42 PM
[2021-08-16] MEDS ORDERED: METOPROLOL TARTRATE 1 MG/ML VIAL IV STA (19:33)
[2021-08-16] MEDS ORDERED: traMADol HCL 50 MG TABLET PO PRN (19:34)
[2021-08-16] MEDS ORDERED: SODIUM CHLORIDE 0.9% 500 ML IV SCH (19:45)
[2021-08-16] MEDS ORDERED: oxyCODONE/ACETAMINOPHEN 5mg/325mg TAB PO STA (19:46)
[2021-08-16] MEDS: DOCUSATE SODIUM 100 MG CAP PO SCH (20:09)
[2021-08-16] MEDS: POLYETHYLENE (MIRALAX) 17 GM PACK PO PRN (20:11)
[2021-08-16] MEDS ORDERED: dilTIAZem HCl 5 MG/ML 5 ML VIAL IV STA (23:04)
[2021-08-16 23:49] LABS: Magnesium 2.1 mg/dl (1.8-2.4)
[2021-08-17] MEDS: oxyCODONE/ACETAMINOPHEN 5mg/325mg TAB PO PRN ×4 (00:11→20:41)
[2021-08-17] MEDS: METOPROLOL SUCC 25MG EXT REL TAB PO SCH (03:17)
--- NOTE | 2021-08-17 05:42 | Communication Note ---
Date of Service: August 17, 2021 Due to increasing/worsening abdominal pain noted during the early evening patient underwent a repeat CT scan of the abdomen and pelvis along with lab work . Lab work did not demonstrate any significant elevation of LFTs to explain abdominal pain. There are also no CT scan findings consistent with acute cholecystitis or remnant gallbladder. The CT scan did however show a renal infarct which may explain the patient's pain. This was discussed with the medical service.
[2021-08-17 07:25] LABS: Albumin Level 3.3 gm/dl (3.4-5.0); BUN Creatinine Ratio 15.2 (10-20); Calcium 9.4 mg/dl (8.5-10.1); Creatinine Clr Calc Pharmacy 66.1 ml/min; Est GFR (African American) 66.8 ml/min; Est GFR (Non-African American) 57.7 ml/min; Total Protein 7.9 gm/dl (6.4-8.2)
[2021-08-17 08:37] LABS: Potassium 4.4 mmol/L (3.5-5.1)
[2021-08-17] MEDS ORDERED: POTASSIUM CHLORIDE CRTAB 20 MEQ TABCR PO SCH (09:00)
[2021-08-17] MEDS ORDERED: LOSARTAN POTASSIUM 50 MG TAB PO SCH (09:00)
[2021-08-17] MEDS ORDERED: FUROSEMIDE 40 MG TAB PO SCH (09:00)
[2021-08-17] MEDS: APIXABAN 5 MG TABLET PO SCH (09:18)
[2021-08-17] MEDS: DOCUSATE SODIUM 100 MG CAP PO SCH ×2 (09:18→20:41)
[2021-08-17] MEDS: AMIODARONE 200 MG TAB PO SCH ×3 (09:19→17:15)
[2021-08-17] MEDS: MAGNESIUM CHLORIDE 64MG DELAYED REL TAB PO SCH ×2 (09:20→20:41)
[2021-08-17] MEDS: POTASSIUM CHLORIDE CRTAB 20 MEQ TABCR PO SCH (09:20)
--- NOTE | 2021-08-17 10:13 | Surgery Progress Note ---
Date of Service August 17, 2021 Assessment & Plan (1) Elevated LFTs: Plan: CT a/p yesterday obtained due to R sided belly/back pain revealed acute infarct of the inferior pole right kidney No e/o cholecystitis of remnant gallbladder or other acute intraabdominal abn ormality Pt appears improved today He may f/u with Dr. Penaloza as an outpatient for elective repair of umbilical hernia We will sign off, please call with any questions/concerns Admission and Anticipated Discharge Date Admission Date: August 12, 2021 Supervising Physician Co-Signing Physician Notes I personally saw and evaluated the patient with Chela Copeland PA-C and agree with the assessment and plan. 56-year-old male with remnant gallbladder and pneumobilia, new finding of right- sided kidney infarct CT images and results reviewed from CT abdomen pelvis from last night There is no change in the imaging of his gallbladder He does have a new right-sided kidney infarct which would certainly account for his new onset right-sided pain I do not believe any of his symptoms are due to his remnant gallbladder Surgery will sign off at this time please call with any questions or concerns He can follow-up with me for discussion of an elective umbilical hernia repair Subjective Patient in no acute distress. Less pain this AM than yesterday. Physical Exam Physical Exam: awake/alert, lying in bed Gastrointestinal (Abdomen): Inspection/Auscultation: abdomen not distended Percussion/Palpation: + abdomen tender (some R abdominal discomfort) and abdomen soft Results & Data ([facility]) Vital Signs (Past 12 Hours) Vital Signs Temp Pulse Pulse Resp BP BP Pulse Ox 08/17/21 07:00 36.3 C L 102 H 18 127/90 98 08/17/21 03:16 113 H 150/98 H 08/17/21 03:15 36.1 C L 100 H 20 146/102 H 94 08/16/21 23:33 36.3 C L 94 H 20 149/97 H 98 08/16/21 22:58 158/110 H 08/16/21 22:20 117 H PG Care Time/CCT Total # of Minutes Spent Total Time Spent with Patient: Total time spent is greater than 50% in coordination of care (as documented) at patient's floor/unit and/or counseling patient: Coding Level of Care Code 79654 Subseq Hosp Care Lvl 1 Diagnoses Elevated LFTs R79.89
--- NOTE | 2021-08-17 10:29 | Cardiology Progress Note ---
Date of Service August 17, 2021 Assessment & Plan (1) Atrial fibrillation with RVR: (2) Chronic anticoagulation: (3) Heart failure: (4) HFrEF (heart failure with reduced ejection fraction): Plan: The patient has persistently elevated hemoglobin levels around 20. He has lymphadenopathy on his most recent chest CT and now infarcted kidney. I think it is best that we have heme oncology see him. Admission and Anticipated Discharge Date Admission Date: August 12, 2021 Subjective The patient feels markedly improved from last night. Events of last night noted. Review of Systems Review of Systems: Review of Systems: See HPI for pertinent positives. All other 10 point review of systems are negative. Physical Exam Physical Exam: General: no acute distress and stated age Head: normocephalic, no masses, lesions, tenderness or abnormalities Eyes: conjunctiva are pink and non-injected, sclera clear Neck: supple, no adenopathy, no bruits, normal jugular venous pulse, no hepatojugular reflux Chest: normal shape and normal respiratory effort Lungs: clear to auscultation and percussion Cardiac Exam: - irregular rate & rhythm, no murmurs gallops or rubs - normal S1, normal S2 Pulses: 2(+) throughout Abdomen: abdomen soft, non-tender, no abnormal masses and no hepatosplenomegaly Musculoskeletal: no gait disturbance, no joint inflammation, no deforming arthritis Extremities: no edema and no cyanosis Neuro: grossly normal exam Results & Data ([facility]) Vital Signs (Past 12 Hours) Vital Signs Temp Pulse Resp BP BP Pulse Ox 08/17/21 07:00 36.3 C L 102 H 18 127/90 98 08/17/21 03:16 113 H 150/98 H 08/17/21 03:15 36.1 C L 100 H 20 146/102 H 94 08/16/21 23:33 36.3 C L 94 H 20 149/97 H 98 08/16/21 22:58 158/110 H Laboratory Results Laboratory Results - last 24 hr 08/16/21 08/16/21 08/16/21 16:24 16:24 16:24 WBC 11.34 H RBC 5.44 Hgb 20.2 H Hct 58.4 H MCV 107.4 H MCH 37.1 H MCHC 34.6 RDW Std Deviation 53.1 H RDW Coeff of Dagmar 13.4 Plt Count 283 MPV 9.9 Immature Gran % (Auto) 0.4 Neut % (Auto) 71.8 Lymph % (Auto) 16.2 Warrick % (Auto) 10.1 Eos % (Auto) 1.1 Baso % (Auto) 0.4 Neut # (Auto) 8.14 H Lymph # (Auto) 1.84 Warrick # (Auto) 1.14 H Eos # (Auto) 0.13 Baso # (Auto) 0.04 Immature Gran # (Auto) 0.05 H Sodium 134 L Potassium 4.7 Chloride 101 Carbon Dioxide 29 Anion Gap 4.0 BUN 22 H Creatinine 1.47 H Est Cr Clr Drug Dosing 61.8 Est GFR ( Amer) 61.4 Est GFR (Non-Af Amer) 52.9 BUN/Creatinine Ratio 15.2 Glucose 105 H Lactate 1.5 Calcium 9.5 Magnesium 2.1 Total Bilirubin 1.0 Direct Bilirubin 0.2 AST 43 H ALT 47 Alkaline Phosphatase 136 H Total Protein 7.6 Albumin 3.4 Globulin 4.2 H Albumin/Globulin Ratio 0.8 L Specimen Hemolysis 08/17/21 08/17/21 08/17/21 06:00 07:32 09:28 WBC RBC Hgb Hct MCV MCH MCHC RDW Std Deviation RDW Coeff of Dagmar Plt Count MPV Immature Gran % (Auto) Neut % (Auto) Lymph % (Auto) Warrick % (Auto) Eos % (Auto) Baso % (Auto) Neut # (Auto) Lymph # (Auto) Warrick # (Auto) Eos # (Auto) Baso # (Auto) Immature Gran # (Auto) Sodium 129 L Potassium 4.4 Chloride 97 L Carbon Dioxide 27 Anion Gap 5.0 BUN 21 H Creatinine 1.37 Est Cr Clr Drug Dosing 66.1 Est GFR ( Amer) 66.8 Est GFR (Non-Af Amer) 57.7 BUN/Creatinine Ratio 15.2 Glucose 113 H Lactate Calcium 9.4 Magnesium Total Bilirubin 2.0 H D Direct Bilirubin 0.4 H D AST 63 H ALT 58 Alkaline Phosphatase 133 H Total Protein 7.9 Albumin 3.3 L Globulin Albumin/Globulin Ratio Specimen Hemolysis Medications Administered Current Inpatient Medications Acetaminophen (Acetaminophen 325 Mg Tab) 650 mg PO Q4H PRN PRN Reason: Moderate Pain Stop: 09/11/21 12:46 Amiodarone HCl (Amiodarone 200 Mg Tab) 400 mg PO TIDM [facility] Stop: 09/15/21 11:59 Last Admin: 08/17/21 09:19 Dose: 400 mg Documented by: Apixaban (Apixaban 5 Mg Tablet) 5 mg PO BID [facility] Stop: 09/12/21 14:50 Last Admin: 08/17/21 09:18 Dose: 5 mg Documented by: Docusate Sodium (Docusate Sodium 100 Mg Cap) 100 mg PO BID [facility] Stop: 09/15/21 20:59 Last Admin: 08/17/21 09:18 Dose: 100 mg Documented by: Furosemide (Furosemide 40 Mg Tab) 40 mg PO QAM [facility] Stop: 09/15/21 09:36 Last Admin: 08/16/21 10:49 Dose: 40 mg Documented by: Losartan Potassium (Losartan Potassium 50 Mg Tab) [facility] Stop: 09/15/21 09:37 Last Admin: 08/16/21 10:51 Dose: 50 mg Documented by: Magnesium Chloride (Magnesium Chloride 64mg Delayed Rel Tab) 64 mg PO BID [facility] Stop: 09/13/21 10:59 Last Admin: 08/17/21 09:20 Dose: Not Given Documented by: Metoprolol Succinate (Metoprolol Succ 25mg Ext Rel Tab) 25 [facility] Stop: 09/16/21 02:24 Last Admin: 08/17/21 03:17 Dose: 25 mg Documented by: Ondansetron HCl (Ondansetron Inj 2 Mg/Ml 2 Ml Vial) 4 mg IV Q4H PRN PRN Reason: Nausea And Vomiting Stop: 09/11/21 12:46 Oxycodone/Acetaminophen (Oxycodone/Acetaminophen 5mg/325mg Tab) 1 tab PO Q4H PRN PRN Reason: severe pain (6-10) Stop: 08/30/21 19:44 Last Admin: 08/17/21 09:18 Dose: 1 tab Documented by: Polyethylene Glycol (Polyethylene (Miralax) 17 Gm Pack) 17 gm PO BID PRN PRN Reason: Constipation Stop: 09/15/21 19:43 Last Admin: 08/16/21 20:11 Dose: 17 gm Documented by: Potassium Chloride (Potassium Chloride Crtab 20 Meq Tabcr) 20 meq PO DAILY [facility] Stop: 09/15/21 09:38 Last Admin: 08/17/21 09:20 Dose: Not Given Documented by:
--- NOTE | 2021-08-17 16:13 | Hospitalist Progress Note ---
Date of Service August 17, 2021 Assessment & Plan (1) Atrial fibrillation with RVR: Plan: Recent PVI in May 2021-reports hasn't felt well since that time. Currently continues in afib overnight on telemetry. Rate controlled with sotalol which has been changed to amiodarone. He remains anticoagulated with apixaban. Echo reveals depressed EF 25%. s/p thoracentesis on 08/13 by pulm on right side. Bloody transudate with cytology negative for malignancy. Continue telemetry monitoring and management per cardiology. (2) Renal infarction: Plan: Acute renal infarction causing significant right-sided back pain-improved. Creatinine is mildly elevated but improved from yesterday afternoon at 1.4. Continue to hold Lasix and losartan pending BMP in a.m. Hematology consulted and recommends this may be a failure of apixaban. Recommend switching to Lovenox with bridge to warfarin prior to discharge. Additional work-up to rule out malignancy including PET scan with possible biopsy to be done as outpatient. Most concerning etiology may be lymphoma as patient notes night sweats and other concerning constitutional symptoms. (3) HFrEF (heart failure with reduced ejection fraction): Plan: GDMT per cardiology. Echo this admission with new EF 25%, January 2020 was 55%. Furosemide on hold in setting of recent renal infarction. (4) Bilateral pleural effusion: Plan: Initial imaging revealed R>L pleural effusion. Per pulm possibly this may have been a sympathetic process related to her recent PVI. Expect these pleural effusions should resolved over time with no further intervention. Given the suspicion of malignancy, this may need to be reevaluated. Consider follow-up chest CT in 8 weeks time versus PET scan per hematology. Outpatient primary care follow-up recommended. (5) NICM (nonischemic cardiomyopathy): Plan: plan as above. (6) Pneumobilia: Plan: Slightly elevated LFTs on admission, however, no RUQ pain and remains afebrile without leukocytosis. Was initially placed on Zosyn and is now on Augmentin. Pt seen by general surgery with no plans for intervention at this time. MRCP did not reveal ductal dilation with a large remnant s/p partial cholecystectomy. He is tolerating a diet. Without any signs or symptoms of infection, wanted to stop infection however shortly after I left the room he had some burning right sided pain with radiation to his back that was 4/10. Subsided after a few minutes on it's own. Will discuss with gen surgery if anything further should be done. Will cont to monitor for now. Suspect LFT elevation was from hypervolemic state on admission/congestive hepatopathy, which has resolved. (7) Transaminitis: Plan: plan as above. (8) DVT prophylaxis: Plan: Apixaban-switch to Lovenox bridge to warfarin Full Dispo-to home when cleared by Cardiology. Suspect no cardioversion attempt to be made prior to DC given renal infarction and possible apixaban failure. Defer to Cardiology. Ondina Ruby [facility] (9) Lymphadenopathy: Plan: Mediastinal lymphadenopathy seen on CT scan. This was initially felt to be reactive with recent history of pulmonary vein isolation procedure, however, with constitutional symptoms and recent renal infarct, malignancy needs to be ruled out. Outpatient hematology follow-up as listed above. (10) Obstructive sleep apnea: Plan: Patient reported a history of obstructive sleep apnea to early intervention specialist. This remains untreated. This may be a reason for his elevated hemoglobin. Rule out polycythemia per outpatient hematology work-up including JAK2 kinase mutation. Outpatient sleep follow-up recommended. Admission and Anticipated Discharge Date Admission Date: August 12, 2021 Subjective 56 yo M with acute systolic heart failure exacerbation with pleural effusions s/p thoracentesis presented with symptomatic atrial fibrillation with RVR with a HR in the 150s. Telemetry reveals persistent atrial fibrillation with improved rate control. Right-sided back pain is still present but improved since renal infarct yesterday Patient denies any nausea vomiting and is tolerating diet Afebrile Denies any chest pain, palpitations or other issues. Review of Systems Review of Systems: All systems were reviewed and negative except as indicated in subjective above. Physical Exam Physical Exam: CONSTITUTIONAL: WNWD, vitals as above, generally well- appearing, NAD EYES: normal conjunctivae, no scleral icterus, ENT: external ear and nose normal, MMM NECK: trachea midline, RESPIRATORY: clear to auscultation bilaterally, no crackles, rales or wheezes, normal respiratory effort CARDIOVASCULAR: irregular rate and irreg rhythm, S1 and 2 heard without murmurs, gallops or rubs, no JVD, no peripheral edema, CHEST: inspection of chest was normal GASTROINTESTINAL: soft, nontender, ND, no guarding, small umbilical hernia present. MUSCULOSKELETAL: strength 5/5 throughout, head is normocephalic and atraumatic, SKIN: warm and dry, NEUROLOGIC: No facial palsy, no dysarthria. CN 2-12 grossly intact, no sensory deficit, normal cognition, normal speech, no tremor PSYCHIATRIC: alert cooperative and oriented to person, place and time. Euthymic mood, makes good eye contact, language grossly intact, recent and remote memory grossly intact. Results & Data Results & Data ([facility]) Vital Signs (Past 12 Hours) Vital Signs Temp Pulse Pulse Resp BP BP Pulse Ox 08/17/21 11:40 36.4 C L 105 H 16 127/90 08/17/21 07:00 36.3 C L 106 H 102 H 18 127/90 98 Laboratory Results Short CBC 08/16/21 Range/Units 16:24 WBC 11.34 H (4.8-10.8) K/uL Hgb 20.2 H (14.0-18.0) g/dL Hct 58.4 H (42-52) % Plt Count 283 (130-400) K/uL BMP 08/16/21 08/17/21 08/17/21 16:24 06:00 07:32 Sodium 134 L 129 L Potassium 4.7 4.4 Chloride 101 97 L Carbon Dioxide 29 27 BUN 22 H 21 H Creatinine 1.47 H 1.37 Glucose 105 H 113 H Calcium 9.5 9.4 Liver Function 08/16/21 08/17/21 08/17/21 Range/Units 16:24 06:00 07:32 Total Bilirubin 1.0 2.0 H D (0.2-1) mg/dl Direct Bilirubin 0.2 (0-0.2) mg/dl AST 43 H 63 H (15-37) U/L ALT 47 58 (12-78) Alkaline Phosphatase 136 H 133 H (45-117) U/L Albumin 3.4 3.3 L (3.4-5.0) gm/dl 08/17/21 Range/Units 09:28 Total Bilirubin (0.2-1) mg/dl Direct Bilirubin 0.4 H D (0-0.2) mg/dl AST (15-37) U/L ALT (12-78) Alkaline Phosphatase (45-117) U/L Albumin (3.4-5.0) gm/dl Medications Administered Current Inpatient Medications Acetaminophen (Acetaminophen 325 Mg Tab) 650 mg PO Q4H PRN PRN Reason: Moderate Pain Stop: 09/11/21 12:46 Amiodarone HCl (Amiodarone 200 Mg Tab) 400 mg PO TIDM [facility] Stop: 09/15/21 11:59 Last Admin: 08/17/21 12:22 Dose: 400 mg Documented by: Apixaban (Apixaban 5 Mg Tablet) 5 mg PO BID [facility] Stop: 09/12/21 14:50 Last Admin: 08/17/21 09:18 Dose: 5 mg Documented by: Docusate Sodium (Docusate Sodium 100 Mg Cap) 100 mg PO BID [facility] Stop: 09/15/21 20:59 Last Admin: 08/17/21 09:18 Dose: 100 mg Documented by: Furosemide (Furosemide 40 Mg Tab) 40 mg PO QAM [facility] Stop: 09/15/21 09:36 Last Admin: 08/16/21 10:49 Dose: 40 mg Documented by: Losartan Potassium (Losartan Potassium 50 Mg Tab) [facility] Stop: 09/15/21 09:37 Last Admin: 08/16/21 10:51 Dose: 50 mg Documented by: Magnesium Chloride (Magnesium Chloride 64mg Delayed Rel Tab) 64 mg PO BID [facility] Stop: 09/13/21 10:59 Last Admin: 08/17/21 09:20 Dose: Not Given Documented by: Metoprolol Succinate (Metoprolol Succ 25mg Ext Rel Tab) [facility] Stop: 09/16/21 02:24 Last Admin: 08/17/21 03:17 Dose: 25 mg Documented by: Ondansetron HCl (Ondansetron Inj 2 Mg/Ml 2 Ml Vial) 4 mg IV Q4H PRN PRN Reason: Nausea And Vomiting Stop: 09/11/21 12:46 Oxycodone/Acetaminophen (Oxycodone/Acetaminophen 5mg/325mg Tab) 1 tab PO Q4H PRN PRN Reason: severe pain (6-10) Stop: 08/30/21 19:44 Last Admin: 08/17/21 09:18 Dose: 1 tab Documented by: Polyethylene Glycol (Polyethylene (Miralax) 17 Gm Pack) 17 gm PO BID PRN PRN Reason: Constipation Stop: 09/15/21 19:43 Last Admin: 08/16/21 20:11 Dose: 17 gm Documented by: Potassium Chloride (Potassium Chloride Crtab 20 Meq Tabcr) 20 meq PO DAILY [facility] Stop: 09/15/21 09:38 Last Admin: 08/17/21 09:20 Dose: Not Given Documented by:
--- NOTE | 2021-08-17 16:58 | Consultation Report ---
DATE OF SERVICE: 08/17/2021. REASON FOR CONSULTATION: Elevated hemoglobin, lymphadenopathy and infected kidney. HISTORY OF PRESENT ILLNESS: The patient is a very pleasant gentleman, who was admitted on 08/12/2021 with complaints of increasing shortness of breath and was found to have atrial fibrillation with RVR, bilateral pleural effusions and transaminitis. CTA chest performed on admission revealed interval development of moderate sized bilateral pleural effusions, right greater than left, as well as significant interval enlargement of mediastinal, prevascular and paratracheal lymph nodes, characteristic of metastatic disease versus lymphoma. He subsequently had thoracentesis performed with cytology negative for malignancy. CT abdomen and pelvis performed on 08/16/2021 to evaluate for acute severe right sided back pain revealed acute infarct in the inferior right pole secondary to occlusion of the inferior pole accessory renal artery. This is despite the patient being on chronic anticoagulation with Eliquis for atrial fibrillation. At this time, he states that abdominal pain has significantly improved. He endorses night sweats, unintentional weight loss of about 20 pounds over the past 6 months. He denies nausea, vomiting, hematochezia, hematemesis, chest pain. Endorses significant improvement in shortness of breath. PAST MEDICAL HISTORY: 1. Atrial fibrillation. 2. Cardiomyopathy. 3. Left atrial thrombus. 4. Nonischemic cardiomyopathy. PAST SURGICAL HISTORY: Not significant. MEDICATIONS PRIOR TO ADMISSION: Apixaban 5 mg p.o. b.i.d., sotalol 80 mg p.o. b.i.d. ALLERGIES: No known drug allergies. SOCIAL HISTORY: He denies smoking, alcohol and illicit drug use. FAMILY HISTORY: No significant family history of malignancy. REVIEW OF SYSTEMS: CONSTITUTIONAL: Endorses night sweats and weight loss. RESPIRATORY: Endorses shortness of breath. Denies cough or chest pain. CARDIOVASCULAR: Endorses palpitations. ABDOMEN: Denies abdominal pain, nausea, vomiting. Endorses occasional diarrhea/constipation due to history of ulcerative colitis. MUSCULOSKELETAL: He denies bone pain. NEUROLOGIC: Denies headaches, dizziness, or blurry vision. PHYSICAL EXAMINATION: VITAL SIGNS: Blood pressure 127/90, heart rate of 105, respiratory rate 16, temperature of 36.4 and oxygen saturation of 98% on room air. LYMPHATICS: Palpable left axillary fullness. HEART: Irregularly irregular with normal rate. LUNGS: Clear bilaterally. ABDOMEN: Soft, nontender with no palpable hepatosplenomegaly. EXTREMITIES: No peripheral edema. LABORATORY DATA: Labs obtained on 08/16/2021, significant for white count of 11.34, hemoglobin of 20.2, hematocrit of 58.4, MCV of 107.4 with platelet count of 283. IMAGIN. CT abdomen and pelvis on 08/16/2021 revealed acute infarct of the inferior pole right kidney secondary to occlusion of the inferior pole accessory renal artery. Partial cholecystectomy with trace pneumobilia. Decreased wall thickening and enhancement of the extrahepatic biliary tree. 2. CTA on 08/12/2021 revealed interval development of moderate sized bilateral pleural effusions, right greater than left with bibasilar atelectasis, right greater than left, as well as significant enlargement of mediastinal, prevascular and paratracheal lymph nodes characteristic of metastatic disease versus lymphoma. IMPRESSION: 1. Polycythemia. 2. Generalized lymphadenopathy. 3. Renal infarct while on eliquis. Pleasant gentleman admitted with atrial fibrillation with rapid ventricular response, found to have longstanding polycythemia. Would recommend workup for primary polycythemia including molecular testing for JAK2 mutation. Regarding his extensive lymphadenopathy, he would benefit from outpatient PET/CT as well as biopsy of most accessible lymph node for diagnosis. Given presence of renal infarct, despite being on anticoagulation brings question of whether the patient had cardiac thrombus leading to renal infarct. Since this means he has failed anticoagulation with Eliquis, I would recommend switching from Eliquis to therapeutic Lovenox and transitioning to warfarin. Thank you for this consult. Hematology continue following the patient while in the hospital. Please feel free to call if you have any further questions. Job ID: [id number] [facility]
[2021-08-17] MEDS: POLYETHYLENE (MIRALAX) 17 GM PACK PO PRN (17:15)
[2021-08-17] MEDS: ENOXAPARIN 100 MG/1ML SYR SQ SCH (20:42)
[2021-08-18 06:43] LABS: Hematocrit (blood only) 58.1 % (42-52); Hemoglobin 20.4 g/dL (14.0-18.0); Mean Corpuscular Hemoglobin 37.9 pg (25-34); Mean Platelet Volume 10.3 fL (7.4-10.4); Platelet Count 216 K/uL (130-400); RDW Coefficient of Variation 13.3 % (11.5-14.5); RDW Standard Deviation 52.8 fL (36.4-46.3); Red Blood Count 5.38 M/uL (4.7-6.1); White Blood Count 14.75 K/uL (4.8-10.8)
[2021-08-18 06:44] LABS: Mean Corpuscular Hgb Conc 35.1 g/dL (32-36)
[2021-08-18 07:16] LABS: BUN Creatinine Ratio 12.7 (10-20); Calcium 9.4 mg/dl (8.5-10.1); Creatinine Clr Calc Pharmacy 67.9 ml/min; Est GFR (African American) 68.6 ml/min; Est GFR (Non-African American) 59.2 ml/min; Potassium 5.1 mmol/L (3.5-5.1)
[2021-08-18 07:42] LABS: INR 1.2 (0.9-1.1); Prothrombin Time 11.9 Seconds (9.0-12.0)
[2021-08-18] MEDS: METOPROLOL SUCC 25MG EXT REL TAB PO SCH (08:47)
[2021-08-18] MEDS: AMIODARONE 200 MG TAB PO SCH ×3 (08:48→17:11)
[2021-08-18] MEDS: ENOXAPARIN 100 MG/1ML SYR SQ SCH ×2 (08:49→20:38)
[2021-08-18] MEDS: DOCUSATE SODIUM 100 MG CAP PO SCH ×2 (08:49→20:37)
[2021-08-18] MEDS: MAGNESIUM CHLORIDE 64MG DELAYED REL TAB PO SCH ×2 (08:49→20:38)
[2021-08-18] MEDS: POTASSIUM CHLORIDE CRTAB 20 MEQ TABCR PO SCH (08:51)
[2021-08-18] MEDS: POLYETHYLENE (MIRALAX) 17 GM PACK PO PRN (08:56)
--- NOTE | 2021-08-18 10:53 | Cardiology Progress Note ---
Date of Service August 18, 2021 Assessment & Plan (1) Atrial fibrillation with RVR: (2) Chronic anticoagulation: (3) Heart failure: (4) HFrEF (heart failure with reduced ejection fraction): (5) Polycythemia: Plan: Oncology consult much appreciated. The patient is being worked up for polycythemia. His heart rates are little higher today and I will increase his metoprolol XL to 50 mg daily. Otherwise he is stable. Admission and Anticipated Discharge Date Admission Date: August 12, 2021 Subjective Patient has no new cardiac complaints today. Feels well. Review of Systems Review of Systems: Review of Systems: See HPI for pertinent positives. All other 10 point review of systems are negative. Physical Exam Physical Exam: General: no acute distress and stated age Head: normocephalic, no masses, lesions, tenderness or abnormalities Eyes: conjunctiva are pink and non-injected, sclera clear Neck: supple, no adenopathy, no bruits, normal jugular venous pulse, no hepatojugular reflux Chest: normal shape and normal respiratory effort Lungs: clear to auscultation and percussion Cardiac Exam: - irregular rate & rhythm, no murmurs gallops or rubs - normal S1, normal S2 Pulses: 2(+) throughout Abdomen: abdomen soft, non-tender, no abnormal masses and no hepatosplenomegaly Musculoskeletal: no gait disturbance, no joint inflammation, no deforming arthritis Extremities: no edema and no cyanosis Neuro: grossly normal exam Results & Data ([facility]) Vital Signs (Past 12 Hours) Vital Signs Temp Pulse Resp BP BP Pulse Ox 08/18/21 07:34 36.9 C 52 L 19 139/87 95 08/18/21 04:00 37.2 C 100 H 20 136/100 96 08/17/21 23:03 36.4 C L 97 H 17 117/80 95 Laboratory Results Laboratory Results - last 24 hr 08/18/21 08/18/21 08/18/21 06:23 06:23 06:23 WBC 14.75 H RBC 5.38 Hgb 20.4 H Hct 58.1 H MCV 108.0 H MCH 37.9 H MCHC 35.1 RDW Std Deviation 52.8 H RDW Coeff of Dagmar 13.3 Plt Count 216 MPV 10.3 PT Cancelled INR Cancelled Sodium 133 L Potassium 5.1 D Chloride 100 Carbon Dioxide 27 Anion Gap 6.0 BUN 17 Creatinine 1.34 Est Cr Clr Drug Dosing 67.9 Est GFR ( Amer) 68.6 Est GFR (Non-Af Amer) 59.2 BUN/Creatinine Ratio 12.7 Glucose 86 Calcium 9.4 08/18/21 07:04 WBC RBC Hgb Hct MCV MCH MCHC RDW Std Deviation RDW Coeff of Dagmar Plt Count MPV PT 11.9 INR 1.2 H Sodium Potassium Chloride Carbon Dioxide Anion Gap BUN Creatinine Est Cr Clr Drug Dosing Est GFR ( Amer) Est GFR (Non-Af Amer) BUN/Creatinine Ratio Glucose Calcium Medications Administered Current Inpatient Medications Acetaminophen (Acetaminophen 325 Mg Tab) 650 mg PO Q4H PRN PRN Reason: Moderate Pain Stop: 09/11/21 12:46 Amiodarone HCl (Amiodarone 200 Mg Tab) 400 mg PO TIDM [facility] Stop: 09/15/21 11:59 Last Admin: 08/18/21 08:48 Dose: 400 mg Documented by: Docusate Sodium (Docusate Sodium 100 Mg Cap) 100 mg PO BID [facility] Stop: 09/15/21 20:59 Last Admin: 08/18/21 08:49 Dose: 100 mg Documented by: Enoxaparin Sodium (Enoxaparin 100 Mg/1ml Syr) 90 mg SQ Q12H [facility] Stop: 09/16/21 20:59 Last Admin: 08/18/21 08:49 Dose: 90 mg Documented by: Furosemide (Furosemide 40 Mg Tab) 40 mg PO QAM [facility] Stop: 09/15/21 09:36 Last Admin: 08/16/21 10:49 Dose: 40 mg Documented by: Losartan Potassium (Losartan Potassium 50 Mg Tab) [facility] [place] Stop: 09/15/21 09:37 Last Admin: 08/16/21 10:51 Dose: 50 mg Documented by: Magnesium Chloride (Magnesium Chloride 64mg Delayed Rel Tab) 64 mg PO BID [facility] Stop: 09/13/21 10:59 Last Admin: 08/18/21 08:49 Dose: 64 mg Documented by: Metoprolol Succinate (Metoprolol Succ 25mg Ext Rel Tab) 25 mg PO ONE ONE Stop: 08/18/21 11:01 Metoprolol Succinate (Metoprolol Succ 50mg Ext Rel Tab) 50 mg PO QAM [facility] Stop: 09/18/21 08:59 Ondansetron HCl (Ondansetron Inj 2 Mg/Ml 2 Ml Vial) 4 mg IV Q4H PRN PRN Reason: Nausea And Vomiting Stop: 09/11/21 12:46 Oxycodone/Acetaminophen (Oxycodone/Acetaminophen 5mg/325mg Tab) 1 tab PO Q4H PRN PRN Reason: severe pain (6-10) Stop: 08/30/21 19:44 Last Admin: 08/17/21 20:41 Dose: 1 tab Documented by: Polyethylene Glycol (Polyethylene (Miralax) 17 Gm Pack) 17 gm PO BID PRN PRN Reason: Constipation Stop: 09/15/21 19:43 Last Admin: 08/18/21 08:56 Dose: 17 gm Documented by: Potassium Chloride (Potassium Chloride Crtab 20 Meq Tabcr) 20 meq PO DAILY [facility] Stop: 09/15/21 09:38 Last Admin: 08/18/21 08:51 Dose: Not Given Documented by: Warfarin Sodium (Warfarin Sod 5 Mg Tab) 5 mg PO DAILY@1600 [facility] Stop: 09/17/21 15:59
[2021-08-18] MEDS ORDERED: METOPROLOL SUCC 25MG EXT REL TAB PO ONE (11:00)
[2021-08-18] MEDS ORDERED: GLYCERIN ADULT 12 SUPP/BOX SUPP PR PRN (11:58)
[2021-08-18] MEDS ORDERED: POLYETHYLENE (MIRALAX) 17 GM PACK PO PRN (11:59)
[2021-08-18] MEDS ORDERED: GLYCERIN ADULT 12 SUPP/BOX SUPP PR ONE (17:00)
[2021-08-18] MEDS: WARFARIN SOD 5 MG TAB PO SCH (17:10)
--- NOTE | 2021-08-18 18:33 | XRay Report ---
XR KUB/Abdomen 1 view CLINICAL HISTORY: abdominal discomfort TECHNIQUE: 1 view of the abdomen was obtained. Comparison: None available at the time of this dictation. FINDINGS: Cardiomegaly is noted. Right upper quadrant cholecystomy clips are seen. The osseous structures are g rossly unremarkable. The bowel gas pattern is nonobstructive. A moderate amount of stool is noted wit hin the large bowel. IMPRESSION: Nonobstructive bowel gas pattern. ACT 112: Negative or not required by law. Electronically signed by: Rober Stout M.D. 08/18/2021 6:32 PM
--- NOTE | 2021-08-18 18:48 | Hospitalist Progress Note ---
Date of Service August 18, 2021 Assessment & Plan (1) Atrial fibrillation with RVR: Plan: Recent PVI in May 2021-reports hasn't felt well since that time. Currently continues in afib overnight on telemetry. Rate controlled with sotalol which has been changed to amiodarone. He remains anticoagulated with apixaban. Echo reveals depressed EF 25%. s/p thoracentesis on 08/13 by pulm on right side. Bloody transudate with cytology negative for malignancy. Continue telemetry monitoring and management per cardiology. (2) Renal infarction: Plan: Acute renal infarction causing significant right-sided back pain-improved. Creatinine is improved but remains elevated. Continue to hold Lasix and losartan pending BMP in a.m. Hematology consulted and recommends this may be a failure of apixaban. Cont Lovenox with bridge to warfarin prior to discharge. Additional work-up to rule out malignancy including PET scan with possible biopsy to be done as outpatient. Most concerning etiology may be lymphoma as patient notes night sweats and other concerning constitutional symptoms. (3) HFrEF (heart failure with reduced ejection fraction): Plan: GDMT per cardiology. Echo this admission with new EF 25%, January 2020 was 55%. Furosemide on hold in setting of recent renal infarction. (4) Bilateral pleural effusion: Plan: Initial imaging revealed R>L pleural effusion. Per pulm possibly this may have been a sympathetic process related to her recent PVI. Expect these pleural effusions should resolved over time with no further intervention. Given the suspicion of malignancy, this may need to be reevaluated. Consider follow-up chest CT in 8 weeks time versus PET scan per hematology. Outpatient primary care follow-up recommended. (5) NICM (nonischemic cardiomyopathy): Plan: plan as above. (6) Pneumobilia: Plan: Slightly elevated LFTs on admission, however, no RUQ pain and remains afebrile without leukocytosis. Was initially placed on Zosyn and is now on Augmentin. Pt seen by general surgery with no plans for intervention at this time. MRCP did not reveal ductal dilation with a large remnant s/p partial cholecystectomy. He is tolerating a diet. Without any signs or symptoms of infection, wanted to stop infection however shortly after I left the room he had some burning right sided pain with radiation to his back that was 4/10. Subsided after a few minutes on it's own. Will discuss with gen surgery if anything further should be done. Will cont to monitor for now. Suspect LFT elevation was from hypervolemic state on admission/congestive hepatopathy, which has resolved. (7) Transaminitis: Plan: plan as above. (8) Lymphadenopathy: Plan: Mediastinal lymphadenopathy seen on CT scan. This was initially felt to be reactive with recent history of pulmonary vein isolation procedure, however, with constitutional symptoms and recent renal infarct, malignancy needs to be ruled out. Outpatient hematology follow-up as listed above. (9) Obstructive sleep apnea: Plan: Patient reported a history of obstructive sleep apnea to [employer] specialist. This remains untreated. This may be a reason for his elevated hemoglobin which is 20 today. Rule out polycythemia per outpatient hematology work-up including JAK2 kinase mutation. Outpatient sleep follow-up recommended. (10) DVT prophylaxis: Plan: Apixaban-switch to Lovenox bridge to warfarin Full Dispo-to home when cleared by Cardiology. Suspect no cardioversion attempt to be made prior to DC given renal infarction and possible apixaban failure. Defer to Cardiology. Ondina Ruby DO [facility] Hospitalist Admission and Anticipated Discharge Date Admission Date: August 12, 2021 Subjective 56 yo M with acute systolic heart failure exacerbation with pleural effusions s/p thoracentesis presented with symptomatic atrial fibrillation with RVR with a HR in the 150s. Telemetry reveals persistent atrial fibrillation with improved rate control. Right-sided back pain is still present but improved since renal infarct Remains constipated and is very bothered by this. Miralax not helping Discussed options-going for suppository He is ambulating Feels breathing is at baseline-much improved. No chest pain Tolerating PO Review of Systems Review of Systems: All systems were reviewed and negative except as indicated in subjective above. Physical Exam Physical Exam: CONSTITUTIONAL: WNWD, vitals as above, generally well- appearing, NAD EYES: normal conjunctivae, no scleral icterus, ENT: external ear and nose normal, MMM NECK: trachea midline, RESPIRATORY: clear to auscultation bilaterally, no crackles, rales or wheezes, normal respiratory effort CARDIOVASCULAR: irregular rate and irreg rhythm, S1 and 2 heard without murmurs, gallops or rubs, no JVD, no peripheral edema, CHEST: inspection of chest was normal GASTROINTESTINAL: soft, nontender, ND, no guarding, small umbilical hernia present. MUSCULOSKELETAL: strength 5/5 throughout, head is normocephalic and atraumatic, SKIN: warm and dry, NEUROLOGIC: No facial palsy, no dysarthria. CN 2-12 grossly intact, no sensory deficit, normal cognition, normal speech, no tremor PSYCHIATRIC: alert cooperative and oriented to person, place and time. Euthymic mood, makes good eye contact, language grossly intact, recent and remote memory grossly intact. Results & Data Results & Data ([facility]) Vital Signs (Past 12 Hours) Vital Signs Temp Pulse Pulse Resp BP Pulse Ox 08/18/21 15:34 37.3 C 123 H 20 126/84 96 08/18/21 11:10 37.3 C 67 20 139/87 95 08/18/21 10:58 129 H 08/18/21 07:34 36.9 C 52 L 19 139/87 95 Laboratory Results Short CBC 08/18/21 Range/Units 06:23 WBC 14.75 H (4.8-10.8) K/uL Hgb 20.4 H (14.0-18.0) g/dL Hct 58.1 H (42-52) % Plt Count 216 (130-400) K/uL BMP 08/18/21 06:23 Sodium 133 L Potassium 5.1 D Chloride 100 Carbon Dioxide 27 BUN 17 Creatinine 1.34 Glucose 86 Calcium 9.4 Diagnostic Findings KUB X-Ray 08/18/21 16:42 XR KUB/Abdomen 1 view CLINICAL HISTORY: abdominal discomfort TECHNIQUE: 1 view of the abdomen was obtained. Comparison: None available at the time of this dictation. FINDINGS: Cardiomegaly is noted. Right upper quadrant cholecystomy clips are seen. The osseous structures are grossly unremarkable. The bowel gas pattern is nonobstructive. A moderate amount of stool is noted within the large bowel. IMPRESSION: Nonobstructive bowel gas pattern. ACT 112: Negative or not required by law. Electronically signed by: Rober Stout M.D. 08/18/2021 6:32 PM Medications Administered Current Inpatient Medications Acetaminophen (Acetaminophen 325 Mg Tab) 650 mg PO Q4H PRN PRN Reason: Moderate Pain Stop: 09/11/21 12:46 Amiodarone HCl (Amiodarone 200 Mg Tab) 400 mg PO TIDM [facility] Stop: 09/15/21 11:59 Last Admin: 08/18/21 17:11 Dose: 400 mg Documented by: Docusate Sodium (Docusate Sodium 100 Mg Cap) 100 mg PO BID [facility] Stop: 09/15/21 20:59 Last Admin: 08/18/21 08:49 Dose: 100 mg Documented by: Enoxaparin Sodium (Enoxaparin 100 Mg/1ml Syr) 90 mg SQ Q12H [facility] Stop: 09/16/21 20:59 Last Admin: 08/18/21 08:49 Dose: 90 mg Documented by: Furosemide (Furosemide 40 Mg Tab) [facility] [place] Stop: 09/15/21 09:36 Last Admin: 08/16/21 10:49 Dose: 40 mg Documented by: Glycerin (Glycerin Adult 12 Supp/Box Supp) 1 supp ID DAILY PRN PRN Reason: Constipation Stop: 09/17/21 11:57 Losartan Potassium (Losartan Potassium 50 Mg Tab) 50 mg PO [facility] Stop: 09/15/21 09:37 Last Admin: 08/16/21 10:51 Dose: 50 mg Documented by: Magnesium Chloride (Magnesium Chloride 64mg Delayed Rel Tab) 64 mg PO BID [facility] Stop: 09/13/21 10:59 Last Admin: 08/18/21 08:49 Dose: 64 mg Documented by: Metoprolol Succinate (Metoprolol Succ 50mg Ext Rel Tab) 50 mg PO [facility] Stop: 09/18/21 08:59 Ondansetron HCl (Ondansetron Inj 2 Mg/Ml 2 Ml Vial) 4 mg IV Q4H PRN PRN Reason: Nausea And Vomiting Stop: 09/11/21 12:46 Oxycodone/Acetaminophen (Oxycodone/Acetaminophen 5mg/325mg Tab) 1 tab PO Q4H PRN PRN Reason: severe pain (6-10) Stop: 08/30/21 19:44 Last Admin: 08/17/21 20:41 Dose: 1 tab Documented by: Polyethylene Glycol (Polyethylene (Miralax) 17 Gm Pack) 17 gm PO Q6H PRN PRN Reason: Constipation Stop: 09/15/21 19:43 Potassium Chloride (Potassium Chloride Crtab 20 Meq Tabcr) 20 meq PO DAILY [facility] Stop: 09/15/21 09:38 Last Admin: 08/18/21 08:51 Dose: Not Given Documented by: Warfarin Sodium (Warfarin Sod 5 Mg Tab) 5 mg PO DAILY@1600 [facility] Stop: 09/17/21 15:59 Last Admin: 08/18/21 17:10 Dose: 5 mg Documented by:
[2021-08-18] MEDS: oxyCODONE/ACETAMINOPHEN 5mg/325mg TAB PO PRN (20:38)
[2021-08-19 06:00] LABS: Hematocrit (blood only) 54.1 % (42-52); Hemoglobin 18.5 g/dL (14.0-18.0); Mean Corpuscular Hemoglobin 37.4 pg (25-34); Mean Corpuscular Hgb Conc 34.2 g/dL (32-36); Mean Corpuscular Volume 109.5 fL (80-100); Platelet Count 226 K/uL (130-400); RDW Coefficient of Variation 13.5 % (11.5-14.5); RDW Standard Deviation 54.5 fL (36.4-46.3); Red Blood Count 4.94 M/uL (4.7-6.1); White Blood Count 12.27 K/uL (4.8-10.8)
[2021-08-19 06:08] LABS: INR 1.2 (0.9-1.1); Prothrombin Time 12.4 Seconds (9.0-12.0)
[2021-08-19 06:31] LABS: Creatinine Clr Calc Pharmacy 74.7 ml/min; Est GFR (African American) 76.1 ml/min; Est GFR (Non-African American) 65.7 ml/min
[2021-08-19] MEDS ORDERED: AMIODARONE 200 MG TAB PO SCH ×2 (08:00→17:00)
[2021-08-19] MEDS: DOCUSATE SODIUM 100 MG CAP PO SCH (08:10)
[2021-08-19] MEDS: MAGNESIUM CHLORIDE 64MG DELAYED REL TAB PO SCH (08:11)
[2021-08-19] MEDS: ENOXAPARIN 100 MG/1ML SYR SQ SCH (08:12)
[2021-08-19] MEDS: AMIODARONE 200 MG TAB PO SCH (08:18)
[2021-08-19] MEDS ORDERED: METOPROLOL SUCC 50MG EXT REL TAB PO SCH (09:00)
--- NOTE | 2021-08-19 10:42 | Cardiology Progress Note ---
Date of Service August 19, 2021 Assessment & Plan (1) Chronic anticoagulation: (2) Heart failure: (3) HFrEF (heart failure with reduced ejection fraction): (4) Polycythemia: (5) PAF (paroxysmal atrial fibrillation): Plan: The patient can be discharged home to outpatient follow-up. I will arrange follow-up with our clinic. He can be discharged on amiodarone 200 mg twice daily. He will need a bridge until his warfarin is therapeutic. He should return home on metoprolol succinate, losartan and Lasix. Admission and Anticipated Discharge Date Admission Date: August 12, 2021 Subjective The patient had an uneventful night. He has been walking in the hallway. He converted to sinus rhythm spontaneously yesterday. Review of Systems Review of Systems: Review of Systems: See HPI for pertinent positives. All other 10 point review of systems are negative. Physical Exam Physical Exam: General: no acute distress and stated age Head: normocephalic, no masses, lesions, tenderness or abnormalities Eyes: conjunctiva are pink and non-injected, sclera clear Neck: supple, no adenopathy, no bruits, normal jugular venous pulse, no hepatojugular reflux Chest: normal shape and normal respiratory effort Lungs: clear to auscultation and percussion Cardiac Exam: - regular rate & rhythm, no murmurs gallops or rubs - normal S1, normal S2 Pulses: 2(+) throughout Abdomen: abdomen soft, non-tender, no abnormal masses and no hepatosplenomegaly Musculoskeletal: no gait disturbance, no joint inflammation, no deforming arthritis Extremities: no edema and no cyanosis Neuro: grossly normal exam Results & Data ([facility]) Vital Signs (Past 12 Hours) Vital Signs Temp Pulse Pulse Resp BP Pulse Ox 08/19/21 10:12 85 08/19/21 08:00 36.9 C 84 18 121/71 98 08/19/21 03:09 36.8 C 86 18 112/80 99 08/18/21 22:56 83 08/18/21 22:49 36.9 C 82 18 115/81 95 Laboratory Results Laboratory Results - last 24 hr 08/13/21 08/19/21 08/19/21 Unknown 05:41 05:41 WBC 12.27 H RBC 4.94 Hgb 18.5 H Hct 54.1 H MCV 109.5 H MCH 37.4 H MCHC 34.2 RDW Std Deviation 54.5 H RDW Coeff of Dagmar 13.5 Plt Count 226 MPV 10.0 PT 12.4 H INR 1.2 H Creatinine Est Cr Clr Drug Dosing Est GFR ( Amer) Est GFR (Non-Af Amer) Erythropoietin Pleural Cholesterol 19 08/19/21 08/19/21 05:41 09:28 WBC RBC Hgb Hct MCV MCH MCHC RDW Std Deviation RDW Coeff of Dagmar Plt Count MPV PT INR Creatinine 1.23 Est Cr Clr Drug Dosing 74.7 Est GFR ( Amer) 76.1 Est GFR (Non-Af Amer) 65.7 Erythropoietin Cancelled Pleural Cholesterol Medications Administered Current Inpatient Medications Acetaminophen (Acetaminophen 325 Mg Tab) 650 mg PO Q4H PRN PRN Reason: Moderate Pain Stop: 09/11/21 12:46 Amiodarone HCl (Amiodarone 200 Mg Tab) 200 mg PO BIDM [facility] Stop: 09/18/21 16:59 Docusate Sodium (Docusate Sodium 100 Mg Cap) 100 mg PO BID [facility] Stop: 09/15/21 20:59 Last Admin: 08/19/21 08:10 Dose: 100 mg Documented by: Enoxaparin Sodium (Enoxaparin 100 Mg/1ml Syr) 90 mg SQ Q12H [facility] Stop: 09/16/21 20:59 Last Admin: 08/19/21 08:12 Dose: 90 mg Documented by: Furosemide (Furosemide 20 Mg Tab) [facility] Stop: 09/18/21 10:44 Glycerin (Glycerin Adult 12 Supp/Box Supp) 1 supp PA DAILY PRN PRN Reason: Constipation Stop: 09/17/21 11:57 Losartan Potassium (Losartan Potassium 25 Mg Tab) 25 mg PO [facility] Stop: 09/18/21 10:44 Magnesium Chloride (Magnesium Chloride 64mg Delayed Rel Tab) 64 mg PO BID [facility] Stop: 09/13/21 10:59 Last Admin: 08/19/21 08:11 Dose: 64 mg Documented by: Metoprolol Succinate (Metoprolol Succ 50mg Ext Rel Tab) [facility] Stop: 09/18/21 08:59 Last Admin: 08/19/21 08:12 Dose: 50 mg Documented by: Ondansetron HCl (Ondansetron Inj 2 Mg/Ml 2 Ml Vial) 4 mg IV Q4H PRN PRN Reason: Nausea And Vomiting Stop: 09/11/21 12:46 Oxycodone/Acetaminophen (Oxycodone/Acetaminophen 5mg/325mg Tab) 1 tab PO Q4H PRN PRN Reason: severe pain (6-10) Stop: 08/30/21 19:44 Last Admin: 08/18/21 20:38 Dose: 1 tab Documented by: Polyethylene Glycol (Polyethylene (Miralax) 17 Gm Pack) 17 gm PO Q6H PRN PRN Reason: Constipation Stop: 09/15/21 19:43 Warfarin Sodium (Warfarin Sod 5 Mg Tab) 5 mg PO DAILY@1600 [facility] Stop: 09/17/21 15:59 Last Admin: 08/18/21 17:10 Dose: 5 mg Documented by:
[2021-08-19] MEDS ORDERED: LOSARTAN POTASSIUM 25 MG TAB PO SCH (10:45)
[2021-08-19] MEDS ORDERED: FUROSEMIDE 20 MG TAB PO SCH (10:45)
--- NOTE | 2021-08-19 14:34 | Discharge Summary ---
Date of Service August 19, 2021 Admission HPI Per Admitting Provider This is a 56 yo M with PMhx of atrial fibrillation, and ICM, history of left atrial thrombus, cardiomyopathy, hx of gallbladder resection in 2002 with associated pancreatitis, who presents with acute onset of palpitations and not feeling well. The symptoms started approximately 1 week ago primarily with increased shortness of breath. This has progressed to the point where he is unable to go up 1-2 steps on a flight of stairs without becoming winded. He admits to orthopnea within the past few days. He felt increased palpitations this morning and felt that he was sending himself into a panic attack (but denies previous history of anxiety or depression). Patient notes that he had a cardiac ablation in May, and that it was successful for approximately 1 week and then he felt himself go back into A. fib. Today when he presented to the ER he was found to be in A. fib with RVR with a heart rate of 140s to 150s. He was started on a Cardizem drip which has significantly improved HR, and heart rate is down into the mid 80s while at bedside. He denies any chest pain, radiation of pain, heaviness or shortness of breath currently. He does note that his shortness of breath is not significantly improved at this point in time. He admits to having some right upper quadrant abdominal pain as well, but had previous gallbladder surgery in 2002 where he was also diagnosed at the same time with pancreatitis. He denies any abdominal surgeries. Admits to drinking alcohol daily, 1-2 beers. He last drank a beer last night. Patient complains of an umbilical hernia which he would like to get fixed. He reports no changes in oral intake, but yesterday vomited after drinking a large glass of cold water in the morning, however this is nothing out of the ordinary as he does every morning. He also admits to having constipation within the past 3 days. Denies diarrhea. He feels bloated and distended in his abdomen today. Admission Exam Per Admitting Provider General: awake, alert, no apparent distress, obese with BMI 32.1, appears red faced Head: Normocephalic, atraumatic ENT: PERRL, EOMI, no pharyngeal exudate, mucous membranes moist Chest: Absent breath sounds at bases bilaterally, difficulty taking deep breaths but good aeration throughout otherwise, on room air, no adventitious breath sounds Cardiac: Irregularly irregular, rate controlled in mid 80s, no murmur, no JVD, normal peripheral pulses, good capillary refill Abdominal: NABS x 4 quadrants, soft, + distended, +tender to palpation in RUQ and at umbilical hernia, no rebound or guarding Extremities: Normal inspection, no peripheral edema or erythema, calfs nontender to palpation Psych: Normal mood and affect Neuro: AAO x 3, strength intact bilaterally and rated 5/5, no motor deficits, speech is clear, no peripheral sensory deficits Principal Diagnosis Chronic anticoagulation Acute heart failure with reduced ejection fraction Polycythemia Paroxysmal atrial fibrillation with rapid ventricular response Acute renal infarction Bilateral pleural effusion status post right-sided thoracentesis Transaminitis Mediastinal lymphadenopathy Obstructive sleep apnea Discharge Exam CONSTITUTIONAL: WNWD, vitals as above, generally well-appearing, NAD EYES: normal conjunctivae, no scleral icterus, ENT: external ear and nose normal, MMM NECK: trachea midline, RESPIRATORY: clear to auscultation bilaterally, no crackles, rales or wheezes, normal respiratory effort CARDIOVASCULAR: irregular rate and irreg rhythm, S1 and 2 heard without murmurs, gallops or rubs, no JVD, no peripheral edema, CHEST: inspection of chest was normal GASTROINTESTINAL: soft, nontender, ND, no guarding, small umbilical hernia present. MUSCULOSKELETAL: strength 5/5 throughout, head is normocephalic and atraumatic, SKIN: warm and dry, NEUROLOGIC: No facial palsy, no dysarthria. CN 2-12 grossly intact, no sensory deficit, normal cognition, normal speech, no tremor PSYCHIATRIC: alert cooperative and oriented to person, place and time. Euthymic mood, makes good eye contact, language grossly intact, recent and remote memory grossly intact. Discharge Data Allergies Allergy/AdvReac Type Severity Reaction Status Date / Time No Known Allergies Allergy Verified 08/12/21 07:44 Consultations 08/12/21 08:50 ED Decision to Admit Stat 08/12/21 10:07 Consult Gastroenterology Routine 08/12/21 10:12 Consult Pulmonology Routine 08/12/21 12:47 Consult Cardiology Routine 08/17/21 10:33 Consult Oncology Routine Ordered Studies Laboratory Results WBC 12.27 K/uL (4.8-10.8) H 08/19/21 05:41 RBC 4.94 M/uL (4.7-6.1) 08/19/21 05:41 Hgb 18.5 g/dL (14.0-18.0) H 08/19/21 05:41 Hct 54.1 % (42-52) H 08/19/21 05:41 MCV 109.5 fL (80-100) H 08/19/21 05:41 MCH 37.4 pg (25-34) H 08/19/21 05:41 MCHC 34.2 g/dL (32-36) 08/19/21 05:41 RDW Std Deviation 54.5 fL (36.4-46.3) H 08/19/21 05:41 RDW Coeff of Dagmar 13.5 % (11.5-14.5) 08/19/21 05:41 Plt Count 226 K/uL (130-400) 08/19/21 05:41 MPV 10.0 fL (7.4-10.4) 08/19/21 05:41 Immature Gran % (Auto) 0.4 % 08/16/21 16:24 Neut % (Auto) 71.8 % 08/16/21 16:24 Lymph % (Auto) 16.2 % 08/16/21 16:24 Murray % (Auto) 10.1 % 08/16/21 16:24 Eos % (Auto) 1.1 % 08/16/21 16:24 Baso % (Auto) 0.4 % 08/16/21 16:24 Neut # (Auto) 8.14 K/uL (1.4-6.5) H 08/16/21 16:24 Lymph # (Auto) 1.84 K/uL (1.2-3.4) 08/16/21 16:24 Murray # (Auto) 1.14 K/uL (0.11-0.59) H 08/16/21 16:24 Eos # (Auto) 0.13 K/uL (0-0.5) 08/16/21 16:24 Baso # (Auto) 0.04 K/uL (0-0.2) 08/16/21 16:24 Immature Gran # (Auto) 0.05 K/uL (0.00-0.02) H 08/16/21 16:24 PT 12.4 Seconds (9.0-12.0) H 08/19/21 05:41 INR 1.2 (0.9-1.1) H 08/19/21 05:41 APTT 28.6 Seconds (21.0-31.0) 08/14/21 06:30 PTT Ratio 1.1 08/14/21 06:30 ABG pH 7.40 (7.35-7.45) 08/12/21 08:48 ABG pCO2 29 mmHg (35-46) L 08/12/21 08:48 ABG pO2 85 mmHg (80-95) 08/12/21 08:48 ABG HCO3 18 mmol/L (19-24) L 08/12/21 08:48 ABG O2 Saturation 96.7 % (90-95) H 08/12/21 08:48 ABG Base Excess -5.1 mEq/L (-9-1.8) 08/12/21 08:48 Quentin Test Pos (Pos) 08/12/21 08:48 Methemoglobin 1.1 % (0.0-1.5) 08/12/21 08:39 Barometric Pressure 729.4 mm/Hg 08/12/21 08:48 Oxygen Given ROOM AIR 08/12/21 08:48 Sodium 133 mmol/L (136-145) L 08/18/21 06:23 Potassium 5.1 mmol/L (3.5-5.1) D 08/18/21 06:23 Chloride 100 mmol/L (98-107) 08/18/21 06:23 Carbon Dioxide 27 mmol/L (21-32) 08/18/21 06:23 Anion Gap 6.0 (3-11) 08/18/21 06:23 BUN 17 mg/dl (7-18) 08/18/21 06:23 Creatinine 1.23 mg/dl (0.6-1.4) 08/19/21 05:41 Est Cr Clr Drug Dosing 74.7 ml/min 08/19/21 05:41 Est GFR ( Amer) 76.1 ml/min 08/19/21 05:41 Est GFR (Non-Af Amer) 65.7 ml/min 08/19/21 05:41 BUN/Creatinine Ratio 12.7 (10-20) 08/18/21 06:23 Glucose 86 mg/dl (70-99) 08/18/21 06:23 Estimat Average Glucose 100 mg/dl 08/13/21 07:03 Hemoglobin A1c 5.1 % (4.5-5.6) 08/13/21 07:03 Lactate 1.5 mmol/L (0.4-2.0) 08/16/21 16:24 Calcium 9.4 mg/dl (8.5-10.1) 08/18/21 06:23 Phosphorus 3.7 mg/dl (2.5-4.9) 08/15/21 06:58 Magnesium 2.1 mg/dl (1.8-2.4) 08/16/21 16:24 Erythropoietin Cancelled 08/19/21 09:28 Total Bilirubin 2.0 mg/dl (0.2-1) H D 08/17/21 06:00 Direct Bilirubin 0.4 mg/dl (0-0.2) H D 08/17/21 09:28 AST 63 U/L (15-37) H 08/17/21 07:32 ALT 58 (12-78) 08/17/21 06:00 Alkaline Phosphatase 133 U/L (45-117) H 08/17/21 06:00 Lactate Dehydrogenase 159 U/L (87-241) 08/13/21 10:18 Troponin I < 0.015 ng/ml (0-0.045) 08/12/21 06:55 Total Protein 7.9 gm/dl (6.4-8.2) 08/17/21 06:00 Albumin 3.3 gm/dl (3.4-5.0) L 08/17/21 06:00 Globulin 4.2 gm/dl (2.5-4.0) H 08/16/21 16:24 Albumin/Globulin Ratio 0.8 (0.9-2) L 08/16/21 16:24 Triglycerides 62 mg/dl (0-150) 08/13/21 07:03 Cholesterol 147 mg/dl (0-200) 08/13/21 07:03 LDL Cholesterol, Calc 101 mg/dl 08/13/21 07:03 VLDL Cholesterol, Calc 12 mg/dl 08/13/21 07:03 HDL Cholesterol 34 mg/dl 08/13/21 07:03 Cholesterol/HDL Ratio 4 08/13/21 07:03 Lipase 269 U/L (73-393) 08/12/21 06:55 Lipase Cancelled 08/12/21 06:55 Prostate Specific Ag 0.708 ng/ml (0-4) 08/12/21 07:28 Specimen Hemolysis 08/17/21 07:32 Fluid Neutrophils % 26 % 08/13/21 Unknown Fluid Lymphocytes % 20 % 08/13/21 Unknown Fluid Eosinophils % 0 % 08/13/21 Unknown Fluid Meso/Macro/Murray % 54 % 08/13/21 Unknown Fluid Comment 08/13/21 Unknown Pleural Fluid Source RIGHT LUNG 08/13/21 Unknown Pleural Color RED 08/13/21 Unknown Pleural Appearance BLOODY 08/13/21 Unknown Pleural pH 7.45 (7.3-7.4) H 08/13/21 Unknown Pleural WBC 419 /uL 08/13/21 Unknown Pleural RBC 48956 /uL 08/13/21 Unknown Pleural Total Protein 1.2 g/dl 08/13/21 Unknown Pleural LDH 46 U/L 08/13/21 Unknown Pleural Glucose 127 mg/dl 08/13/21 Unknown Pleural Amylase 12 U/L 08/13/21 Unknown Pleural Cholesterol 19 mg/dL 08/13/21 Unknown SARS-CoV-2 (PCR) NEGATIVE (Negative) 08/12/21 08:26 Hepatitis A IgM Ab NON-REACTIVE (NON-REACTIVE) 08/12/21 07:28 Hep Bs Antigen Neg (Neg) 08/12/21 07:28 Hep B Core IgM Ab NON-REACTIVE (NON-REACTIVE) 08/12/21 07:28 Hepatitis C Antibody Neg (Neg) 08/12/21 07:28 Influenza Type A (PCR) Negative (Neg) 08/12/21 08:26 Influenza Type B (PCR) Negative (Neg) 08/12/21 08:26 RSV (RT-PCR) Negative (Neg) 08/12/21 08:26 Impressions Chest CTA 08/12/21 08:02 CT angio chest PE protocol CLINICAL HISTORY: Shortness of breath and chest pain. Evaluate for pulmonary embolus. COMPARISON STUDY: 01/21/2020 CT DOSE: 585.34 mGy.cm TECHNIQUE: CT Angio of the chest was performed.followed by image post processing with coronal, and sagittal MIP reformats. Contrast Volume: Optiray 320, 94 ml FINDINGS: Vasculature: There is homogeneous perfusion of the pulmonary vasculature bilaterally. No intraluminal filling defects or evidence for pulmonary embolus is seen. Airway: The airway is clear. No endobronchial lesion is identified. Lungs and pleural: Compared to previous examination, there are now moderate- sized bilateral pleural effusions, right greater than left. There is associated mild bibasilar atelectasis, right greater than left. The lungs are otherwise clear of acute alveolar opacities, air bronchograms or pulmonary nodules. Mediastinum: Compared to previous examination, there has been interval development of extensive superior mediastinal, prevascular, AP window and para tracheal adenopathy. This represents significant interval worsening from the previous study with the differential diagnosis including metastatic disease versus lymphoma. The largest lymph node measures approximately 2.3 x 1.4 cm. Heart size is enlarged. The thoracic aorta is within normal limits. There is no evidence for pericardial effusion. Upper abdomen:There is also been interval development of retrocrural adenopathy. Osseous structures: There is no acute osseous pathology. Impression: 1. No CTA evidence for pulmonary embolus. 2. Interval development of moderate-sized bilateral pleural effusions, right greater than left with bibasilar atelectasis, right greater than left. 3. Significant interval enlargement of mediastinal, prevascular and paratracheal lymph nodes characteristic of metastatic disease versus lymphoma. Follow-up PET/CT is recommended. 4. There is also been interval development of a retrocrural lymph node on the right. 5. Cardiomegaly. ACT 112: Positive. There are findings on this exam that require communication between the performing entity and the patient following Patient Test Result Information Act ([place] Act 112) guidelines. Electronically signed by: Hollis Pedersen M.D. 08/12/2021 8:29 AM Liver Ultrasound 08/12/21 10:04 ABDOMINAL ULTRASOUND, RIGHT UPPER QUADRANT HISTORY: Right upper quadrant pain. evaluate ?remnant gallbladder, pneumobilia. COMPARISON: Abdomen and pelvis CT 08/12/2021. FINDINGS: Pancreas: The pancreas demonstrates a normal echotexture. Liver: Unremarkable. Gallbladder: By report the patient is status post mastectomy. The large gallbladder remnant remaining. There is a slightly irregular and thickened wall measuring up to 4 mm. No definite stones identified. Surgical clips seen at the fundus. Evidence for pneumobilia. Negative sonographic Kirby sign. CBD: 4 mm. Right kidney: No hydronephrosis. IMPRESSION: 1. There is a large gallbladder remnant remaining status post cholecystectomy which demonstrates a slightly irregular and thickened wall. No definite gallstones. This is nonspecific could be due to the patient's diffuse edematous state. A cholecystitis is not excluded but is considered less likely given the negative sonographic Kirby sign. 2. Normal caliber common bile duct. ACT 112: Negative or not required by law. Electronically signed by: Jorge Alberto Milner M.D. 08/12/2021 11:10 AM Cholangiopancreatography MRI 08/12/21 10:28 MRCP CLINICAL HISTORY: Eval gallbladder, CBD, hx partial resection TECHNIQUE: Utilizing a 1.5 Michelle magnet and dedicated coil, multiplanar, multiecho imaging of the upper abdomen was performed utilizing heavily T2 weighted pulsing sequences without IV contrast. COMPARISON STUDY: CT of the abdomen and pelvis and right upper quadrant ultrasound performed earlier today. FINDINGS: A 4.5 x 2.9 cm T2 hyperintense focus within the gallbladder fossa likely reflects a gallbladder remnant status post partial cholecystectomy. Trace pneumobilia and trace gas within the gallbladder is better depicted on abdominal CT performed earlier today. Mild gallbladder wall thickening is again noted. There is trace perihepatic ascites. No biliary ductal dilatation is present. Note is made of probable wall thickening of the common bile duct. This was likely present on earlier chest CT of January 21, 2020. Sensitivity for detection of common bile duct calculi is diminished given motion artifact on the 3-D MRCP sequence. However, no definite common bile duct calculi are identified. No hepatic lesions are identified on this unenhanced exam. The size of the spleen is normal. Unenhanced images of the adrenal glands, left kidney and pancreas are unremarkable. There is no peripancreatic infiltration or fluid. The course and caliber of the main pancreatic duct are normal. There is a 1.1 cm T2 hyperintense lesion within the upper pole the right kidney. This is suboptimally assessed on this unenhanced exam but probably reflects a cyst. Several mildly enlarged upper abdominal lymph nodes are similar to chest CT of January 21, 2020. The caliber of visualized small and large bowel are normal. Bilateral pleural effusions, right larger left, are incidentally noted. Cardiomegaly is present. IMPRESSION: 1. No biliary ductal dilatation. Nonspecific wall thickening of the common bile duct. No common bile duct calculi identified although sensitivity diminished on this exam. 2. Large gallbladder remnant status post partial cholecystectomy. Mild gallbladder wall thickening, a nonspecific finding. 3. Mild upper abdominal lymphadenopathy. 4. Bilateral pleural effusions, right larger than left. Cardiomegaly. ACT 112: Negative or not required by law. Electronically signed by: Gerry Adhikari M.D. 08/12/2021 1:27 PM Chest X-Ray 08/13/21 14:31 XR chest 1V portable HISTORY: 56 years-old Male S/P Thoracentesis follow-up study in a patient with pleural effusion and recent thoracentesis COMPARISON: CTA chest 08/12/2021 TECHNIQUE: Portable AP view of the chest FINDINGS: Right axilla is enlarged. Small left and trace right pleural effusions. Mild left lung base opacities. There is no pneumothorax or overt pulmonary edema. Bones appear grossly intact. IMPRESSION: 1. No postprocedural pneumothorax. 2. Trace right and small left pleural effusions with left lung base opacities suggestive of atelectasis versus pneumonitis. ACT 112: Negative or not required by law. The above report was generated using voice recognition software. It may contain grammatical, syntax or spelling errors. Electronically signed by: Miguel Angel Chaudhary M.D. 08/13/2021 2:47 PM Abdomen/Pelvis CT 08/16/21 16:[address] WITH IV CONTRAST CT DOSE: 489.23 mGy.cm HISTORY: Acute severe right-sided back pain R severe abd pain, rad to back TECHNIQUE: Multiaxial CT images of the abdomen and pelvis were performed following the IV administration of 93 cc of Optiray, A dose lowering technique was utilized adhering to the principles of ALARA. COMPARISON STUDY: MRCP and CT abdomen and pelvis 08/12/2021 FINDINGS: Trace pleural effusions. Clear lung bases. No pneumatosis or pneumoperitoneum. Cardiomegaly. Unremarkable spleen, pancreas and adrenal glands. Partial cholecystectomy with trace air within the gallbladder lumen redemonstrated. There is decreased wall thickening and enhancement of the extrahepatic biliary tree with decreased size of the periportal and portacaval lymph nodes now measuring up to 1.6 cm. Unremarkable liver. 5 mm nonobstructing calculus of the interpolar left kidney. No ureteral calculi or hydronephrosis. There is an acute infarct of the inferior pole right kidney measuring up to 4.5 cm in greatest dimension with occlusion of the accessory renal artery of the inferior pole comminuted from 08/12/2021. Trace reactive perinephric edema. Mild prostamegaly. Partial distention of the urinary bladder. Atherosclerosis of the aorta without aneurysm. No adenopathy. No bowel obstruction or bowel wall thickening. No CT evidence of acute appendicitis. Tiny fat filled periumbilical hernia, diastases 1.7 cm. Mild generalized body wall edema. There is no acute fracture. Minimal lumbar levoscoliosis. IMPRESSION: 1. 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 2. Partial cholecystectomy with trace pneumobilia redemonstrated. 3. Decreased wall thickening and enhancement of the extrahepatic biliary tree. 4. Nonobstructing left renal calculus. 5. Additional findings as above. ACT 112: Negative or not required by law. The above report was generated using voice recognition software. It may contain grammatical, syntax or spelling errors. Electronically signed by: Miguel Angel Chaudhary M.D. 08/16/2021 6:42 PM KUB X-Ray 08/18/21 16:42 XR KUB/Abdomen 1 view CLINICAL HISTORY: abdominal discomfort TECHNIQUE: 1 view of the abdomen was obtained. Comparison: None available at the time of this dictation. FINDINGS: Cardiomegaly is noted. Right upper quadrant cholecystomy clips are seen. The osseous structures are grossly unremarkable. The bowel gas pattern is nonobstructive. A moderate amount of stool is noted within the large bowel. IMPRESSION: Nonobstructive bowel gas pattern. ACT 112: Negative or not required by law. Electronically signed by: Rober Stout M.D. 08/18/2021 6:32 PM Hospital Course (1) Atrial fibrillation with RVR: (2) HFrEF (heart failure with reduced ejection fraction): (3) Bilateral pleural effusion: (4) Renal infarction: (5) Pneumobilia: (6) Transaminitis: (7) Lymphadenopathy: (8) Obstructive sleep apnea: (9) Polycythemia: Recent PVI in May 2021-reports hasn't felt well since that time. P resented in atrial fibrillation with rapid ventricular response. Found to have acute systolic heart failure on echocardiogram and required intravenous furosemide. Cardiology consulted and recommended stopping sotalol and starting amiodarone. He required thoracentesis on the right performed on 08/13/21. Fluid analysis revealed a bloody transudate with no evidence for malignancy on path review. Mediastinal LAD was noted with unclear etiology. In setting of thrombocytopenia, developement of acute renal infarction prior to spontaneous conversion to sinus rhythm and recent constitutional symptoms hematology was consulted. There was concern for malignancy, therefore, he will be set up for outpatient hematology followup for a lymph node biopsy and PET scan. JAK2 kinase mutation will also be checked at that time. He was thought to have failed apixaban and was switched to warfarin with a Lovenox bridge on discharge. Follow-up with an anticoagulation clinic at the [facility] where he sees primary care is recommended with warfarin titration for goal INR 2-3. He was very painful from his acute renal infarct which occurred on 08/16. CT revealed acute infarct of the inferior pole right kidney secondary to occlusion of the inferior pole accessory renal artery. He required some narcotics and subsequently became severely constipated requiring laxatives. Around the time he had a BM, he also spontaneously converted to sinus rhythm. On discharge he was continued on guideline-directed medial therapy with metoprolol succinate, losartan, and will be given daily Lasix. As a result, he will need a repeat BMP in 1-2 weeks to monitor renal function and electrolytes. Slightly elevated LFTs on admission, however, no RUQ pain and remains afebrile without leukocytosis. Was initially placed on Zosyn, transitioned to Augmentin. Pt was seen by general surgery with no plans for intervention at this time. MRCP did not reveal ductal dilation with a large remnant s/p partial cholecystectomy. He is tolerating a diet. Without any signs or symptoms of infection, antibiotics were stopped. Suspect LFT elevation was from hypervolemic state on admission/congestive hepatopathy, which has resolved. Patient reported a history of obstructive sleep apnea to business specialist. This remains untreated. This may be a reason for his elevated hemoglobin which is 20. Rule out polycythemia per outpatient hematology work-up including JAK2 kinase mutation. Outpatient sleep follow-up recommended. Total Time Total Time Spent Total Time Spent (In Minutes): 60 Discharge Plan Discharge Items Patient Disposition: Home - Self-Care Reason For Visit: AFIB WITH RVR Discharge Diagnosis: Chronic anticoagulation Acute heart failure with reduced ejection fraction Polycythemia Paroxysmal atrial fibrillation with rapid ventricular response Acute renal infarction Bilateral pleural effusion status post right-sided thoracentesis Transaminitis Mediastinal lymphadenopathy Obstructive sleep apnea Condition on Discharge: Good Activity: Resume your previous activity Non-emergency contact: Primary Care Provider Call non-emergency contact if: you have any medication questions, your symptoms worsen, your pain is not controlled, your pain is worsening, your pain is unusual for you, your pain is concerning for you and you have a fever Follow-up/Referrals: Julián Penaloza, [Physician] - (Please call to schedule follow up in surgery clinic in the next couple of weeks for scheduling of umbilical hernia repair) Dahlia Youssef D.O. [Primary Care Provider] - Diet: Low Sodium (2gm) Addtl Attending Provider Instructions: Please take all medications as instructed on discharge list below. Blood work is recommended in 2 weeks, ordered by primary care, which checks on your kidney function and electrolytes after starting this new medication. You have been taken off apixaban and placed on Lovenox bridge to warfarin. When your INR is 2-3 reliably, you may stop the twice daily subcutaneous lovenox injections. Please followup with your primary care physician (PCP) regarding titration of your warfarin dose to achieve goal INR 2-3. Next INR check should be within 5 days. Please followup with [facility], Dr. Mayito Atkinson, regarding fo llowup lymph node biopsy and PET scan. Please follow-up with [facility]iology as instructed. Their office should be contacting you with the time and date. It is recommended that you follow-up with sleep medicine for further evaluation of your obstructive sleep apnea. Please follow-up with your primary care physician within 1 week of discharge to ensure all referrals are in place, bloodwork is ordered, you are hooked into an anticoagulation clinic to monitor your warfarin levels (INR) and to ensure that you are doing well after returning home. It was a pleasure taking care of you! Please call if you have any questions or problems. You can reach a [facility] hospitalist on duty at [facility] 24 hours a day by calling [phone]. Take care of yourself. Ondina Ruby, [facility] Hospitalist Pending Studies at Discharge: No Stand-Alone Forms: My [facility] Medications and DC Order Prescriptions: New enoxaparin 100 mg/mL Syringe 90 mg subcut Q12H Qty: 10 RF: 0 warfarin 5 mg Tablet 5 mg PO DAILY@1600 Qty: 30 RF: 0 amiodarone 200 mg Tablet 200 mg PO BIDM Qty: 60 RF: 0 losartan 25 mg Tablet 25 mg PO QAM Qty: 30 RF: 0 metoprolol succinate 50 mg Tablet Extended Release 24 Hr 50 mg PO QAM Qty: 30 RF: 0 furosemide 20 mg Tablet 20 mg PO QAM Qty: 30 RF: 0 docusate sodium 100 mg Capsule 100 mg PO BID Qty: 30 RF: 0 polyethylene glycol 3350 [Miralax] 17 gram Powder In Packet 17 g PO Q6H PRN (Reason: constipation) Qty: 14 RF: 0 Discontinued Eliquis 5 mg Tablet 5 mg PO BID Qty: 60 RF: 0 sotalol 80 mg Tablet 80 mg PO BID Qty: 180 RF: 5 Discharge Orders: Discharge Order (Routine); Ordered 08/19/21 Ordered By: Ondina Ruby Admission Data Admit Date/Time: 08/12/21 09:41 Attending Provider: Ondina Ruby Admit Provider: Howard Lao Primary Care Provider: Dahlia Youssef Other Providers: Qian Cook ; Howard Lao ; Humphrey Villeda ; Maxime Alberto ; Fred Morales V.
[2021-08-19] MEDS: WARFARIN SOD 5 MG TAB PO SCH (15:41)
== END 2021-08-19 16:16 | disposition home or self-care (01) | DRG 308 ==
LOC: ED 06:18 → SUATTDRO 09:41 → EDINP 09:41 → 2S 23:07